=== PATIENT | male | born 1940 | race Caucasian/White ===

== ENCOUNTER → 2019-04-26 09:42 | Outpatient (BNVA) | payer MEDICARE, OTHER, SELFPAY | PROVIDERS: Family Provider Nurse Practitioner Family; PCP Nurse Practitioner Family; Visit Provider Internal Medicine Endocrinology, Diabetes & Metabolism | DX: E11.65 Type 2 diabetes mellitus with hyperglycemia (principal); Z79.4 Long term (current) use of insulin; D64.9 Anemia, unspecified | CPT/HCPCS: 80053; 80061; 82044; 83036; 85025 ==

== ENCOUNTER 2019-06-15 09:08 | Outpatient (CLI) | payer MEDICARE, OTHER, SELFPAY ==
--- NOTE | 2019-06-15 09:30 | XR_ITS ---
WS: [id number] KUB, 06/15/2019 Clinical Data: renal calculus Comparison: KUB, 09/15/2018. Findings: There are calcifications overlying the right kidney in the right upper quadrant which have a well-def ined rim and a lower density center. The largest of these measures 2.04 cm. These could be in the he patic flexure. No small renal calculi are seen. There are no left renal calculi noted. There are no definite uretera l calculi or or pelvic calculi. There are phleboliths in the pelvis. Degenerative changes of the lumb ar spine is seen. There is fecal material in the colon. XR/XR KUB [id number] Impression: 1. Calcifications in the right upper quadrant which may be in the hepatic flexu re. 2. Negative for definite renal or ureteral calculi.
== END 2019-06-15 09:09 | disposition home or self-care (01) ==
LOC: RAD 09:13
PROVIDERS: Visit Provider Urology
DX: N20.0 Calculus of kidney (principal)
CPT/HCPCS: 74018; 81001

== ENCOUNTER 2019-08-18 07:06 | Outpatient (CLI) | payer MEDICARE, OTHER, SELFPAY ==
--- NOTE | 2019-08-18 07:12 | USCV_ITS ---
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 Dr Prosper Suero MD FAC (Electronically Signed) Final Date: 18 Aug 2019 09:48 S
== END 2019-08-18 07:07 | disposition home or self-care (01) ==
LOC: RAD 07:10
PROVIDERS: PCP Family Medicine; Visit Provider Internal Medicine Cardiovascular Disease
DX: I73.9 Peripheral vascular disease, unspecified (principal); I25.810 Atherosclerosis of coronary artery bypass graft(s) without angina pectoris
CPT/HCPCS: 93922

== ENCOUNTER → 2019-11-12 09:54 | Outpatient (BNVA) | payer MEDICARE, OTHER, SELFPAY | PROVIDERS: PCP Family Medicine; Visit Provider Internal Medicine | DX: E11.51 Type 2 diabetes mellitus with diabetic peripheral angiopathy without gangrene (principal); Z79.4 Long term (current) use of insulin; E78.2 Mixed hyperlipidemia; I10 Essential (primary) hypertension; E11.59 Type 2 diabetes mellitus with other circulatory complications; I25.10 Atherosclerotic heart disease of native coronary artery without angina pectoris; E11.42 Type 2 diabetes mellitus with diabetic polyneuropathy | CPT/HCPCS: 99203 ==

== ENCOUNTER → 2019-11-19 10:41 | Outpatient (BNVA) | payer MEDICARE, OTHER, SELFPAY | PROVIDERS: PCP Family Medicine; Visit Provider Family Medicine | DX: E11.51 Type 2 diabetes mellitus with diabetic peripheral angiopathy without gangrene (principal); Z79.4 Long term (current) use of insulin; E11.59 Type 2 diabetes mellitus with other circulatory complications; I25.10 Atherosclerotic heart disease of native coronary artery without angina pectoris; D50.9 Iron deficiency anemia, unspecified; E78.2 Mixed hyperlipidemia; I10 Essential (primary) hypertension; K59.09 Other constipation | CPT/HCPCS: 80053; 80061; 83036; 85025 ==

== ENCOUNTER → 2019-12-14 08:07 | Outpatient (BNVA) | payer MEDICARE, OTHER, SELFPAY | PROVIDERS: PCP Family Medicine; Visit Provider Internal Medicine | DX: E11.51 Type 2 diabetes mellitus with diabetic peripheral angiopathy without gangrene (principal); E11.59 Type 2 diabetes mellitus with other circulatory complications; I25.10 Atherosclerotic heart disease of native coronary artery without angina pectoris; E11.42 Type 2 diabetes mellitus with diabetic polyneuropathy; Z79.4 Long term (current) use of insulin; E78.2 Mixed hyperlipidemia; E87.5 Hyperkalemia; I10 Essential (primary) hypertension | CPT/HCPCS: 99214 ==

== ENCOUNTER → 2019-12-27 10:42 | Outpatient (BNVA) | payer MEDICARE, OTHER, SELFPAY | PROVIDERS: PCP Family Medicine; Visit Provider Family Medicine | DX: E11.51 Type 2 diabetes mellitus with diabetic peripheral angiopathy without gangrene (principal); Z79.4 Long term (current) use of insulin | CPT/HCPCS: 80048 ==

== ENCOUNTER → 2020-03-06 08:24 | Outpatient (BNVA) | payer MEDICARE, OTHER, SELFPAY | PROVIDERS: PCP Family Medicine; Visit Provider Internal Medicine | DX: E11.51 Type 2 diabetes mellitus with diabetic peripheral angiopathy without gangrene (principal); Z79.4 Long term (current) use of insulin | CPT/HCPCS: 83036 ==

== ENCOUNTER → 2020-03-14 08:12 | Outpatient (BNVA) | payer MEDICARE, OTHER, SELFPAY | PROVIDERS: PCP Family Medicine; Visit Provider Internal Medicine | DX: E11.42 Type 2 diabetes mellitus with diabetic polyneuropathy (principal); E11.51 Type 2 diabetes mellitus with diabetic peripheral angiopathy without gangrene; Z79.4 Long term (current) use of insulin; E11.59 Type 2 diabetes mellitus with other circulatory complications; I25.10 Atherosclerotic heart disease of native coronary artery without angina pectoris; E78.2 Mixed hyperlipidemia; I10 Essential (primary) hypertension | CPT/HCPCS: 99214 ==

== ENCOUNTER → 2020-03-22 09:25 | Outpatient (BNVA) | payer MEDICARE, OTHER, SELFPAY | PROVIDERS: PCP Family Medicine; Visit Provider Family Medicine | DX: M54.6 Pain in thoracic spine (principal); Z86.19 Personal history of other infectious and parasitic diseases | CPT/HCPCS: 86618; 86666; 86757 ==

== ENCOUNTER 2020-03-27 17:42 | Emergency (ER) | payer MEDICARE, OTHER, SELFPAY ==
[2020-03-27 18:11] VITALS: BP 120/65; PULSE 74; RESP 18; TEMP 37; O2SAT 96; BMI 30.7
--- NOTE | 2020-03-27 18:46 | ED_ITS ---
HPI - Back Pain/Injury General: Chief Complaint: Back Pain/Injury Stated Complaint: BACK PAIN (3 WKS) Time Seen by Provider: 03/27/20 18:30 Source: patient and family (spouse) Mode of arrival: ambulatory Limitations: no limitations History of Present Illness: HPI Narrative: 79-year-old pleasant gentleman presents to the emergency department with his . He reports 3-week history of back pain, upper mid thoracic, previous treatments by his primary care physician include steroid shots, use of Voltaren gel, other kaln-hjz-mytkros medications such as Salonpas and Biofreeze. He reports pain continues, has difficulty finding a comfortable position. He denies weakness of the bilateral upper extremities or lower extremities. History of tick fever, ehrilchiosis. Reports history of similar pain in the past but improves with conservative treatment. His spouse reports he has not been feeling well. MD elicited complaint: back pain Pertinent past history: prior back pain, arthritis and other (DM) Onset (ago): week(s) (3) Timing: constant Severity: moderate Similar Symptoms Previously: Yes Quality: burning, stabbing and throbbing Location: thoracic spine and right upper back Exacerbating factors: movement Relieving factors: immobilization Context: bending Associated symptoms: Reports chills, fatigue and myalgias; Deny abdominal pain, dysuria, fever(s), nausea, syncope, urinary urgency or vomiting Treatments prior to arrival: acetaminophen and other medications Work related injury: No Review of Systems General: Reports: 10 or more systems reviewed and unremarkable except in HPI and below Const: Reports: chills, fatigue and malaise; Denies: fever(s) or body aches Eyes: Denies: change in vision, blurry vision, eye discomfort or eye redness ENMT: Denies: throat pain, hoarseness, dental pain, disequilibrium, nasal discharge, nasal congestion, nasal obstruction or post nasal drip Card: Denies: chest pain, palpitations, irregular heart rhythm, swelling of feet/ankles, lightheadedness, syncope or dyspnea on exertion Resp: Denies: dyspnea, productive cough, non-productive cough, wheezing or chest congestion GI: Denies: abdominal pain, nausea, vomiting, heartburn, constipation or GI cramping : Denies: flank pain, dysuria, urinary frequency or urinary urgency Musc: Reports: neck pain and back pain Skin/Breast: Denies: rash, pruritus, erythema, skin tenderness, skin swelling, changing lesions or changes in skin color Neuro: Denies: headache(s), weakness in extremities or behavioral changes Psych: Denies: anxiety, depression or change in appetite Kwame/Lymph: Denies: easy bruising PFS ED PFS: Medical History (Updated 03/27/20 @ 20:32 by DANILO Rea) Anemia, iron deficiency Balanitis Bilateral kidney stones BPH loc w urin obs/LUTS CAD (coronary artery disease) of artery bypass graft Cholelithiases Chronic constipation Diabetes Diverticulosis Esophagitis, unspecified Gastritis History of foot fracture (~1980) Hyperlipidemia, unspecified Phimosis Spinal stenosis, lumbar region without neurogenic claudication Surgical History History of colonoscopy (~03/16/19) History of coronary artery bypass graft x 3 (~2012) History of esophagogastroduodenoscopy (EGD) (~03/16/19) S/P ureteral stent placement (~2004) Family History Father , at age 86 Diabetes Hyperlipidemia Hypertension Family/Other Diabetes Cancer CAD (coronary artery disease) Hypertension Mother , at age 76 No problems noted. Denies family history of Anesthesia complication Social History Smoking and tobacco status: former smoker Quit status (tobacco): has quit using tobacco Alcohol intake: never Caregiver/support person: Yes Lives independently: Yes Household members: spouse Housing: House Marital status: Current occupational status: retired Previous occupational history: [employer] History of recent travel: No Current gender identity: Male Physical Exam Const: COMMON NORMALS: no acute distress, patient oriented x3, healthy appearing, alert and well nourished EXAM LIMITATIONS: no altered mental status and no physical limitations GENERAL APPEARANCE: cooperative, comfortable, well kempt and well hydrated; not ill appearing NUTRITIONAL APPEARANCE: overweight ORIENTATION/CONSCIOUSNESS: Yes awake, Yes oriented to person, Yes oriented to place and Yes oriented to time; not confused HENMT: COMMON NORMALS: normocephalic, atraumatic, external ears normal, Normal external nose present and moist oral mucous membranes HEAD & SCALP: normal to inspection, normocephalic and atraumatic; no raccoon eyes and no scalp tenderness FACE & SINUS: normal facial exam, sinuses nontender and face symmetric NOSE: Normal external nose present, Normal nares present and No nasal discharge present EXTERNAL EAR: Yes external ears normal MOUTH: Normal oral and palatal mucosa present, lip normal and tongue normal THROAT: posterior oropharynx normal Eye: COMMON NORMALS: Equal, round and reactive pupils present and EOMs intact bilaterally GENERAL EYE: appearance normal, both eyes and all related structures PUPIL: Yes Equal, round and reactive pupils present Neck/C-Spine: COMMON NORMALS: full ROM, no lymphadenopathy and supple GENERAL: Yes normal visual inspection, Yes trachea midline and No anterior neck swelling CERVICAL SPINE: Yes cervical ROM normal, Yes pain with cervical ROM with rotation to the right, Yes Cervical spine tenderness C4, C5, C6 and C7, Yes Paracervical muscle tenderness right, No Paracervical spasm and Yes Trapezius muscle tenderness Lymph: LYMPHATIC: no lymphadenopathy noted Chest: COMMONS NORMALS: normal inspection of the chest and normal palpation of entire chest wall CHEST: No localized rib tenderness with anteroposterior compression Resp: COMMON NORMALS: normal respiratory effort, No retractions, No use of accessory muscles and clear to auscultation bilaterally EFFORT & INSPECTION: Yes able to speak in complete sentences, Yes symmetric chest movement, No pursed lip breathing and No labored AUSCULTATION: clear to auscultation bilaterally, no rhonchi and no wheezes Cardio: COMMON NORMALS: regular rate, regular rhythm, S1 normal heart sound present, S2 normal heart sound present and Peripheral pulses 2+ throughout RATE: regular rate RHYTHM: regular rhythm HEART SOUNDS: S1 normal heart sound present and S2 normal heart sound present PERIPHERAL PULSES: Peripheral pulses 2+ throughout GI: COMMON NORMALS: Soft to palpation and non-tender INSPECTION: Yes normal to inspection PALPATION: Yes Soft to palpation : COMMON NORMALS: Yes no CVA tenderness BLADDER/KIDNEY EXAM: Yes no CVA tenderness Back/Pelvis: COMMON NORMALS: no CVA tenderness, thoracic and lumbar spine normal to inspection and straight leg raise negative bilaterally THORACIC SPINE/UPPER BACK: Yes normal to inspection, Yes thoracic spinal tenderness T- spine tenderness location: T1, T2, T3 and T4, Yes paraspinal muscle tenderness Thoracic paraspinal muscle tenderness: right and Yes other soft tissue findings (laterally to the scapula (rt), stops proximal posterior shoulder) Other thoracic soft tissue findings laterality: right LUMBAR SPINE/LOWER BACK: Yes normal to inspection, Yes lumbar ROM normal, No pain with ROM, No lumbar spinal tenderness and No paraspinal muscle spasm Extremity: COMMON NORMALS: normal to inspection and capillary refill normal GENERAL: Yes normal exam except as noted RIGHT UPPER EXTREMITY: Yes shoulder joint (normal) Right shoulder: Yes Right shoulder joint inspection exam, Yes Right shoulder joint ROM exam (limited posterior rotation, ROM rt shoulder ) and Yes Right shoulder joint neurovascular exam (distally intact) Neuro: COMMON NORMALS: patient oriented x3 and no focal motor deficits SENSORIUM/ORIENTATION: Yes alert, Yes oriented to person, Yes oriented to place and Yes oriented to time Psych: COMMON NORMALS: mental status grossly normal, Normal thought process present and cooperative APPEARANCE: Yes well kempt ACTIVITY/MOTOR BEHAVIOR: Yes appropriate eye contact THOUGHT PROCESS: Normal thought process present Skin: COMMON NORMALS: no rashes or lesions noted and turgor normal GENERAL SKIN EXAM: no rashes or lesions noted and turgor normal Course ED course: Pleasant 79-year-old male patient presents to the emergency department with his with 3-week history of thoracic/cervical spine pain. Pain radiates to the right posterior shoulder/scapula. Mid spinal cervical and thoracic tenderness, pain radiates to the right scapula. He reports history of similar episode last year, gabapentin and physical therapy completed and alleviated symptoms. CT scan of the cervical spine revealed cervical stenosis with spondylosis changes. Degenerative disc disease also appreciated to the thoracic spine. He is not exhibiting radiculopathy symptoms. ESR 17, CRP normal, he is anemic, hemoglobin 9.1, negative leukocytosis, chemistry With slight glucose elevation, otherwise normal. Results discussed, steroids not indicated secondary to history of insulin-dependent diabetes. He has recently received steroids which elevated his blood sugar. He continues on ibuprofen, diclofenac with Voltaren topical, discussed my concern with increased use of NSAIDs. Advised would need to follow-up with his primary care physician for gabapentin prescription. Prescription for physical therapy provided, rn social work will contact patient for therapy services at [facility] per his request. He was advised to take Tylenol at the 1 g dosing 3 times daily. Lidoderm patches was prescribed. Advised to return to the emergency department if he developed fever, increased pain, radiculopathy symptoms or other concerning findings. Vital Signs: Vital signs: Vital Signs Temperature 98.6 F 03/27/20 18:11 Pulse Rate 74 03/27/20 18:11 Respiratory Rate 18 03/27/20 18:11 Blood Pressure 120/65 03/27/20 18:11 Pulse Oximetry 96 03/27/20 18:11 MDM - Back Pain/Injury Differential Diagnosis: Differential diagnosis back pain/injury: Likely lumbar radiculopathy (rotator cuff rt, cervical spondylosis/stenosis) Lab Data: Labs: Lab Results 03/27/20 03/27/20 03/27/20 Range/Units 19:00 19:00 19:00 WBC 7.8 (4.0-10.0) 10^3/ uL RBC 2.51 L (4.1-5.3) 10^6/u L Hgb 9.1 L (11.7-16.6) g/dL Hct 27.1 L (42.0-52.0) % MCV 108.0 H (80-94) fL MCH 36.3 H (28.0-34.0) pg MCHC 33.6 (30.0-36.0) g/dL RDW 18.6 H (12.1-15.1) % Plt Count 183 (130-400) 10^3/c mm MPV 9.0 (7.4-10.4) fL Neut % (Auto) 45.1 % Lymph % (Auto) 41.0 % [place] % (Auto) 11.0 % Eos % (Auto) 1.9 % Baso % (Auto) 1.0 % Neut # (Auto) 2.64 (1.8-7.7) 10^3/u L Lymph # (Auto) 3.2 (0.8-4.8) 10^3/u L [place] # (Auto) 0.9 (0.2-0.9) 10^3/u L Eos # (Auto) 0.2 (0.0-0.8) 10^3/u L Baso # (Auto) 0.1 (0.0-0.1) 10^3/u L Nucleated RBC % (a uto) 1.0 % Nucleated RBCs # 0.1 /100WBC ESR 17 H (0-10) mm/hr Sodium 138 (136-145) mmol/L Potassium 4.4 (3.5-5.1) mmol/L Chloride 104 (98-107) mmol/L Carbon Dioxide 28 (22-29) mmol/L Anion Gap 10.4 (5-19) BUN 15 (8-23) mg/dL Creatinine 1.0 (0.7-1.2) mg/dL GFR Calculation Not Reportable Glucose 186 H (65-115) mg/dL Calculated Osmolal ity 292 (285-295) mOsm/k g Calcium 9.4 (8.5-10.5) mg/dL Total Bilirubin 0.5 (0.15-1.2) mg/dL AST 13 (0-40) U/L ALT 17 (0-41) U/L Alkaline Phosphata se 63 (40-130) IU/L C-Reactive Protein 0.3 (0.0-4.9) mg/L Total Protein 6.5 L (6.6-8.7) g/dL Albumin 4.1 (3.5-5.2) g/dL Globulin 2.4 (1.3-4.6) g/dL Imaging Data^: Other CT: Radiologist's impression: [address] [address] [address] Scan Report Signed Patient: Corby Belcher Unit #: [id number] : 1940 Age/Sex: 79 / M ADM Date: 03/27/20 Loc: ER Room/Bed: Attending Dr: Ordering Provider/Ordering MD: Yanira Womack Date of Service: 03/27/20 Procedure(s): CT thoracic spin wo con* [id number] Accession Number(s): [id number] Report Number: [id number] PROCEDURE INFORMATION: Exam: CT Thoracic Spine Without Contrast Exam date and time: 03/27/2020 6:47 PM Age: 79 years old Clinical indication: Pain in thoracic spine; Prior surgery; Surgery type: Bypass; Additional info: Thoracic spine pain TECHNIQUE: Imaging protocol: Computed tomography images of the thoracic spine without contrast. Radiation optimization: All CT scans at this facility use at least one of these dose optimization techniques: automated exposure control; mA and/or kV adjustment per patient size (includes targeted exams where dose is matched to clinical indication); or iterative reconstruction. COMPARISON: [place]acic [place] IV* [id number] 07/08/2018 1:23 PM RADIATION DOSE METRICS: Total DLP (mGy-cm): 2333.44 FINDINGS: Vertebrae: No acute fracture. No significant scoliosis demonstrated. T1-T2: Severe degenerative disc narrowing. No spinal canal or neural foraminal stenosis. T2-T3: Severe degenerative disc narrowing no central spinal canal stenosis. Mild bilateral neural foraminal stenosis. T3-T4: Severe degenerative disc narrowing. No central spinal canal stenosis. Mild bilateral neural foraminal stenosis. T4-T5: Moderate degenerative disc narrowing. No spinal canal or neural foraminal stenosis. T5-T6: Severe degenerative disc narrowing. No spinal canal or neural foraminal stenosis. T6-T7: Mild chronic anterior wedge compression of T6 and T7 vertebral bodies. Severe disc degeneration with ankylosis of the disc space. No spinal canal or neural foraminal stenosis. T7-T8: Severe degenerative disc narrowing. No spinal canal or neural foraminal stenosis. T8-T9: Degenerative narrowing and ankylosis of the disc space. No spinal canal or neural foraminal stenosis. T9-T10: Advanced degenerative disc narrowing. No spinal canal or neural foraminal stenosis. T10-T11: No significant disc protrusion. No severe spinal canal stenosis. No significant neural foraminal narrowing. T11-T12: No significant disc protrusion. No severe spinal canal stenosis. No significant neural foraminal narrowing. T12-L1: No significant disc protrusion. No severe spinal canal stenosis. No significant neural foraminal narrowing. CT/CT thoracic spin wo con* [id number] IMPRESSION: 1. Advanced intervertebral disc degeneration from T1-2 through T9-10. 2. Mild chronic anterior wedge compression of T6 and T7 vertebral bodies. No acute fractures are demonstrated. 3. There is no interval change from the prior examination of 07/08/2018. Radiation Dose CTDIVOL = (mGy): DLP = 2333.44 (mGy-cm) Dictated By: Harish Beauchamp MD Signed By: Harish Beauchamp MD Signed Date/Time: 03/27/201938 DD/ 37 Other Imaging: Radiologist's impression: [facility] [address] [address] [address] Scan Report Signed Patient: Corby Belcher Unit #: [id number] : 1940 Age/Sex: 79 / M ADM Date: 03/27/20 Loc: ER Room/Bed: Attending Dr: Ordering Provider/Ordering MD: Yanira Womack Date of Service: 03/27/20 Procedure(s): CT cervical spin wo con* [id number] Accession Number(s): [id number] Report Number: [id number] PROCEDURE INFORMATION: Exam: CT Cervical Spine Without Contrast Exam date and time: 03/27/2020 6:47 PM Age: 79 years old Clinical indication: Neck pain; Patient HX: Pain between shoulders; Additional info: Cervical spine pain TECHNIQUE: Imaging protocol: Computed tomography images of the cervical spine without contrast. Radiation optimization: All CT scans at this facility use at least one of these dose optimization techniques: automated exposure control; mA and/or kV adjustment per patient size (includes targeted exams where dose is matched to clinical indication); or iterative reconstruction. COMPARISON: No relevant prior studies available. RADIATION DOSE METRICS: Total DLP (mGy-cm): 838.98 FINDINGS: Vertebrae: No acute fracture. Normal alignment. C2-C3: Normal disc height. No disc bulge or protrusion. No spinal canal or neural foraminal stenosis. C3-C4: Severe degenerative disc narrowing. Degenerative changes of the uncovertebral joints. Posterior disc/osteophyte complex. Mild spinal canal stenosis. Moderate bilateral foraminal stenosis. C4-C5: Severe degenerative disc narrowing. Posterior disc/osteophyte complex. Moderate spinal canal stenosis. Severe right and moderate left foraminal stenosis. C5-C6: Severe degenerative disc narrowing. Posterior disc/osteophyte complex. Moderate spinal canal stenosis. Moderate to severe bilateral foraminal stenosis. C6-C7: Severe degenerative disc narrowing. Posterior disc/osteophyte complex. Moderate spinal canal stenosis. Severe right and moderate left foraminal stenosis. C7-T1: Moderate degenerative disc narrowing. No spinal canal or neural foraminal stenosis. Soft tissues: The soft tissues appear unremarkable. Lungs: No infiltrates at the lung apices. Pleural space: No apical pneumothorax demonstrated. CT/CT cervical spin wo con* [id number] IMPRESSION: 1. Spondylitic changes are noted from C3 through T1. There is spinal canal stenosis demonstrated at each cervical disc level from C3-C4 through C6-C7. This is associated with neural foraminal stenosis, as detailed above. 2. No compression fractures or other acute osseous abnormalities noted. Radiation Dose CTDIVOL = (mGy): DLP = 838.98 (mGy-cm) Dictated By: Harish Beauchamp MD Signed By: Harish Beauchamp MD Signed Date/Time: 03/27/201930 DD/ 30 Discharge Plan Discharge Patient Disposition: Home Clinical Impression: Spondylosis of cervical spine, Degenerative disc disease, thoracic Anemia Qualifiers: Anemia type: unspecified type Qualified Code(s): D64.9 - Anemia, unspecified Condition: Stable Prescriptions: New Lidoderm 5 % adhesive patch,medicated 1 patch topical BID PRN (Reason: back pain) Qty: 30 RF: 0 No Action ibuprofen 200 mg tablet 200 mg PO Q6H PRN (Reason: Pain) RF: 0 diphenhydramine HCl [Benadryl] 25 mg capsule 25 mg PO DAILY PRN (Reason: Allergy Symptoms) RF: 0 magnesium oxide 250 mg magnesium tablet 250 mg PO DAILY@0700 RF: 0 multivitamin Tablet 1 tab PO DAILY@0700 RF: 0 (DME) Comfort EZ [place] 32 gauge x 5/16 needle See Rx Instructions .ROUTE .MEDSUPPLY Qty: 100 RF: 5 cyclobenzaprine 10 mg tablet 10 mg PO TID PRN (Reason: muscle spasm) Qty: 30 RF: 0 Lipitor 10 mg tablet 10 mg PO DAILY@1800 RF: 0 aspirin 81 mg tablet,delayed release (DR/EC) 81 mg PO DAILY@1800 RF: 0 tamsulosin 0.4 mg capsule 0.4 mg PO DAILY@1800 RF: 0 pantoprazole 40 mg tablet,delayed release (DR/EC) 40 mg PO DAILY@0700 RF: 0 ferrous sulfate 325 mg (65 mg iron) tablet 325 mg PO DAILY@0700 RF: 0 nystatin-triamcinolone 100,000-0.1 unit/g-% cream 1 applic TOPICAL BID@0700,1800 RF: 0 diclofenac sodium 75 mg tablet,delayed release (DR/EC) 75 mg PO BID@07,18 RF: 0 Miralax 17 gram/dose powder 17 gm PO DAILY@0700 RF: 0 losartan 100 mg tablet 100 mg PO DAILY@0700 RF: 0 metformin 500 mg tablet extended release 24 hr 1,000 mg PO BID@0700,1800 RF: 0 metoprolol tartrate 25 mg tablet 12.5 mg PO BID@0700,1800 RF: 0 Levemir FlexTouch U-100 Insuln 100 unit/mL (3 mL) insulin pen 20 unit SUBCUT BEDTIME@1999 RF: 0 Voltaren 1 % gel 2 gm TOPICAL QID@07,11,18, RF: 0 Victoza 3-Andrea 0.6 mg/0.1 mL (18 mg/3 mL) pen injector 1.2 mg SUBCUT DAILY@0700 RF: 0 Discharge Orders: Discharge ED (Routine); Ordered 03/27/20 Ordered By: Yanira Womack Referrals: Carmen Valente MD [Primary Care Provider] - Discharge Diet: Usual diet Discharge Activity: Limit activity as instructed Patient Instructions: Cervical Spinal Stenosis (ED), Degenerative Disc Disease (ED) Activity Restrictions/Additional Instructions: Sleep on supportive pillow Continue with warm moist heat several times daily, never apply heat directly to the skin Physical therapy as directed, rn social work will be contacting you with an appointment time and date in [facility] Return to the emergency department if you develop weakness of the legs or arms Take it easy over the next couple of days, follow-up with your primary care provider this week without fail Anemia was also appreciated on your laboratory findings tonight. You will need follow-up for this. Take Tylenol, 1 g 3 times daily, 2 tablets, 500 mg each Coding Level of Care Code ED Recycling Collections Driver for Chg Fwd Exam Comprehensive
[2020-03-27 19:05] LABS: Basophils # 0.1 10^3/uL (0.0-0.1); Eosinophils # 0.2 10^3/uL (0.0-0.8); Eosinophils % 1.9 %; Hematocrit 27.1 % (42.0-52.0); Hemoglobin 9.1 g/dL (11.7-16.6); Lymphocytes # 3.2 10^3/uL (0.8-4.8); Mean Corpuscular HGB Conc 33.6 g/dL (30.0-36.0); Mean Corpuscular Hemoglobin 36.3 pg (28.0-34.0); Monocytes # 0.9 10^3/uL (0.2-0.9); Neutrophils # 2.64 10^3/uL (1.8-7.7); Nucleated Red Blood Cells # 0.1 /100WBC; Platelet Count 183 10^3/cmm (130-400); Red Blood Count 2.51 10^6/uL (4.1-5.3); Red Cell Distribution Width 18.6 % (12.1-15.1); White Blood Count 7.8 10^3/uL (4.0-10.0)
[2020-03-27 19:09] LABS: Neutrophils % 45.1 %
[2020-03-27] MEDS: HYDROcodone-acetaminophen 5-325 mg Tablet 1 TAB PO (19:14)
[2020-03-27 19:25] LABS: Alanine Aminotransferase 17 U/L (0-41); Albumin Level 4.1 g/dL (3.5-5.2); Alkaline Phosphatase 63 IU/L (40-130); Anion Gap 10.4 (5-19); Aspartate Amino Transferase 13 U/L (0-40); Blood Urea Nitrogen 15 mg/dL (8-23); C Reactive Protein 0.3 mg/L (0.0-4.9); Calcium 9.4 mg/dL (8.5-10.5); Carbon Dioxide 28 mmol/L (22-29); Chloride 104 mmol/L (98-107); Globulin 2.4 g/dL (1.3-4.6); Glucose 186 mg/dL (65-115); Osmolality Calculated 292 mOsm/kg (285-295); Potassium 4.4 mmol/L (3.5-5.1); Sodium 138 mmol/L (136-145); Total Bilirubin 0.5 mg/dL (0.15-1.2); Total Protein 6.5 g/dL (6.6-8.7)
[2020-03-27 19:53] LABS: Erythrocyte Sedimentation Rate 17 mm/hr (0-10)
--- NOTE | 2020-03-29 08:43 | DCPLANNER ---
flight attendant/inflight manager had message to schedule out patient physical therapy for patient. flight attendant/inflight manager sent order to [facility] rehab for physical therapy services at the [facility]. Rehab services will call patient to schedule time for patient.
== END 2020-03-27 20:39 | disposition home or self-care (01) ==
PROVIDERS: Emergency Provider Nurse Practitioner Family; PCP Family Medicine
DX: M47.812 Spondylosis without myelopathy or radiculopathy, cervical region (principal); M51.34 Other intervertebral disc degeneration, thoracic region; D64.9 Anemia, unspecified; Z79.82 Long term (current) use of aspirin; Z79.4 Long term (current) use of insulin; I25.810 Atherosclerosis of coronary artery bypass graft(s) without angina pectoris; E11.9 Type 2 diabetes mellitus without complications; E78.5 Hyperlipidemia, unspecified; Z95.1 Presence of aortocoronary bypass graft; Z87.891 Personal history of nicotine dependence
CPT/HCPCS: 12345; 72125; 72128; 80053; 85025; 85651; 86140; 99282; 99283

== ENCOUNTER → 2020-03-28 16:28 | Outpatient (BNVA) | payer MEDICARE, OTHER, SELFPAY | PROVIDERS: PCP Family Medicine; Visit Provider Family Medicine | DX: D64.9 Anemia, unspecified (principal); Z09 Encounter for follow-up examination after completed treatment for conditions other than malignant neoplasm; M51.34 Other intervertebral disc degeneration, thoracic region | CPT/HCPCS: 82607 ==

== ENCOUNTER 2020-03-30 12:18 | Outpatient (RCR) | payer MEDICARE, OTHER, SELFPAY | END 2020-04-13 23:59 | disposition home or self-care (01) | LOC: SPT 12:18 | PROVIDERS: PCP Family Medicine; Referring Provider Nurse Practitioner Family; Visit Provider Nurse Practitioner Family | DX: M54.9 Dorsalgia, unspecified (principal) | CPT/HCPCS: 97032; 97110; 97140; 97161 ==

== ENCOUNTER 2020-04-14 06:00 | Outpatient (RCR) | payer MEDICARE, OTHER, SELFPAY | END 2020-05-14 23:59 | disposition home or self-care (01) | LOC: SPT 06:00 | PROVIDERS: PCP Family Medicine; Referring Provider Nurse Practitioner Family; Visit Provider Nurse Practitioner Family | DX: M48.02 Spinal stenosis, cervical region (principal); G89.29 Other chronic pain | CPT/HCPCS: 97032; 97110 ==

== ENCOUNTER → 2020-06-07 10:19 | Outpatient (BNVA) | payer MEDICARE, OTHER, SELFPAY | PROVIDERS: PCP Family Medicine; Visit Provider Internal Medicine | DX: E11.51 Type 2 diabetes mellitus with diabetic peripheral angiopathy without gangrene (principal); Z79.4 Long term (current) use of insulin; E78.2 Mixed hyperlipidemia | CPT/HCPCS: 80061; 83036 ==

== ENCOUNTER → 2020-06-13 08:42 | Outpatient (BNVA) | payer MEDICARE, OTHER, SELFPAY | PROVIDERS: PCP Family Medicine; Visit Provider Internal Medicine | DX: E11.42 Type 2 diabetes mellitus with diabetic polyneuropathy (principal); E11.51 Type 2 diabetes mellitus with diabetic peripheral angiopathy without gangrene; E11.59 Type 2 diabetes mellitus with other circulatory complications; I25.10 Atherosclerotic heart disease of native coronary artery without angina pectoris; Z79.4 Long term (current) use of insulin; E78.2 Mixed hyperlipidemia | CPT/HCPCS: 99214 ==

== ENCOUNTER 2020-08-16 09:31 | Outpatient (CLI) | payer MEDICARE, OTHER, SELFPAY ==
--- NOTE | 2020-08-16 09:41 | XR_ITS ---
WS: [id number] KUB, AP view, today Clinical Data: RENAL STONES Comparison: KUB, 06/15/2019. Findings: There are oval calcifications overlying the right upper quadrant. These appear to be multiple gallsto leon. No renal calcifications are seen.Small phleboliths are seen in the true pelvis. There are also v ascular calcifications. XR/XR KUB [id number] Impression: 1. Probable gallstones. 2. Negative for renal or ureteral calcifications.
== END 2020-08-16 09:32 | disposition home or self-care (01) ==
LOC: RAD 09:38
PROVIDERS: PCP Family Medicine; Visit Provider Urology
DX: N20.0 Calculus of kidney (principal)
CPT/HCPCS: 74018; 81003

== ENCOUNTER 2020-12-16 07:16 | Outpatient (CLI) | payer MEDICARE, OTHER, SELFPAY ==
[2020-12-16 07:20] VITALS: BP 122/70; PULSE 74; RESP 18; TEMP 36.9; O2SAT 96; BMI 30.5
[2020-12-16 08:00] VITALS: BP 113/64; PULSE 75; RESP 17; O2SAT 94
[2020-12-16 09:00] VITALS: BP 121/74; PULSE 72; RESP 18; TEMP 36.9
== END 2020-12-16 07:17 | disposition home or self-care (01) ==
LOC: OPS 07:16
PROVIDERS: PCP Family Medicine; Visit Provider Nurse Practitioner Family
DX: U07.1 COVID-19 (principal)
CPT/HCPCS: 96365

== ENCOUNTER → 2021-01-31 11:26 | Outpatient (BNVA) | payer MEDICARE, OTHER, SELFPAY | PROVIDERS: PCP Family Medicine; Visit Provider Family Medicine | DX: D64.9 Anemia, unspecified (principal); E11.51 Type 2 diabetes mellitus with diabetic peripheral angiopathy without gangrene; E78.2 Mixed hyperlipidemia; I10 Essential (primary) hypertension; K29.70 Gastritis, unspecified, without bleeding; Z79.4 Long term (current) use of insulin; Z76.0 Encounter for issue of repeat prescription; Z71.89 Other specified counseling | CPT/HCPCS: 80053; 80061; 83036; 84443; 85025; G0103 ==

== ENCOUNTER → 2021-03-16 10:26 | Outpatient (BNVA) | payer MEDICARE, OTHER, SELFPAY | PROVIDERS: PCP Family Medicine; Visit Provider Internal Medicine | DX: E11.42 Type 2 diabetes mellitus with diabetic polyneuropathy (principal); E11.51 Type 2 diabetes mellitus with diabetic peripheral angiopathy without gangrene; E11.59 Type 2 diabetes mellitus with other circulatory complications; E78.2 Mixed hyperlipidemia; I25.10 Atherosclerotic heart disease of native coronary artery without angina pectoris; Z79.84 Long term (current) use of oral hypoglycemic drugs; Z79.4 Long term (current) use of insulin | CPT/HCPCS: 99214 ==

== ENCOUNTER → 2021-05-23 08:39 | Outpatient (BNVA) | payer MEDICARE, OTHER, SELFPAY | PROVIDERS: PCP Family Medicine; Visit Provider Internal Medicine | DX: E11.51 Type 2 diabetes mellitus with diabetic peripheral angiopathy without gangrene (principal); E11.42 Type 2 diabetes mellitus with diabetic polyneuropathy; E11.59 Type 2 diabetes mellitus with other circulatory complications; I25.10 Atherosclerotic heart disease of native coronary artery without angina pectoris; Z79.4 Long term (current) use of insulin | CPT/HCPCS: 83036 ==

== ENCOUNTER → 2021-05-30 08:33 | Outpatient (BNVA) | payer MEDICARE, OTHER, SELFPAY | PROVIDERS: PCP Family Medicine; Visit Provider Internal Medicine | DX: E11.59 Type 2 diabetes mellitus with other circulatory complications (principal); E11.42 Type 2 diabetes mellitus with diabetic polyneuropathy; E11.51 Type 2 diabetes mellitus with diabetic peripheral angiopathy without gangrene; I25.10 Atherosclerotic heart disease of native coronary artery without angina pectoris; E78.2 Mixed hyperlipidemia; R11.10 Vomiting, unspecified; Z79.84 Long term (current) use of oral hypoglycemic drugs | CPT/HCPCS: 99214 ==

== ENCOUNTER → 2021-07-04 08:44 | Outpatient (BNVA) | payer MEDICARE, OTHER, SELFPAY | PROVIDERS: PCP Family Medicine; Visit Provider Internal Medicine | DX: E11.51 Type 2 diabetes mellitus with diabetic peripheral angiopathy without gangrene (principal); I10 Essential (primary) hypertension; E78.5 Hyperlipidemia, unspecified; D50.9 Iron deficiency anemia, unspecified | CPT/HCPCS: 80053; 80061; 85025 ==

== ENCOUNTER → 2021-08-13 13:53 | Outpatient (BNVA) | payer MEDICARE, OTHER, SELFPAY | PROVIDERS: PCP Family Medicine; Visit Provider Internal Medicine Cardiovascular Disease | DX: I73.9 Peripheral vascular disease, unspecified (principal); I25.810 Atherosclerosis of coronary artery bypass graft(s) without angina pectoris; I10 Essential (primary) hypertension; Z87.891 Personal history of nicotine dependence | CPT/HCPCS: 99214 ==

== ENCOUNTER → 2021-08-27 08:55 | Outpatient (BNVA) | payer MEDICARE, OTHER, SELFPAY | PROVIDERS: PCP Family Medicine; Visit Provider Internal Medicine | DX: E11.59 Type 2 diabetes mellitus with other circulatory complications (principal); I25.10 Atherosclerotic heart disease of native coronary artery without angina pectoris; E11.51 Type 2 diabetes mellitus with diabetic peripheral angiopathy without gangrene | CPT/HCPCS: 83036 ==

== ENCOUNTER → 2021-11-22 09:40 | Outpatient (BNVA) | payer MEDICARE, OTHER, SELFPAY | PROVIDERS: PCP Family Medicine; Visit Provider Internal Medicine | DX: E11.51 Type 2 diabetes mellitus with diabetic peripheral angiopathy without gangrene (principal); E11.59 Type 2 diabetes mellitus with other circulatory complications; I25.10 Atherosclerotic heart disease of native coronary artery without angina pectoris | CPT/HCPCS: 83036 ==

== ENCOUNTER → 2021-11-28 08:27 | Outpatient (BNVA) | payer MEDICARE, OTHER, SELFPAY | PROVIDERS: PCP Family Medicine; Visit Provider Internal Medicine | DX: Z79.84 Long term (current) use of oral hypoglycemic drugs (principal); Z87.891 Personal history of nicotine dependence; E11.42 Type 2 diabetes mellitus with diabetic polyneuropathy; E11.51 Type 2 diabetes mellitus with diabetic peripheral angiopathy without gangrene; E78.2 Mixed hyperlipidemia; E11.59 Type 2 diabetes mellitus with other circulatory complications; I25.10 Atherosclerotic heart disease of native coronary artery without angina pectoris | CPT/HCPCS: 99214 ==

== ENCOUNTER → 2021-12-25 13:21 | Outpatient (BNVA) | payer MEDICARE, OTHER, SELFPAY | PROVIDERS: PCP Family Medicine; Visit Provider Nurse Practitioner Family | DX: M54.6 Pain in thoracic spine (principal); D64.9 Anemia, unspecified; E11.51 Type 2 diabetes mellitus with diabetic peripheral angiopathy without gangrene; D50.9 Iron deficiency anemia, unspecified; M54.41 Lumbago with sciatica, right side | CPT/HCPCS: 80053; 80061; 81000; 82607; 82728; 82746; 83550; 85025 ==

== ENCOUNTER 2021-12-27 09:40 | Outpatient (CLI) | payer MEDICARE, OTHER, SELFPAY ==
--- NOTE | 2021-12-27 09:53 | XR_ITS ---
WS: [id number] Lumbar spine, 3 views, 12/27/2021 Clinical Data: M54.9 - Dorsalgia, unspecified Comparison: Lateral lumbar spine, 06/11/2018. Findings: No compression fractures or subluxation is seen. There is degenerative disc narrowing at all lumbar l evels. There is anterior osteoarthritic arthritic spurring. Facet joint arthritis is present at all l umbar levels. The transverse processes and SI joints are normal. There is calcification of the wall of the abdominal aorta but no aneurysm. XR/XR lumbar spine 2-3V* [id number] Impression: 1. Osteoarthritis and facet joint arthritis at all lumbar levels. 2. Multilevel degenerative disc disease.
--- NOTE | 2021-12-27 09:53 | XR_ITS ---
WS: [id number] Thoracic spine, 3 views, 12/27/2021 Clinical Data: M54.9 - Dorsalgia, unspecified Comparison: Thoracic spine, 06/11/2018. Findings: No new compression fractures are seen. There are wedge deformities of the midthoracic vertebral jamal s probably T5-T9. Anterior osteoarthritic spurring change of all the vertebral bodies is seen. The ky phosis remains the same. There is disc space narrowing in the midthoracic region.. There is a slight levoscoliosis. The para spinal regions are normal. Midline sternotomy sutures with fractured wires are again seen. XR/XR thoracic spine 3V* [id number] Impression: 1. No change in wedge deformities of mid thoracic vertebral bodies and disc angélica rowing. 2. No change in osteoarthritis and levoscoliosis.
== END 2021-12-27 09:41 | disposition home or self-care (01) ==
LOC: RAD 09:43
PROVIDERS: PCP Family Medicine; Visit Provider Nurse Practitioner Family
DX: M47.816 Spondylosis without myelopathy or radiculopathy, lumbar region (principal); M51.36 Other intervertebral disc degeneration, lumbar region; M41.84 Other forms of scoliosis, thoracic region; M47.814 Spondylosis without myelopathy or radiculopathy, thoracic region; M48.04 Spinal stenosis, thoracic region; M43.8X4 Other specified deforming dorsopathies, thoracic region
CPT/HCPCS: 72072; 72100

== ENCOUNTER → 2021-12-31 10:55 | Outpatient (BNVA) | payer MEDICARE, OTHER, SELFPAY | PROVIDERS: PCP Family Medicine; Visit Provider Nurse Practitioner Family | DX: D64.9 Anemia, unspecified (principal) | CPT/HCPCS: 82270 ==

== ENCOUNTER 2022-01-01 13:07 | Oncology outpatient (recurring) (ONCR) | payer MEDICARE, OTHER, SELFPAY ==
[2022-01-01 14:40] LABS: Reticulocyte % 2.4 % (0.5-2.0)
[2022-01-01 14:42] LABS: Hematocrit 26.5 % (42.0-52.0); Hemoglobin 9.1 g/dL (11.7-16.6); Mean Corpuscular HGB Conc 34.3 g/dL (30.0-36.0); Mean Corpuscular Hemoglobin 38.2 pg (28.0-34.0); Mean Corpuscular Volume 111.3 fl (80-94); Mean Platelet Volume 10.6 fL (7.4-10.4); Platelet Count 228 10^3/cmm (130-400); Red Blood Count 2.38 10^6/uL (4.1-5.3); Red Cell Distribution Width 19.1 % (12.1-15.1); White Blood Count 7.6 10^3/uL (4.0-10.0)
[2022-01-01 14:50] LABS: Erythrocyte Sedimentation Rate 2 mm/hr (0-10)
[2022-01-01 14:54] LABS: LAB Peripheral Smear Sent for Review
[2022-01-01 15:06] LABS: Absolute Segmented Neutrophil 4.6 10/cmm (1.6-7.1); Band Neutrophils Absolute 0.5 10^3/cmm (0.0-1.2); Eosinophils 0 %; Lymphocytes 22 %; Lymphocytes Absolute 1.7 10^3/cmm (1.2-3.4); Monocytes Absolute 0.4 10^3/cmm (0.1-0.6); Platelet Estimate Normal (Normal); Segmented Neutrophils 60 %; Total Cells Counted 100 (0-100)
[2022-01-01 19:57] LABS: Alanine Aminotransferase 104 U/L (0-41); Albumin Level 4.4 g/dL (3.5-5.2); Alkaline Phosphatase 67 U/L (40-130); Anion Gap 14.1 (5-19); Aspartate Amino Transferase 45 U/L (0-40); Blood Urea Nitrogen 29 mg/dL (8-23); Calcium 9.7 mg/dL (8.5-10.5); Carbon Dioxide 27 mmol/L (22-29); Chloride 98 mmol/L (98-107); Ferritin 169 ng/mL (30-400); Globulin 2.9 g/dL (1.3-4.6); Glucose 205 mg/dL (65-115); Iron 116 ug/dL (59-158); Lactate Dehydrogenase 207 U/L (135-225); Osmolality Calculated 290 mOsm/kg (285-295); Percent Saturation 37.1 % (20-50); Potassium 5.1 mmol/L (3.5-5.1); Sodium 134 mmol/L (136-145); Total Bilirubin 1.4 mg/dL (0.15-1.2); Total Iron Binding Capacity 312 mcg/dl; Total Protein 7.3 g/dL (6.6-8.7); Unsaturated Iron Binding 196 ug/dL (112-347)
[2022-01-02 11:52] LABS: PROTEIN, TOTAL 7.3 g/dL (6.1-8.1)
[2022-01-02 12:19] LABS: KAPPA LIGHT CHAIN, FREE, SERUM 24.2 mg/L (3.3-19.4); KAPPA/LAMBDA LIGHT CHAINS FREE 1.35 (0.26-1.65); LAMBDA LIGHT CHAIN, FREE, SERU 17.9 mg/L (5.7-26.3)
[2022-01-02 14:28] LABS: ALBUMIN 4.6 g/dL (3.8-4.8); ALPHA 1 GLOBULIN 0.2 g/dL (0.2-0.3); ALPHA 2 GLOBULIN 0.7 g/dL (0.5-0.9); BETA 1 GLOBULIN 0.4 g/dL (0.4-0.6); BETA 2 GLOBULIN 0.3 g/dL (0.2-0.5); GAMMA GLOBULIN 1.1 g/dL (0.8-1.7)
== END 2022-01-11 23:59 | disposition home or self-care (01) ==
LOC: ONCMED 13:07
PROVIDERS: PCP Family Medicine; Visit Provider Internal Medicine Medical Oncology
DX: D64.9 Anemia, unspecified (principal); Z86.19 Personal history of other infectious and parasitic diseases; Z87.891 Personal history of nicotine dependence
CPT/HCPCS: 36415; 80053; 82728; 83010; 83540; 83550; 83615; 83883; 84155; 84165; 85007; 85025; 85045; 85651; 99204

== ENCOUNTER 2022-01-02 08:42 | Emergency (ER) | payer MEDICARE, OTHER, SELFPAY ==
[2022-01-02 09:00] VITALS: BP 152/61; PULSE 68; RESP 14; TEMP 36.7; O2SAT 96; BMI 30.9
[2022-01-02 11:56] VITALS: RESP 17
[2022-01-02] MEDS: morphine 4 mg/mL SDV 1 mL IM (11:56)
[2022-01-02] MEDS: dexamethasone 10 mg/mL INJ IM (12:01)
[2022-01-02] MEDS: orphenadrine 30 mg/mL Inj 2 mL 60 MG IM (12:02)
--- NOTE | 2022-01-02 12:06 | ED_ITS ---
HPI - Back Pain/Injury General: Chief Complaint: Back Pain/Injury Stated Complaint: back/leg pain Time Seen by Provider: 01/02/22 11:22 Source: patient Mode of arrival: ambulatory Limitations: no limitations History of Present Illness: 81-year-old male presents emergency room with chronic back pain. Several weeks ago he woke up with back pain he seen Dr. Valente since then he had steroid shot was on a steroid taper and some muscle relaxers as well as tramadol he states he still having back pain. It was worse this morning he has not seen Dr. Valente back but did see [facility] last week. He has not had any advanced imaging no recent trauma. No bowel incontinence no urinary retention. Did have plain film x-rays. Which were unremarkable. No chest pain no shortness of breath no vomiting no diarrhea no dysuria urgency or frequency or flank pain. MD elicited complaint: back pain Pertinent past history: prior back pain Onset (ago): week(s) (3) Timing: constant Severity: moderate Similar Symptoms Previously: Yes Quality: aching Location: lumbar spine Radiation: none Exacerbating factors: none Relieving factors: none Associated symptoms: Reports difficulty walking; Deny abdominal pain, arthralgias, chills, change in bowel habits, dysuria, fatigue, fecal incontinence, fever(s), hematuria, myalgias, nausea, numbness, syncope, tingling/numbness/burning, urinary frequency, urinary urgency or vomiting Review of Systems Const: Denies: fever(s), chills or fatigue ENMT: Denies: throat pain, ear or mastoid pain, nasal discharge or nasal congestion Card: Denies: chest pain, palpitations, irregular heart rhythm or syncope Resp: Denies: dyspnea, productive cough or non-productive cough GI: Denies: abdominal pain, nausea, vomiting, fecal incontinence or change in bowel habits : Denies: flank pain, difficulty urinating, dysuria, urinary frequency, urinary urgency or hematuria Skin/Breast: Denies: rash or pruritus Neuro: Reports: difficulty walking [facility] ED PFSH: Medical History (Updated 01/02/22 @ 12:08 by Reji Kemp DO) Anemia Balanitis Bilateral kidney stones BPH loc w urin obs/LUTS Coronary artery disease Esophagitis, unspecified Gastritis History of ehrlichiosis History of foot fracture (~1980) Hyperlipidemia, unspecified Hypertension Phimosis Spinal stenosis, lumbar region without neurogenic claudication Type 2 diabetes mellitus Surgical History (Updated 01/01/22 @ 19:40 by Andrade Brown MD) History of colonoscopy (03/16/19) History of coronary artery bypass graft x 3 (2012) History of esophagogastroduodenoscopy (EGD) (03/16/19) History of shoulder surgery S/P ureteral stent placement (2017) Family History Father , at age 86 Diabetes Hyperlipidemia Hypertension Family/Other Diabetes Cancer CAD (coronary artery disease) Hypertension Mother , at age 76 No problems noted. Denies family history of Anesthesia complication Social History Smoking and tobacco status: former smoker (quit 1981, smoked x 24 years) Quit status (tobacco): has quit using tobacco Alcohol intake: never Caregiver/support person: Yes Lives independently: Yes Household members: spouse Housing: House Marital status: Current occupational status: retired Previous occupational history: [employer] History of recent travel: No Current gender identity: Male Physical Exam Const: COMMON NORMALS: no acute distress GENERAL APPEARANCE: cooperative and comfortable ORIENTATION/CONSCIOUSNESS: Yes awake, Yes oriented to person, Yes oriented to place and Yes oriented to time HENMT: COMMON NORMALS: normocephalic, atraumatic and hearing grossly normal bilaterally HEAD & SCALP: normocephalic and atraumatic Resp: COMMON NORMALS: normal respiratory effort, No retractions, No use of accessory muscles and clear to auscultation bilaterally AUSCULTATION: clear to auscultation bilaterally Cardio: COMMON NORMALS: regular rate, regular rhythm and No murmurs present (Cardio) RATE: regular rate RHYTHM: regular rhythm Extremity: COMMON NORMALS: normal to inspection, capillary refill normal, no clubbing, cyanosis or edema, no calf tenderness and no pedal edema Neuro: SENSORIUM/ORIENTATION: Yes oriented to person, Yes oriented to place and Yes oriented to time Skin: COMMON NORMALS: no rashes or lesions noted GENERAL SKIN EXAM: no rashes or lesions noted Course Vital Signs: Vital signs: Vital Signs Temperature 98.1 F 01/02/22 09:00 Pulse Rate 68 01/02/22 09:00 Respiratory Rate 17 01/02/22 11:56 Blood Pressure 152/61 01/02/22 09:00 Pulse Oximetry 96 01/02/22 09:00 Oxygen Delivery Me thod 01/02/22 09:00 MDM - Back Pain/Injury Medical Decision Making Chronic back pain. Patient was given Norflex morphine and dexamethasone in the ER we will start him on a steroid taper at a higher dose and also change to tizanidine follow-up with Dr. Valente for further evaluation and possible advanced imaging if indicated. Medical Records I reviewed the patient's medical records. Labs I reviewed the patient's lab results. Discharge Plan Discharge Patient Disposition: Home Clinical Impression: Chronic back pain Condition: Stable Prescriptions: New prednisone 20 mg tablet 20 mg PO TID Qty: 15 0RF Rx Instructions: 1 p.o. 3 times daily x3 days, 1 p.o. twice daily x2 days, 1 p.o. daily x2 days tizanidine 4 mg capsule 4 mg PO Q6H PRN (Reason: muscle spasticity) Qty: 20 0RF Rx Instructions: do not exceed 3 doses per 24 hrs No Action Miralax 17 gram/dose powder 17 g PO DAILY@0700 Qty: 765 2RF ibuprofen 200 mg tablet 200 mg PO Q6H PRN (Reason: Pain) diphenhydramine HCl [Benadryl] 25 mg capsule 25 mg PO DAILY PRN (Reason: Allergy Symptoms) magnesium oxide 250 mg magnesium tablet 250 mg PO DAILY@0700 ammonium lactate 12 % cream 1 applic topical BID PRN diclofenac sodium 1 % gel 2 g TOPICAL QID@07,11,18,22 PRN Rx Instructions: apply to shoulder atorvastatin 10 mg tablet See Rx Instructions .ROUTE .COMPLEX Qty: 90 1RF Dose Instruction: TAKE ONE TABLET BY MOUTH DAILY AT 6pm. Rx Instructions: TAKE ONE TABLET BY MOUTH DAILY AT 6pm. ferrous sulfate 325 mg (65 mg iron) tablet 325 mg PO DAILY@0700 Qty: 90 1RF tamsulosin 0.4 mg capsule See Rx Instructions .ROUTE .COMPLEX Qty: 90 4RF Dose Instruction: TAKE ONE CAPSULE BY MOUTH DAILY AT 6pm. Rx Instructions: TAKE ONE CAPSULE BY MOUTH DAILY AT 6pm. benzonatate 100 mg capsule 100 mg PO TID PRN (Reason: cough) Qty: 30 2RF Ozempic 0.25 mg or 0.5 mg(2 mg/1.5 mL) pen injector 0.5 mg SUBCUT Q7D Qty: 2 0RF Ozempic 1 mg/dose (4 mg/3 mL) pen injector 1 mg SUBCUT Q7D Qty: 3 3RF (DME) Comfort EZ Pen [place] 32 gauge x 5/16 needle See Rx Instructions .ROUTE .MEDSUPPLY Qty: 100 5RF Rx Instructions: Inject Ozempic once will as directed cyclobenzaprine 10 mg tablet 10 mg PO TID PRN (Reason: muscle spasm) Qty: 30 1RF nystatin-triamcinolone 100,000-0.1 unit/g-% cream 1 applic TOPICAL BID Qty: 30 2RF Rx Instructions: May fill as 2 separate prescriptions losartan 25 mg tablet See Rx Instructions .ROUTE .COMPLEX Qty: 60 6RF Dose Instruction: TAKE ONE TABLET BY MOUTH TWICE DAILY. Rx Instructions: TAKE ONE TABLET BY MOUTH TWICE DAILY. metformin 500 mg tablet extended release 24 hr See Rx Instructions .ROUTE .COMPLEX Qty: 120 2RF Dose Instruction: TAKE TWO TABLETS BY MOUTH TWICE DAILY AT 7:00 a.m AND 6:00 p.m. Rx Instructions: TAKE TWO TABLETS BY MOUTH TWICE DAILY AT 7:00 a.m AND 6:00 p.m. metoprolol tartrate 25 mg tablet See Rx Instructions .ROUTE .COMPLEX Qty: 60 2RF Dose Instruction: TAKE 1/2 TABLET BY MOUTH TWICE DAILY AT 7:00 A.M. AND AT 6:00 P.M. Rx Instructions: TAKE 1/2 TABLET BY MOUTH TWICE DAILY AT 7:00 A.M. AND AT 6:00 P.M. diclofenac sodium 75 mg tablet,delayed release (DR/EC) See Rx Instructions .ROUTE .COMPLEX Qty: 60 1RF Dose Instruction: TAKE ONE TABLET BY MOUTH TWICE DAILY AT 7:00 A.M. AND AT 6:00 P.M. Rx Instructions: TAKE ONE TABLET BY MOUTH TWICE DAILY AT 7:00 A.M. AND AT 6:00 P.M. gabapentin 300 mg capsule See Rx Instructions .ROUTE .COMPLEX Qty: 60 3RF Dose Instruction: TAKE ONE CAPSULE BY MOUTH DAILY. Rx Instructions: TAKE ONE CAPSULE BY MOUTH DAILY. pantoprazole 40 mg tablet,delayed release (DR/EC) See Rx Instructions .ROUTE .COMPLEX Qty: 60 5RF Dose Instruction: TAKE ONE TABLET BY MOUTH TWICE DAILY. Rx Instructions: TAKE ONE TABLET BY MOUTH TWICE DAILY. tramadol 50 mg tablet 50 mg PO TID PRN (Reason: pain) 7 Days Qty: 21 0RF aspirin 81 mg tablet,delayed release (DR/EC) 81 mg PO DAILY@1800 Discharge Orders: Discharge ED (Routine); Ordered 01/02/22 Ordered By: Reji Kemp Referrals: Carmen Valente MD [Primary Care Provider] - Discharge Diet: Usual diet Discharge Activity: Resume usual activity Patient Instructions: Opioid Safety, Pain Management Activity Restrictions/Additional Instructions: Follow-up with Dr. Valente for further evaluation and treatment of your chronic back pain. You can use the steroids and muscle relaxer given today and low but was previously given to see if it is more helpful. Coding Level of Care Code ED Traffic Checker for Lilli Hendrix
[2022-01-02 12:15] VITALS: PULSE 60; RESP 16; O2SAT 97
== END 2022-01-02 12:16 | disposition home or self-care (01) ==
PROVIDERS: Emergency Provider Family Medicine; PCP Family Medicine
DX: M54.50 Low back pain, unspecified (principal); G89.29 Other chronic pain; E11.9 Type 2 diabetes mellitus without complications; I10 Essential (primary) hypertension; E78.5 Hyperlipidemia, unspecified; Z79.82 Long term (current) use of aspirin; Z79.84 Long term (current) use of oral hypoglycemic drugs; Z87.891 Personal history of nicotine dependence; Z95.1 Presence of aortocoronary bypass graft; Z95.5 Presence of coronary angioplasty implant and graft
CPT/HCPCS: 96372; 99284; J1100; J2270; J2360

== ENCOUNTER 2022-01-12 13:24 | Emergency (ER) | payer MEDICARE, OTHER, SELFPAY ==
[2022-01-12 13:34] VITALS: BP 114/63; PULSE 68; RESP 16; TEMP 36.4; O2SAT 94
--- NOTE | 2022-01-12 13:59 | W.ED.EXTPRO ---
HPI - Extremity Problem General: Chief complaint: Extremity Problem,Nontraumatic Stated complaint: Right leg pain, weakness Time Seen by Provider: 01/12/22 13:40 History of Present Illness: This is an 81-year-old male who presents to the ER today for low back pain with right leg pain and weakness. Patient is here with his . They offer that the patient has been seen numerous times recently for the same complaint. She offers that they are waiting on an MRI by his primary care provider. She is just concerned because he does still fall and he is having pain despite the medications he is on. She is hoping to get a CT scan today. Associated symptoms: Deny chest pain or fever(s) Review of Systems Const: Denies: fever(s), chills or body aches Card: Denies: chest pain or palpitations Resp: Denies: dyspnea GI: Denies: abdominal pain, nausea or vomiting : Denies: flank pain, difficulty urinating or dysuria Musc: Reports: extremity pain and muscle weakness [facility] ED PFSH: Medical History Anemia Balanitis Bilateral kidney stones BPH loc w urin obs/LUTS Coronary artery disease Esophagitis, unspecified Gastritis History of ehrlichiosis History of foot fracture (~1980) Hyperlipidemia, unspecified Hypertension Phimosis Spinal stenosis, lumbar region without neurogenic claudication Type 2 diabetes mellitus Surgical History History of colonoscopy (03/16/19) History of coronary artery bypass graft x 3 (2012) History of esophagogastroduodenoscopy (EGD) (03/16/19) History of shoulder surgery S/P ureteral stent placement (2017) Family History Father , at age 86 Diabetes Hyperlipidemia Hypertension Family/Other Diabetes Cancer CAD (coronary artery disease) Hypertension Mother , at age 76 No problems noted. Denies family history of Anesthesia complication Social History Smoking and tobacco status: former smoker (quit 1981, smoked x 24 years) Quit status (tobacco): has quit using tobacco Alcohol intake: never Caregiver/support person: Yes Lives independently: Yes Household members: spouse Housing: House Marital status: Current occupational status: retired Previous occupational history: [employer] History of recent travel: No Current gender identity: Male Physical Exam Const: COMMON NORMALS: no acute distress, patient oriented x3 and alert Resp: COMMON NORMALS: normal respiratory effort, No use of accessory muscles and clear to auscultation bilaterally AUSCULTATION: clear to auscultation bilaterally Cardio: COMMON NORMALS: regular rate, regular rhythm, S1 normal heart sound present and S2 normal heart sound present RATE: regular rate RHYTHM: regular rhythm HEART SOUNDS: S1 normal heart sound present and S2 normal heart sound present Back/Pelvis: LUMBAR SPINE/LOWER BACK: Yes normal to inspection and Yes paraspinal muscle tenderness (Worse on right) Lumbar paraspinal muscle tenderness: bilateral OTHER: Patient with lumbar paraspinal muscle tension appreciated worse on right side. Pain is reproducible with palpation of the right side paraspinal muscles and also the right buttocks and sciatic region. Patient is able to ambulate however he reports that his leg becomes weak sometimes and he falls. He is using a walker to help him. Normal sensation bilateral lower extremities. Patient denies any saddle anesthesia, loss of bowel or bladder control. Neuro: COMMON NORMALS: patient oriented x3 SENSORIUM/ORIENTATION: Yes alert Course Vital Signs: Vital signs: Vital Signs Temperature 98.3 F 01/12/22 14:27 Pulse Rate 67 01/12/22 14:27 Respiratory Rate 15 01/12/22 14:27 Blood Pressure 121/59 01/12/22 14:27 Pulse Oximetry 95 01/12/22 14:27 MDM - Extremity (Nontraumatic) Medical Decision Making Patient is in today for chronic back pain. He has been following with a primary care provider who started him on steroids and muscle relaxer. Patient was then seen in the ER. The ER physician increase his steroid dose and put him on tizanidine. Patient has had a follow-up with primary care provider since the last ER visit and she is ordering an urgent MRI of the lumbar spine. Patient's is concerned that this has not been done yet their visit was on and they have not heard anything. She is hoping to get a CT scan today. Discussed with her, at length, that I do not see any indication the patient has concerning findings such as a spinal abscess cuada equina. For this reason, a CT would be of little value and only pose the risk of increased radiation at this time. I recommend that the patient continue close follow-up with primary care provider and get the MRI completed. I recommend patient discharged to home today. He is stable for discharge. All questions answered to satisfaction. Follow-up with PCP. Return to the ER for any new or worsening symptoms. Discharge Plan Discharge Patient Disposition: Home Clinical Impression: Low back pain with right-sided sciatica, Acute lumbar radiculopathy Condition: Stable Prescriptions: No Action Miralax 17 gram/dose powder 17 g PO DAILY@0700 Qty: 765 2RF ibuprofen 200 mg tablet 200 mg PO Q6H PRN (Reason: Pain) diphenhydramine HCl [Benadryl] 25 mg capsule 25 mg PO DAILY PRN (Reason: Allergy Symptoms) magnesium oxide 250 mg magnesium tablet 250 mg PO DAILY@0700 ammonium lactate 12 % cream 1 applic topical BID PRN diclofenac sodium 1 % gel 2 g TOPICAL QID@07,11,18,22 PRN Rx Instructions: apply to shoulder atorvastatin 10 mg tablet See Rx Instructions .ROUTE .COMPLEX Qty: 90 1RF Dose Instruction: TAKE ONE TABLET BY MOUTH DAILY AT 6pm. Rx Instructions: TAKE ONE TABLET BY MOUTH DAILY AT 6pm. ferrous sulfate 325 mg (65 mg iron) tablet 325 mg PO DAILY@0700 Qty: 90 1RF tamsulosin 0.4 mg capsule See Rx Instructions .ROUTE .COMPLEX Qty: 90 4RF Dose Instruction: TAKE ONE CAPSULE BY MOUTH DAILY AT 6pm. Rx Instructions: TAKE ONE CAPSULE BY MOUTH DAILY AT 6pm. benzonatate 100 mg capsule 100 mg PO TID PRN (Reason: cough) Qty: 30 2RF Ozempic 1 mg/dose (4 mg/3 mL) pen injector 1 mg SUBCUT Q7D Qty: 3 3RF (DME) Comfort EZ Pen [place] 32 gauge x 5/16 needle See Rx Instructions .ROUTE .MEDSUPPLY Qty: 100 5RF Rx Instructions: Inject Ozempic once will as directed cyclobenzaprine 10 mg tablet 10 mg PO TID PRN (Reason: muscle spasm) Qty: 30 1RF nystatin-triamcinolone 100,000-0.1 unit/g-% cream 1 applic TOPICAL BID Qty: 30 2RF Rx Instructions: May fill as 2 separate prescriptions losartan 25 mg tablet See Rx Instructions .ROUTE .COMPLEX Qty: 60 6RF Dose Instruction: TAKE ONE TABLET BY MOUTH TWICE DAILY. Rx Instructions: TAKE ONE TABLET BY MOUTH TWICE DAILY. metformin 500 mg tablet extended release 24 hr See Rx Instructions .ROUTE .COMPLEX Qty: 120 2RF Dose Instruction: TAKE TWO TABLETS BY MOUTH TWICE DAILY AT 7:00 a.m AND 6:00 p.m. Rx Instructions: TAKE TWO TABLETS BY MOUTH TWICE DAILY AT 7:00 a.m AND 6:00 p.m. metoprolol tartrate 25 mg tablet See Rx Instructions .ROUTE .COMPLEX Qty: 60 2RF Dose Instruction: TAKE 1/2 TABLET BY MOUTH TWICE DAILY AT 7:00 A.M. AND AT 6:00 P.M. Rx Instructions: TAKE 1/2 TABLET BY MOUTH TWICE DAILY AT 7:00 A.M. AND AT 6:00 P.M. diclofenac sodium 75 mg tablet,delayed release (DR/EC) See Rx Instructions .ROUTE .COMPLEX Qty: 60 1RF Dose Instruction: TAKE ONE TABLET BY MOUTH TWICE DAILY AT 7:00 A.M. AND AT 6:00 P.M. Rx Instructions: TAKE ONE TABLET BY MOUTH TWICE DAILY AT 7:00 A.M. AND AT 6:00 P.M. gabapentin 300 mg capsule See Rx Instructions .ROUTE .COMPLEX Qty: 60 3RF Dose Instruction: TAKE ONE CAPSULE BY MOUTH DAILY. Rx Instructions: TAKE ONE CAPSULE BY MOUTH DAILY. pantoprazole 40 mg tablet,delayed release (DR/EC) See Rx Instructions .ROUTE .COMPLEX Qty: 60 5RF Dose Instruction: TAKE ONE TABLET BY MOUTH TWICE DAILY. Rx Instructions: TAKE ONE TABLET BY MOUTH TWICE DAILY. Ozempic 0.25 mg or 0.5 mg(2 mg/1.5 mL) pen injector See Rx Instructions .ROUTE .COMPLEX Qty: 1.5 0RF Dose Instruction: INJECT 0.5mg SUBCUTANEOUSLY ONCE WEEKLY Rx Instructions: INJECT 0.5mg SUBCUTANEOUSLY ONCE WEEKLY tramadol 50 mg tablet 50 mg PO TID PRN (Reason: pain) 7 Days Qty: 21 0RF aspirin 81 mg tablet,delayed release (DR/EC) 81 mg PO DAILY@1800 prednisone 20 mg tablet 20 mg PO TID Qty: 15 0RF Rx Instructions: 1 p.o. 3 times daily x3 days, 1 p.o. twice daily x2 days, 1 p.o. daily x2 days tizanidine 4 mg capsule 4 mg PO Q6H PRN (Reason: muscle spasticity) Qty: 20 0RF Rx Instructions: do not exceed 3 doses per 24 hrs Discharge Orders: Discharge ED (Routine); Ordered 01/12/22 Ordered By: Keli Azevedo Referrals: Carmen Valente MD [Primary Care Provider] - Discharge Diet: Usual diet Discharge Activity: Resume usual activity Patient Instructions: Lumbar Radiculopathy (ED) Activity Restrictions/Additional Instructions: Continue medications as previously prescribed. I would stop Flexeril. Just use tizanidine as prescribed. Follow-up with your primary care provider on Friday to see the status of the MRI. Return to the ER as needed for worsening symptoms, numbness or tingling in the groin, loss of bowel or bladder control. Coding Level of Care Code ED Taxicab Coordinator for Lilli Hendrix
[2022-01-12 14:27] VITALS: BP 121/59; PULSE 67; RESP 15; TEMP 36.8; O2SAT 95
== END 2022-01-12 14:28 | disposition home or self-care (01) ==
PROVIDERS: Emergency Provider Nurse Practitioner Family; PCP Family Medicine
DX: M54.41 Lumbago with sciatica, right side (principal); M54.16 Radiculopathy, lumbar region; E11.9 Type 2 diabetes mellitus without complications; I10 Essential (primary) hypertension; E78.5 Hyperlipidemia, unspecified; I25.10 Atherosclerotic heart disease of native coronary artery without angina pectoris; Z79.84 Long term (current) use of oral hypoglycemic drugs; Z87.891 Personal history of nicotine dependence; Z95.1 Presence of aortocoronary bypass graft
CPT/HCPCS: 99282

== ENCOUNTER 2022-01-15 12:50 | Outpatient (CLI) | payer MEDICARE, OTHER, SELFPAY ==
--- NOTE | 2022-01-15 13:00 | MR_ITS ---
WS: [id number] MRI LUMBAR SPINE NONCONTRAST HISTORY: M54.41 - Lumbago with sciatica, right side COMPARISON: 05/25/2018 TECHNIQUE: Sagittal and axial multisequence imaging is submitted. Moderate diffuse spondylitic changes in the cervical and thoracic spine. Disc bulging and osteophyte disease. Complete loss of disc space at T6-T7 and T8-9. Straightening of the normal lumbar lordosis. Degenerative disc space narrowing and osteophytosis. No acute fractures or marrow edema. Most significant disc space narrowing is at L4-5 and L5-S1. Conus terminates normally at L1. T12-L1: Mild osteophytic ridging and annular disc bulging. Mild facet and ligamentum flavum arthritis . Mild subarticular recess narrowing. L1-L2: Diffuse asymmetric disc bulging and osteophytosis. Central and LEFT paracentral and proximal f oraminal disc protrusions. Mild ligamentum flavum and facet arthritis. Mild LEFT subarticular recess and foraminal stenosis. Mild disc contact on the LEFT traversing nerve root. L2-L3: Diffuse asymmetric disc bulging to the LEFT and osteophytosis. Mild ligamentum flavum hypertro phy and facet arthritis. Greater encroachment by disc and osteophyte into the subarticular recess on the LEFT. There is contact and deformity of the traversing LEFT L3 nerve root. Similar findings but t o a lesser degree on the RIGHT. Mild bilateral foraminal stenosis. L3-L4: Diffuse asymmetric disc bulging to the LEFT. Moderate ligamentum flavum and facet arthritis. M oderate ligamentum flavum and facet joint arthritis. There is encroachment into the subarticular rece sses on the traversing L4 nerve roots. Moderate RIGHT foraminal stenosis due to progressive disc and osteophyte disease. L4-L5: Diffuse osteophytic ridging and disc bulging. Facet ligamentum flavum hypertrophy. Moderate ce ntral with moderate to severe subarticular recess and foraminal stenosis. Similar to the prior study. L5-S1: Diffuse osteophytic ridging and annular disc bulging with ligamentum flavum and facet arthriti s. Disc contacting the LEFT S1 nerve root. Mild bilateral foraminal stenosis due to disc and osteophy te disease. LEFT renal cyst 2.6 cm. Mild atherosclerosis aorta. MR/MR lumbar spine wo con* [id number] IMPRESSION: 1. 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 2. Moderate central with moderate to severe subarticular recess and foraminal stenosis at L4-5. No change. 3. Mild bilateral foraminal stenosis at L5-S1 due to disc and osteophyte disea se. 4. Mild disc contact in the LEFT S1 nerve root. 5. Moderate stenosis and encroachment upon the traversing L4 nerve roots at th e L3-4 level and moderate RIGHT foraminal stenosis due to disc and osteophyte d isease. The stenosis and disc disease has progressed since 2019. 6. Central, LEFT paracentral and proximal foraminal disc protrusions at L1-2. Mild contact on the traversing L2 nerve root. 7. Mild disc osteophyte encroachment into the LEFT foramen at L2-3 with mild c ontact on the traversing L3 nerve root.
== END 2022-01-15 12:51 | disposition home or self-care (01) ==
LOC: RAD 12:51
PROVIDERS: PCP Family Medicine; Visit Provider Nurse Practitioner Family
DX: M54.41 Lumbago with sciatica, right side (principal); M48.07 Spinal stenosis, lumbosacral region; M51.26 Other intervertebral disc displacement, lumbar region; M25.78 Osteophyte, vertebrae; N28.1 Cyst of kidney, acquired; I70.0 Atherosclerosis of aorta
CPT/HCPCS: 72148

== ENCOUNTER → 2022-01-31 09:55 | Outpatient (BNVA) | payer MEDICARE, OTHER, SELFPAY | PROVIDERS: PCP Family Medicine; Visit Provider Anesthesiology Pain Medicine | DX: M54.41 Lumbago with sciatica, right side (principal); M47.816 Spondylosis without myelopathy or radiculopathy, lumbar region; M79.604 Pain in right leg; M79.605 Pain in left leg; Z79.891 Long term (current) use of opiate analgesic | CPT/HCPCS: 99204 ==

== ENCOUNTER 2022-01-31 11:35 | Oncology outpatient (recurring) (ONCR) | payer MEDICARE, OTHER, SELFPAY ==
[2022-01-31 12:06] LABS: Basophils # 0.1 10^3/uL (0.0-0.1); Basophils % 0.9 %; Eosinophils # 0.3 10^3/uL (0.0-0.8); Eosinophils % 3.6 %; Hematocrit 27.9 % (42.0-52.0); Hemoglobin 9.2 g/dL (11.7-16.6); Lymphocytes # 1.6 10^3/uL (0.8-4.8); Lymphocytes % 21.8 %; Mean Corpuscular Hemoglobin 37.4 pg (28.0-34.0); Mean Corpuscular Volume 113.4 fl (80-94); Mean Platelet Volume 10.1 fL (7.4-10.4); Monocytes # 0.9 10^3/uL (0.2-0.9); Monocytes % 11.8 %; Neutrophils % 57.1 %; Nucleated Red Blood Cells % 0.5 %; Platelet Count 233 10^3/cmm (130-400); Red Blood Count 2.46 10^6/uL (4.1-5.3); Red Cell Distribution Width 18.2 % (12.1-15.1); White Blood Count 7.5 10^3/uL (4.0-10.0)
[2022-01-31 12:08] LABS: Erythrocyte Sedimentation Rate 13 mm/hr (0-10)
[2022-01-31 12:28] LABS: Alanine Aminotransferase 29 U/L (0-41); Alkaline Phosphatase 124 U/L (40-130); Anion Gap 16.9 (5-19); Aspartate Amino Transferase 21 U/L (0-40); Blood Urea Nitrogen 22 mg/dL (8-23); Calcium 9.1 mg/dL (8.5-10.5); Carbon Dioxide 24 mmol/L (22-29); Chloride 101 mmol/L (98-107); Ferritin 148 ng/mL (30-400); Globulin 3.2 g/dL (1.3-4.6); Glucose 144 mg/dL (65-115); Iron 74 ug/dL (59-158); Lactate Dehydrogenase 171 U/L (135-225); Osmolality Calculated 288 mOsm/kg (285-295); Percent Saturation 25.6 % (20-50); Potassium 5.9 mmol/L (3.5-5.1); Sodium 136 mmol/L (136-145); Total Bilirubin 0.8 mg/dL (0.15-1.2); Total Iron Binding Capacity 289 mcg/dl; Total Protein 7.2 g/dL (6.6-8.7); Unsaturated Iron Binding 215 ug/dL (112-347)
[2022-01-31 12:51] LABS: Hepatitis A Antibody IgM Non-Reactive (Nonreactive); Hepatitis B Core AB, Total Non-Reactive (Nonreactive); Hepatitis B Surface AB 3.5 (11.5-1000); Hepatitis B Surface Antigen Non-Reactive (Nonreactive); Hepatitis C Virus Antibody Non-Reactive (Nonreactive)
== END 2022-02-11 23:59 | disposition home or self-care (01) ==
PROVIDERS: PCP Family Medicine; Visit Provider Internal Medicine Medical Oncology
DX: D64.9 Anemia, unspecified (principal); Z87.891 Personal history of nicotine dependence
CPT/HCPCS: 36415; 80053; 82728; 83540; 83550; 83615; 85025; 85651; 86705; 86706; 86709; 86803; 87340; 99204

== ENCOUNTER → 2022-02-13 10:44 | Outpatient (BNVA) | payer MEDICARE, OTHER, SELFPAY | PROVIDERS: PCP Family Medicine; Visit Provider Internal Medicine Cardiovascular Disease | DX: I25.810 Atherosclerosis of coronary artery bypass graft(s) without angina pectoris (principal); I10 Essential (primary) hypertension; E11.51 Type 2 diabetes mellitus with diabetic peripheral angiopathy without gangrene; Z79.4 Long term (current) use of insulin; E11.42 Type 2 diabetes mellitus with diabetic polyneuropathy; E78.2 Mixed hyperlipidemia; Z87.891 Personal history of nicotine dependence | CPT/HCPCS: 99214 ==

== ENCOUNTER → 2022-02-18 14:28 | Outpatient (BNVA) | payer MEDICARE, OTHER, SELFPAY | PROVIDERS: PCP Family Medicine; Visit Provider Anesthesiology Pain Medicine | DX: M54.16 Radiculopathy, lumbar region (principal); M54.41 Lumbago with sciatica, right side; Z87.891 Personal history of nicotine dependence | CPT/HCPCS: 64483; 64484 ==

== ENCOUNTER 2022-02-19 08:19 | Outpatient (CLI) | payer MEDICARE, OTHER, SELFPAY ==
--- NOTE | 2022-02-19 08:27 | XR_ITS ---
WS: [id number] K[facility], AP view, 02/19/2022 Clinical Data: Bilateral Renal Stones Comparison: None. Findings: There are gallstones in the right upper quadrant. There is fecal material and colon gas obscuring det ail over the right kidney. The left kidney shows no calcifications. No abnormal intraabdominal masses are seen. There is no dilatated small bowel or evidence of obstruct ion. There are vascular calcifications. 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 XR/XR KUB [id number] Impression: 1. Cholelithiasis. 2. Negative for renal calcifications.
== END 2022-02-19 08:20 | disposition home or self-care (01) ==
LOC: RAD 08:21
PROVIDERS: PCP Family Medicine; Visit Provider Urology
DX: N20.0 Calculus of kidney (principal); N40.1 Benign prostatic hyperplasia with lower urinary tract symptoms; K80.20 Calculus of gallbladder without cholecystitis without obstruction; N47.1 Phimosis; N48.1 Balanitis
CPT/HCPCS: 74018; 81003; 99213

== ENCOUNTER 2022-02-27 14:11 | Oncology outpatient (recurring) (ONCR) | payer MEDICARE, OTHER, SELFPAY | END 2022-03-13 23:59 | disposition home or self-care (01) | LOC: ONCMED 14:12 | PROVIDERS: PCP Family Medicine; Visit Provider Internal Medicine Medical Oncology | DX: D64.9 Anemia, unspecified (principal); Z86.19 Personal history of other infectious and parasitic diseases; Z87.891 Personal history of nicotine dependence | CPT/HCPCS: 99214 ==

== ENCOUNTER 2022-03-04 11:00 | Day surgery (SDC) | payer MEDICARE, OTHER, SELFPAY ==
[2022-02-28 13:18] VITALS: BMI 30.7
[2022-03-04 11:31] VITALS: BP 137/86; PULSE 75; RESP 16; TEMP 36.4; O2SAT 96
[2022-03-04] MEDS: sodium chloride 0.9% 1,000 ML 30 ML IV (11:38)
[2022-03-04 12:12] LABS: Hematocrit 26.9 % (42.0-52.0); Hemoglobin 8.7 g/dL (11.7-16.6); Mean Corpuscular HGB Conc 32.3 g/dL (30.0-36.0); Mean Corpuscular Hemoglobin 36.1 pg (28.0-34.0); Mean Corpuscular Volume 111.6 fl (80-94); Mean Platelet Volume 11.1 fL (7.4-10.4); Platelet Count 191 10^3/cmm (130-400); Red Blood Count 2.41 10^6/uL (4.1-5.3); Red Cell Distribution Width 19.4 % (12.1-15.1); White Blood Count 5.1 10^3/uL (4.0-10.0)
[2022-03-04 12:13] LABS: Glucose Point of Care 116 mg/dL (70-110)
[2022-03-04 12:13] LABS: Absolute Eosinophils 0.1 10^3/cmm (0.0-0.7); Absolute Neutrophil 2.6 10^3/cmm (1.4-6.5); Absolute Segmented Neutrophil 2.4 10/cmm (1.6-7.1); Band Neutrophils Absolute 0.1 10^3/cmm (0.0-1.2); Eosinophils 2 %; Lymphocytes 38 %; Lymphocytes Absolute 2.2 10^3/cmm (1.2-3.4); Monocytes Absolute 0.3 10^3/cmm (0.1-0.6); Platelet Estimate Normal (Normal); Segmented Neutrophils 48 %; Total Cells Counted 100 (0-100)
--- NOTE | 2022-03-04 12:25 | W.PM.OPSUD ---
Surgery/Procedure H&P Update DATE OF PROCEDURE: March 04, 2022 DATE H&P PERFORMED: 03/04/22 CHANGES TO PREVIOUS DOCUMENTATION: Patient seen and examined, no obvious new changes or new symptoms since his last visit to the clinic PRIMARY INDICATION FOR PROCEDURE: Anemia PLANNED PROCEDURE: Operation Date: 03/04/22 12:30 Proposed Procedures p Bone Marrow Biospy With Aspiration(Not Applicable) - Vicki Ramos MD
--- NOTE | 2022-03-04 13:05 | P.ANESASSM_ITS ---
Pre-Anesthetic Assessment Height/Weight: Height 1.8 m Weight 99.79 kg Temp Pulse Resp BP Pulse Ox O2 Del Method 97.6 F 75 16 137/86 96 03/04/22 11:31 03/04/22 11:31 03/04/22 11:31 03/04/22 11:31 03/04/22 11:31 03/04/22 11:31 Operation Date: 03/04/22 12:30 Proposed Procedures p Bone Marrow Biospy With Aspiration(Not Applicable) - Vicki Ramos MD Last intake: Intake Last Liquid Date 03/03/22 Last Liquid Time 21:00 Last Solid Date 03/03/22 Last Solid Time 18:00 Social former smoker Exam alert, oriented x 3, clear to auscultation bilaterally and regular rate & rhythm Airway Submandibular: within normal limits Cervical ROM: within normal limits Mallampati: Class II History/ROS No significant history except as noted and No significant complaints Pulmonary None reported CV/HEM CABG 2012. recent cardiology evaluation - stable, back in 9 months. denies chest pain or sob None reported GI reflux controlled with meds Metabolic Diabetes Mellitus [facility] [place] [place] Back Pain Neuropsych None reported Anesthetic Plan ASA status: 3 Anesthesia: Anesthesia Evaluation and MAC Risk of > 500 ml blood loss (7ml/kg in children): Yes, adequate IV access and fluids planned Medications/Allergies Home Medications Medication Instructions Recorded Confirmed Last Taken Type diphenhydramine HCl 25 mg capsule 25 mg PO DAILY PRN Allergy Symptoms 04/16/19 03/04/22 03/03/22 History (Benadryl) ibuprofen 200 mg tablet 200 mg PO Q6H PRN Pain 04/16/19 02/28/22 02/27/22 History magnesium oxide 250 mg PO DAILY@0700 07/30/19 03/04/22 03/03/22 History aspirin 81 mg tablet,delayed 81 mg PO DAILY@1800 03/27/20 02/28/22 02/27/22 History release benzonatate 100 mg capsule 100 mg PO TID PRN cough #30 caps 07/10/21 03/04/22 02/18/22 Rx ferrous sulfate 325 mg (65 mg 325 mg PO DAILY@0700 #90 tabs 07/10/21 03/04/22 03/03/22 Rx iron) tablet tamsulosin 0.4 mg capsule See Rx Instructions .Route 07/10/21 03/04/22 03/03/22 Rx .COMPLEX #90 caps ammonium lactate 12 % topical cream 1 applic topical BID PRN sores 08/13/21 03/04/22 Unknown History diclofenac sodium 1 % topical gel 2 g topical QID@,,, PRN 08/13/21 02/28/22 Unknown History Skin Irritation pen needle, diabetic 32 gauge x #100 ea 11/30/21 02/27/22 Unknown Rx 08/27 (Comfort EZ Pen [place]) pantoprazole 40 mg tablet,delayed See Rx Instructions .Route 12/24/21 02/28/22 02/28/22 Rx release .COMPLEX #60 tabs cyclobenzaprine 10 mg tablet 10 mg PO TID PRN muscle spasm #30 12/25/21 02/28/22 02/27/22 Rx tabs tizanidine 4 mg capsule 4 mg PO Q6H PRN muscle spasticity 01/02/22 03/04/22 03/03/22 Rx #20 caps gabapentin 300 mg capsule 300 mg PO BID #60 caps 01/16/22 03/04/22 03/03/22 Rx tramadol 50 mg tablet 50 mg PO TID PRN pain 20 days #60 01/18/22 03/04/22 02/11/22 Rx tabs atorvastatin 10 mg tablet See Rx Instructions .Route 01/23/22 03/04/22 03/03/22 Rx .COMPLEX #90 tabs losartan 25 mg tablet See Rx Instructions .Route 01/23/22 03/04/22 03/03/22 Rx .COMPLEX #60 tabs metformin 500 mg tablet,extended See Rx Instructions .Route 01/23/22 03/04/22 03/03/22 Rx release 24 hr .COMPLEX #120 tabs diclofenac sodium 75 mg See Rx Instructions .Route 01/31/22 03/04/22 03/03/22 Rx tablet,delayed release .COMPLEX #60 tabs nystatin-triamcinolone 100,000 1 applic topical BID PRN Skin 02/13/22 02/28/22 Unknown History unit/g-0.1 % topical cream Irritation polyethylene glycol 3350 17 17 g PO DAILY@0700 PRN Constipation 02/13/22 02/28/22 Unknown History gram/dose oral powder (Miralax) prednisone 20 mg tablet 20 mg PO TID PRN Pain 02/13/22 02/28/22 02/14/22 History semaglutide 0.25 mg or 0.5 mg (2 See Rx Instructions .Route 02/13/22 02/28/22 02/27/22 Rx mg/1.5 mL) subcutaneous pen .COMPLEX #1.5 mL injector (Power Content) Allergies Allergy/AdvReac Type Severity Reaction Status Date / Time Sulfa (Sulfonamide Allergy ALGY-Swell Verified 02/28/22 12:57 Antibiotics) Lip/Tongue/Throat sulfamethoxazole Allergy Unknown Verified 02/28/22 12:57 [From Bactrim] trimethoprim [From Bactrim] Allergy Unknown Verified 02/28/22 12:57 Current Medications Generic Name Dose Route Start Last Admin Trade Name Freq PRN Reason Stop Dose Admin Sodium Chloride 1,000 mls @ 30 mls/hr 03/04/22 11:15 03/04/22 11:38 Sodium Chloride 0.9% IV 03/05/22 11:14 30 mls/hr .Q24H YOAN Administration PFSH Anesthesia Medical History (Updated 03/01/22 @ 10:26 by Andrade Brown MD) Anemia Balanitis Bilateral kidney stones BPH loc w urin obs/LUTS Coronary artery disease Esophagitis, unspecified Gastritis History of ehrlichiosis History of foot fracture (~1980) Hyperlipidemia, unspecified Hypertension Phimosis Spinal stenosis, lumbar region without neurogenic claudication Type 2 diabetes mellitus Surgical History History of colonoscopy (03/16/19) History of coronary artery bypass graft x 3 (2012) History of esophagogastroduodenoscopy (EGD) (03/16/19) History of shoulder surgery S/P ureteral stent placement (2017) Family History Father , at age 86 Diabetes Hyperlipidemia Hypertension Family/Other Diabetes Cancer CAD (coronary artery disease) Hypertension Mother , at age 76 No problems noted. Denies family history of Anesthesia complication Social History Smoking and tobacco status: former smoker (quit 1981, smoked x 24 years) Quit status (tobacco): has quit using tobacco Alcohol intake: never Caregiver/support person: Yes Lives independently: Yes Household members: spouse Housing: House Marital status: Current occupational status: retired Previous occupational history: [employer] History of recent travel: No Current gender identity: Male Data Anesthesia 03/04/22 11:37 Short CBC 03/04/22 Range/Units 11:37 WBC 5.1 (4.0-10.0) 10^3/uL Hgb 8.7 L (11.7-16.6) g/dL Hct 26.9 L (42.0-52.0) % MCV 111.6 H (80-94) fl Plt Count 191 (130-400) 10^3/cmm Cardiac Studies: No Data to Display
--- NOTE | 2022-03-04 13:31 | PM.BMB ---
Bone Marrow Biopsy Bone Marrow Biopsy: I was consulted by [] office regarding bone marrow biopsy on [Corby Belcher]. Briefly, the patient is a [81] year old [Male] with [Anemia]. In the Outpatient Services Department, with nursing staff and laboratory technologists in attendance, the procedure was discussed with the patient. Appropriate consent form had been signed. Appropriate alternatives, benefits and risks of procedure were discussed with the patient and he was pre-operatively assessed with a history and physical by myself and cleared for the biopsy procedure. The patient did request IV sedation and that was provided by the Anesthesia Department. Under aseptic condition right posterior iliac area was cleaned and prepped, local anesthesia was given, about 15 cc of bone marrow aspirate and core biopsy was obtained, specimen was sent for routine histopathology, flow cytometry, FISH for MDS and molecular testing. Postprocedure nurse instruction were given Thank you for allowing me to participate in this patient's care and diagnosis. Coding Level of Care Code Acute Pinion Sorter for Traceyg Fwd History Problem Focused Exam Problem Focused Medical Decision Making Straight Forward
[2022-03-04 13:38] VITALS: BP 137/86; PULSE 75; RESP 16; TEMP 36.4; O2SAT 96
[2022-03-04 13:54] VITALS: BP 115/63; PULSE 74; RESP 18; O2SAT 99
--- NOTE | 2022-03-04 15:40 | ANE.PACU2 ---
Inpatient post-anesthesia follow up: Airway intact: Yes Vital signs: Temperature 97.6 F Pulse Rate 74 Respiratory Rate 18 Blood Pressure 115/63 Pulse Oximetry 99 Oxygen Delivery Me thod Room Air Oxygen Flow Rate 6 Fraction of Inspir ed Oxygen Hydration adequate: Yes Nausea and vomiting: No Pain level: 2 Mental status: Baseline
[2022-03-11 09:57] LABS: Leukemia Profile (BBPL) See Report; Lymphoma Profile (BBPL) See Report
[2022-03-19 08:44] LABS: Chromosome Analysis BBPL See Report
[2022-03-19 08:47] LABS: MDS Panel (BBPL) See Report
== END 2022-03-04 14:15 | disposition home or self-care (01) ==
PROVIDERS: PCP Family Medicine; Visit Provider Internal Medicine Hematology & Oncology
PROC: 07DT3ZX Extraction of Bone Marrow, Percutaneous Approach, Diagnostic (ICD-10-PCS; CPT 38222; principal; 2022-03-04 12:30)
DX: D64.9 Anemia, unspecified (principal); Z95.1 Presence of aortocoronary bypass graft; E11.9 Type 2 diabetes mellitus without complications; Z79.84 Long term (current) use of oral hypoglycemic drugs; N40.1 Benign prostatic hyperplasia with lower urinary tract symptoms; N13.8 Other obstructive and reflux uropathy; I25.10 Atherosclerotic heart disease of native coronary artery without angina pectoris; E78.5 Hyperlipidemia, unspecified; I10 Essential (primary) hypertension
CPT/HCPCS: 36415; 36416; 38222; 82962; 85007; 85027; 88184; 88185; 88237; 88264; 88291; 88305; 88311; 88367; 88374; J7030

== ENCOUNTER → 2022-03-12 12:51 | Outpatient (BNVA) | payer MEDICARE, OTHER, SELFPAY | PROVIDERS: PCP Family Medicine; Visit Provider Anesthesiology Pain Medicine | DX: M54.16 Radiculopathy, lumbar region (principal); M54.41 Lumbago with sciatica, right side; E11.59 Type 2 diabetes mellitus with other circulatory complications; E11.51 Type 2 diabetes mellitus with diabetic peripheral angiopathy without gangrene; I25.10 Atherosclerotic heart disease of native coronary artery without angina pectoris; Z79.84 Long term (current) use of oral hypoglycemic drugs; Z87.891 Personal history of nicotine dependence | CPT/HCPCS: 36416; 64483; 64484; 82962; J1100; J3490 ==

== ENCOUNTER 2022-03-14 06:00 | Oncology outpatient (recurring) (ONCR) | payer MEDICARE, OTHER, SELFPAY | END 2022-04-13 23:59 | disposition home or self-care (01) | LOC: ONCMED 05-07 07:02 | PROVIDERS: PCP Family Medicine; Visit Provider Internal Medicine Medical Oncology | DX: D46.9 Myelodysplastic syndrome, unspecified (principal) | CPT/HCPCS: 99215 ==

== ENCOUNTER → 2022-03-28 10:36 | Outpatient (BNVA) | payer MEDICARE, OTHER, SELFPAY | PROVIDERS: PCP Family Medicine; Visit Provider Anesthesiology Pain Medicine | DX: M54.41 Lumbago with sciatica, right side (principal); M47.816 Spondylosis without myelopathy or radiculopathy, lumbar region; M79.604 Pain in right leg; M79.605 Pain in left leg | CPT/HCPCS: 99214 ==

== ENCOUNTER → 2022-04-11 15:10 | Outpatient (BNVA) | payer MEDICARE, OTHER, SELFPAY | PROVIDERS: PCP Family Medicine; Visit Provider Internal Medicine Medical Oncology | DX: D53.9 Nutritional anemia, unspecified (principal); D46.9 Myelodysplastic syndrome, unspecified; Z87.891 Personal history of nicotine dependence; Z79.899 Other long term (current) drug therapy; Z79.82 Long term (current) use of aspirin; Z86.19 Personal history of other infectious and parasitic diseases | CPT/HCPCS: 36415; 80053; 82668; 83615; 85025; 86850; 86900; 99215 ==

== ENCOUNTER → 2022-05-06 08:55 | Outpatient (BNVA) | payer MEDICARE, OTHER, SELFPAY | PROVIDERS: PCP Family Medicine; Visit Provider Internal Medicine Medical Oncology | DX: D46.1 Refractory anemia with ring sideroblasts (principal) | CPT/HCPCS: 80053; 85025 ==

== ENCOUNTER 2022-05-10 09:58 | Outpatient (CLI) | payer MEDICARE, OTHER, SELFPAY ==
--- NOTE | 2022-05-10 10:00 | USCV_ITS ---
Corby Belcher Age: 81 Gender: M : 1940 Exam Date: 05/10/2022 11:14 Ordering Phys: Susan Fong MD ([email or web address]) Technologist: Pam Louis Chrome Tanning Drum Operator Exam Location: [facility] [place] Indication: INTERMET CLADUICATION RIGHT LEFT Brachial 156.00 mmHg Brachial 170.00 mmHg Pressure (mmHg) Waveform Pressure (mmHg) Waveform 220.00 MASTER SHEET CLERK 194.00 220.00 DPA 215.00 Ankle/Brachial Index 1.26 167.00 Pre-Exercise Toe Pressure 166.00 0.98 Pre-Exercise Toe/Brachial Index 0.98 FINDINGS Noncompressible arteries on the right side. Resting SAAD of 1.26 on the left side. Resting TBI of 0.98 on the right and 0.98 on the left. CONCLUSIONS Noncompressible vessels with a normal resting TBI on the right side suggesting no significant arterial obstruction. Normal resting SAAD and TBI on the left side, suggesting no significant arterial obstruction. Dr Prosper Suero MD [facility] (Electronically Signed) Final Date: 20 May 2022 08:08 S
== END 2022-05-10 09:59 | disposition home or self-care (01) ==
LOC: RAD 09:59
PROVIDERS: PCP Family Medicine; Visit Provider Internal Medicine Cardiovascular Disease
DX: I73.9 Peripheral vascular disease, unspecified (principal)
CPT/HCPCS: 93922

== ENCOUNTER 2022-05-14 10:15 | Oncology outpatient (recurring) (ONCR) | payer MEDICARE, OTHER, SELFPAY ==
[2022-04-29 11:46] LABS: Basophils # 0.1 10^3/uL (0.0-0.1); Basophils % 1.2 %; Eosinophils # 0.2 10^3/uL (0.0-0.8); Hematocrit 26.5 % (42.0-52.0); Hemoglobin 8.7 g/dL (11.7-16.6); Lymphocytes % 40.1 %; Mean Corpuscular HGB Conc 32.8 g/dL (30.0-36.0); Mean Corpuscular Hemoglobin 35.2 pg (28.0-34.0); Mean Corpuscular Volume 107.3 fl (80-94); Mean Platelet Volume 11.3 fL (7.4-10.4); Monocytes # 0.6 10^3/uL (0.2-0.9); Monocytes % 12.7 %; Neutrophils # 2.03 10^3/uL (1.8-7.7); Nucleated Red Blood Cells % 0 %; Platelet Count 212 10^3/cmm (130-400); Red Blood Count 2.47 10^6/uL (4.1-5.3); Red Cell Distribution Width 19.4 % (12.1-15.1)
[2022-04-29 12:14] LABS: Alanine Aminotransferase 15 U/L (0-41); Albumin Level 4.4 g/dL (3.5-5.2); Alkaline Phosphatase 65 U/L (40-130); Anion Gap 12.9 (5-19); Aspartate Amino Transferase 14 U/L (0-40); Blood Urea Nitrogen 18 mg/dL (8-23); Calcium 9.7 mg/dL (8.5-10.5); Carbon Dioxide 26 mmol/L (22-29); Chloride 103 mmol/L (98-107); Globulin 3.1 g/dL (1.3-4.6); Glucose 115 mg/dL (65-115); Osmolality Calculated 287 mOsm/kg (285-295); Potassium 4.9 mmol/L (3.5-5.1); Sodium 137 mmol/L (136-145); Total Bilirubin 0.8 mg/dL (0.15-1.2); Total Protein 7.5 g/dL (6.6-8.7)
[2022-04-29] MEDS: epoetin alfa 40,000 Unit/mL INJ (non-esrd, onc only) 40000 UNIT SUBCUT (14:06)
[2022-05-07 08:50] VITALS: PULSE 78; RESP 18; TEMP 36.6; O2SAT 98
[2022-05-07] MEDS: epoetin alfa 40,000 Unit/mL INJ (non-esrd, onc only) 40000 UNIT SUBCUT (08:51)
== END 2022-05-14 23:59 | disposition home or self-care (01) ==
PROVIDERS: PCP Family Medicine; Visit Provider Internal Medicine Medical Oncology
DX: D46.0 Refractory anemia without ring sideroblasts, so stated (principal)
CPT/HCPCS: 36415; 80053; 85025; 96372; 96401; 99215; J0885

== ENCOUNTER → 2022-05-23 08:47 | Outpatient (BNVA) | payer MEDICARE, OTHER, SELFPAY | PROVIDERS: PCP Family Medicine; Visit Provider Internal Medicine | DX: D46.1 Refractory anemia with ring sideroblasts (principal); E78.2 Mixed hyperlipidemia; E11.51 Type 2 diabetes mellitus with diabetic peripheral angiopathy without gangrene; Z79.4 Long term (current) use of insulin | CPT/HCPCS: 80053; 80061; 82043; 83036; 85025 ==

== ENCOUNTER → 2022-05-28 09:12 | Outpatient (BNVA) | payer MEDICARE, OTHER, SELFPAY | PROVIDERS: PCP Family Medicine; Visit Provider Internal Medicine Medical Oncology | DX: D46.1 Refractory anemia with ring sideroblasts (principal) | CPT/HCPCS: 80053; 85025 ==

== ENCOUNTER → 2022-05-30 13:55 | Outpatient (BNVA) | payer MEDICARE, OTHER, SELFPAY | PROVIDERS: PCP Family Medicine; Visit Provider Internal Medicine | DX: E11.51 Type 2 diabetes mellitus with diabetic peripheral angiopathy without gangrene (principal); E11.42 Type 2 diabetes mellitus with diabetic polyneuropathy; E11.59 Type 2 diabetes mellitus with other circulatory complications; I25.10 Atherosclerotic heart disease of native coronary artery without angina pectoris; E78.2 Mixed hyperlipidemia; Z79.4 Long term (current) use of insulin; Z79.84 Long term (current) use of oral hypoglycemic drugs | CPT/HCPCS: 99214 ==

== ENCOUNTER 2022-06-05 14:30 | Oncology outpatient (recurring) (ONCR) | payer MEDICARE, OTHER, SELFPAY ==
[2022-05-17] MEDS: epoetin alfa 40,000 Unit/mL INJ (non-esrd, onc only) 40000 UNIT SUBCUT (11:08)
[2022-05-24] MEDS: epoetin alfa 40,000 Unit/mL INJ (non-esrd, onc only) 40000 UNIT SUBCUT (10:24)
[2022-05-29] MEDS: epoetin alfa 40,000 Unit/mL INJ (non-esrd, onc only) 60000 UNIT SUBCUT (12:00)
[2022-06-05] MEDS: epoetin alfa 40,000 Unit/mL INJ (non-esrd, onc only) 60000 UNIT SUBCUT (12:32)
[2022-06-05 12:33] VITALS: BP 144/79; PULSE 76; RESP 17; TEMP 36.6; O2SAT 97
== END 2022-06-11 23:59 | disposition home or self-care (01) ==
PROVIDERS: PCP Family Medicine; Visit Provider Internal Medicine Medical Oncology
DX: Z79.899 Other long term (current) drug therapy; D46.1 Refractory anemia with ring sideroblasts
CPT/HCPCS: 80053; 85025; 96372; 99214; J0885

== ENCOUNTER → 2022-06-10 08:34 | Outpatient (BNVA) | payer MEDICARE, OTHER, SELFPAY | PROVIDERS: PCP Family Medicine; Visit Provider Internal Medicine Medical Oncology | DX: D46.1 Refractory anemia with ring sideroblasts (principal) | CPT/HCPCS: 85025 ==

== ENCOUNTER → 2022-06-17 08:35 | Outpatient (BNVA) | payer MEDICARE, OTHER, SELFPAY | PROVIDERS: PCP Family Medicine; Visit Provider Internal Medicine Medical Oncology | DX: D46.1 Refractory anemia with ring sideroblasts (principal) | CPT/HCPCS: 85025 ==

== ENCOUNTER → 2022-06-24 09:18 | Outpatient (BNVA) | payer MEDICARE, OTHER, SELFPAY | PROVIDERS: PCP Family Medicine; Visit Provider Internal Medicine Medical Oncology | DX: D46.1 Refractory anemia with ring sideroblasts (principal) | CPT/HCPCS: 85025 ==

== ENCOUNTER 2022-06-26 14:30 | Oncology outpatient (recurring) (ONCR) | payer MEDICARE, OTHER, SELFPAY ==
[2022-06-12] MEDS: epoetin alfa 40,000 Unit/mL INJ (non-esrd, onc only) 60000 UNIT SUBCUT (14:41)
[2022-06-19] MEDS: epoetin alfa 40,000 Unit/mL INJ (non-esrd, onc only) 60000 UNIT SUBCUT (09:19)
[2022-06-19 09:30] VITALS: BP 135/68; PULSE 65; RESP 16; TEMP 36.3; O2SAT 96
[2022-06-26] MEDS: epoetin alfa 40,000 Unit/mL INJ (non-esrd, onc only) 60000 UNIT SUBCUT (14:24)
[2022-06-26 14:30] VITALS: BP 118/68; PULSE 76; RESP 18; TEMP 36.3; O2SAT 96
== END 2022-07-12 23:59 | disposition home or self-care (01) ==
PROVIDERS: PCP Family Medicine; Visit Provider Internal Medicine Medical Oncology
DX: D46.1 Refractory anemia with ring sideroblasts (principal)
CPT/HCPCS: 96372; J0885

== ENCOUNTER → 2022-07-01 10:14 | Outpatient (BNVA) | payer MEDICARE, OTHER, SELFPAY | PROVIDERS: PCP Family Medicine; Visit Provider Nurse Practitioner Family | DX: D64.9 Anemia, unspecified (principal); E11.9 Type 2 diabetes mellitus without complications; I25.810 Atherosclerosis of coronary artery bypass graft(s) without angina pectoris; I10 Essential (primary) hypertension; Z12.5 Encounter for screening for malignant neoplasm of prostate; E78.2 Mixed hyperlipidemia; Z98.890 Other specified postprocedural states | CPT/HCPCS: 80053; 83735; 84443; 85025; G0103 ==

== ENCOUNTER → 2022-07-08 09:36 | Outpatient (BNVA) | payer MEDICARE, OTHER, SELFPAY | PROVIDERS: PCP Family Medicine; Visit Provider Anesthesiology Pain Medicine | DX: M54.41 Lumbago with sciatica, right side (principal); M47.816 Spondylosis without myelopathy or radiculopathy, lumbar region | CPT/HCPCS: 85025; 99214 ==

== ENCOUNTER → 2022-07-15 14:43 | Outpatient (BNVA) | payer MEDICARE, OTHER, SELFPAY | PROVIDERS: PCP Family Medicine; Visit Provider Anesthesiology Pain Medicine | DX: M47.816 Spondylosis without myelopathy or radiculopathy, lumbar region (principal); M54.41 Lumbago with sciatica, right side | CPT/HCPCS: 64493; 64494; 85025; J3490 ==

== ENCOUNTER → 2022-07-22 08:30 | Outpatient (BNVA) | payer MEDICARE, OTHER, SELFPAY | PROVIDERS: PCP Family Medicine; Visit Provider Internal Medicine Medical Oncology | DX: D46.1 Refractory anemia with ring sideroblasts (principal) | CPT/HCPCS: 80053; 83615; 85025; 86850; 86900 ==

== ENCOUNTER 2022-07-24 10:00 | Oncology outpatient (recurring) (ONCR) | payer MEDICARE, OTHER, SELFPAY ==
[2022-07-24 10:56] LABS: Basophils # 0.1 10^3/uL (0.0-0.1); Eosinophils # 0.2 10^3/uL (0.0-0.8); Eosinophils % 3.2 %; Hematocrit 27.1 % (42.0-52.0); Hemoglobin 8.1 g/dL (11.7-16.6); Lymphocytes % 41.4 %; Mean Corpuscular HGB Conc 29.9 g/dL (30.0-36.0); Mean Corpuscular Hemoglobin 28.1 pg (28.0-34.0); Mean Corpuscular Volume 94.1 fl (80-94); Mean Platelet Volume 9.2 fL (7.4-10.4); Monocytes # 0.6 10^3/uL (0.2-0.9); Monocytes % 12.8 %; Neutrophils # 1.82 10^3/uL (1.8-7.7); Neutrophils % 36.9 %; Nucleated Red Blood Cells % 0 %; Platelet Count 172 10^3/cmm (130-400); Red Blood Count 2.88 10^6/uL (4.1-5.3); Red Cell Distribution Width 21.4 % (12.1-15.1); White Blood Count 4.9 10^3/uL (4.0-10.0)
[2022-07-24] MEDS: acetaminophen 325 mg Tablet 650 MG PO (11:49)
[2022-07-24] MEDS: diphenhydrAMINE 25 mg Capsule PO (11:50)
[2022-07-24] MEDS: sodium chloride 0.9% 250 mL Bag IV (12:04)
[2022-07-24 12:05] VITALS: BP 125/67; BP 129/79; PULSE 60; RESP 18; TEMP 36.3; TEMP 36.4; O2SAT 95; O2SAT 98
[2022-07-24 12:20] VITALS: BP 122/70; PULSE 64; RESP 18; TEMP 36.4; O2SAT 95
[2022-07-24 12:35] VITALS: BP 139/67; PULSE 62; RESP 18; TEMP 36.4; O2SAT 97; O2SAT 98
[2022-07-24 13:05] VITALS: BP 142/68; PULSE 64; RESP 18; TEMP 36.6; O2SAT 97
[2022-07-24 14:00] VITALS: BP 138/67; PULSE 62; RESP 18; TEMP 36.6; O2SAT 98
== END 2022-08-11 23:59 | disposition home or self-care (01) ==
PROVIDERS: PCP Family Medicine; Visit Provider Internal Medicine Medical Oncology
DX: Z79.899 Other long term (current) drug therapy (principal); Z87.891 Personal history of nicotine dependence; D46.1 Refractory anemia with ring sideroblasts
CPT/HCPCS: 36430; 85025; 86920; 99214; J7050; P9016

== ENCOUNTER → 2022-07-31 09:50 | Outpatient (BNVA) | payer MEDICARE, OTHER, SELFPAY | PROVIDERS: PCP Family Medicine; Visit Provider Anesthesiology Pain Medicine | DX: M54.41 Lumbago with sciatica, right side (principal); M47.816 Spondylosis without myelopathy or radiculopathy, lumbar region | CPT/HCPCS: 99214 ==

== ENCOUNTER → 2022-08-06 08:23 | Outpatient (BNVA) | payer MEDICARE, OTHER, SELFPAY | PROVIDERS: PCP Family Medicine; Visit Provider Internal Medicine Medical Oncology | DX: D64.9 Anemia, unspecified (principal) | CPT/HCPCS: 85025; 86850; 86900 ==

== ENCOUNTER → 2022-08-15 10:13 | Outpatient (BNVA) | payer MEDICARE, OTHER, SELFPAY | PROVIDERS: PCP Family Medicine; Visit Provider Internal Medicine | DX: E11.51 Type 2 diabetes mellitus with diabetic peripheral angiopathy without gangrene (principal); Z79.4 Long term (current) use of insulin | CPT/HCPCS: 80053; 80061; 82043; 83036 ==

== ENCOUNTER → 2022-08-20 14:32 | Outpatient (BNVA) | payer MEDICARE, OTHER, SELFPAY | PROVIDERS: PCP Family Medicine; Visit Provider Internal Medicine | DX: E11.51 Type 2 diabetes mellitus with diabetic peripheral angiopathy without gangrene (principal); E11.42 Type 2 diabetes mellitus with diabetic polyneuropathy; E11.59 Type 2 diabetes mellitus with other circulatory complications; I25.10 Atherosclerotic heart disease of native coronary artery without angina pectoris; E78.2 Mixed hyperlipidemia; Z79.4 Long term (current) use of insulin | CPT/HCPCS: 99214 ==

== ENCOUNTER → 2022-08-22 09:05 | Outpatient (BNVA) | payer MEDICARE, OTHER, SELFPAY | PROVIDERS: PCP Family Medicine; Visit Provider Internal Medicine Medical Oncology | DX: D46.1 Refractory anemia with ring sideroblasts (principal) | CPT/HCPCS: 85025 ==

== ENCOUNTER → 2022-09-23 08:56 | Outpatient (BNVA) | payer MEDICARE, OTHER, SELFPAY | PROVIDERS: Visit Provider Anesthesiology Pain Medicine | DX: M54.41 Lumbago with sciatica, right side (principal); M47.816 Spondylosis without myelopathy or radiculopathy, lumbar region | CPT/HCPCS: 99214 ==

== ENCOUNTER → 2022-10-16 08:44 | Outpatient (BNVA) | payer MEDICARE, OTHER, SELFPAY | PROVIDERS: Visit Provider Internal Medicine Medical Oncology | DX: D46.1 Refractory anemia with ring sideroblasts (principal) | CPT/HCPCS: 80053; 83615; 85025 ==

== ENCOUNTER 2022-10-17 11:00 | Oncology outpatient (recurring) (ONCR) | payer MEDICARE, OTHER, SELFPAY | END 2022-11-11 23:59 | disposition home or self-care (01) | PROVIDERS: Visit Provider Internal Medicine Medical Oncology | DX: Z79.899 Other long term (current) drug therapy (principal); Z87.891 Personal history of nicotine dependence; D46.1 Refractory anemia with ring sideroblasts; R53.1 Weakness; R53.83 Other fatigue; R73.9 Hyperglycemia, unspecified; R35.0 Frequency of micturition; E86.0 Dehydration | CPT/HCPCS: 99214 ==

== ENCOUNTER → 2022-10-29 09:11 | Outpatient (BNVA) | payer MEDICARE, OTHER, SELFPAY | PROVIDERS: PCP Nurse Practitioner Family; Visit Provider Nurse Practitioner Family | DX: E11.51 Type 2 diabetes mellitus with diabetic peripheral angiopathy without gangrene (principal); Z79.4 Long term (current) use of insulin | CPT/HCPCS: 80053; 80061; 83036; 85025 ==

== ENCOUNTER → 2022-11-13 10:48 | Outpatient (BNVA) | payer MEDICARE, OTHER, SELFPAY | PROVIDERS: PCP Nurse Practitioner Family; Visit Provider Internal Medicine Cardiovascular Disease | DX: I25.810 Atherosclerosis of coronary artery bypass graft(s) without angina pectoris (principal); I10 Essential (primary) hypertension; E11.51 Type 2 diabetes mellitus with diabetic peripheral angiopathy without gangrene; Z79.4 Long term (current) use of insulin; E11.42 Type 2 diabetes mellitus with diabetic polyneuropathy; E78.2 Mixed hyperlipidemia; Z87.891 Personal history of nicotine dependence; E11.59 Type 2 diabetes mellitus with other circulatory complications; I25.10 Atherosclerotic heart disease of native coronary artery without angina pectoris; Z79.84 Long term (current) use of oral hypoglycemic drugs | CPT/HCPCS: 99214 ==

== ENCOUNTER → 2022-12-18 09:25 | Outpatient (BNVA) | payer MEDICARE, OTHER, SELFPAY | PROVIDERS: PCP Nurse Practitioner Family; Visit Provider Family Medicine | DX: R05.9 Cough, unspecified (principal) | CPT/HCPCS: 87400; 87426 ==

== ENCOUNTER → 2023-01-20 10:41 | Outpatient (BNVA) | payer MEDICARE, OTHER, SELFPAY | PROVIDERS: PCP Nurse Practitioner Family; Visit Provider Internal Medicine Medical Oncology | DX: D46.1 Refractory anemia with ring sideroblasts (principal) | CPT/HCPCS: 80053; 83615; 85025 ==

== ENCOUNTER 2023-02-04 12:00 | Oncology outpatient (recurring) (ONCR) | payer MEDICARE, OTHER, SELFPAY ==
[2023-02-04 12:16] VITALS: BP 141/61; PULSE 80; RESP 16; TEMP 36.2; O2SAT 97
[2023-02-04 12:24] LABS: Basophils % 0.5 %; Eosinophils # 0.1 10^3/uL (0.0-0.8); Eosinophils % 3.8 %; Lymphocytes # 2.3 10^3/uL (0.8-4.8); Lymphocytes % 62.4 %; Mean Corpuscular HGB Conc 30.4 g/dL (30-55); Mean Corpuscular Hemoglobin 29.6 pg (27-33); Mean Corpuscular Volume 97.3 fl (82-101); Mean Platelet Volume 9.9 fL (7.4-10.4); Monocytes # 0.6 10^3/uL (0.2-0.9); Monocytes % 15.1 %; Neutrophils % 17.7 %; Nucleated Red Blood Cells % 0 %; Platelet Count 123 10^3/cmm (157-399); Red Blood Count 2.57 10^6/uL (3.85-5.65); Red Cell Distribution Width 20.9 % (12.1-15.1)
[2023-02-04 12:39] LABS: Alanine Aminotransferase 15 U/L (0-41); Albumin Level 4.4 g/dL (3.5-5.2); Alkaline Phosphatase 60 U/L (40-130); Anion Gap 11.3 (5-19); Aspartate Amino Transferase 13 U/L (0-40); Blood Urea Nitrogen 20 mg/dL (8-23); Calcium 9.3 mg/dL (8.5-10.5); Carbon Dioxide 28 mmol/L (22-29); Chloride 105 mmol/L (98-107); Globulin 2.5 g/dL (1.3-4.6); Glucose 180 mg/dL (65-115); Osmolality Calculated 297 mOsm/kg (285-295); Potassium 4.3 mmol/L (3.5-5.1); Sodium 140 mmol/L (136-145); Total Bilirubin 0.5 mg/dL (0.15-1.2); Total Protein 6.9 g/dL (6.6-8.7)
[2023-02-04 13:11] LABS: Neutrophils # 0.65 10^3/uL (1.8-7.7)
[2023-02-04 13:12] LABS: Slide Review Slide Review Perform
[2023-02-04] MEDS: luspatercept-aamt 25 mg SUBCUT (16:00)
[2023-02-04] MEDS: luspatercept-aamt 75 mg SUBCUT (16:00)
== END 2023-02-04 23:59 | disposition home or self-care (01) ==
PROVIDERS: PCP Nurse Practitioner Family; Visit Provider Internal Medicine Medical Oncology
DX: D46.1 Refractory anemia with ring sideroblasts (principal); D46.9 Myelodysplastic syndrome, unspecified; Z79.899 Other long term (current) drug therapy
CPT/HCPCS: 36415; 80053; 85025; 96372; 99214; J0896

== ENCOUNTER 2023-02-11 09:30 | Oncology outpatient (recurring) (ONCR) | payer MEDICARE, OTHER, SELFPAY ==
[2023-02-11 09:42] VITALS: BP 154/84; PULSE 79; RESP 16; TEMP 36; O2SAT 99
[2023-02-11 10:34] LABS: Hematocrit 30.7 % (37-53); Mean Corpuscular HGB Conc 30.3 g/dL (30-55); Mean Corpuscular Volume 95.6 fl (82-101); Mean Platelet Volume 10.1 fL (7.4-10.4); Platelet Count 200 10^3/cmm (157-399); Red Blood Count 3.21 10^6/uL (3.85-5.65); White Blood Count 5.87 10^3/uL (3.29-11.43)
[2023-02-11 10:48] LABS: Alanine Aminotransferase 15 U/L (0-41); Albumin Level 4.4 g/dL (3.5-5.2); Alkaline Phosphatase 63 U/L (40-130); Anion Gap 12.4 (5-19); Aspartate Amino Transferase 12 U/L (0-40); Blood Urea Nitrogen 27 mg/dL (8-23); Calcium 9.6 mg/dL (8.5-10.5); Carbon Dioxide 26 mmol/L (22-29); Chloride 101 mmol/L (98-107); Chol HDL Ratio 2.89 mg/dL (1.0-5.00); Cholesterol 78 mg/dL (0-200); Globulin 2.9 g/dL (1.3-4.6); Glucose 248 mg/dL (65-115); HDL Cholesterol 27 mg/dL (60-100); LDL Cholesterol Calculated 31 mg/dL (50-129); LDL HDL Ratio 1.15 RATIO (0.00-3.22); Osmolality Calculated 293 mOsm/kg (285-295); Potassium 4.4 mmol/L (3.5-5.1); Sodium 135 mmol/L (136-145); Total Bilirubin 0.5 mg/dL (0.15-1.2); Total Protein 7.3 g/dL (6.6-8.7); Triglycerides 101 mg/dL (0-150)
[2023-02-11 11:17] LABS: Creatinine Urine, Random 266 mg/dL (39-259); Microalbum Creatinine Ratio Ur 34 mg/dL (0-20); Microalbumin Random Urine 9 ug/dL (0-20)
[2023-02-11 11:27] LABS: Estmated Average Glucose 157; Hemoglobin A1C 7.1 % (4.0-6.0)
[2023-02-11 11:44] LABS: Slide Review Slide Review Perform
[2023-02-11 11:46] LABS: Absolute Eosinophils 0.1 10^3/cmm (0.0-0.7); Absolute Neutrophil 2.3 10^3/cmm (1.4-6.5); Absolute Segmented Neutrophil 1.9 10/cmm (1.6-7.1); Band Neutrophils Absolute 0.5 10^3/cmm (0.0-1.2); Eosinophils 2 %; Lymphocytes 19 %; Lymphocytes Absolute 3.2 10^3/cmm (1.2-3.4); Monocytes Absolute 0.2 10^3/cmm (0.1-0.6); Platelet Estimate Normal (Normal); Segmented Neutrophils 32 %; Total Cells Counted 100 (0-100)
== END 2023-02-11 23:59 | disposition home or self-care (01) ==
PROVIDERS: Internal Medicine; PCP Nurse Practitioner Family; Visit Provider Internal Medicine Medical Oncology
DX: D46.1 Refractory anemia with ring sideroblasts (principal); Z79.899 Other long term (current) drug therapy
CPT/HCPCS: 36415; 80053; 80061; 82044; 83036; 85007; 85025; 99214

== ENCOUNTER → 2023-02-20 11:47 | Outpatient (BNVA) | payer MEDICARE, OTHER, SELFPAY | PROVIDERS: PCP Nurse Practitioner Family; Visit Provider Nurse Practitioner Family | DX: R35.0 Frequency of micturition (principal) | CPT/HCPCS: 81000 ==

== ENCOUNTER 2023-02-25 10:58 | Oncology outpatient (recurring) (ONCR) | payer MEDICARE, OTHER, SELFPAY ==
[2023-02-25 11:39] LABS: Hematocrit 28.9 % (37-53); Mean Corpuscular HGB Conc 29.8 g/dL (30-55); Mean Corpuscular Hemoglobin 28.6 pg (27-33); Mean Platelet Volume 10.6 fL (7.4-10.4); Platelet Count 167 10^3/cmm (157-399); Red Blood Count 3.01 10^6/uL (3.85-5.65); Red Cell Distribution Width 20.8 % (12.1-15.1)
[2023-02-25 11:57] LABS: Alanine Aminotransferase 15 U/L (0-41); Albumin Level 4.6 g/dL (3.5-5.2); Alkaline Phosphatase 61 U/L (40-130); Anion Gap 11.7 (5-19); Aspartate Amino Transferase 12 U/L (0-40); Blood Urea Nitrogen 23 mg/dL (8-23); Calcium 9.4 mg/dL (8.5-10.5); Carbon Dioxide 29 mmol/L (22-29); Chloride 104 mmol/L (98-107); Globulin 2.8 g/dL (1.3-4.6); Glucose 150 mg/dL (65-115); Osmolality Calculated 297 mOsm/kg (285-295); Potassium 4.7 mmol/L (3.5-5.1); Sodium 140 mmol/L (136-145); Total Bilirubin 0.6 mg/dL (0.15-1.2); Total Protein 7.4 g/dL (6.6-8.7)
[2023-02-25 12:49] LABS: Slide Review Slide Review Perform
[2023-02-25 12:50] LABS: Absolute Eosinophils 0.1 10^3/cmm (0.0-0.7); Absolute Segmented Neutrophil 2.1 10/cmm (1.6-7.1); Band Neutrophils Absolute 0.2 10^3/cmm (0.0-1.2); Eosinophils 2 %; Lymphocytes 41 %; Lymphocytes Absolute 2.6 10^3/cmm (1.2-3.4); Monocytes Absolute 0.1 10^3/cmm (0.1-0.6); Segmented Neutrophils 35 %; Total Cells Counted 100 (0-100)
[2023-02-25 12:51] LABS: Absolute Neutrophil 2.3 10^3/cmm (1.4-6.5); Anisocytosis 3+; Giant Platelets 1+; Macrocytosis 3+; Platelet Estimate Normal (Normal); Poikilocytosis 1+; Polychromasia 1+; Stomatocytes 1+
[2023-02-25 14:15] VITALS: BP 122/76; PULSE 71; RESP 18; TEMP 36.4; O2SAT 98
[2023-02-25] MEDS: LUSPATERCEPT AAMT 100 MG SUBCUT (14:15)
[2023-02-25 14:21] LABS: Reticulocyte % 2.3 % (0.5-2.0)
[2023-02-25 14:41] LABS: Free T4 Free Thyroxine 1.16 ng/dL (0.82-1.77)
[2023-02-25 14:50] LABS: Ferritin 13 ng/mL (30-400); Iron 32 ug/dL (59-158); Percent Saturation 7.4 % (20-50); Thyroid Stimulating Hormone 1.51 uIU/mL (0.27-4.20); Total Iron Binding Capacity 428 mcg/dl; Unsaturated Iron Binding 396 ug/dL (112-347); Vitamin B12 1550 pg/mL (232-1245)
== END 2023-02-25 23:59 | disposition home or self-care (01) ==
PROVIDERS: Internal Medicine; Nurse Practitioner Family; PCP Nurse Practitioner Family; Visit Provider Internal Medicine Medical Oncology
DX: D46.1 Refractory anemia with ring sideroblasts (principal); K59.09 Other constipation; K29.70 Gastritis, unspecified, without bleeding; Z79.899 Other long term (current) drug therapy
CPT/HCPCS: 36415; 80053; 82607; 82728; 83540; 83550; 84439; 84443; 85007; 85025; 85045; 99214; J0896

== ENCOUNTER 2023-02-26 11:56 | Emergency (ER) | payer MEDICARE, OTHER, SELFPAY ==
[2023-02-26 12:10] VITALS: BP 147/74; PULSE 62; RESP 15; TEMP 36.7; O2SAT 97; BMI 31.8
--- NOTE | 2023-02-26 13:25 | W.ED.MALEGU ---
HPI - Male Genitourinary General: Chief complaint: Urogenital-Male Stated complaint: abd pain Time Seen by Provider: 02/26/23 13:24 History of Present Illness: 82-year-old male patient comes in today with complaints of mid back pain, right flank pain x2 days. Patient reports pain did start after taking his last dose of biologic medication for his myelodysplastic syndrome. Patient has a history of spinal stenosis and renal stones also. Spouse states that she has medicated patient with tramadol, cyclobenzaprine, and Tylenol. Patient reports some improvement in pain but has worsening pain when standing. Patient's other medical history consists of BPH, CAD, GERD, hyperlipidemia, hypertension, and type 2 diabetes. Patient appears nontoxic. Patient appears in no pain at rest. Patient reports pain is aggravated with standing and walking. Patient was a previous smoker but stopped 40 years ago. Patient did smoke for 25+ years. Patient denied any alcohol or substance abuse. Associated symptoms: Deny nausea or vomiting Review of Systems General: Reports: 10 or more systems reviewed and unremarkable except in HPI and below Const: Denies: fever(s) Card: Denies: chest pain Resp: Denies: dyspnea GI: Denies: nausea, vomiting, diarrhea or constipation : Reports: flank pain; Denies: difficulty urinating Musc: Reports: back pain Skin/Breast: Denies: rash Neuro: Denies: headache(s) PFS ED PFSH: Medical History Anemia Balanitis Bilateral kidney stones BPH loc w urin obs/LUTS Coronary artery disease Esophagitis, unspecified Gastritis GERD (gastroesophageal reflux disease) History of ehrlichiosis History of foot fracture (~1980) Hyperlipidemia, unspecified Hypertension Myelodysplastic syndrome Phimosis Spinal stenosis, lumbar region without neurogenic claudication Type 2 diabetes mellitus Surgical History History of colonoscopy (03/16/19) History of coronary artery bypass graft x 3 (2012) History of esophagogastroduodenoscopy (EGD) (03/16/19) History of shoulder surgery S/P ureteral stent placement (2017) Family History Father , at age 86 Diabetes Hyperlipidemia Hypertension Family/Other Diabetes Cancer CAD (coronary artery disease) Hypertension Mother , at age 76 No problems noted. Denies family history of Anesthesia complication Social History Smoking and tobacco/nicotine status: former use of tobacco/nicotine Quit status (tobacco/nicotine): has quit using Year quit tobacco: 1981 Former quit date comment: Smoked 25+ years Alcohol intake: never Substance/Drug Use: never Caregiver/support person: Yes Lives independently: Yes Household members: spouse Housing: House Marital status: Current occupational status: retired Previous occupational history: [employer] Current gender identity: Male Physical Exam Const: COMMON NORMALS: alert HENMT: COMMON NORMALS: normocephalic HEAD & SCALP: normocephalic Neck/C-Spine: COMMON NORMALS: full ROM Resp: COMMON NORMALS: normal respiratory effort and clear to auscultation bilaterally AUSCULTATION: clear to auscultation bilaterally Cardio: COMMON NORMALS: regular rate and regular rhythm RATE: regular rate RHYTHM: regular rhythm GI: COMMON NORMALS: Soft to palpation PALPATION: Yes Soft to palpation : COMMON NORMALS: Yes no CVA tenderness BLADDER/KIDNEY EXAM: Yes no CVA tenderness Back/Pelvis: COMMON NORMALS: no CVA tenderness THORACIC SPINE/UPPER BACK: No thoracic spinal tenderness and Yes paraspinal muscle tenderness Thoracic paraspinal muscle tenderness: right Right thoracic paraspinal muscle tenderness: T11 and T12 LUMBAR SPINE/LOWER BACK: No lumbar spinal tenderness and Yes paraspinal muscle tenderness Lumbar paraspinal muscle tenderness: right Right lumbar paraspinal muscle tenderness: L1 and L2 Extremity: COMMON NORMALS: normal to inspection Neuro: SENSORIUM/ORIENTATION: Yes alert Skin: COMMON NORMALS: turgor normal GENERAL SKIN EXAM: turgor normal Course Vital Signs: Vital signs: Vital Signs Temperature 98.1 F 02/26/23 12:10 Pulse Rate 62 02/26/23 12:10 Respiratory Rate 15 02/26/23 12:10 Blood Pressure 147/74 02/26/23 12:10 Pulse Oximetry 97 02/26/23 12:10 Oxygen Delivery Me thod Room Air 02/26/23 12:10 [facility] - Male Medical Decision Making 82-year-old male patient comes in today with complaints of mid back pain on the right side. Patient has a history of spinal stenosis and renal stones. Patient also is being treated for myelodysplastic syndrome. On exam patient has some muscle tenderness in the right mid back. Patient appears in no severe pain. Patient was medicated prior to arrival to the ER with tramadol, cyclobenzaprine, and acetaminophen. Patient moves all extremities appropriately. Vital signs are normal. Differential diagnosis includes not limited to renal calculi, urinary tract infection, intervertebral disc disease, facet arthritis, metastatic disease. CMP was unremarkable with no abnormalities in liver enzymes. CT noted degenerative changes of the spine, cholelithiasis, mild constipation, no obstructing renal calculi. Believe the patient's pain is probably most likely mechanical secondary to his chronic back disorder. Another possibility may be due to the injections he is getting for his myelodysplastic disorder there is a increase in bone pain with the medication. Reviewed exam with patient and family with recommendations for treatment and further follow-up. Recommend monitoring for fever or signs of illness and return to the ER for the symptoms. Recommend hydrocodone for severe pain and continue with routine medicines at home. Patient was given 1 dose of 10 mg dexamethasone to help with inflammation of the arthritis in his spine. Patient and family both reported understanding and agreed to plan. Lab Data 02/26/23 14:02 02/26/23 14:02 Laboratory Results Sodium 138 mmol/L (136-145) 02/26/23 14:02 Potassium 4.2 mmol/L (3.5-5.1) 02/26/23 14:02 Chloride 102 mmol/L (98-107) 02/26/23 14:02 Carbon Dioxide 27 mmol/L (22-29) 02/26/23 14:02 Anion Gap 13.2 (5-19) 02/26/23 14:02 BUN 18 mg/dL (8-23) 02/26/23 14:02 Creatinine 1.0 mg/dL (0.7-1.2) 02/26/23 14:02 GFR Calculation Not Reportable 02/26/23 14:02 Glucose 86 mg/dL (65-115) 02/26/23 14:02 Calculated Osmolality 287 mOsm/kg (285-295) 02/26/23 14:02 Calcium 9.3 mg/dL (8.5-10.5) 02/26/23 14:02 Total Bilirubin 0.6 mg/dL (0.15-1.2) 02/26/23 14:02 AST 14 U/L (0-40) 02/26/23 14:02 ALT 14 U/L (0-41) 02/26/23 14:02 Alkaline Phosphatase 63 U/L (40-130) 02/26/23 14:02 Total Protein 7.3 g/dL (6.6-8.7) 02/26/23 14:02 Albumin 4.5 g/dL (3.5-5.2) 02/26/23 14:02 Globulin 2.8 g/dL (1.3-4.6) 02/26/23 14:02 Urine Color Dark yellow (Yellow) 02/26/23 13:52 Urine Appearance Clear (CLEAR) 02/26/23 13:52 Urine pH 6 (5-7) 02/26/23 13:52 Ur Specific [place] 1.020 (1.005-1.030) 02/26/23 13:52 Urine Protein Neg (Negative) 02/26/23 13:52 Urine Glucose (UA) Norm (Normal) 02/26/23 13:52 Urine Ketones Negative (Negative) 02/26/23 13:52 Urine Blood Neg (Negative) 02/26/23 13:52 Urine Nitrate Negative (Negative) 02/26/23 13:52 Urine Bilirubin Neg (Negative) 02/26/23 13:52 Urine Urobilinogen Norm mg/dL (Negative) 02/26/23 13:52 Ur Leukocyte Esterase Negative (Negative) 02/26/23 13:52 All radiology interpretation(s) finalized by discharge Discharge Plan Discharge Patient Disposition: Home Clinical Impression: Back pain Qualifiers: Back pain location: back pain in other location Chronicity: unspecified Qualified Code(s): M54.89 - Other dorsalgia Condition: Stable Prescriptions: New hydrocodone-acetaminophen 7.5-325 mg tablet 1 tab PO Q8H PRN (Reason: pain (scale score 7-10)) Qty: 12 0RF No Action ibuprofen 200 mg tablet 200 mg PO Q6H PRN (Reason: Pain) diphenhydramine HCl [Benadryl] 25 mg capsule 25 mg PO DAILY PRN (Reason: Allergy Symptoms) magnesium oxide 250 mg magnesium tablet 250 mg PO DAILY@0700 Victoza 2-Andrea 0.6 mg/0.1 mL (18 mg/3 mL) pen injector 0.6 mg SUBCUT DAILY multivitamin Tablet 1 tab PO DAILY Miralax 17 gram/dose powder 17 g PO DAILY@0700 PRN (Reason: Constipation) tramadol 300 mg tablet extended release 24 hr 300 mg PO DAILY PRN (Reason: Pain) pantoprazole 40 mg tablet,delayed release (DR/EC) 40 mg PO BID Qty: 60 3RF metformin 500 mg tablet extended release 24 hr 1,000 mg PO BID Qty: 270 0RF cyclobenzaprine 10 mg tablet 10 mg PO TID PRN (Reason: Muscle Spasm) atorvastatin 10 mg tablet 10 mg PO DAILY Rx Instructions: AT 6 PM tamsulosin 0.4 mg capsule 0.4 mg PO DAILY losartan 25 mg tablet 25 mg PO BID gabapentin 300 mg capsule 300 mg PO BID diclofenac sodium 75 mg tablet,delayed release (DR/EC) 75 mg PO BID latanoprost 0.005 % drops 1 drp ophthalmic (eye) BEDTIME Ventolin HFA 90 mcg/actuation HFA aerosol inhaler 2 inh INHALATION QID PRN (Reason: Shortness Of Breath) tizanidine 4 mg capsule 4 mg PO Q6H PRN (Reason: muscle spasticity) Qty: 20 0RF Rx Instructions: do not exceed 3 doses per 24 hrs Discharge Orders: Discharge ED (Routine); Ordered 02/26/23 Ordered By: Henry Garrett Referrals: Hayde Washington FNP [Primary Care Provider] - Discharge Diet: Usual diet Discharge Activity: Increase activity as tolerated Patient Instructions: Back Pain (ED) Activity Restrictions/Additional Instructions: Increase activity as tolerated. Use acetaminophen to help control pain. Continue with recommendations of diclofenac, cyclobenzaprine, and tramadol for routine pain control. Use hydrocodone for severe pain. Try to maintain activity as normal as possible. Follow-up with primary care for further instructions. Return to ED for new concerns or worsening symptoms such as high fever greater than 100.4, nausea or vomiting, blood in vomit or stool, or new concerns. Coding Level of Care Code ED Corrosion Control Specialist for Lilli Hendrix
[2023-02-26 13:42] VITALS: BP 175/99; PULSE 65; O2SAT 99
[2023-02-26 14:03] LABS: Add Urine Microscopic? NO; Charge for UA Resulting for Rev
--- NOTE | 2023-02-26 14:18 | CT_ITS ---
WS: [id number] CT ABDOMEN PELVIS TECHNIQUE: Noncontrast CT of the abdomen and pelvis with coronal and sagittal reformatted images. CLINICAL INFORMATION: right flank pain COMPARISON: 2018 DLP: 902.[address] scans at [facility] use at least one of these dose optimization techniques: automated e xposure control; mA and/or kV adjustment per patient size (includes targeted exams where dose is matc hed to clinical indication); or iterative reconstruction. FINDINGS: Subsegmental atelectasis in the lung bases. Cholelithiasis. Noncontrast liver is normal. Normal nonco ntrast spleen. Moderate esophageal hernia. This appears progressed compared to 2018. Noncontrast panc reas is normal. Splenic artery calcification. Adrenal glands are normal. LEFT renal cysts. No hydrone phrosis in the RIGHT kidney. RIGHT ureter is decompressed. No obstructing renal or ureteral calculi b ilaterally. Normal appendix in the RIGHT lower quadrant. No evidence of acute appendicitis. Moderate RIGHT colon and transverse colon constipation. No high-grade obstruction. Sigmoid diverticulosis. Mild diffuse bl adder wall thickening can be seen with chronic cystitis or bladder outlet obstruction. Mild prostate enlargement measuring 3.9 cm. Moderate spondylitic changes lumbar spine. Tiny fat-containing umbilica l hernia. IMPRESSION: 1. No obstructing renal or ureteral calculi. No hydronephrosis. 2. A few tiny nonobstructing RIGHT renal parenchymal and calyceal tip calculi. 3. Cholelithiasis. 4. Normal appendix. 5. Moderate esophageal hiatal hernia. 6. Moderate RIGHT and transverse colon constipation. 7. Tiny fat-containing umbilical hernia. 8. Mild diffuse bladder wall thickening can be seen with bladder outlet obstruction or chronic cysti tis.
[2023-02-26 14:24] LABS: Bilirubin Urine Neg (Negative); Blood Urine Neg (Negative); Glucose Urine UA Norm (Normal); Ketones Urine Negative (Negative); Leukocyte Esterase Urine Negative (Negative); Nitrate Urine Negative (Negative); Protein Urine Neg (Negative); Urine Appearance Clear (CLEAR); Urine Color Dark Yellow (Yellow); Urobilinogen Urine Norm (Negative); pH Urine 6 (5-7)
[2023-02-26 14:26] LABS: Basophils # 0.1 10^3/uL (0.0-0.1); Basophils % 1.1 %; Eosinophils # 0.2 10^3/uL (0.0-0.8); Eosinophils % 2.7 %; Hematocrit 27.9 % (37-53); Lymphocytes # 2.8 10^3/uL (0.8-4.8); Lymphocytes % 44.2 %; Mean Corpuscular HGB Conc 29.7 g/dL (30-55); Mean Corpuscular Hemoglobin 28.4 pg (27-33); Mean Corpuscular Volume 95.5 fl (82-101); Mean Platelet Volume 10.7 fL (7.4-10.4); Monocytes # 0.8 10^3/uL (0.2-0.9); Monocytes % 12.5 %; Neutrophils # 1.89 10^3/uL (1.8-7.7); Neutrophils % 29.6 %; Nucleated Red Blood Cells % 0.3 %; Platelet Count 153 10^3/cmm (157-399); Red Blood Count 2.92 10^6/uL (3.85-5.65); Red Cell Distribution Width 20.6 % (12.1-15.1); White Blood Count 6.38 10^3/uL (3.29-11.43)
[2023-02-26 14:38] LABS: Alanine Aminotransferase 14 U/L (0-41); Albumin Level 4.5 g/dL (3.5-5.2); Alkaline Phosphatase 63 U/L (40-130); Anion Gap 13.2 (5-19); Aspartate Amino Transferase 14 U/L (0-40); Blood Urea Nitrogen 18 mg/dL (8-23); Calcium 9.3 mg/dL (8.5-10.5); Carbon Dioxide 27 mmol/L (22-29); Chloride 102 mmol/L (98-107); Globulin 2.8 g/dL (1.3-4.6); Glucose 86 mg/dL (65-115); Osmolality Calculated 287 mOsm/kg (285-295); Potassium 4.2 mmol/L (3.5-5.1); Sodium 138 mmol/L (136-145); Total Bilirubin 0.6 mg/dL (0.15-1.2); Total Protein 7.3 g/dL (6.6-8.7)
[2023-02-26] MEDS: dexamethasone 10 mg/mL INJ IM (15:13)
--- NOTE | 2023-02-26 15:14 | PC.NURSE ---
dex physician ok'd for im dex to be given iv instead of im.
[2023-02-26 15:26] LABS: Slide Review Slide Review Perform
[2023-02-26 15:33] VITALS: BP 162/85; PULSE 64; O2SAT 99
== END 2023-02-26 15:28 | disposition home or self-care (01) ==
PROVIDERS: Emergency Medicine; Emergency Provider Nurse Practitioner Family; PCP Nurse Practitioner Family
DX: M54.89 Other dorsalgia (principal); Z79.84 Long term (current) use of oral hypoglycemic drugs; Z87.891 Personal history of nicotine dependence; Z95.1 Presence of aortocoronary bypass graft; I25.10 Atherosclerotic heart disease of native coronary artery without angina pectoris; E78.5 Hyperlipidemia, unspecified; I10 Essential (primary) hypertension; E11.9 Type 2 diabetes mellitus without complications
CPT/HCPCS: 74176; 80053; 81003; 85025; 96374; 99284; J1100

== ENCOUNTER 2023-03-10 08:33 | Oncology outpatient (recurring) (ONCR) | payer MEDICARE, OTHER, SELFPAY ==
[2023-03-03] MEDS: ferric carboxy (IVPB) 750 MG in sodium chloride 0.9% (100 ml) 100 ML 345 MG IV (09:03)
[2023-03-03 09:05] VITALS: BP 144/78; PULSE 77; RESP 18; TEMP 36.6; O2SAT 96
[2023-03-03 09:51] VITALS: BP 145/76; PULSE 67; RESP 18; TEMP 36.6; O2SAT 97
[2023-03-10 08:58] VITALS: BP 149/73; PULSE 74; RESP 17; TEMP 36.4; O2SAT 96
[2023-03-10] MEDS: sodium chloride 0.9% 250 ML 75 ML IV (09:38)
[2023-03-10] MEDS: ferric carboxy (IVPB) 750 MG in sodium chloride 0.9% (100 ml) 100 ML 345 MG IV (09:42)
[2023-03-10 10:30] VITALS: BP 128/69; PULSE 63; RESP 17; TEMP 36.3; O2SAT 96
== END 2023-03-13 23:59 | disposition home or self-care (01) ==
PROVIDERS: PCP Nurse Practitioner Family; Visit Provider Internal Medicine Medical Oncology
DX: Z53.9 Procedure and treatment not carried out, unspecified reason (principal)
CPT/HCPCS: 96365; J1439; J7050

== ENCOUNTER → 2023-03-17 09:58 | Outpatient (BNVA) | payer MEDICARE, OTHER, SELFPAY | PROVIDERS: PCP Nurse Practitioner Family; Visit Provider Internal Medicine Medical Oncology | DX: D46.1 Refractory anemia with ring sideroblasts (principal) | CPT/HCPCS: 80053; 82607; 82746; 83921; 85007; 85025 ==

== ENCOUNTER → 2023-03-26 08:59 | Outpatient (BNVA) | payer MEDICARE, OTHER, SELFPAY | PROVIDERS: PCP Nurse Practitioner Family; Visit Provider Anesthesiology Pain Medicine | DX: M54.41 Lumbago with sciatica, right side (principal); M47.816 Spondylosis without myelopathy or radiculopathy, lumbar region; M48.061 Spinal stenosis, lumbar region without neurogenic claudication | CPT/HCPCS: 99214 ==

== ENCOUNTER → 2023-03-31 08:38 | Outpatient (BNVA) | payer MEDICARE, OTHER, SELFPAY | PROVIDERS: PCP Nurse Practitioner Family; Visit Provider Family Medicine | DX: D64.9 Anemia, unspecified (principal) | CPT/HCPCS: 80053; 85025 ==

== ENCOUNTER 2023-04-01 16:00 | Oncology outpatient (recurring) (ONCR) | payer MEDICARE, OTHER, SELFPAY ==
[2023-04-01] MEDS: LUSPATERCEPT AAMT 100 MG SUBCUT (16:29)
[2023-04-01 16:30] VITALS: BP 136/61; PULSE 63; RESP 18; TEMP 36.6; O2SAT 98
== END 2023-04-01 23:59 | disposition home or self-care (01) ==
PROVIDERS: PCP Nurse Practitioner Family; Visit Provider Internal Medicine Medical Oncology
DX: Z53.9 Procedure and treatment not carried out, unspecified reason (principal); D46.1 Refractory anemia with ring sideroblasts; K59.09 Other constipation; K29.70 Gastritis, unspecified, without bleeding; Z79.899 Other long term (current) drug therapy; Z51.11 Encounter for antineoplastic chemotherapy
CPT/HCPCS: 96401; 99214; J0896

== ENCOUNTER → 2023-04-16 12:50 | Outpatient (BNVA) | payer MEDICARE, OTHER, SELFPAY | PROVIDERS: PCP Nurse Practitioner Family; Visit Provider Anesthesiology Pain Medicine | DX: M47.816 Spondylosis without myelopathy or radiculopathy, lumbar region (principal) | CPT/HCPCS: 64493; 64494; 64495; J3490 ==

== ENCOUNTER 2023-04-24 13:36 | Oncology outpatient (recurring) (ONCR) | payer MEDICARE, OTHER, SELFPAY ==
[2023-04-24 14:32] VITALS: BP 129/70; PULSE 65; RESP 18; O2SAT 92
[2023-04-24 14:53] LABS: Hematocrit 31.9 % (37-53); Mean Corpuscular HGB Conc 33.5 g/dL (30-55); Mean Corpuscular Hemoglobin 34.6 pg (27-33); Mean Corpuscular Volume 103.2 fl (82-101); Mean Platelet Volume 9.8 fL (7.4-10.4); Platelet Count 142 10^3/cmm (157-399); Red Blood Count 3.09 10^6/uL (3.85-5.65); Red Cell Distribution Width 24.2 % (12.1-15.1); White Blood Count 4.52 10^3/uL (3.29-11.43)
[2023-04-24 15:12] LABS: Alanine Aminotransferase 19 U/L (0-41); Albumin Level 4.3 g/dL (3.5-5.2); Alkaline Phosphatase 65 U/L (40-130); Anion Gap 13.6 (5-19); Aspartate Amino Transferase 17 U/L (0-40); Blood Urea Nitrogen 18 mg/dL (8-23); Calcium 9.3 mg/dL (8.5-10.5); Carbon Dioxide 25 mmol/L (22-29); Chloride 105 mmol/L (98-107); Globulin 2.4 g/dL (1.3-4.6); Glucose 164 mg/dL (65-115); Osmolality Calculated 294 mOsm/kg (285-295); Potassium 4.6 mmol/L (3.5-5.1); Sodium 139 mmol/L (136-145); Total Bilirubin 1.1 mg/dL (0.15-1.2); Total Protein 6.7 g/dL (6.6-8.7)
[2023-04-24 15:36] LABS: Absolute Neutrophil 1.3 10^3/cmm (1.4-6.5); Absolute Segmented Neutrophil 1.2 10/cmm (1.6-7.1); Band Neutrophils Absolute 0.1 10^3/cmm (0.0-1.2); Eosinophils 1 %; Giant Platelets 1+; Lymphocytes 56 %; Lymphocytes Absolute 2.8 10^3/cmm (1.2-3.4); Monocytes Absolute 0.3 10^3/cmm (0.1-0.6); Platelet Estimate Decreased (Normal); Segmented Neutrophils 26 %; Slide Review Slide Review Perform; Total Cells Counted 100 (0-100)
[2023-04-24 15:37] LABS: Anisocytosis 3+; Macrocytosis 2+; Poikilocytosis 2+; Polychromasia 1+
[2023-04-24] MEDS: LUSPATERCEPT AAMT 100 MG SUBCUT (16:13)
== END 2023-04-24 23:59 | disposition home or self-care (01) ==
PROVIDERS: Internal Medicine; PCP Nurse Practitioner Family; Visit Provider Internal Medicine Medical Oncology
DX: D46.1 Refractory anemia with ring sideroblasts (principal); K59.09 Other constipation; K29.70 Gastritis, unspecified, without bleeding; Z79.899 Other long term (current) drug therapy
CPT/HCPCS: 80053; 85007; 85025; 96372; 99214; J0896

== ENCOUNTER → 2023-04-29 09:01 | Outpatient (BNVA) | payer MEDICARE, OTHER, SELFPAY | PROVIDERS: PCP Nurse Practitioner Family; Visit Provider Anesthesiology Pain Medicine | DX: M54.41 Lumbago with sciatica, right side (principal); M47.816 Spondylosis without myelopathy or radiculopathy, lumbar region; M48.061 Spinal stenosis, lumbar region without neurogenic claudication | CPT/HCPCS: 99214 ==

== ENCOUNTER → 2023-05-13 14:12 | Outpatient (BNVA) | payer MEDICARE, OTHER, SELFPAY | PROVIDERS: PCP Nurse Practitioner Family; Visit Provider Anesthesiology Pain Medicine | DX: M47.816 Spondylosis without myelopathy or radiculopathy, lumbar region (principal); M54.41 Lumbago with sciatica, right side | CPT/HCPCS: 64635; 64636; J1030 ==

== ENCOUNTER → 2023-05-14 09:10 | Outpatient (BNVA) | payer MEDICARE, OTHER, SELFPAY | PROVIDERS: PCP Nurse Practitioner Family; Visit Provider Internal Medicine Medical Oncology | DX: D46.1 Refractory anemia with ring sideroblasts (principal) | CPT/HCPCS: 80053; 83615; 85007; 85025 ==

== ENCOUNTER 2023-05-15 11:25 | Oncology outpatient (recurring) (ONCR) | payer MEDICARE, OTHER, SELFPAY ==
[2023-05-15 11:54] VITALS: BP 163/78; PULSE 65; RESP 16; TEMP 36.4; O2SAT 96
[2023-05-15] MEDS: LUSPATERCEPT AAMT 100 MG SUBCUT (12:07)
== END 2023-05-15 23:59 | disposition home or self-care (01) ==
PROVIDERS: PCP Nurse Practitioner Family; Visit Provider Internal Medicine Medical Oncology
DX: D46.1 Refractory anemia with ring sideroblasts (principal)
CPT/HCPCS: 96372; J0896

== ENCOUNTER → 2023-05-27 12:54 | Outpatient (BNVA) | payer MEDICARE, OTHER, SELFPAY | PROVIDERS: PCP Nurse Practitioner Family; Visit Provider Anesthesiology Pain Medicine | DX: M47.816 Spondylosis without myelopathy or radiculopathy, lumbar region (principal) | CPT/HCPCS: 64635; 64636; J1030 ==

== ENCOUNTER → 2023-06-04 08:41 | Outpatient (BNVA) | payer MEDICARE, OTHER, SELFPAY | PROVIDERS: PCP Nurse Practitioner Family; Visit Provider Internal Medicine Medical Oncology | DX: D46.1 Refractory anemia with ring sideroblasts (principal) | CPT/HCPCS: 80053; 83615; 85007; 85025 ==

== ENCOUNTER 2023-06-05 12:11 | Oncology outpatient (recurring) (ONCR) | payer MEDICARE, OTHER, SELFPAY ==
[2023-06-05] MEDS: LUSPATERCEPT AAMT 100 MG SUBCUT (14:23)
== END 2023-06-05 23:59 | disposition home or self-care (01) ==
PROVIDERS: PCP Nurse Practitioner Family; Visit Provider Internal Medicine Medical Oncology
DX: D46.1 Refractory anemia with ring sideroblasts (principal); Z79.899 Other long term (current) drug therapy; Z87.891 Personal history of nicotine dependence; R53.83 Other fatigue; R26.81 Unsteadiness on feet
CPT/HCPCS: 17004; 96372; 99213; 99214; J0896

== ENCOUNTER → 2023-06-09 10:09 | Outpatient (BNVA) | payer MEDICARE, OTHER, SELFPAY | PROVIDERS: PCP Nurse Practitioner Family; Visit Provider Anesthesiology Pain Medicine | DX: M54.41 Lumbago with sciatica, right side (principal); M47.816 Spondylosis without myelopathy or radiculopathy, lumbar region; M48.07 Spinal stenosis, lumbosacral region; M48.061 Spinal stenosis, lumbar region without neurogenic claudication | CPT/HCPCS: 99214 ==

== ENCOUNTER → 2023-06-25 09:02 | Outpatient (BNVA) | payer MEDICARE, OTHER, SELFPAY | PROVIDERS: PCP Nurse Practitioner Family; Visit Provider Internal Medicine Medical Oncology | DX: D46.1 Refractory anemia with ring sideroblasts (principal) | CPT/HCPCS: 80053; 85007; 85025 ==

== ENCOUNTER 2023-06-26 10:35 | Oncology outpatient (recurring) (ONCR) | payer MEDICARE, OTHER, SELFPAY ==
[2023-06-26 11:35] VITALS: BP 142/78; PULSE 78; RESP 18; TEMP 36.9; O2SAT 98
[2023-06-26 11:36] VITALS: BP 124/78; PULSE 74; RESP 18; TEMP 36.6; O2SAT 98
[2023-06-26] MEDS: LUSPATERCEPT AAMT 101 MG SUBCUT (11:36)
== END 2023-06-26 23:59 | disposition home or self-care (01) ==
PROVIDERS: PCP Nurse Practitioner Family; Visit Provider Internal Medicine Medical Oncology
DX: D46.1 Refractory anemia with ring sideroblasts (principal); K59.09 Other constipation; K29.70 Gastritis, unspecified, without bleeding; Z79.899 Other long term (current) drug therapy
CPT/HCPCS: 99214; J0896

== ENCOUNTER 2023-07-03 06:00 | Outpatient (RCR) | payer MEDICARE, OTHER, SELFPAY | END 2023-07-13 23:59 | disposition home or self-care (01) | LOC: TPT 06:00 | PROVIDERS: PCP Nurse Practitioner Family; Visit Provider Nurse Practitioner Family | DX: R26.81 Unsteadiness on feet (principal) | CPT/HCPCS: 97110; 97162 ==

== ENCOUNTER → 2023-07-03 11:07 | Outpatient (BNVA) | payer MEDICARE, OTHER, SELFPAY | PROVIDERS: PCP Nurse Practitioner Family; Visit Provider Nurse Practitioner Family | DX: R30.0 Dysuria | CPT/HCPCS: 81003; 87077; 87086; 87184 ==

== ENCOUNTER → 2023-07-08 08:13 | Outpatient (BNVA) | payer MEDICARE, OTHER, SELFPAY | PROVIDERS: PCP Nurse Practitioner Family; Visit Provider Nurse Practitioner Family | DX: L29.8 Other pruritus (principal); L57.8 Other skin changes due to chronic exposure to nonionizing radiation; L82.1 Other seborrheic keratosis; L57.0 Actinic keratosis; D69.2 Other nonthrombocytopenic purpura | CPT/HCPCS: 17000; 99213 ==

== ENCOUNTER → 2023-07-09 11:08 | Outpatient (BNVA) | payer MEDICARE, OTHER, SELFPAY | PROVIDERS: PCP Nurse Practitioner Family; Visit Provider Nurse Practitioner Family | DX: R30.0 Dysuria | CPT/HCPCS: 81003 ==

== ENCOUNTER 2023-07-14 06:00 | Outpatient (RCR) | payer MEDICARE, OTHER, SELFPAY | END 2023-08-12 23:59 | disposition home or self-care (01) | LOC: TPT 06:00 | PROVIDERS: PCP Nurse Practitioner Family; Visit Provider Nurse Practitioner Family | DX: R26.81 Unsteadiness on feet (principal) | CPT/HCPCS: 97110 ==

== ENCOUNTER → 2023-07-16 08:58 | Outpatient (BNVA) | payer MEDICARE, OTHER, SELFPAY | PROVIDERS: PCP Nurse Practitioner Family; Visit Provider Internal Medicine Medical Oncology | DX: D46.1 Refractory anemia with ring sideroblasts (principal) | CPT/HCPCS: 80053; 85007; 85025 ==

== ENCOUNTER 2023-07-17 12:51 | Oncology outpatient (recurring) (ONCR) | payer MEDICARE, OTHER, SELFPAY ==
[2023-07-17 13:45] VITALS: BP 142/76; PULSE 81; RESP 17; TEMP 36.8; O2SAT 94
[2023-07-17] MEDS: LUSPATERCEPT AAMT 101 MG SUBCUT (14:02)
== END 2023-07-17 23:59 | disposition home or self-care (01) ==
LOC: ONCMED 12:52
PROVIDERS: PCP Nurse Practitioner Family; Visit Provider Internal Medicine Medical Oncology
DX: D46.1 Refractory anemia with ring sideroblasts (principal)
CPT/HCPCS: 96372; J0896

== ENCOUNTER → 2023-08-06 09:21 | Outpatient (BNVA) | payer MEDICARE, OTHER, SELFPAY | PROVIDERS: PCP Nurse Practitioner Family; Visit Provider Nurse Practitioner Family | DX: E11.51 Type 2 diabetes mellitus with diabetic peripheral angiopathy without gangrene (principal); Z79.4 Long term (current) use of insulin; M25.562 Pain in left knee; D46.1 Refractory anemia with ring sideroblasts | CPT/HCPCS: 80053; 82043; 83036; 85007; 85025 ==

== ENCOUNTER 2023-08-07 12:17 | Oncology outpatient (recurring) (ONCR) | payer MEDICARE, OTHER, SELFPAY ==
[2023-08-07] MEDS: LUSPATERCEPT AAMT 100 MG SUBCUT (13:58)
--- NOTE | 2023-08-07 16:59 | ECG_ITS ---
[facility] Test Date: 2023-08-07 Pat Name: Corby Belcher Department: Room: Gender: Male Cake Tester: : 1940 Requested By: Prosper Suero Order Number: [id number] Daniel MD: Prosper Suero M.D. Measurements Intervals [place] Rate: 73 P: 29 MN: 198 QRS: -6 QRSD: 94 T: 3 QT: 361 QTc: 399 Interpretive Statements SINUS RHYTHM WITH SINUS ARRHYTHMIA INDETERMINATE AXIS LOW QRS VOLTAGE IN PRECORDIAL LEADS [QRS DEFLECTION < 1.0 mV IN CHEST LEADS] INCOMPLETE RIGHT BUNDLE BRANCH BLOCK [90+ ms QRS DURATION, TERMINAL R IN V1/V2, 40+ ms S IN I/aVL/V4/V5/V6] POSSIBLE ANTERIOR MYOCARDIAL INFARCTION [30 ms Q WAVE IN V3/V4, OR R < 0.2 mV IN V4], PROBABLY OLD PROBABLE INFERIOR MYOCARDIAL INFARCTION [35 ms Q WAVE IN II/aVF], PROBABLY OLD Compared to ECG 01/08/2018 18:28:53 Indeterminate axis now present.Low QRS voltage now present Incomplete right bundle-branch block now present.Myocardial infarct finding still present Electronically Signed On 08-09-2023 19:44:29 CDT by Prosper Suero M.D. [email or web address]
== END 2023-08-07 23:54 | disposition home or self-care (01) ==
PROVIDERS: PCP Nurse Practitioner Family; Visit Provider Internal Medicine Medical Oncology
DX: D46.1 Refractory anemia with ring sideroblasts (principal); K59.09 Other constipation; K29.70 Gastritis, unspecified, without bleeding; Z79.899 Other long term (current) drug therapy; R07.9 Chest pain, unspecified; I25.10 Atherosclerotic heart disease of native coronary artery without angina pectoris; E78.2 Mixed hyperlipidemia; I10 Essential (primary) hypertension; G47.33 Obstructive sleep apnea (adult) (pediatric); D46.9 Myelodysplastic syndrome, unspecified; Z87.891 Personal history of nicotine dependence
CPT/HCPCS: 93005; 96377; 99214; 99215; J0896

== ENCOUNTER → 2023-08-11 10:06 | Outpatient (BNVA) | payer MEDICARE, OTHER, SELFPAY | PROVIDERS: PCP Nurse Practitioner Family; Visit Provider Nurse Practitioner Family | DX: M25.562 Pain in left knee (principal) | CPT/HCPCS: 73562 ==

== ENCOUNTER 2023-08-22 11:39 | Emergency (ER) | payer MEDICARE, OTHER, SELFPAY ==
[2023-08-22 11:40] VITALS: BP 145/75; PULSE 65; RESP 18; TEMP 36.6; O2SAT 96; BMI 29.9
--- NOTE | 2023-08-22 12:07 | XR_ITS ---
WS: [id number] Left knee, 3 views, 08/22/2023 Clinical Data: knee pain Comparison: Left knee, 08/11/2023 Findings: No fractures or dislocations are seen. There is medial joint compartment narrowing. The patella show s minimal posterior irregularity. The soft tissues are unremarkable. There is vascular calcification. XR/XR knee LT 3V* [id number] Impression: Minimal medial joint compartment narrowing of the left knee Kellgren-James Classification: grade 1 (doubtful): doubtful joint space narr owing and possible osteophytic lipping
[2023-08-22 12:18] VITALS: BP 145/75; PULSE 65; RESP 18; O2SAT 96
[2023-08-22] MEDS: HYDROcodone-acetaminophen 7.5-325 mg Tablet 1 TAB PO (12:55)
--- NOTE | 2023-08-22 13:20 | ED_ITS ---
Documented by User: JOSEPH Lamas 08/22/23 13:45 HPI - Extremity Problem General: Chief complaint: Extremity Injury, Lower Stated complaint: left knee pains Time Seen by Provider: 08/22/23 12:06 Source: patient Mode of arrival: ambulatory Limitations: no limitations History of Present Illness: Patient is an 83-year-old male who presents to the emergency department complaining of left knee pain. He recently fell and had imaging of the left knee at the end of July, and was subsequently appointed to physical therapy and told to take Celebrex and Flexeril for his pain. He notes that his pain is only increased, and he was sent home from therapy today due to the increase in pain. He arrives for reevaluation and wants to know if his knee pain is reported to any new injury. He is reportedly ambulatory, though with pain. He does note the pain is to the medial aspect of the knee joint, and is worrisome that it is his meniscus as he has a previous injury to relate the pain to in the past. He does see Dr. Hahn for pain management. He has not received MRI of his knee, just the one x-ray upon initial injury. No new injuries since. He notes that the pain medications he were prescribed are not helping with this pain, and he has been icing [id number]. He does note some mild increase in swelling, though denies any other symptoms or signs of trauma at this time. MD Complaint: joint swelling and joint pain Onset (ago): week(s) Pain Consistency: constant Location: left Radiation: none Relieving factors: nothing Exacerbating factors: range of motion, weight bearing and exertion Associated symptoms: Deny chest pain, fever(s) or rash Review of Systems General: Reports: 10 or more systems reviewed and unremarkable except in HPI and below Const: Denies: fever(s), chills or fatigue Eyes: Denies: change in vision ENMT: Denies: throat pain, ear or mastoid pain or nasal discharge Card: Denies: chest pain, palpitations, swelling of feet/ankles or lightheadedness Resp: Denies: dyspnea, productive cough or wheezing GI: Denies: abdominal pain, nausea, vomiting, diarrhea or constipation : Denies: flank pain, difficulty urinating, dysuria or urinary frequency Musc: Reports: joint pain (Left knee) and joint swelling (Left knee); Denies: neck pain or back pain Skin/Breast: Denies: rash Neuro: Denies: headache(s), numbness in extremities or weakness in extremities PFSH ED PFSH: Medical History GERD (gastroesophageal reflux disease) Myelodysplastic syndrome Hypertension Coronary artery disease History of ehrlichiosis Type 2 diabetes mellitus Anemia Balanitis BPH loc w urin obs/LUTS Phimosis Hyperlipidemia, unspecified Esophagitis, unspecified Bilateral kidney stones Spinal stenosis, lumbar region without neurogenic claudication Gastritis History of foot fracture (~1980) Surgical History History of shoulder surgery History of colonoscopy (03/16/19) History of esophagogastroduodenoscopy (EGD) (03/16/19) History of coronary artery bypass graft x 3 (2012) S/P ureteral stent placement (2017) Family History Father , at age 86 Diabetes Hyperlipidemia Hypertension Family/Other Diabetes Cancer CAD (coronary artery disease) Hypertension Mother , at age 76 No problems noted. Denies family history of Anesthesia complication Social History Smoking and tobacco/nicotine status: former use of tobacco/nicotine Quit status (tobacco/nicotine): has quit using Year quit tobacco: 1981 Former quit date comment: Smoked 25+ years Alcohol intake: never Substance/Drug Use: never Caregiver/support person: Yes Lives independently: Yes Household members: spouse Housing: House Marital status: Current occupational status: retired Previous occupational history: [employer] Current gender identity: Male Physical Exam Const: COMMON NORMALS: no acute distress, patient oriented x3 and no limitations GENERAL APPEARANCE: cooperative, comfortable and well developed ORIENTATION/CONSCIOUSNESS: Yes awake, Yes oriented to person, Yes oriented to place and Yes oriented to time HENMT: COMMON NORMALS: normocephalic, atraumatic and hearing grossly normal bilaterally HEAD & SCALP: normocephalic and atraumatic Eye: COMMON NORMALS: Equal, round and reactive pupils present, EOMs intact bilaterally and conjunctivae normal CONJUNCTIVA: Yes conjunctivae normal PUPIL: Yes Equal, round and reactive pupils present Neck/C-Spine: COMMON NORMALS: full ROM, supple and no JVD Resp: COMMON NORMALS: normal respiratory effort, No retractions, No use of accessory muscles and clear to auscultation bilaterally AUSCULTATION: clear to auscultation bilaterally Cardio: COMMON NORMALS: no JVD, regular rate, regular rhythm, No clicks present (Cardio), No murmurs present (Cardio) and No rub (Cardio) RATE: regular rate RHYTHM: regular rhythm Extremity: NARRATIVE EXTREMITY EXAM: Mildly diffuse edema noted about the left knee joint. Reproducible tenderness palpation about the medial joint line of the left knee. Negative varus and valgus stress testing. Negative anterior and posterior drawer. Negative Marleny. No appreciable joint effusion. No overlying skin changes, bruising, erythema, or other signs of trauma. Neuro: COMMON NORMALS: patient oriented x3, moves all extremities, no focal motor deficits and no sensory deficits noted SENSORIUM/ORIENTATION: Yes oriented to person, Yes oriented to place and Yes oriented to time Psych: COMMON NORMALS: mental status grossly normal and Normal thought process present THOUGHT PROCESS: Normal thought process present Skin: COMMON NORMALS: no rashes or lesions noted GENERAL SKIN EXAM: no rashes or lesions noted Course Vital Signs: Vital signs: Vital Signs Temperature 97.8 F 08/22/23 11:40 Pulse Rate 71 08/22/23 13:55 Respiratory Rate 16 08/22/23 13:55 Blood Pressure 145/75 08/22/23 12:18 Pulse Oximetry 99 08/22/23 13:55 Oxygen Delivery Me thod Room Air 08/22/23 11:40 MDM - Extremity (Nontraumatic) Medical Decision Making Patient seen for left knee pain for the past couple weeks. Initial injury occurred at the end of July, was started on physical therapy. States this has only made it worse and he has not gotten relief from pain medications. Arrives wanting another x-ray. His x-ray today did demonstrate some joint compartment narrowing consistent with his reported pain at the medial joint line. Gave him dose of [place] here in the emergency department, states he feels a little better. Will send prescription home to take prior to him following up with primary care as an outpatient for MRI and further evaluation. Patient agrees with this plan and return precautions are given. Lab Data Radiology Impressions Knee X-Ray 08/22/23 12:07 Impression: Minimal medial joint compartment narrowing of the left knee Kellgren-James Classification: grade 1 (doubtful): doubtful joint space narrowing and possible osteophytic lipping All radiology interpretation(s) finalized by discharge Discharge Plan Discharge Patient Disposition: Home Clinical Impression: Acute pain of left knee Condition: Stable Prescriptions: New hydrocodone-acetaminophen 5-325 mg tablet 1 tab PO Q6H PRN (Reason: pain) Qty: 10 0RF No Action diphenhydramine HCl [Benadryl] 25 mg capsule 25 mg PO DAILY PRN (Reason: Allergy Symptoms) magnesium oxide 250 mg magnesium tablet 250 mg PO DAILY@0700 multivitamin Tablet 1 tab PO DAILY methylprednisolone [Medrol (Andrea)] 4 mg tablets,dose pack See Rx Instructions PO PER PKG DIR Qty: 21 0RF Rx Instructions: PO PER PKG DIR for 6 days Miralax 17 gram/dose powder 17 g PO DAILY@0700 PRN (Reason: Constipation) celecoxib [Celebrex] 100 mg capsule 100 mg PO BID Qty: 60 2RF ciprofloxacin-dexamethasone 0.3-0.1 % drops,suspension 4 drp otic (ear) BID 7 Days Qty: 7.5 0RF pantoprazole 40 mg tablet,delayed release (DR/EC) 40 mg PO BID Qty: 60 3RF gabapentin 300 mg capsule See Rx Instructions .ROUTE .COMPLEX Qty: 180 0RF Dose Instruction: TAKE ONE CAPSULE BY MOUTH TWICE DAILY Rx Instructions: TAKE ONE CAPSULE BY MOUTH TWICE DAILY Victoza 3-Andrea 0.6 mg/0.1 mL (18 mg/3 mL) pen injector 1.8 mg SUBCUT DAILY Qty: 27 0RF atorvastatin 10 mg tablet See Rx Instructions .ROUTE .COMPLEX Qty: 90 0RF Dose Instruction: TAKE ONE TABLET BY MOUTH EVERY DAY AT 6pm Rx Instructions: TAKE ONE TABLET BY MOUTH EVERY DAY AT 6pm tamsulosin 0.4 mg capsule See Rx Instructions .ROUTE .COMPLEX Qty: 90 1RF Dose Instruction: TAKE ONE CAPSULE BY MOUTH DAILY AT 6:00 P.M. Rx Instructions: TAKE ONE CAPSULE BY MOUTH DAILY AT 6:00 P.M. losartan 50 mg tablet 50 mg PO DAILY Qty: 90 3RF latanoprost 0.005 % drops 1 drp ophthalmic (eye) BEDTIME Discharge Orders: Discharge ED (Routine); Ordered 08/22/23 Ordered By: Asad Barfield Referrals: Hayde Washington FNP [Primary Care Provider] - Discharge Diet: Usual diet Discharge Activity: Limit activity as instructed Patient Instructions: Opioid Safety, Pain Management Activity Restrictions/Additional Instructions: Pain medications as directed. Follow-up with primary care as instructed to obtain further imaging and discuss further evaluation. Otherwise, return with any new or concerning symptoms. Coding Level of Care Code ED Analytical Technician for Chg Fwd Documented by User: Reji Kemp DO 08/25/23 07:04 HPI - Extremity Problem General: Chief complaint: Extremity Injury, Lower Stated complaint: left knee pains Time Seen by Provider: 08/22/23 12:06 PFSH ED PFSH: Medical History GERD (gastroesophageal reflux disease) Myelodysplastic syndrome Hypertension Coronary artery disease History of ehrlichiosis Type 2 diabetes mellitus Anemia Balanitis BPH loc w urin obs/LUTS Phimosis Hyperlipidemia, unspecified Esophagitis, unspecified Bilateral kidney stones Spinal stenosis, lumbar region without neurogenic claudication Gastritis History of foot fracture (~1980) Surgical History History of shoulder surgery History of colonoscopy (03/16/19) History of esophagogastroduodenoscopy (EGD) (03/16/19) History of coronary artery bypass graft x 3 (2012) S/P ureteral stent placement (2018) Family History Father , at age 86 Diabetes Hyperlipidemia Hypertension Family/Other Diabetes Cancer CAD (coronary artery disease) Hypertension Mother , at age 76 No problems noted. Denies family history of Anesthesia complication Social History Smoking and tobacco/nicotine status: former use of tobacco/nicotine Quit status (tobacco/nicotine): has quit using Year quit tobacco: 1981 Former quit date comment: Smoked 25+ years Alcohol intake: never Substance/Drug Use: never Caregiver/support person: Yes Lives independently: Yes Household members: spouse Housing: House Marital status: Current occupational status: retired Previous occupational history: [employer] Current gender identity: Male Course Vital Signs: Vital signs: Vital Signs Temperature 97.8 F 08/22/23 11:40 Pulse Rate 71 08/22/23 13:55 Respiratory Rate 16 08/22/23 13:55 Blood Pressure 145/75 08/22/23 12:18 Pulse Oximetry 99 08/22/23 13:55 Oxygen Delivery Me thod Room Air 08/22/23 11:40 MDM - Extremity (Nontraumatic) Medical Decision Making Patient seen for left knee pain for the past couple weeks. Initial injury occurred at the end of July, was started on physical therapy. States this has only made it worse and he has not gotten relief from pain medications. Arrives wanting another x-ray. His x-ray today did demonstrate some joint compartment narrowing consistent with his reported pain at the medial joint line. Gave him dose of [place] here in the emergency department, states he feels a little better. Will send prescription home to take prior to him following up with primary care as an outpatient for MRI and further evaluation. Patient agrees with this plan and return precautions are given. Chart reviewed Lab Data Radiology Impressions Knee X-Ray 08/22/23 12:07 Impression: Minimal medial joint compartment narrowing of the left knee Kellgren-James Classification: grade 1 (doubtful): doubtful joint space narrowing and possible osteophytic lipping Discharge Plan Discharge Patient Disposition: Home Clinical Impression: Acute pain of left knee Condition: Stable Prescriptions: New hydrocodone-acetaminophen 5-325 mg tablet 1 tab PO Q6H PRN (Reason: pain) Qty: 10 0RF No Action diphenhydramine HCl [Benadryl] 25 mg capsule 25 mg PO DAILY PRN (Reason: Allergy Symptoms) magnesium oxide 250 mg magnesium tablet 250 mg PO DAILY@0700 multivitamin Tablet 1 tab PO DAILY methylprednisolone [Medrol (Andrea)] 4 mg tablets,dose pack See Rx Instructions PO PER PKG DIR Qty: 21 0RF Rx Instructions: PO PER PKG DIR for 6 days Miralax 17 gram/dose powder 17 g PO DAILY@0700 PRN (Reason: Constipation) celecoxib [Celebrex] 100 mg capsule 100 mg PO BID Qty: 60 2RF ciprofloxacin-dexamethasone 0.3-0.1 % drops,suspension 4 drp otic (ear) BID 7 Days Qty: 7.5 0RF pantoprazole 40 mg tablet,delayed release (DR/EC) 40 mg PO BID Qty: 60 3RF gabapentin 300 mg capsule See Rx Instructions .ROUTE .COMPLEX Qty: 180 0RF Dose Instruction: TAKE ONE CAPSULE BY MOUTH TWICE DAILY Rx Instructions: TAKE ONE CAPSULE BY MOUTH TWICE DAILY Victoza 3-Andrea 0.6 mg/0.1 mL (18 mg/3 mL) pen injector 1.8 mg SUBCUT DAILY Qty: 27 0RF atorvastatin 10 mg tablet See Rx Instructions .ROUTE .COMPLEX Qty: 90 0RF Dose Instruction: TAKE ONE TABLET BY MOUTH EVERY DAY AT 6pm Rx Instructions: TAKE ONE TABLET BY MOUTH EVERY DAY AT 6pm tamsulosin 0.4 mg capsule See Rx Instructions .ROUTE .COMPLEX Qty: 90 1RF Dose Instruction: TAKE ONE CAPSULE BY MOUTH DAILY AT 6:00 P.M. Rx Instructions: TAKE ONE CAPSULE BY MOUTH DAILY AT 6:00 P.M. losartan 50 mg tablet 50 mg PO DAILY Qty: 90 3RF latanoprost 0.005 % drops 1 drp ophthalmic (eye) BEDTIME Discharge Orders: Discharge ED (Routine); Ordered 08/22/23 Ordered By: Asad Barfield Referrals: Hayde Washington FNP [Primary Care Provider] - Discharge Diet: Usual diet Discharge Activity: Limit activity as instructed Patient Instructions: Opioid Safety, Pain Management Activity Restrictions/Additional Instructions: Pain medications as directed. Follow-up with primary care as instructed to obtain further imaging and discuss further evaluation. Otherwise, return with any new or concerning symptoms. Coding Level of Care Code ED Analytical Technician for Lilli Hendrix
[2023-08-22 13:55] VITALS: PULSE 71; RESP 16; O2SAT 99
== END 2023-08-22 13:56 | disposition home or self-care (01) ==
PROVIDERS: Emergency Provider Physician Assistant; PCP Nurse Practitioner Family
DX: M25.562 Pain in left knee (principal); I10 Essential (primary) hypertension; I25.10 Atherosclerotic heart disease of native coronary artery without angina pectoris; E11.9 Type 2 diabetes mellitus without complications; E78.5 Hyperlipidemia, unspecified; Z87.891 Personal history of nicotine dependence
CPT/HCPCS: 73562; 99283

== ENCOUNTER → 2023-08-25 14:50 | Outpatient (BNVA) | payer MEDICARE, OTHER, SELFPAY | PROVIDERS: PCP Nurse Practitioner Family; Visit Provider Nurse Practitioner Family | DX: D46.1 Refractory anemia with ring sideroblasts | CPT/HCPCS: 80053; 85007; 85025 ==

== ENCOUNTER 2023-08-28 06:49 | Outpatient (CLI) | payer MEDICARE, OTHER, SELFPAY ==
--- NOTE | 2023-08-28 07:15 | MR_ITS ---
WS: [id number] MRI LEFT KNEE HISTORY: M25.562 - Pain in left knee COMPARISON: Radiograph 08/22/2023 Anterior cruciate ligament: Mild mucoid degeneration in the ACL but it does appear to be intact. Posterior cruciate ligament: Intact. Medial collateral ligament: Extruded meniscus displacing the MCL from the joint line. There is increa sed T2 signal adjacent to the MCL but no tear. There is fluid between the distal MCL and the tibia. Posterior lateral corner structures: Intact. Medial menisci: Diffuse abnormal signal throughout the posterior horn extending to the free edge and the superior and inferior articular surface consistent with a complex tear. Anterior horn demonstrate s partial extrusion from the joint line. Lateral meniscus: Frayed blunted free edge posterior horn. Anterior horn negative. Extensor mechanism: Mild patellar tendinopathy. Distal quadriceps tendon is intact. Fluid and soft tissue: Moderate to large size suprapatellar joint effusion. No Keita's cyst. Osseous and articular structures: Patellofemoral compartment: Mild patellofemoral joint space narrowing. Cartilage well preserved. Medial compartment: Moderate narrowing the medial compartment with loss of cartilage and subchondral edema in the femoral condyle and tibial plateau. Marginal osteophytes. Large cartilage gaps along the weightbearing surface of the femoral condyle and tibial plateau. Lateral compartment: Mild narrowing with mild diffuse thinning and fissuring of the cartilage. MR/MR knee LT wo con* [id number] IMPRESSION: 1. Extruded meniscus from the medial knee joint contacting and displacing the MCL. 2. Complex tear throughout nearly the entire posterior horn of the medial meni scus. Tear involves all surfaces except the peripheral meniscus. 3. Anterior horn of the medial meniscus is extruded from the joint line. 4. Marked fraying posterior horn lateral meniscus with blunting of the free ed ge. 5. Moderate to large suprapatellar joint effusion. 6. Mild patellar tendinopathy. 7. Moderate narrowing the medial compartment with extensive loss of cartilage and subchondral edema in the femoral condyle and tibial plateau. 8. Mild narrowing lateral compartment with mild thinning and fissuring of the cartilage.
== END 2023-08-28 06:50 | disposition home or self-care (01) ==
LOC: RAD 06:49
PROVIDERS: PCP Nurse Practitioner Family; Visit Provider Nurse Practitioner Family
DX: S83.242A Other tear of medial meniscus, current injury, left knee, initial encounter (principal); M23.305 Other meniscus derangements, unspecified medial meniscus, unspecified knee; M23.3 Other meniscus derangements; M25.762 Osteophyte, left knee
CPT/HCPCS: 73721

== ENCOUNTER 2023-08-28 07:39 | Oncology outpatient (recurring) (ONCR) | payer MEDICARE, OTHER, SELFPAY ==
[2023-08-28 07:50] VITALS: BP 152/75; PULSE 61; RESP 16; TEMP 36.4; O2SAT 96
[2023-08-28] MEDS: luspatercept-aamt 25 mg 100 MG SUBCUT (08:28)
== END 2023-08-28 23:59 | disposition home or self-care (01) ==
LOC: ONCMED 07:40
PROVIDERS: PCP Nurse Practitioner Family; Visit Provider Internal Medicine Medical Oncology
DX: D46.1 Refractory anemia with ring sideroblasts (principal)
CPT/HCPCS: J0896

== ENCOUNTER → 2023-09-15 08:32 | Outpatient (BNVA) | payer MEDICARE, OTHER, SELFPAY | PROVIDERS: PCP Nurse Practitioner Family; Visit Provider Nurse Practitioner Family | DX: N39.0 Urinary tract infection, site not specified (principal); D46.1 Refractory anemia with ring sideroblasts | CPT/HCPCS: 80053; 81003; 85007; 85025; 87086 ==

== ENCOUNTER 2023-09-18 10:04 | Oncology outpatient (recurring) (ONCR) | payer MEDICARE, OTHER, SELFPAY ==
[2023-09-18] MEDS: luspatercept-aamt 25 mg 100 MG SUBCUT (12:26)
== END 2023-09-18 23:59 | disposition home or self-care (01) ==
PROVIDERS: PCP Nurse Practitioner Family; Visit Provider Internal Medicine Medical Oncology
DX: D46.1 Refractory anemia with ring sideroblasts (principal); K59.09 Other constipation; K29.70 Gastritis, unspecified, without bleeding; Z79.899 Other long term (current) drug therapy; Z53.9 Procedure and treatment not carried out, unspecified reason
CPT/HCPCS: 96372; 99214; J0896

== ENCOUNTER → 2023-09-30 09:27 | Outpatient (BNVA) | payer MEDICARE, OTHER, SELFPAY | PROVIDERS: PCP Nurse Practitioner Family; Visit Provider Nurse Practitioner Family | DX: N39.0 Urinary tract infection, site not specified (principal) | CPT/HCPCS: 81003; 87086 ==

== ENCOUNTER 2023-10-02 13:00 | Outpatient (CLI) | payer MEDICARE, OTHER, SELFPAY ==
--- NOTE | 2023-10-02 13:00 | USCV_ITS ---
Corby Belcher Age: 83 Gender: M : 1940 Exam Date: 10/02/2023 13:23 Ordering Phys: Maggie Jean-Baptiste APRN Technologist: KATHI Exam Location: [facility] [place] Indication: DIZZINESS Risk Factors: Previous Vascular Surgery: Right Brachial BP: / Left Brachial BP: / Right Left Velocity (cm/s) Spectral Plaque Velocity (cm/s) Spectral Plaque Syst/Diast Broadening Syst/Diast Broadening 95.40/ 10.50 Prox CCA 117.10/ 15.20 113.00/18.10 Mid CCA 102.60/ 14.00 98.40/ 18.10 Distal CCA 100.80/ 12.20 64.00/ 11.20 Prox ICA 89.20 / 13.00 72.40/ 16.80 Mid ICA 101.20/ 17.00 70.80/ 15.30 Distal ICA 76.10 / 19.30 85.60 ECA 86.30 0.70 ICA/CCA 1.00 Antegrade Vertebral Antegrade 32.80/ 8.90 cm/s 48.20/ 8.60 cm/s Tri Subclavian Tri 101.7 168.3 0 0 CONCLUSIONS Right ICA stenosis <50%. Moderate calcified atheromatous plaque right carotid bulb/ICA. Left ICA stenosis <50%. Severe calcified atheromatous plaque left carotid bulb/ICA. Normal antegrade Doppler flow noted in the right vertebral artery. Normal antegrade Doppler flow noted in the left vertebral artery. Bj Amezquita MD (Electronically Signed) Final Date: 02 October 2023 15:23 S
--- NOTE | 2023-10-02 13:30 | USCV_ITS ---
Corby Belcher Age: 83 Gender: M : 1940 Exam Date: 10/02/2023 13:36 Ordering Phys: Maggie Jean-Baptiste APRN Technologist: KATHI Exam Location: [facility] Indication: DIZZINESS BP: 139 / 82 HR: 59 Rhythm: Sinus Technical Quality: Adequate MEASUREMENTS (Male / Female) Normal Values 2D ECHO LV Diastolic Diameter PLAX 4.9 cm 4.2 - 5.9 / 3.9 - 5.3 cm IVS Diastolic Thickness 1.3 cm 0.6 - 1.0 / 0.6 - 0.9 cm IVS Systolic Thickness 1.9 cm LVPW Diastolic Thickness 1.9 cm 0.6 - 1.0 / 0.6 - 0.9 cm LVPW Systolic Thickness 2.8 cm LVOT Diameter 2.0 cm LV Ejection Fraction 2D Teich 67.6 % LV Ejection Fraction MOD 2C 62.8 % LV Ejection Fraction 2C AL 63.9 % LA Diameter 4.4 cm RA Systolic Volume 4C AL 19.4 ml RA Systolic Volume 4C MOD 19.1 ml LA Sys Volume AL 36.8 cm cubed LA Sys Volume Index AL 16.3 cm cubed/m squared Aorta at Sinotubular Diameter 2.7 cm IVC Diameter 1.0 cm M-MODE LA Ao Ratio MM 1.0 AV Cusp Separation MM 1.4 cm DOPPLER AV Peak Velocity 129.0 cm/s LVOT Peak Velocity 104.0 cm/s AV Area Cont Eq vti 2.7 cm squared AV Area Cont Eq pk 2.5 cm squared MV Peak Velocity 88.0 cm/s MV Area PHT 2.4 cm squared Mitral E to A Ratio 0.8 TR Peak Velocity 146.0 cm/s TR Peak Gradient 8.5 mmHg TR Mean Velocity 118.0 cm/s TR Mean Gradient 6.1 mmHg TR Velocity Time Integral 38.6 cm TV Peak E Velocity 64.0 cm/s Right Atrial Pressure 3.0 mmHg Pulmonary Artery Systolic Pressu 11.5 mmHg PV Peak Velocity 86.0 cm/s RV Ejection Time 0.3 s FINDINGS Left Ventricle Normal left ventricular size, systolic function and wall thickness, with no regional wall motion abnormalities. Left ventricle ejection fraction 60%. Grade II/IV diastolic dysfunction, moderately elevated filling pressures. Right Ventricle The right ventricle is normal in size and function. Right Atrium The right atrium is normal in size. Left Atrium The left atrium is normal in size. Mitral Valve Moderately thickened mitral valve. Mild mitral annular calcification. No mitral valve stenosis. Trace mitral valve regurgitation. Aortic Valve Moderate aortic valve calcification. No aortic valve stenosis. Trace aortic valve regurgitation. Tricuspid Valve Structurally normal tricuspid valve without significant stenosis or regurgitation. Pulmonary artery systolic pressure is normal. Pulmonic Valve Structurally normal pulmonic valve without significant stenosis. There is no pulmonic regurgitation. Pericardium Normal pericardium without effusion. Aorta Normal ascending aorta dimension. IVC The inferior vena cava appears normal. CONCLUSIONS 1-Normal left ventricular size, systolic function and wall thickness, with no regional wall motion abnormalities. Left ventricle ejection fraction 60%. Grade II/IV diastolic dysfunction, moderately elevated filling pressures. 2-There is no pericardial effusion. 3-No significant valve abnormalities. 4-Right atrial pressure is around 5 mm of mercury. Marcin Hill MD (Electronically Signed) Final Date: 02 October 2023 20:12 S
== END 2023-10-02 13:01 | disposition home or self-care (01) ==
PROVIDERS: PCP Nurse Practitioner Family; Visit Provider Nurse Practitioner Family
DX: R42 Dizziness and giddiness (principal); R26.81 Unsteadiness on feet; I50.30 Unspecified diastolic (congestive) heart failure; I34.81 Nonrheumatic mitral (valve) annulus calcification; I70.0 Atherosclerosis of aorta
CPT/HCPCS: 93306; 93880

== ENCOUNTER → 2023-10-07 09:56 | Outpatient (BNVA) | payer MEDICARE, OTHER, SELFPAY | PROVIDERS: PCP Nurse Practitioner Family; Visit Provider Internal Medicine Medical Oncology | DX: D46.1 Refractory anemia with ring sideroblasts (principal) | CPT/HCPCS: 80053; 85007; 85025 ==

== ENCOUNTER 2023-10-09 15:23 | Oncology outpatient (recurring) (ONCR) | payer MEDICARE, OTHER, SELFPAY ==
[2023-10-09] MEDS: luspatercept-aamt 25 mg 100 MG SUBCUT (16:36)
[2023-10-09 16:42] VITALS: BP 144/79; PULSE 78; RESP 18; TEMP 36.6; O2SAT 94
== END 2023-10-09 23:59 | disposition home or self-care (01) ==
PROVIDERS: PCP Nurse Practitioner Family; Visit Provider Internal Medicine Medical Oncology
DX: D46.1 Refractory anemia with ring sideroblasts (principal); Z79.899 Other long term (current) drug therapy; Z87.891 Personal history of nicotine dependence
CPT/HCPCS: 96401; 99214; J0896

== ENCOUNTER → 2023-10-28 09:18 | Outpatient (BNVA) | payer MEDICARE, OTHER, SELFPAY | PROVIDERS: PCP Nurse Practitioner Family; Visit Provider Nurse Practitioner Family | DX: N39.0 Urinary tract infection, site not specified (principal); D46.1 Refractory anemia with ring sideroblasts | CPT/HCPCS: 80053; 81000; 85025 ==

== ENCOUNTER 2023-10-30 14:02 | Oncology outpatient (recurring) (ONCR) | payer MEDICARE, OTHER, SELFPAY ==
[2023-10-30] MEDS: luspatercept-aamt 25 mg 100 MG SUBCUT (16:22)
== END 2023-10-30 23:59 | disposition home or self-care (01) ==
PROVIDERS: PCP Nurse Practitioner Family; Visit Provider Internal Medicine Medical Oncology
DX: D46.1 Refractory anemia with ring sideroblasts (principal); Z79.899 Other long term (current) drug therapy; Z87.891 Personal history of nicotine dependence
CPT/HCPCS: 96372; 99214; J0896

== ENCOUNTER 2023-11-12 14:28 | Outpatient (CLI) | payer MEDICARE, OTHER, SELFPAY | END 2023-11-12 14:29 | disposition home or self-care (01) | LOC: SLEEP 14:30 | PROVIDERS: PCP Nurse Practitioner Family; Visit Provider Nurse Practitioner Family | DX: G47.33 Obstructive sleep apnea (adult) (pediatric) (principal) | CPT/HCPCS: G0399 ==

== ENCOUNTER → 2023-11-19 11:20 | Outpatient (BNVA) | payer MEDICARE, OTHER, SELFPAY | PROVIDERS: PCP Nurse Practitioner Family; Visit Provider Nurse Practitioner Family | DX: D46.1 Refractory anemia with ring sideroblasts (principal); N39.0 Urinary tract infection, site not specified | CPT/HCPCS: 80053; 85025 ==

== ENCOUNTER 2023-11-20 10:24 | Oncology outpatient (recurring) (ONCR) | payer MEDICARE, OTHER, SELFPAY ==
[2023-11-20] MEDS: luspatercept-aamt 25 mg 100 MG SUBCUT (11:29)
== END 2023-11-20 23:59 | disposition home or self-care (01) ==
PROVIDERS: PCP Nurse Practitioner Family; Visit Provider Internal Medicine Medical Oncology
DX: D46.1 Refractory anemia with ring sideroblasts (principal); Z79.899 Other long term (current) drug therapy; Z53.9 Procedure and treatment not carried out, unspecified reason
CPT/HCPCS: 99214; J0896

== ENCOUNTER → 2023-12-10 08:31 | Outpatient (BNVA) | payer MEDICARE, OTHER, SELFPAY | PROVIDERS: PCP Nurse Practitioner Family; Visit Provider Internal Medicine Medical Oncology | DX: D46.1 Refractory anemia with ring sideroblasts (principal) | CPT/HCPCS: 80053; 85025 ==

== ENCOUNTER 2023-12-11 13:19 | Emergency (ER) | payer MEDICARE, OTHER, SELFPAY ==
[2023-12-11 13:23] VITALS: BP 147/68; PULSE 110; RESP 18; TEMP 37.1; O2SAT 92; BMI 30.3
--- NOTE | 2023-12-11 13:34 | ED_ITS ---
HPI - Neuro Symptoms/Deficit 2 General: Chief Complaint: Neuro Symptoms/Deficit Stated Complaint: stroke like symptoms Time Seen by Provider: 12/11/23 13:28 History of Present Illness: 83-year-old male presents to the emergen cy room with his complaining of slurring of his speech and generalized weakness he was not able to get up or get out of bed today or get around on his own his last known well was around 10 PM last night. He is not on any anticoagulants. He denies any chest or abdominal pain any head trauma. He is not previously had a stroke but he is diabetic he has a known history of coronary artery disease. Initially seen the patient as he was brought to the exam room observed him standing transferring to the bed. He did get up and walk to the CT scanner we told him he was going for CT he did not have difficulty with standing or with balance his NIH score was 0. Associated symptoms: Deny chest pain Related Data Home Medications Medication Instructions Recorded Confirmed diphenhydramine HCl 25 mg capsule 25 mg PO DAILY PRN Allergy Symptoms 04/16/19 12/11/23 (Benadryl) magnesium oxide 250 mg PO DAILY@0700 07/30/19 12/11/23 polyethylene glycol 3350 17 17 g PO DAILY@0700 PRN Constipation 02/13/22 12/11/23 gram/dose oral powder (Miralax) multivitamin 1 tab PO DAILY 05/29/22 12/11/23 celecoxib 200 mg capsule 200 mg PO BID 12/11/23 12/11/23 doxycycline hyclate 100 mg capsule 100 mg PO BID 12/11/23 12/11/23 gabapentin 300 mg capsule 300 mg PO BID 12/11/23 12/11/23 luspatercept-aamt 25 mg 25 mg SUBCUT ONCE given in office 12/11/23 12/11/23 subcutaneous solution pantoprazole 40 mg tablet,delayed 40 mg PO BID 12/11/23 12/11/23 release sennosides 8.6 mg tablet (Senokot) 8.6 mg PO DAILY PRN Constipation 12/11/23 12/11/23 Previous Rx's Medication Instructions Recorded losartan 50 mg tablet 50 mg PO DAILY #90 tabs 08/12/23 tamsulosin 0.4 mg capsule 0.8 mg (2 x 0.4 mg) PO DAILY #180 09/15/23 caps semaglutide 0.25 mg or 0.5 mg (2 See Rx Instructions SUBCUT 11/05/23 mg/3 mL) subcutaneous pen injector .COMPLEX #3 mL (Ozempic) CPAP (Auto-Titrating CPAP) #1 ea 11/28/23 aspirin 81 mg tablet,delayed 81 mg PO DAILY #30 tabs 12/11/23 release atorvastatin 40 mg tablet 40 mg PO DAILY #30 tabs 12/11/23 cefdinir 300 mg capsule 300 mg PO BID #14 caps 12/11/23 clopidogrel 75 mg tablet 75 mg PO DAILY #30 tabs 12/11/23 Allergies Allergy/AdvReac Type Severity Reaction Status Date / Time Sulfa (Sulfonamide Allergy ALGY-Swell Verified 12/08/23 10:20 Antibiotics) Lip/Tongue/Throat sulfamethoxazole Allergy Unknown Verified 12/08/23 10:20 [From Bactrim] trimethoprim [From Bactrim] Allergy Unknown Verified 12/08/23 10:20 Review of Systems 2 Const: Denies: fever(s) or chills Card: Denies: chest pain Resp: Denies: dyspnea GI: Denies: abdominal pain : Denies: dysuria, urinary frequency or urinary urgency Musc: Denies: neck pain or back pain Skin/Breast: Denies: rash PFSH ED 2 PFSH: Medical History GERD (gastroesophageal reflux disease) Myelodysplastic syndrome Hypertension Coronary artery disease History of ehrlichiosis Type 2 diabetes mellitus Anemia Balanitis BPH loc w urin obs/LUTS Phimosis Hyperlipidemia, unspecified Esophagitis, unspecified Bilateral kidney stones Spinal stenosis, lumbar region without neurogenic claudication Gastritis History of foot fracture (~1980) Surgical History History of shoulder surgery History of colonoscopy (03/16/19) History of esophagogastroduodenoscopy (EGD) (03/16/19) History of coronary artery bypass graft x 3 (2012) S/P ureteral stent placement (2017) Family History Father , at age 86 Diabetes Hyperlipidemia Hypertension Family/Other Diabetes Cancer CAD (coronary artery disease) Hypertension Mother , at age 76 No problems noted. Denies family history of Anesthesia complication Social History Smoking and tobacco/nicotine status: tobacco/nicotine user, details unknown (some chewing tobacco) smokeless tobacco Smokeless tobacco user: chewing tobacco Smokeless tobacco details: beginning of October Quit status (tobacco/nicotine): has quit using Year quit tobacco: 1981 Former quit date comment: Smoked 25+ years Alcohol intake: never Substance/Drug Use: never Caregiver/support person: Yes Lives independently: Yes Household members: spouse Housing: House Marital status: Current occupational status: retired Previous occupational history: [employer] Current gender identity: Male NIH stroke score 2 NIHSS: Level Of Consciousness - 1a: 0 Level Of Consciousness Questions - 1b: Both Correct Level Of Consciousness Commands - 1c: Both Correct Best Gaze - 2: Normal Visual Cunningham - 3: No Visual Loss Facial Palsy - 4: N ormal Motor Arm Right - 5: No Drift Motor Arm Left - 5: No Drift Motor Leg Right - 6: No Drift Motor Leg Left - 6: No Drift Limb Ataxia - 7: A bsent Sensory - 8: Normal Best Language - 9: No Aphasia Dysarthia - 10: Normal Extinction And Inattention - 11: 0 Score: Total Score: 0 Physical Exam 2 Const: COMMON NORMALS: no acute distress GENERAL APPEARANCE: cooperative and comfortable ORIENTATION/CONSCIOUSNESS: Yes awake, Yes oriented to person, Yes oriented to place and Yes oriented to time HENMT: COMMON NORMALS: normocephalic, atraumatic and hearing grossly normal bilaterally HEAD & SCALP: normocephalic and atraumatic Resp: COMMON NORMALS: normal respiratory effort, No retractions, No use of accessory muscles and clear to auscultation bilaterally AUSCULTATION: clear to auscultation bilaterally Cardio: COMMON NORMALS: regular rate, regular rhythm and No murmurs present (Cardio) RATE: regular rate RHYTHM: regular rhythm GI: COMMON NORMALS: Soft to palpation and No hepatosplenomegaly present A USCULTATION: Yes normoactive bowel sounds PALPATION: Yes Soft to palpation, No Tenderness to palpation present (GI), No Guarding due to palpation present (GI) and Yes No hepatosplenomegaly present Extremity: COMMON NORMALS: normal to inspection, capillary refill normal, no clubbing, cyanosis or edema, no calf tenderness and no pedal edema Neuro: SENSORIUM/ORIENTATION: Yes oriented to person, Yes oriented to place and Yes oriented to time Skin: COMMON NORMALS: no rashes or lesions noted GENERAL SKIN EXAM: no rashes or lesions noted Course 2 Vital Signs: Vital signs: Vital Signs Temperature 98.7 F 12/11/23 13:23 Pulse Rate 97 12/11/23 15:34 Respiratory Rate 18 12/11/23 13:23 Blood Pressure 154/81 12/11/23 15:34 Pulse Oximetry 94 12/11/23 15:34 Oxygen Delivery Me thod Room Air 12/11/23 15:34 MDM - Neuro Symptoms/Deficit Medical Decision Making Patient was last known well was 10 PM as well as side of a window for thrombolysis. Additionally his NIH score is 0 on arrival here. His states his balance is much better and his speech is much better than it was earlier today. He actually got up to try to walk to the CT scanner we told him he was going to have a head CT. He is not demonstrating any ataxia or imbalance. Given her description of symptoms and his known history of diabetes and previous history of coronary artery disease is likely he did have a TIA. Will increase his atorvastatin to 40 mg daily start him on baby aspirin and Plavix 75 daily. Additionally patient was complaining of some dysuria UA did show cystitis we will start him on cefdinir 1 pill twice a day for 7 days. Return if he has any worsening or change symptoms Medical Records I reviewed the patient's medical records. Lab Data I reviewed the patient's lab results. 12/11/23 13:48 12/11/23 13:[address] 12/11/23 13:37 IMPRESSION: 1. No evidence of intracranial hemorrhage or mass effect. 2. No acute intracranial findings. Notified Reji Kemp DO at 12/11/2023 1:48 PM. Head/Neck CTA 12/11/23 13:52 IMPRESSION: 1. No evidence of proximal flow-limiting intracranial stenosis. 2. Persistent LEFT TANK INSULATOR RUBBER. 3. Approximately 50% RIGHT proximal ICA stenosis with dense calcification. 4. No significant LEFT ICA stenosis. 5. Codominant and patent vertebral arteries bilaterally. Notified Reji Kemp DO at 12/11/2023 2:10 PM. Laboratory Results WBC 13.39 10^3/uL (3.29-11.43) H 12/11/23 13:48 RBC 3.59 10^6/uL (3.85-5.65) L 12/11/23 13:48 Hgb 11.00 g/dL (11.27-16.99) L 12/11/23 13:48 Hct 35.6 % (37-53) L 12/11/23 13:48 MCV 99.2 fl (82-101) 12/11/23 13:48 MCH 30.6 pg (27-33) 12/11/23 13:48 MCHC 30.9 g/dL (30-55) 12/11/23 13:48 RDW 21.8 % (12.1-15.1) H 12/11/23 13:48 Plt Count 191 10^3/cmm (157-399) 12/11/23 13:48 MPV 10.7 fL (7.4-10.4) H 12/11/23 13:48 Neut % (Auto) 68.3 % 12/11/23 13:48 Lymph % (Auto) 16.3 % 12/11/23 13:48 [facility] % (Auto) 13.0 % 12/11/23 13:48 Eos % (Auto) 0.4 % 12/11/23 13:48 Baso % (Auto) 0.3 % 12/11/23 13:48 Neut # (Auto) 9.14 10^3/uL (1.8-7.7) H 12/11/23 13:48 Lymph # (Auto) 2.2 10^3/uL (0.8-4.8) 12/11/23 13:48 [facility] # (Auto) 1.7 10^3/uL (0.2-0.9) H 12/11/23 13:48 Eos # (Auto) 0.1 10^3/uL (0.0-0.8) 12/11/23 13:48 Baso # (Auto) 0.0 10^3/uL (0.0-0.1) 12/11/23 13:48 Nucleated RBC % (auto) 0.2 % 12/11/23 13:48 Nucleated RBCs # 0.0 /100WBC 12/11/23 13:48 PT 14.70 SECONDS (12.1-14.9) 12/11/23 13:48 INR 1.12 (0.8-1.2) 12/11/23 13:48 APTT 26.7 SECONDS (23.9-36.7) 12/11/23 13:48 Sodium 136 mmol/L (136-145) 12/11/23 13:48 Potassium 4.1 mmol/L (3.5-5.1) 12/11/23 13:48 Chloride 99 mmol/L (98-107) 12/11/23 13:48 Carbon Dioxide 24 mmol/L (22-29) 12/11/23 13:48 Anion Gap 17.1 (5-19) 12/11/23 13:48 BUN 16 mg/dL (8-23) 12/11/23 13:48 Creatinine 1.1 mg/dL (0.7-1.2) 12/11/23 13:48 GFR Calculation Not Reportable 12/11/23 13:48 Glucose 250 mg/dL (65-115) H 12/11/23 13:48 POC Glucose 236 mg/dL (70-110) H 12/11/23 13:44 Calculated Osmolality 292 mOsm/kg (285-295) 12/11/23 13:48 Lactic Acid 1.9 mmol/L (0.5-2.2) 12/11/23 13:48 Calcium 8.8 mg/dL (8.5-10.5) 12/11/23 13:48 Total Bilirubin 1.6 mg/dL (0.15-1.2) H 12/11/23 13:48 AST 12 U/L (0-40) 12/11/23 13:48 ALT 12 U/L (0-41) 12/11/23 13:48 Alkaline Phosphatase 94 U/L (40-130) 12/11/23 13:48 Total Protein 7.2 g/dL (6.6-8.7) 12/11/23 13:48 Albumin 4.3 g/dL (3.5-5.2) 12/11/23 13:48 Globulin 2.9 g/dL (1.3-4.6) 12/11/23 13:48 Urine Color Yellow (Yellow) 12/11/23 14:07 Urine Appearance Clear (CLEAR) 12/11/23 14:07 Urine pH 6.5 (5-7) 12/11/23 14:07 Ur Specific [place] 1.055 (1.005-1.030) H 12/11/23 14:07 Urine Protein 2+ (Negative) A 12/11/23 14:07 Urine Glucose (UA) 2+ (Normal) H 12/11/23 14:07 Urine Ketones Negative (Negative) 12/11/23 14:07 Urine Blood 2+ (Negative) A 12/11/23 14:07 Urine Nitrate Negative (Negative) 12/11/23 14:07 Urine Bilirubin Negative (Negative) 12/11/23 14:07 Urine Urobilinogen 1.0 mg/dL (Negative) 12/11/23 14:07 Ur Leukocyte Esterase 1+ (Negative) A 12/11/23 14:07 Urine RBC 21-50 /hpf (0-2) H 12/11/23 14:07 Urine WBC >100 /hpf (0-5) H 12/11/23 14:07 Ur Squamous Epith Cells 0-5 /hpf (0-5) 12/11/23 14:07 Amorphous Sediment Not Reportable 12/11/23 14:07 Urine Bacteria Trace /hpf (NONE) 12/11/23 14:07 Hyaline Casts 3.71 /lpf 12/11/23 14:07 Urine Sperm 1+ /hpf 12/11/23 14:07 Urine Opiates Screen Negative ng/mL (Negative) 12/11/23 14:07 Ur Barbiturates Screen Negative ng/mL (Negative) 12/11/23 14:07 Ur Phencyclidine Scrn Negative ng/mL (Negative) 12/11/23 14:07 Ur Amphetamines Screen Negative ng/mL (Negative) 12/11/23 14:07 U Benzodiazepines Scrn Negative ng/mL (Negative) 12/11/23 14:07 Urine Cocaine Screen Negative ng/mL (Negative) 12/11/23 14:07 U Marijuana (THC) Screen Negative ng/mL (Negative) 12/11/23 14:07 All radiology interpretation(s) finalized by discharge Discharge Plan Discharge Patient Disposition: Home Clinical Impression: TIA (transient ischemic attack), Cystitis Condition: Stable Prescriptions: New clopidogrel 75 mg tablet 75 mg PO DAILY Qty: 30 0RF atorvastatin 40 mg tablet 40 mg PO DAILY Qty: 30 0RF aspirin 81 mg tablet,delayed release (DR/EC) 81 mg PO DAILY Qty: 30 0RF cefdinir 300 mg capsule 300 mg PO BID Qty: 14 0RF Discontinued atorvastatin 10 mg tablet See Rx Instructions .ROUTE .COMPLEX Qty: 90 0RF Dose Instruction: TAKE ONE TABLET BY MOUTH EVERY DAY AT 6pm Rx Instructions: TAKE ONE TABLET BY MOUTH EVERY DAY AT 6pm No Action diphenhydramine HCl [Benadryl] 25 mg capsule 25 mg PO DAILY PRN (Reason: Allergy Symptoms) magnesium oxide 250 mg magnesium tablet 250 mg PO DAILY@0700 multivitamin Tablet 1 tab PO DAILY Miralax 17 gram/dose powder 17 g PO DAILY@0700 PRN (Reason: Constipation) tamsulosin 0.4 mg capsule 0.8 mg PO DAILY Qty: 180 1RF losartan 50 mg tablet 50 mg PO DAILY Qty: 90 3RF Ozempic 0.25 mg or 0.5 mg (2 mg/3 mL) pen injector See Rx Instructions SUBCUT .COMPLEX Qty: 3 2RF Rx Instructions: 0.25mg weekly x 4 then increase to 0.5mg weekly subcutaneously; on Friday (DME) Auto-Titrating CPAP Device See Rx Instructions .Route Qty: 1 0RF Rx Instructions: As directed Senokot 8.6 mg Tablet 8.6 mg PO DAILY PRN (Reason: Constipation) doxycycline hyclate 100 mg Capsule 100 mg PO BID luspatercept-aamt 25 mg Recon Soln 25 mg SUBCUT ONCE celecoxib 200 mg capsule 200 mg PO BID pantoprazole 40 mg tablet,delayed release (DR/EC) 40 mg PO BID gabapentin 300 mg capsule 300 mg PO BID Discharge Orders: Discharge ED (Routine); Ordered 12/11/23 Ordered By: Reji Kemp Referrals: Hayde Washington FNP [Primary Care Provider] - Discharge Diet: Usual diet Discharge Activity: Increase activity as tolerated Patient Instructions: Opioid Safety, Pain Management Activity Restrictions/Additional Instructions: Thank you for choosing [facility] for your healthcare needs today. It is very important that you follow up as instructed or that you return to the Emergency Department should you have concerns or if your condition changes or worsens in any way. You were seen today with complaints of weakness change in speech. There is no sign of acute stroke. On your exam or the CT is done. Description of symptoms sound as if you may have had a transient ischemic attack (TIA). Recommend you start on clopidogrel and aspirin daily as well as increase your atorvastatin to 40 mg daily. Case management will make arrangements for you to follow-up with the neurologist. In addition to this we will also recommend that you start on oral antibiotic for a bladder infection that was noted today on your labs. Coding Level of Care Code ED [employer] Member Other Ranks for Lilli Hendrix
--- NOTE | 2023-12-11 13:37 | CT_ITS ---
WS: [id number] CT HEAD TECHNIQUE: Noncontrast CT of the head obtained from the skullbase to the vertex. CLINICAL INFORMATION: Symptoms of acute stroke COMPARISON: 2017 DLP: [address] scans at [facility] use at least one of these dose optimization techniques: automated e xposure control; mA and/or kV adjustment per patient size (includes targeted exams where dose is matc hed to clinical indication); or iterative reconstruction. FINDINGS: No evidence of intracranial hemorrhage or mass effect. Ventricular system and basal cisterns are dooley nt. Moderate small vessel changes with moderate parenchymal volume loss. No extra-axial fluid collect ions. No evidence of mass or mass effect. Vascular calcification. Paranasal sinuses and mastoid air cells are well aerated. .Normal visualized soft tissues. CT/CT head thrombolytic [id number] IMPRESSION: 1. No evidence of intracranial hemorrhage or mass effect. 2. No acute intracranial findings. Notified Reji Kemp DO at 12/11/2023 1:48 PM.
--- NOTE | 2023-12-11 13:52 | CT_ITS ---
WS: [id number] CTA HEAD AND NECK TECHNIQUE: Contrast enhanced CTA of the head and neck with coronal and sagittal reformatted images an d maximum intensity projection (MIP) images. NASCET criteria utilized. CLINICAL INFORMATION: SYMPTOMS OF ACUTE STROKE COMPARISON: None. DLP: [id number] scans at [facility] use at least one of these dose optimization techniques: automated e xposure control; mA and/or kV adjustment per patient size (includes targeted exams where dose is matc hed to clinical indication); or iterative reconstruction. FINDINGS: RIGHT: RIGHT common carotid artery is patent. Dense calcification RIGHT carotid bulb extending into t he ICA with approximately 50% RIGHT proximal ICA stenosis. RIGHT ICA remains patent to the skull base . LEFT: LEFT common carotid artery is patent. Mild calcified atheromatous plaque LEFT carotid bulb. No significant LEFT ICA stenosis. LEFT ICA is patent to the skull base. INTRACRANIAL CTA: Codominant and patent vertebral arteries bilaterally. Proximal basilar artery is patent. Persistent L EFT WATER MECHANIC. Normal vascularity to the WATER MECHANIC territory bilaterally. Both ICAs are patent at the skull base. Mild bilateral cavernous carotid calcification. Patent anteri or communicating artery. Normal vascularity to the RADHA territory. M1 segments are patent. Normal vasc ularity to the proximal MCA territories bilaterally. No evidence of proximal flow-limiting stenosis. Moderate spondylitic changes cervical spine. Mild central canal stenosis in the cervical spine more p rominent at C3-C6. CT/CT angio headneck* [id number] IMPRESSION: 1. No evidence of proximal flow-limiting intracranial stenosis. 2. Persistent LEFT WATER MECHANIC. 3. Approximately 50% RIGHT proximal ICA stenosis with dense calcification. 4. No significant LEFT ICA stenosis. 5. Codominant and patent vertebral arteries bilaterally. Notified Reji Kemp DO at 12/11/2023 2:10 PM.
[2023-12-11 13:55] LABS: Glucose Point of Care 236 mg/dL (70-110)
[2023-12-11] MEDS: iohexol 350 mg/mL 500 mL Btl (per mL) IV (13:56)
--- NOTE | 2023-12-11 14:01 | ECG_ITS ---
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 Measurements Intervals [place] Rate: 93 P: 24 MT: 187 QRS: -15 QRSD: 98 T: 66 QT: 336 QTc: 420 Interpretive Statements SINUS RHYTHM LOW QRS VOLTAGE IN PRECORDIAL LEADS [QRS DEFLECTION < 1.0 mV IN CHEST LEADS] POSSIBLE ANTERIOR MYOCARDIAL INFARCTION , OF INDETERMINATE AGE [30 ms Q WAVE IN V3/V4, OR R < 0.2 mV IN V4] Compared to ECG 08/07/2023 12:08:30 Sinus arrhythmia no longer present Indeterminate axis no longer present Incomplete right bundle-branch block no longer present Myocardial infarct finding still present Electronically Signed On 12-12-2023 18:08:55 CDT by Prosper Suero M.D. [id number]
[2023-12-11 14:09] LABS: Basophils % 0.3 %; Eosinophils # 0.1 10^3/uL (0.0-0.8); Eosinophils % 0.4 %; Hematocrit 35.6 % (37-53); Lymphocytes # 2.2 10^3/uL (0.8-4.8); Lymphocytes % 16.3 %; Mean Corpuscular HGB Conc 30.9 g/dL (30-55); Mean Corpuscular Hemoglobin 30.6 pg (27-33); Mean Corpuscular Volume 99.2 fl (82-101); Mean Platelet Volume 10.7 fL (7.4-10.4); Monocytes # 1.7 10^3/uL (0.2-0.9); Neutrophils # 9.14 10^3/uL (1.8-7.7); Neutrophils % 68.3 %; Nucleated Red Blood Cells % 0.2 %; Platelet Count 191 10^3/cmm (157-399); Red Blood Count 3.59 10^6/uL (3.85-5.65); Red Cell Distribution Width 21.8 % (12.1-15.1); White Blood Count 13.39 10^3/uL (3.29-11.43)
[2023-12-11 14:13] LABS: INR 1.12 (0.8-1.2); Partial Thromboplastin Time 26.7 SECONDS (23.9-36.7)
[2023-12-11 14:13] LABS: Charge for UA Resulting for Rev
[2023-12-11 14:16] LABS: Bilirubin Urine Negative (Negative); Blood Urine 2+ (Negative); Glucose Urine UA 2+ (Normal); Ketones Urine Negative (Negative); Leukocyte Esterase Urine 1+ (Negative); Nitrate Urine Negative (Negative); Protein Urine 2+ (Negative); Urine Appearance Clear (CLEAR); Urine Color Yellow (Yellow); pH Urine 6.5 (5-7)
[2023-12-11 14:17] LABS: Alanine Aminotransferase 12 U/L (0-41); Albumin Level 4.3 g/dL (3.5-5.2); Alkaline Phosphatase 94 U/L (40-130); Anion Gap 17.1 (5-19); Aspartate Amino Transferase 12 U/L (0-40); Blood Urea Nitrogen 16 mg/dL (8-23); Calcium 8.8 mg/dL (8.5-10.5); Carbon Dioxide 24 mmol/L (22-29); Chloride 99 mmol/L (98-107); Creatinine Clr Calc Pharmacy 61.9991; Globulin 2.9 g/dL (1.3-4.6); Glucose 250 mg/dL (65-115); Osmolality Calculated 292 mOsm/kg (285-295); Potassium 4.1 mmol/L (3.5-5.1); Sodium 136 mmol/L (136-145); Total Bilirubin 1.6 mg/dL (0.15-1.2); Total Protein 7.2 g/dL (6.6-8.7)
[2023-12-11 14:18] LABS: Bacteria Urine Trace /hpf; Hyaline Casts Urine 3.71 /lpf; RBC Urine 21-50 /hpf (0-2); Squamous Epithelial Cell Urine 0-5 /hpf (0-5); WBC Urine >100 /hpf (0-5)
[2023-12-11 14:23] LABS: Amphetamines Screen Urine Negative (Negative); Barbiturates Screen Urine Negative (Negative); Benzodiazepines Screen Urine Negative (Negative); Cocaine Screen Urine Negative (Negative); Opiate Screen Urine Negative (Negative); PCP Screen Urine Negative (Negative); THC Screen Urine Negative (Negative)
[2023-12-11 14:35] LABS: Specific Gravity, Urine 1.055 (1.005-1.030)
[2023-12-11 14:36] LABS: Sperm Urine 1+ /hpf
[2023-12-11 14:37] LABS: Add Urine Culture? Yes; UA Slide Review UA Slide Review Perf
[2023-12-11 15:28] LABS: Lactic Sepsis W/Reflex 1.9 mmol/L (0.5-2.2)
[2023-12-11] MEDS: cefTRIAXone 1,000 mg SDV 1000 MG IVP (15:32)
[2023-12-11 15:34] VITALS: BP 154/81; PULSE 97; O2SAT 94
--- NOTE | 2023-12-11 16:28 | DCPLANNER ---
messaged neuro for er f/u
== END 2023-12-11 16:55 | disposition home or self-care (01) ==
PROVIDERS: Emergency Provider Family Medicine; PCP Nurse Practitioner Family
DX: G45.9 Transient cerebral ischemic attack, unspecified (principal); N30.90 Cystitis, unspecified without hematuria; Z79.85 Long-term (current) use of injectable non-insulin antidiabetic drugs; F17.220 Nicotine dependence, chewing tobacco, uncomplicated; I25.10 Atherosclerotic heart disease of native coronary artery without angina pectoris; I10 Essential (primary) hypertension; E11.9 Type 2 diabetes mellitus without complications; E78.5 Hyperlipidemia, unspecified
CPT/HCPCS: 36415; 36416; 70450; 70496; 70498; 80053; 80306; 81003; 81015; 82962; 83605; 85025; 85610; 85730; 87040; 87077; 87086; 87186; 93005; 96374; 99285; J0696; Q9967

== ENCOUNTER → 2023-12-18 09:10 | Outpatient (BNVA) | payer MEDICARE, OTHER, SELFPAY | PROVIDERS: PCP Nurse Practitioner Family; Visit Provider Nurse Practitioner Family | DX: N39.0 Urinary tract infection, site not specified (principal); D46.9 Myelodysplastic syndrome, unspecified | CPT/HCPCS: 80053; 81000; 85007; 85025 ==

== ENCOUNTER → 2023-12-19 11:00 | Outpatient (BNVA) | payer MEDICARE, OTHER, SELFPAY | PROVIDERS: PCP Nurse Practitioner Family; Visit Provider Nurse Practitioner Family | DX: A41.9 Sepsis, unspecified organism (principal) | CPT/HCPCS: 99213 ==

== ENCOUNTER 2023-12-22 10:18 | Oncology outpatient (recurring) (ONCR) | payer MEDICARE, OTHER, SELFPAY ==
[2023-12-22] MEDS: luspatercept-aamt 25 mg 98.5 MG SUBCUT (12:17)
== END 2023-12-22 23:59 | disposition home or self-care (01) ==
PROVIDERS: PCP Nurse Practitioner Family; Visit Provider Internal Medicine Medical Oncology
DX: D46.1 Refractory anemia with ring sideroblasts (principal); Z87.891 Personal history of nicotine dependence; Z79.899 Other long term (current) drug therapy
CPT/HCPCS: 96372; 99214; J0896

== ENCOUNTER 2023-12-29 10:12 | Inpatient (IN) | payer MEDICARE, OTHER, SELFPAY ==
[2023-12-29] VITALS (7 sets, daily range): BP systolic 133–164; BP diastolic 68–93; PULSE 79–91; RESP 15–16; TEMP 36.3–37.3; O2SAT 93–98; BMI 30.4
--- NOTE | 2023-12-29 10:16 | XR_ITS ---
WS: [id number] PORTABLE CHEST HISTORY: Weakness COMPARISON: 01/08/2018 Prior CABG. Numerous sternotomy wires are fractured. Lung volumes are decreased. Imaging performed in a lordotic projection. Increasing density posterior to the LEFT heart may represent pneumonia. Cardiac size: Mildly enlarged cardiac silhouette. Mediastinum/Aorta: Atherosclerosis aorta. Osteopenia. XR/XR chest 1V portable [id number] IMPRESSION: 1. Decreased lung volumes due to poor inspiration. 2. Poor imaging technique. Imaging performed in the lordotic projection. 3. Possible pneumonia or pneumonitis posterior to the LEFT heart. Could be rel ated to technique also. 4. Atherosclerosis aorta and prior median sternotomy.
--- NOTE | 2023-12-29 10:17 | ECG_ITS ---
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 Measurements Intervals [place] Rate: 83 P: 56 [place]: 191 QRS: -13 QRSD: 99 T: 71 QT: 348 QTc: 410 Interpretive Statements SINUS RHYTHM POSSIBLE ANTERIOR MYOCARDIAL INFARCTION , OF INDETERMINATE AGE [30 ms Q WAVE IN V3/V4, OR R < 0.2 mV IN V4] Compared to ECG 12/11/2023 14:01:46 No significant changes Electronically Signed On 12-29-2023 16:06:17 CDT by Tha Hathaway M.D. [id number]
[2023-12-29 10:31] LABS: Glucose Point of Care 243 mg/dL (70-110)
--- NOTE | 2023-12-29 10:38 | ED_ITS ---
HPI - Weakness 2 General: Chief complaint: Weakness Stated complaint: weakness, fall Time Seen by Provider: 12/29/23 10:14 History of Present Illness: 83-year-old man with a history of hyperl ipidemia myelodysplasia, coronary artery disease, type 2 diabetes, and hypertension with recent admission at [facility] for urosepsis who just completed antibiotics a few days ago who presents emergency room by ambulance after being found on the ground this morning by family being confused at that time. Since then he has improved. He is now back to his normal baseline. Family does state that his urine seems quite dark and odorous at this point. No focal motor deficits. He also had recent stressor. His grandchild in a car accident Friday. Review of Systems 2 Narrative: Constitutional symptoms: Negative except as documented in HPI. Skin symptoms: Negative except as documented in HPI. Eye symptoms: Negative except as documented in HPI. ENMT symptoms: Negative except as documented in HPI. Respiratory symptoms: Negative except as documented in HPI. Cardiovascular symptoms: Negative except as documented in HPI. Gastrointestinal symptoms: Negative except as documented in HPI. Genitourinary symptoms: Negative except as documented in HPI. Musculoskeletal symptoms: Negative except as documented in HPI. Neurologic symptoms: Negative except as documented in HPI. Psychiatric symptoms: Negative except as documented in HPI. Endocrine symptoms: Negative except as documented in HPI. PFSH ED 2 PFSH: Medical History GERD (gastroesophageal reflux disease) Myelodysplastic syndrome Hypertension Coronary artery disease History of ehrlichiosis Type 2 diabetes mellitus Anemia Balanitis BPH loc w urin obs/LUTS Phimosis Hyperlipidemia, unspecified Esophagitis, unspecified Bilateral kidney stones Spinal stenosis, lumbar region without neurogenic claudication Gastritis History of foot fracture (~1980) Surgical History History of shoulder surgery History of colonoscopy (03/16/19) History of esophagogastroduodenoscopy (EGD) (03/16/19) History of coronary artery bypass graft x 3 (2012) S/P ureteral stent placement (2018) Family History Father , at age 86 Diabetes Hyperlipidemia Hypertension Family/Other Diabetes Cancer CAD (coronary artery disease) Hypertension Mother , at age 76 No problems noted. Denies family history of Anesthesia complication Social History Smoking and tobacco/nicotine status: former use of tobacco/nicotine Quit status (tobacco/nicotine): has quit using Year quit tobacco: 1981 Former quit date comment: Smoked 25+ years Alcohol intake: never Substance/Drug Use: never Caregiver/support person: Yes Lives independently: Yes Household members: spouse Housing: House Marital status: Current occupational status: retired Previous occupational history: [employer] Current gender identity: Male Physical Exam 2 Narrative: EXAM NARRATIVE: General: Alert, no acute distress. Skin: Warm, dry. Head: Normocephalic, atraumatic. Neck: Supple, trachea midline. Eye: Extraocular movements are intact. Ears, nose, mouth and throat: mucosa moist. Cardiovascular: Regular, Normal peripheral perfusion. Respiratory: Lungs are clear to auscultation, respirations are non-labored, breath sounds are equal, Symmetrical chest wall expansion. Gastrointestinal: Soft, Nontender, Non distended Musculoskeletal: Normal ROM, no deformity. Neurological: Alert and oriented, No focal neurological deficit observed. Psychiatric: Cooperative, appropriate mood & affect. Course 2 Vital Signs: Vital signs: Vital Signs Temperature 99.1 F 12/29/23 10:14 Pulse Rate 82 12/29/23 12:24 Respiratory Rate 15 12/29/23 10:14 Blood Pressure 148/79 12/29/23 12:24 Pulse Oximetry 97 12/29/23 12:24 Oxygen Delivery Me thod Room Air 12/29/23 12:24 MDM - Weakness Medical Decision Making Medical decision making: Differential diagnosis for patient presenting with generalized weakness including but not limited to and based on the above HPI, review of systems and physical exam: Sepsis. Dehydration. Renal failure. Electrolyte abnormalities. Anemia. Congestive heart failure. Hypotension. Coronary syndrome. Hepatitis. Cirrhosis. Infections such as pneumonia, urinary tract infection, Tick bourne illness, Cellulitis, Viral infections including influenza and Covid-19. Workup: labwork and lab/exam driven imaging ordered to evaluate, rule in and rule out above pathologies. EKG: Time 10:35 AM. Rate 83. Normal sinus rhythm, No ST-T changes, no ectopy, normal GA & QRS intervals, This was reviewed and interpreted by myself the ER physician at 10:38 AM. Lab Review: Laboratory results were reviewed and interpreted by myself the emergency room physician. Fairly notable leukocytosis with a white count of 16,000. Hemoglobin is 10.3. BUN/creatinine are 16 and 1.1. Glucose is elevated at 238. Urinalysis is again positive with 40-55 whites but is nitrite negative and leukocyte Estrace positive. Given that this is recurred so quickly and that he was recently hospitalized with fifth and appear septic I am placing on broad-spectrum antibiotics. I reviewed the patient's medical record. Reexamination: Patient remained stable. No increased work of breathing. No altered mental status. No focal motor deficits. Consultation: I spoke with Dr. Dodge with the hospitalist group and she agrees to admission of patient. Assessment and plan: Urinary tract infection Sepsis Delirium/metabolic encephalopathy Hyperglycemia -2.5 L normal saline bolus. Fluid volumes based on ideal body weight. -Broad-spectrum antibiotics were administered. Zyvox and cefepime. -Sepsis quality measures. -Lactic acid with a reflex was ordered. -Blood cultures were ordered. -I discussed the patient with the hospitalist on-call who is admitting the patient. - Discussed findings and plan with patient. Answered any questions. - All laboratory values were reviewed and interpreted personally by myself, the ER physician - All imaging was reviewed and interpreted personally by myself, the ER physician. - Evaluation and treatment of this problem were appropriate in the emergency setting Critical Care: -I spent a total of >35 minutes of critical care time managing the patient, independent of any other practitioner. -The time involved in the performance of separately reportable procedures was not counted towards critical care time. Lab Data 12/29/23 10:45 12/29/23 10:45 Radiology Impressions Chest X-Ray 12/29/23 10:16 IMPRESSION: 1. Decreased lung volumes due to poor inspiration. 2. Poor imaging technique. Imaging performed in the lordotic projection. 3. Possible pneumonia or pneumonitis posterior to the LEFT heart. Could be related to technique also. 4. Atherosclerosis aorta and prior median sternotomy. Laboratory Results WBC 15.91 10^3/uL (3.29-11.43) H 12/29/23 10:45 RBC 3.43 10^6/uL (3.85-5.65) L 12/29/23 10:45 Hgb 10.30 g/dL (11.27-16.99) L 12/29/23 10:45 Hct 33.4 % (37-53) L 12/29/23 10:45 MCV 97.4 fl (82-101) 12/29/23 10:45 MCH 30.0 pg (27-33) 12/29/23 10:45 MCHC 30.8 g/dL (30-55) 12/29/23 10:45 RDW 22.0 % (12.1-15.1) H 12/29/23 10:45 Plt Count 172 10^3/cmm (157-399) 12/29/23 10:45 MPV 9.8 fL (7.4-10.4) 12/29/23 10:45 Neut % (Auto) 71.0 % 12/29/23 10:45 Lymph % (Auto) 12.4 % 12/29/23 10:45 [place] % (Auto) 13.5 % 12/29/23 10:45 Eos % (Auto) 0.2 % 12/29/23 10:45 Baso % (Auto) 0.5 % 12/29/23 10:45 Neut # (Auto) 11.29 10^3/uL (1.8-7.7) H 12/29/23 10:45 Lymph # (Auto) 2.0 10^3/uL (0.8-4.8) 12/29/23 10:45 [place] # (Auto) 2.2 10^3/uL (0.2-0.9) H 12/29/23 10:45 Eos # (Auto) 0.0 10^3/uL (0.0-0.8) 12/29/23 10:45 Baso # (Auto) 0.1 10^3/uL (0.0-0.1) 12/29/23 10:45 Nucleated RBC % (auto) 0.1 % 12/29/23 10:45 Nucleated RBCs # 0.0 /100WBC 12/29/23 10:45 Sodium 137 mmol/L (136-145) 12/29/23 10:45 Potassium 4.4 mmol/L (3.5-5.1) 12/29/23 10:45 Chloride 101 mmol/L (98-107) 12/29/23 10:45 Carbon Dioxide 26 mmol/L (22-29) 12/29/23 10:45 Anion Gap 14.4 (5-19) 12/29/23 10:45 BUN 16 mg/dL (8-23) 12/29/23 10:45 Creatinine 1.1 mg/dL (0.7-1.2) 12/29/23 10:45 GFR Calculation Not Reportable 12/29/23 10:45 Glucose 238 mg/dL (65-115) H 12/29/23 10:45 POC Glucose 243 mg/dL (70-110) H 12/29/23 10:28 Calculated Osmolality 293 mOsm/kg (285-295) 12/29/23 10:45 Lactic Acid 1.7 mmol/L (0.5-2.2) 12/29/23 10:45 Calcium 9.0 mg/dL (8.5-10.5) 12/29/23 10:45 Total Bilirubin 1.3 mg/dL (0.15-1.2) H 12/29/23 10:45 AST 19 U/L (0-40) 12/29/23 10:45 ALT 29 U/L (0-41) 12/29/23 10:45 Alkaline Phosphatase 95 U/L (40-130) 12/29/23 10:45 Creatine Kinase 33 U/L (39-308) L 12/29/23 10:45 Troponin T Baseline 18 ng/L (0-15) H 12/29/23 10:45 C-Reactive Protein 64.5 mg/L (0.0-4.9) H 12/29/23 10:45 Total Protein 6.9 g/dL (6.6-8.7) 12/29/23 10:45 Albumin 4.3 g/dL (3.5-5.2) 12/29/23 10:45 Globulin 2.6 g/dL (1.3-4.6) 12/29/23 10:45 Procalcitonin 0.13 ng/mL (0-0.5) 12/29/23 10:45 Urine Color Yellow (Yellow) 12/29/23 11:29 Urine Appearance Cloudy (CLEAR) A 12/29/23 11:29 Urine pH 5 (5-7) 12/29/23 11:29 Ur Specific Dorr 1.015 (1.005-1.030) 12/29/23 11:29 Urine Protein 2+ (Negative) H 12/29/23 11:29 Urine Glucose (UA) 2+ (Normal) H 12/29/23 11:29 Urine Ketones Negative (Negative) 12/29/23 11: Urine Blood 2+ (Negative) H 12/29/23 11:29 Urine Nitrate Negative (Negative) 12/29/23 11:29 Urine Bilirubin Neg (Negative) 12/29/23 11:29 Urine Urobilinogen Norm mg/dL (Negative) 12/29/23 11:29 Ur Leukocyte Esterase Trace (Negative) H 12/29/23 11:29 Urine RBC 5-10 /hpf (0-2) H 12/29/23 11:29 Urine WBC 40-55 /hpf (0-5) H 12/29/23 11:29 Ur Squamous Epith Cells 0-4 /hpf (0-5) H 12/29/23 11:29 Amorphous Sediment Not Reportable 12/29/23 11:29 Urine Bacteria 1+ /hpf (NONE) H 12/29/23 11:29 Urine Mucus Trace /hpf 12/29/23 11:29 Urine Sperm 4+ /hpf 12/29/23 11:29 Ur Oval Fat Bodies 2+ /hpf 12/29/23 11:29 All radiology interpretation(s) finalized by discharge Discharge Plan Discharge Patient Disposition: Admitted As Inpatient Clinical Impression: Recurrent UTI Condition: Stable Coding Level of Care Code ED Chiropractic Teacher for g Fwd Related Data Home Medications Medication Instructions Recorded Confirmed diphenhydramine HCl 25 mg capsule 25 mg PO DAILY PRN Allergy Symptoms 04/16/19 12/22/23 (Benadryl) magnesium oxide 250 mg PO DAILY@0700 07/30/19 12/22/23 polyethylene glycol 3350 17 17 g PO DAILY@0700 PRN Constipation 02/13/22 12/22/23 gram/dose oral powder (Miralax) multivitamin 1 tab PO DAILY 05/29/22 12/22/23 celecoxib 200 mg capsule 200 mg PO BID 12/11/23 12/22/23 gabapentin 300 mg capsule 300 mg PO BID 12/11/23 12/22/23 luspatercept-aamt 25 mg 25 mg SUBCUT ONCE given in office 12/11/23 12/22/23 subcutaneous solution pantoprazole 40 mg tablet,delayed 40 mg PO BID 12/11/23 12/22/23 release sennosides 8.6 mg tablet (Senokot) 8.6 mg PO DAILY PRN Constipation 12/11/23 12/22/23 amoxicillin 125 mg-potassium 10 ml PO BID 12/22/23 12/22/23 clavulanate 31.25 mg/5 mL oral susp (Augmentin) Previous Rx's Medication Instructions Recorded losartan 50 mg tablet 50 mg PO DAILY #90 tabs 08/12/23 tamsulosin 0.4 mg capsule 0.8 mg (2 x 0.4 mg) PO DAILY #180 09/15/23 caps semaglutide 0.25 mg or 0.5 mg (2 See Rx Instructions SUBCUT 11/05/23 mg/3 mL) subcutaneous pen injector .COMPLEX #3 mL (Ozempic) CPAP (Auto-Titrating CPAP) #1 ea 11/28/23 aspirin 81 mg tablet,delayed 81 mg PO DAILY #30 tabs 12/11/23 release atorvastatin 40 mg tablet 40 mg PO DAILY #30 tabs 12/11/23 clopidogrel 75 mg tablet 75 mg PO DAILY #30 tabs 12/11/23 Allergies Allergy/AdvReac Type Severity Reaction Status Date / Time Sulfa (Sulfonamide Allergy Dexter Verified 12/29/23 10:25 Antibiotics) Lip/Tongue/Throat sulfamethoxazole Allergy Unknown Verified 12/29/23 10:25 [From Bactrim] trimethoprim [From Bactrim] Allergy Unknown Verified 12/29/23 10:25
[2023-12-29 10:57] LABS: Basophils # 0.1 10^3/uL (0.0-0.1); Basophils % 0.5 %; Eosinophils % 0.2 %; Hematocrit 33.4 % (37-53); Lymphocytes % 12.4 %; Mean Corpuscular HGB Conc 30.8 g/dL (30-55); Mean Corpuscular Volume 97.4 fl (82-101); Mean Platelet Volume 9.8 fL (7.4-10.4); Monocytes # 2.2 10^3/uL (0.2-0.9); Monocytes % 13.5 %; Neutrophils # 11.29 10^3/uL (1.8-7.7); Nucleated Red Blood Cells % 0.1 %; Platelet Count 172 10^3/cmm (157-399); Red Blood Count 3.43 10^6/uL (3.85-5.65); White Blood Count 15.91 10^3/uL (3.29-11.43)
[2023-12-29 11:36] LABS: Alanine Aminotransferase 29 U/L (0-41); Albumin Level 4.3 g/dL (3.5-5.2); Alkaline Phosphatase 95 U/L (40-130); Anion Gap 14.4 (5-19); Aspartate Amino Transferase 19 U/L (0-40); C Reactive Protein 64.5 mg/L (0.0-4.9); Carbon Dioxide 26 mmol/L (22-29); Chloride 101 mmol/L (98-107); Creatine Phosphokinase 33 U/L (39-308); Globulin 2.6 g/dL (1.3-4.6); Glucose 238 mg/dL (65-115); Potassium 4.4 mmol/L (3.5-5.1); Sodium 137 mmol/L (136-145); Total Bilirubin 1.3 mg/dL (0.15-1.2); Total Protein 6.9 g/dL (6.6-8.7)
[2023-12-29 11:37] LABS: Lactic Sepsis W/Reflex 1.7 mmol/L (0.5-2.2)
[2023-12-29 11:39] LABS: Troponin(5th) Baseline 18 ng/L (0-15)
[2023-12-29] MEDS: sodium chloride 0.9% 1,000 ML 999 ML IV ×2 (11:40→13:09)
[2023-12-29 11:43] LABS: Procalcitonin 0.13 ng/mL (0-0.5)
[2023-12-29 11:55] LABS: Blood Urea Nitrogen 16 mg/dL (8-23); Creatinine Clr Calc Pharmacy 62.0521; Osmolality Calculated 293 mOsm/kg (285-295)
--- NOTE | 2023-12-29 12:19 | ECG_ITS ---
[facility] Test Date: 2023-12-29 Pat Name: Corby Belcher Department: Room: Gender: Male [employer] Clerk: : 1940 Requested By: Noelle Meehan Order Number: [id number] Daniel MD: Tha Hathaway M.D. Measurements Intervals [place] Rate: 84 P: 47 MS: 210 QRS: -18 QRSD: 97 T: 57 QT: 354 QTc: 421 Interpretive Statements SINUS RHYTHM WITH FIRST DEGREE AV BLOCK WITH OCCASIONAL ECTOPIC PREMATURE COMPLEXES LOW QRS VOLTAGE IN PRECORDIAL LEADS [QRS DEFLECTION < 1.0 mV IN CHEST LEADS] POSSIBLE ANTERIOR MYOCARDIAL INFARCTION , OF INDETERMINATE AGE [30 ms Q WAVE IN V3/V4, OR R < 0.2 mV IN V4] Compared to ECG 12/29/2023 10:35:35 First degree AV block now present Low QRS voltage now present Myocardial infarct finding still present Electronically Signed On 12-29-2023 16:08:48 CDT by Tha Hathaway M.D. [email or web address]
[2023-12-29 12:20] LABS: Specific Gravity, Urine 1.015 (1.005-1.030); Urine Appearance Cloudy (CLEAR); Urine Color Yellow (Yellow); pH Urine 5 (5-7)
[2023-12-29 12:21] LABS: Bilirubin Urine Neg (Negative); Blood Urine 2+ (Negative); Glucose Urine UA 2+ (Normal); Ketones Urine Negative (Negative); Leukocyte Esterase Urine Trace (Negative); Nitrate Urine Negative (Negative); Protein Urine 2+ (Negative); Urobilinogen Urine Norm (Negative)
[2023-12-29 12:24] LABS: Squamous Epithelial Cell Urine 0-4 /hpf (0-5); WBC Urine 40-55 /hpf (0-5)
[2023-12-29 12:25] LABS: Add Urine Culture? Yes; Bacteria Urine 1+ /hpf; Mucus Urine TRACE /hpf; Oval Fat Bodies Urine 2+ /hpf; Sperm Urine 4+ /hpf
--- NOTE | 2023-12-29 12:55 | PM.HP ---
Providers/Chief Complaint Admitting Physician: Kassandra Dodge MD Primary Care Provider: KERRY Khan Chief Complaint: weakness, fall History of Present Illness Corby Belcher is a 83 year old male who presented to the emergency room with chief complaint of severe weakness. Mr. Belcher lives with his . They sleep in different bedrooms for the last few months as she recently had orthopedic surgery. Details of what happened last night are not known. According to Mrs. Belcher, Mr. Belcher was found on the floor this morning lethargic and not able to move. He was not in the bedroom where he sleeps. Last thing he recalls is yesterday evening prior to going to sleep and later on having to wake up to go to the bathroom. He has had increase in urinary frequency, incontinence and nocturia the last 24 to 48 hours. A little bit of burning. Urine is malodorous. It should be noted that he was hospitalized at [facility] from December 10 to December 15 with a diagnosis of urinary tract infection with sepsis and acute kidney injury. He had been seen here prior to being seen at [facility]. He received a dose of Rocephin and a prescription for cefdinir for urinary tract infection. Presentation was similar with neurological symptoms of not being able to get up, weakness. Stroke workup was unremarkable and symptoms were felt secondary to UTI. White count was 13,000 here, 18,000 at [facility] several hours later. Creatinine was 1.1 here and 1.25 a couple of hours later. He was treated with Rocephin at [facility] and given a prescription for Augmentin upon disposition. Clinically felt to have complicated cystitis contributing to acute metabolic encephalopathy. Urine cultures grew gram-negative rods, group B strep. Blood pressures were noted to be high they are, not low. He followed up with [facility] on 12/17 and labs that day showed normal white count at 6000 and BUN and creatinine of 17/1.1. He completed course of Augmentin. Was seen at Dr. Pelaez's office last week and had scope done. Per the , the prostate look good but I am presuming his urethra may have had a bit of a stricture based on what she describes as the tube not being open enough . Plan is for follow-up with Dr. Pelaez on January 04 which is already scheduled. Since completing antibiotics last week patient has had progressive decline in terms of functional status, weakness, gait instability and increasing experience of confusion at night. I confounding factor is he has a known diagnosis of sleep apnea and started CPAP therapy last week. He has had difficulty tolerating pressures of 6 and had some adjustments in settings to allow for ramp at 4 for 45 minutes. Has been able to fall asleep but not maintain CPAP usage. Increased need for urination at night is not helping. Last night the bed was noted to be saturated as was urine noted to be in the bedside commode that they have set up for him. Upon arrival here patient is alert and oriented and strength is equal although he is generally weak. White count is again noted to be elevated at 15.9 with a left shift. BUN and creatinine are 16/1.1. Urinalysis remains abnormal despite completion of a recent course of what was felt to be appropriate treatment based on cultures from [facility]. Cultures drawn here on December 10 showed 50-60,000 CFU's of Proteus that was sensitive to Augmentin and 40-50,000 CFU's of E. coli that was intermediate to Augmentin. Today he received Zyvox and cefepime in the emergency room empirically. E. coli isolated on December 10 was sensitive only to amikacin, gentamicin, imipenem, nitrofurantoin and, tetracycline, Bactrim and Zosyn although with high BRYCE. It was resistant to Augmentin, ampicillin, aztreonam, cefepime, Rocephin, cefuroxime and Cipro as well as Levaquin. Patient has sulfa allergy. Culture today has been sent. Will initiate empiric coverage with meropenem pending repeat cultures. Plan for admission to hospitalist pau. No known fevers. No vomiting or diarhhea. No hematuria. No flank pain. History includes ureteral stent, kidney stones in past, blanitis, phimosis, prostatitis. Of note, the past week or 2 have been difficult for Mr. Belcher and his family due to some family members being killed in a car accident. for a niece is today, the date of admission. Mrs. Raymundo as well as Mr. Belcher are both dealing with appropriate grief. They have support but msot family is elsewhere today. Mr. Belcher is affectionately referred to as Uncle Monkey by his family. Review of Systems General: Reports: Other (ROS as per HPI or as otherwise noted here) Const: Reports: fatigue, change in sleep pattern (Sleeping more since came home from hospital) and daytime sleepiness; Denies: fever(s) Card: Denies: chest pain Resp: Denies: dyspnea GI: Reports: constipation; Denies: nausea, vomiting, change in stool character or hematochezia : Reports: dysuria, urinary frequency (Increased), urinary urgency (Increased), urinary dribbling (Increased), nocturia (Increased) and urinary incontinence (Worse); Denies: hematuria Musc: Reports: back pain (Not new) and joint swelling (Left knee with fluid, recently drained, gives out, seeing orthopedics) Neuro: Reports: numbness in extremities (Known peripheral neuropathy), weakness in extremities (General rather than focal), difficulty walking and confusion (Transient); Denies: dizziness (No reported dizziness last night but has had recently) Psych: Reports: depression (With decreased functionality and loss of family members) and memory loss Kwame/Lymph: Denies: easy bleeding Medications/Allergies Home Medications Medication Instructions Recorded Confirmed Last Taken Type diphenhydramine HCl 25 mg capsule 25 mg PO DAILY PRN Allergy Symptoms 04/16/19 12/29/23 03/03/22 History (Benadryl) magnesium oxide 250 mg PO DAILY@0700 07/30/19 12/29/23 12/29/23 History polyethylene glycol 3350 17 17 g PO DAILY@0700 PRN Constipation 02/13/22 12/29/23 Unknown History gram/dose oral powder (Miralax) multivitamin 1 tab PO DAILY 05/29/22 12/29/23 12/29/23 History losartan 50 mg tablet 50 mg PO DAILY #90 tabs 08/12/23 12/29/23 12/29/23 Rx tamsulosin 0.4 mg capsule 0.8 mg (2 x 0.4 mg) PO DAILY #180 09/15/23 12/29/23 12/29/23 Rx caps semaglutide 0.25 mg or 0.5 mg (2 See Rx Instructions SUBCUT 11/05/23 12/29/23 12/28/23 Rx mg/3 mL) subcutaneous pen injector .COMPLEX #3 mL (Ozempic) CPAP (Auto-Titrating CPAP) #1 ea 11/28/23 12/29/23 Unknown Rx aspirin 81 mg tablet,delayed 81 mg PO DAILY #30 tabs 12/11/23 12/29/23 12/29/23 Rx release atorvastatin 40 mg tablet 40 mg PO DAILY #30 tabs 12/11/23 12/29/23 12/28/23 Rx celecoxib 200 mg capsule 200 mg PO BID 12/11/23 12/29/23 12/29/23 History clopidogrel 75 mg tablet 75 mg PO DAILY #30 tabs 12/11/23 12/29/23 12/29/23 Rx gabapentin 300 mg capsule 300 mg PO BID 12/11/23 12/29/23 12/29/23 History pantoprazole 40 mg tablet,delayed 40 mg PO BID 12/11/23 12/29/23 12/29/23 History release sennosides 8.6 mg tablet (Senokot) 8.6 mg PO DAILY PRN Constipation 12/11/23 12/29/23 Unknown History luspatercept-aamt 25 mg 25 mg SUBCUT Q21D 12/29/23 12/29/23 12/22/23 History subcutaneous solution melatonin 5 mg tablet 5 mg PO BEDTIME PRN Insomnia 12/29/23 12/29/23 Unknown History Allergies Allergy/AdvReac Type Severity Reaction Status Date / Time Sulfa (Sulfonamide Allergy ALGY-Swell Verified 12/29/23 10:25 Antibiotics) Lip/Tongue/Throat sulfamethoxazole Allergy Unknown Verified 12/29/23 10:25 [From Bactrim] trimethoprim [From Bactrim] Allergy Unknown Verified 12/29/23 10:25 PFSH Acute PFSH: Medical History (Updated 12/29/23 @ 14:48 by Kassandra Dodge MD) TIA (transient ischemic attack) Chronic back pain Memory disorder (~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, degenerative, lumbar spine Obstructive sleep apnea of adult History of tick-borne relapsing fever Diverticulosis Chronic constipation Claudication in peripheral vascular disease GERD (gastroesophageal reflux disease) 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 Hypertension Coronary artery disease History of ehrlichiosis Type 2 diabetes mellitus Anemia Balanitis BPH loc w urin obs/LUTS Phimosis Hyperlipidemia, unspecified Esophagitis, unspecified Bilateral kidney stones calcium phosphate 2017 Spinal stenosis, lumbar region without neurogenic claudication Gastritis History of foot fracture (~1980) Surgical History (Updated 12/29/23 @ 14:50 by Kassandra Dodge MD) History of ureteroscopy History of lithotripsy ESWL History of cataract surgery History of shoulder surgery History of colonoscopy (03/16/19) History of esophagogastroduodenoscopy (EGD) (03/16/19) History of coronary artery bypass graft x 3 (2013) S/P ureteral stent placement (2018) Family History Father , at age 86 Diabetes Hyperlipidemia Hypertension Family/Other Diabetes Cancer CAD (coronary artery disease) Hypertension Mother , at age 76 No problems noted. Denies family history of Anesthesia complication Social History Smoking and tobacco/nicotine status: former use of tobacco/nicotine Quit status (tobacco/nicotine): has quit using Year quit tobacco: 1981 Former quit date comment: Smoked 25+ years Alcohol intake: never Substance/Drug Use: never Caregiver/support person: Yes Lives independently: Yes Household members: spouse Housing: House Marital status: Current occupational status: retired Previous occupational history: [employer] Current gender identity: Male Vitals/I&O/Wt Last Vital Signs Temp 99.1 F 12/29/23 10:14 Pulse 82 12/29/23 12:24 Resp 15 12/29/23 10:14 BP 148/79 12/29/23 12:24 Pulse Ox 97 12/29/23 12:24 O2 Del Method Room Air 12/29/23 12:24 Weight last 48 hrs Weight 98.883 kg Physical Exam Narrative: Patient is initially asleep but later on awake and alert, able to provide history for what he recalls. Oriented to person, place and situation. Extraocular movements are intact. Face is symmetric. Speech is clear. Neck is supple. Lungs are clear to auscultation bilaterally without any rales rhonchi or wheezes noted. Cardiovascular exam reveals a regular rhythm, slightly distant heart sounds. Pulses are 2+ x 4. Abdomen is soft, no flank tenderness or other tenderness noted. Bowel sounds are positive. Normal external genitalia. Retractable foreskin. No inflammation. Is draining clear urine. No skin irritation noted in inguinal folds. Trace pretibial edema. Left knee is ballotable but not warm or red, some crepitus with range of motion. No fluid noted to the right knee. Handgrip is equal. Foot pumps are equal bilaterally. Gait not currently assessed. Skin is dry, pale. Data 12/29/23 10:45 12/29/23 10:45 Other Labs: Radiology Impressions Chest X-Ray 12/29/23 10:16 IMPRESSION: 1. Decreased lung volumes due to poor inspiration. 2. Poor imaging technique. Imaging performed in the lordotic projection. 3. Possible pneumonia or pneumonitis posterior to the LEFT heart. Could be related to technique also. 4. Atherosclerosis aorta and prior median sternotomy. Laboratory Results WBC 15.91 10^3/uL (3.29-11.43) H 12/29/23 10:45 RBC 3.43 10^6/uL (3.85-5.65) L 12/29/23 10:45 Hgb 10.30 g/dL (11.27-16.99) L 12/29/23 10:45 Hct 33.4 % (37-53) L 12/29/23 10:45 MCV 97.4 fl (82-101) 12/29/23 10:45 MCH 30.0 pg (27-33) 12/29/23 10:45 MCHC 30.8 g/dL (30-55) 12/29/23 10:45 RDW 22.0 % (12.1-15.1) H 12/29/23 10:45 Plt Count 172 10^3/cmm (157-399) 12/29/23 10:45 MPV 9.8 fL (7.4-10.4) 12/29/23 10:45 Neut % (Auto) 71.0 % 12/29/23 10:45 Lymph % (Auto) 12.4 % 12/29/23 10:45 [place] % (Auto) 13.5 % 12/29/23 10:45 Eos % (Auto) 0.2 % 12/29/23 10:45 Baso % (Auto) 0.5 % 12/29/23 10:45 Neut # (Auto) 11.29 10^3/uL (1.8-7.7) H 12/29/23 10:45 Lymph # (Auto) 2.0 10^3/uL (0.8-4.8) 12/29/23 10:45 [place] # (Auto) 2.2 10^3/uL (0.2-0.9) H 12/29/23 10:45 Eos # (Auto) 0.0 10^3/uL (0.0-0.8) 12/29/23 10:45 Baso # (Auto) 0.1 10^3/uL (0.0-0.1) 12/29/23 10:45 Nucleated RBC % (auto) 0.1 % 12/29/23 10:45 Nucleated RBCs # 0.0 /100WBC 12/29/23 10:45 Sodium 137 mmol/L (136-145) 12/29/23 10:45 Potassium 4.4 mmol/L (3.5-5.1) 12/29/23 10:45 Chloride 101 mmol/L (98-107) 12/29/23 10:45 Carbon Dioxide 26 mmol/L (22-29) 12/29/23 10:45 Anion Gap 14.4 (5-19) 12/29/23 10:45 BUN 16 mg/dL (8-23) 12/29/23 10:45 Creatinine 1.1 mg/dL (0.7-1.2) 12/29/23 10:45 GFR Calculation Not Reportable 12/29/23 10:45 Glucose 238 mg/dL (65-115) H 12/29/23 10:45 POC Glucose 243 mg/dL (70-110) H 12/29/23 10:28 Calculated Osmolality 293 mOsm/kg (285-295) 12/29/23 10:45 Lactic Acid 1.7 mmol/L (0.5-2.2) 12/29/23 10:45 Calcium 9.0 mg/dL (8.5-10.5) 12/29/23 10:45 Total Bilirubin 1.3 mg/dL (0.15-1.2) H 12/29/23 10:45 AST 19 U/L (0-40) 12/29/23 10:45 ALT 29 U/L (0-41) 12/29/23 10:45 Alkaline Phosphatase 95 U/L (40-130) 12/29/23 10:45 Creatine Kinase 33 U/L (39-308) L 12/29/23 10:45 Troponin T Baseline 18 ng/L (0-15) H 12/29/23 10:45 C-Reactive Protein 64.5 mg/L (0.0-4.9) H 12/29/23 10:45 Total Protein 6.9 g/dL (6.6-8.7) 12/29/23 10:45 Albumin 4.3 g/dL (3.5-5.2) 12/29/23 10:45 Globulin 2.6 g/dL (1.3-4.6) 12/29/23 10:45 Procalcitonin 0.13 ng/mL (0-0.5) 12/29/23 10:45 Urine Color Yellow (Yellow) 12/29/23 11:29 Urine Appearance Cloudy (CLEAR) A 12/29/23 11:29 Urine pH 5 (5-7) 12/29/23 11:29 Ur Specific [place] 1.015 (1.005-1.030) 12/29/23 11:29 Urine Protein 2+ (Negative) H 12/29/23 11:29 Urine Glucose (UA) 2+ (Normal) H 12/29/23 11:29 Urine Ketones Negative (Negative) 12/29/23 11:29 Urine Blood 2+ (Negative) H 12/29/23 11:29 Urine Nitrate Negative (Negative) 12/29/23 11:29 Urine Bilirubin Neg (Negative) 12/29/23 11:29 Urine Urobilinogen Norm mg/dL (Negative) 12/29/23 11:29 Ur Leukocyte Esterase Trace (Negative) H 12/29/23 11:29 Urine RBC 5-10 /hpf (0-2) H 12/29/23 11:29 Urine WBC 40-55 /hpf (0-5) H 12/29/23 11:29 Ur Squamous Epith Cells 0-4 /hpf (0-5) H 12/29/23 11:29 Amorphous Sediment Not Reportable 12/29/23 11:29 Urine Bacteria 1+ /hpf (NONE) H 12/29/23 11:29 Urine Mucus Trace /hpf 12/29/23 11:29 Urine Sperm 4+ /hpf 12/29/23 11:29 Ur Oval Fat Bodies 2+ /hpf 12/29/23 11:29 Micro: Microbiology 12/29/23 10:51 Blood Culture - Preliminary Blood SPECIMEN COLLECTED 12/29/23 10:45 Blood Culture - Preliminary Blood SPECIMEN COLLECTED Other data: [facility] records reviewed: CTA of the head and neck done at [facility] on December 11 showed mild left vertebral artery origin stenosis described as nonocclusive with distal left vertebral artery widely patent. No other significant stenosis was described. MRI of the head with contrast also done at [facility] on December 10 showed no acute abnormality of the brain. Mild atrophy and moderate white matter microangiopathic changes were noted. I did not see any CT ultrasound or plain imaging of the kidneys. CX results at [facility] NG to date in the records Dr Pelaez records Cystoscopy done on November [address] Pelaez's office showed normal anterior urethra. There was bilobar obstruction with 3.1 cm prostate fossa. Urethral orifice was normal mild trabeculations were noted. Findings consistent with BPH with high-grade prostate obstruction causing lower urinary tract symptoms. Cipro 500 mg tablet twice per day for 3 days was ordered on November 23. A&P Assessment and plan (1) Complicated urinary tract infection: Recurrent urinary tract infection in a patient with a known history of kidney stones without clear symptoms suggestive of stone passage recently. Does have increasing urinary frequency and incontinence much escalated the last couple of days along with dysuria. Had cystoscopy in November revealing high-grade obstruction. Chronically on Flomax which she is taking. Has already completed 2 courses of antibiotics within the last month and had hospital stay for 5 days. Review of culture results demonstrates resistance to antibiotics he has been treated with. He has systemic inflammatory response syndrome symptoms in the form of white count and encephalopathy but not currently demonstrating evidence of severe sepsis or other endorgan damage but at high risk of progression to such without adequate treatment. (2) Metabolic encephalopathy: Related to #1 with transient lethargy and associated general weakness. Intermittent symptom presentation. May also have a component related to sleep apnea based on available history but has recently started CPAP therapy at night which she is trying to adjust to. Improved. Has had extensive workup within the last few weeks evaluating for potential neurological causes of presentation with noncontrasted CT of the head here followed by CTA of the head and neck and an MRI of the head at [facility]. Had mild left vertebral artery stenosis identified without obstruction. (3) Failure of outpatient treatment: In November was treated with a course of Cipro and at the beginning of this month completed a course of Augmentin after 5-day hospitalization during which she was treated with Rocephin. (4) BPH loc w urin obs/LUTS: Chronically on Flomax. Recent scope with high-grade obstruction. Follows with Dr. Pelaez. (5) Type 2 diabetes mellitus: [id number], on semaglutide weekly on Sundays. Has known diabetic peripheral neuropathy for which she is on gabapentin. (6) Essential hypertension: Chronically on losartan which was increased to 100 mg daily at [facility] though appears to only be taking 50 mg daily currently. Is on Celebrex due to chronic back pain and on less etanercept both of which can theoretically contribute to hypertension. Renal function currently at baseline. 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 He has some mild hyperbilirubinemia which may be related to this. Urinary tract infection also noted to be a common adverse reaction on quick look up. Can also exacerbate hypertension. Follows at hematology/oncology with last visit a week ago today. Hemoglobin is a bit lower than what it has been. Platelet count okay. (8) Obstructive sleep apnea of adult: Recently started on CPAP, auto titrating 6-14 though ramp was set at 45 minutes at 4 to help him with tolerance. Not yet using through the night consistently. Uses nasal mask. (9) Gait instability: Multifactorial and is worse during times of active urinary tract infection or other metabolic derangement. Contributing factor is diabetic peripheral neuropathy along with generalized weakness. As his functional capacity has become more of a challenge and he has decreased activities this has become worse. Had extensive neurological workup at [facility] recently including MRI of the head and CTA of the head and neck with primary finding of mild, nonobstructive left vertebral artery stenosis. (10) Chronic back pain: On Celebrex Plan History of coronary artery disease with negative troponin delta 2 hours, on chronic aspirin and Plavix History of TIA with recent negative stroke workup History of hyperlipidemia on chronic statin therapy History of chronic constipation probably in part related to semaglutide on bowel regimen History of seasonal allergies with as needed Benadryl Depression related to loss of functional status with aging and clinical conditions along with recent family loss Inpatient admission Urine and blood cultures are pending Empiric coverage with meropenem Received Zyvox and cefepime in the emergency room IV fluids Bladder scan as needed Will check noncontrasted CT of the abdomen and pelvis Serial neuroexams PT and OT evaluations Sliding scale insulin for coverage for diabetes, holding semaglutide Continue losartan 50 mg, suspect we will need to increase dosing as had been recommended from [facility] Recheck CBC in the morning, monitor for bleeding Received last dose of Luspatercept a week ago CPAP with sleep Currently holding home Celebrex as able and to we get a little bit more information about how this clinical course will play out Currently continuing home aspirin and Plavix Continuing home statin therapy Bowel regimen as ordered Holding home Benadryl Recommend follow-up with primary care physician to keep an eye on depression symptoms VTE prophylaxis: SCDs currently GI Prophylaxis: PPI chronically Antibiotics: Status post cefepime and Zyvox in the ED. These have been stopped. Started meropenem day 1. Pending studies: Blood and urine cultures Telemetry: not currently indicated Ascencio: not currently indicated; prn bladder scan ordered with parameters for straight cath if needed Line(s): peripheral IVs Disposition plan: Home with outpatient follow up to primary care, urology on 01/04 as already scheduled (Dr Pelaez, office aware of hospitalization) and hem/onc 01/11 as scheduled anticipated. Has f/u with cardiology already scheduled 01/23 and with neurology on 01/21. Clinical course will determine additional needs (ascencio, adjustment to cpap - may bring in as in pieces on bed , home antibiotics). Code Status: Allow natural Supportive care otherwise Findings, concerns and plans were discussed with patient and they were given an opportunity to ask questions Attestations Medical Necessity Statement*: Anticipated stay greater than two midnights in this 83-year-old gentleman who was found on the floor this morning for unclear length of time (3 to 4 hours potential) and unable to get up. He has been found to have evidence of recurrent urinary tract infection despite completion of treatment recently with a course of Augmentin following 5-day hospitalization with Rocephin administration. Prior to that had had a course of Cipro. Has had similar presentations with urinary tract infections in the past. Review of cultures shows last from here had resistant E. coli sensitive to Imipenem. Infection is complicated history of high-grade stenosis on cystoscopy last month along with known history of kidney stones. Has sulfa allergy limiting adequate options on an outpatient basis beyond what has been tried and failed. Need culture results to help dictate appropriate care and further evaluation with CT stone protocol/bladder ultrasounds as needed. At risk of progression to severe sepsis with septic shock without appropriate intervention as well as recurrent falls or other injury comorbidity without inpatient management plan at this time. Coding Level of Care Code 82830 High MDM includes number and complexity of problems actively addressed during encounter, amount and/or complexity of data reviewed/ordered [ previous or external records ([facility] records, Dr Pelaez records), resulted lab(s)/test(s), ordered lab(s)/test(s) and independent historian ()] and described risk of complication, morbidity or mortality of management (decision to admit, IV antibiotics, high risk medications (luspatercept, semaglutide)) as documented and High Time for a total of 85 minutes, includes reviewing past or interval history, examining/interviewing patient, placing orders and documenting encounter Diagnoses Complicated urinary tract infection N39.0 Metabolic encephalopathy G93.41 Failure of outpatient treatment Z78.9 BPH loc w urin obs/LUTS N40.1 Type 2 diabetes mellitus E11.9 Essential hypertension I10 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
[2023-12-29] MEDS: cefepime 2,000 MG in sodium chloride 0.9% (plus) 50 ML 100 MG IV (13:09)
[2023-12-29] MEDS: sodium chloride 0.9% 500 ML 999 ML IV (13:10)
[2023-12-29] MEDS: linezolid premix 600 MG/300 ML PREMIX 300 MG IV (13:10)
[2023-12-29 13:41] LABS: Troponin 5 2HR 18.18 ng/L (0-15); Troponin 5 2HR Delta 0.18 ABS# (0-10)
[2023-12-29] MEDS: meropenem 1,000 mg SDV 1000 MG IVP ×2 (14:38→22:18)
--- NOTE | 2023-12-29 15:28 | CTR_ITS ---
PROCEDURE INFORMATION: Exam: CT Abdomen And Pelvis Without Contrast Exam date and time: 12/29/2023 3:48 PM Age: 83 years old Clinical indication: Abdominal pain; Prior surgery; Surgery date: 6+ months; Surgery type: Ureteral stent; Additional info: History stone, recurrent UTI w/ hospitalization x 2 few wks TECHNIQUE: Imaging protocol: Computed tomography of the abdomen and pelvis without contrast. Radiation optimization: All CT scans at this facility use at least one of these dose optimization techniques: automated exposure control; mA and/or kV adjustment per patient size (includes targeted exams where dose is matched to clinical indication); or iterative reconstruction. COMPARISON: CT kidney stone [id number] 02/26/2023 2:21 PM RADIATION DOSE METRICS: Total DLP (mGy-cm): 965 FINDINGS: Lungs: Subsegmental bibasilar atelectasis. The visualized lung bases are otherwise clear. Diaphragm: Small hiatal hernia with the GE junction above the diaphragm. Liver: Multiple hepatic calcifications compatible with sequela of a remote granulomatous process. No evidence of focal hepatic lesion. Gallbladder and biliary ducts: There is cholelithiasis. No inflammatory changes to suggest acute cholecystitis. No intrahepatic or extrahepatic biliary dilatation. Pancreas: Grossly unremarkable. Spleen: Grossly unremarkable. Adrenal glands: Grossly unremarkable. Kidneys and ureters: There are simple appearing renal cysts for which dedicated imaging follow-up is not required. Nonobstructive right-sided renal stones measuring up to 4 mm. Otherwise no evidence of renal parenchymal abnormality. No hydronephrosis or ureteral stone. Stomach and bowel: Few scattered colonic diverticula without evidence of acute diverticulitis. No evidence of bowel obstruction or perienteric inflammatory changes. Appendix: Normal appendix. Intraperitoneal space: No evidence of free air or fluid collection. Vasculature: Extensive atherosclerosis of the abdominal aorta. There is a 2 cm outpouching from the left posterolateral aspect of the distal aorta, not significantly changed since February 2023. Follow-up nonemergent vascular evaluation and CT angiography is recommended. Suspected severe stenosis of the proximal left renal artery. There may be moderate-severe narrowing of the proximal SMA. Lymph nodes: No evidence of adenopathy. Urinary bladder: Mild diffuse bladder wall thickening/haziness. Reproductive: Enlarged prostate measuring 5 cm. Consider correlation with serum laboratory findings and outpatient urologic evaluation. Bones/joints: No evidence of acute fracture or aggresive osseous lesion. Severe multilevel spondylosis of the lumbar spine with facet arthrosis, osteophytosis and endplate degeneration. Large L1-L2 and right foraminal L3-L4 disc bulges with likely neural impingement. Consider correlation with follow-up nonemergent MRI of the lumbar spine. Soft tissues: No evidence of fluid collection or hematoma in the superficial soft tissues. Small fat containing bilateral inguinal hernias. CT/CT kidney stone [id number] IMPRESSION: 1. Suspected cystitis. Otherwise no evidence of acute abnormality in the abdomen or pelvis within limitations of a noncontrast exam. 2. 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 Additional suspected severe narrowing of the proximal left renal artery and moderate-severe narrowing of the proximal celiac trunk/SMA. Follow-up nonemergent vascular evaluation and CT angiography is recommended. 3. Large L1-L2 and right foraminal L3-L4 disc bulges with likely neural impingement. Consider correlation with follow-up nonemergent MRI of the lumbar spine.
--- NOTE | 2023-12-29 17:06 | ECG_ITS ---
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 Measurements Intervals [place] Rate: 90 P: 25 DC: 189 QRS: -31 QRSD: 98 T: 60 QT: 355 QTc: 435 Interpretive Statements SINUS RHYTHM WITH OCCASIONAL SUPRAVENTRICULAR PREMATURE COMPLEXES LOW QRS VOLTAGE IN PRECORDIAL LEADS [QRS DEFLECTION < 1.0 mV IN CHEST LEADS] POSSIBLE ANTERIOR MYOCARDIAL INFARCTION , OF INDETERMINATE AGE [30 ms Q WAVE IN V3/V4, OR R < 0.2 mV IN V4] INFERIOR MYOCARDIAL INFARCTION , PROBABLY OLD [40+ ms Q WAVE AND/OR ST/T ABNORMALITY IN II/aVF] Compared to ECG 12/29/2023 12:19:36 First degree AV block no longer present Myocardial infarct finding still present Electronically Signed On 12-30-2023 7:59:29 CDT by Tha Hathaway M.D. [id number]
[2023-12-29 17:17] LABS: Glucose Point of Care 242 mg/dL (70-110)
[2023-12-29] MEDS: docusate sodium 100 mg Capsule PO (17:20)
[2023-12-29] MEDS: pantoprazole DR 40 mg Tablet PO (17:20)
[2023-12-29] MEDS: insulin lispro 100 unit/1 mL SUBCUT ×2 (17:21→22:17)
[2023-12-29] MEDS: sodium chlor 0.9% + KCl 20 mEq 20 MEQ/1,000 ML BAG 75 MEQ IV (17:21)
[2023-12-29] MEDS: gabapentin 300 mg Capsule PO (17:21)
[2023-12-29] MEDS: calcium carbonate 500 mg Chew Tablet 1000 MG PO (20:28)
[2023-12-29] MEDS: acetaminophen 500 mg Tablet PO (20:28)
[2023-12-29 22:14] LABS: Glucose Point of Care 219 mg/dL (70-110)
[2023-12-30] VITALS (7 sets, daily range): BP systolic 106–175; BP diastolic 58–82; PULSE 68–81; RESP 12–19; TEMP 36.4–37.1; O2SAT 92–97
[2023-12-30] MEDS: sodium chlor 0.9% + KCl 20 mEq 20 MEQ/1,000 ML BAG 75 MEQ IV ×2 (05:40→18:20)
[2023-12-30] MEDS: meropenem 1,000 mg SDV 1000 MG IVP ×3 (05:41→22:36)
[2023-12-30 05:42] LABS: Basophils # 0.1 10^3/uL (0.0-0.1); Basophils % 0.7 %; Eosinophils # 0.1 10^3/uL (0.0-0.8); Eosinophils % 1.1 %; Hematocrit 31.1 % (37-53); Lymphocytes # 1.8 10^3/uL (0.8-4.8); Lymphocytes % 20.1 %; Mean Corpuscular HGB Conc 30.2 g/dL (30-55); Mean Corpuscular Hemoglobin 29.7 pg (27-33); Mean Corpuscular Volume 98.1 fl (82-101); Mean Platelet Volume 10.4 fL (7.4-10.4); Monocytes % 11.4 %; Neutrophils # 5.58 10^3/uL (1.8-7.7); Nucleated Red Blood Cells % 0.3 %; Platelet Count 156 10^3/cmm (157-399); Red Blood Count 3.17 10^6/uL (3.85-5.65); Red Cell Distribution Width 22.1 % (12.1-15.1); White Blood Count 8.74 10^3/uL (3.29-11.43)
[2023-12-30 06:02] LABS: Alanine Aminotransferase 29 U/L (0-41); Albumin Level 3.7 g/dL (3.5-5.2); Alkaline Phosphatase 89 U/L (40-130); Anion Gap 12.2 (5-19); Aspartate Amino Transferase 25 U/L (0-40); Blood Urea Nitrogen 12 mg/dL (8-23); Calcium 8.5 mg/dL (8.5-10.5); Carbon Dioxide 26 mmol/L (22-29); Chloride 107 mmol/L (98-107); Creatinine Clr Calc Pharmacy 69.5288; Globulin 2.8 g/dL (1.3-4.6); Glucose 147 mg/dL (65-115); Magnesium 1.7 mg/dL (1.7-2.3); Osmolality Calculated 294 mOsm/kg (285-295); Phosphorus 3.2 mg/dL (2.5-4.5); Potassium 4.2 mmol/L (3.5-5.1); Sodium 141 mmol/L (136-145); Total Bilirubin 1.2 mg/dL (0.15-1.2); Total Protein 6.5 g/dL (6.6-8.7)
[2023-12-30 08:08] LABS: Glucose Point of Care 159 mg/dL (70-110)
[2023-12-30 08:08] LABS: Glucose Point of Care 172 mg/dL (70-110)
[2023-12-30] MEDS: pantoprazole DR 40 mg Tablet PO ×2 (08:40→17:18)
[2023-12-30] MEDS: insulin lispro 100 unit/1 mL SUBCUT ×3 (08:40→20:30)
[2023-12-30] MEDS: clopidogrel 75 mg Tablet PO (08:40)
[2023-12-30] MEDS: atorvastatin 40 mg Tablet PO (08:40)
[2023-12-30] MEDS: losartan 50 mg Tablet PO (08:40)
[2023-12-30] MEDS: gabapentin 300 mg Capsule PO ×2 (08:40→17:19)
[2023-12-30] MEDS: tamsulosin 0.4 mg Capsule 0.8 MG PO (08:40)
[2023-12-30] MEDS: docusate sodium 100 mg Capsule PO ×2 (08:40→17:18)
[2023-12-30] MEDS: aspirin 81 mg EC Tablet PO (08:41)
[2023-12-30] MEDS: polyethylene glycol 3350 Pkt 17 gm PO (08:41)
--- NOTE | 2023-12-30 09:29 | PC.CHAP ---
Pastoral Care Encounter/Spiritual Assessment Type of Contact [] Declined insurance investigator visit [] Patient/Family/Request visit [] Outpatient visit [] Follow-up visit [] Physician referral [] Code/Alert [x] Routine visit [] Staff referral [] Actively dying [] Patient sleeping [x] Family support [] [] Out of room [] Palliative care [] [] Receiving care in room [] Pre-surgical visit [] Trauma [] Long length of stay [] ICU visit [] Other: Relational/Emotional Strength [x] Patient feels connected with others/family/visitors/staff [] Distress [] Loneliness/isolation [] Abandonment Spirituality of Patient [x] Person of Ami [] Attends Denominational of their Ami [x] Believes in Prayer [] Reads Bible or Yazidi materials [] There are Spiritual issues to be addressed Power Plant Assistant Interventions [x] Prayer [x] Active listening [] Non-anxious presence [x] Spiritual/emotional support [] Crisis/trauma care [] Spiritual counseling [] Bereavement support [] Provided bereavement packet [] Provided Bible/devotional materials [] Provided toy/stuffed animal, coloring book to patient or family member [] Provided Communion [] Anointing/[place] [] Salvation [x] Completed spiritual assessment [] Other: Impact on Illness or Injury [] Angry [] Fearful [] Anxious [] Often cries [] Exhaustion [] Unable to work [] Unable to attend scientologist [] Unable to walk/stand [] Unable to read [] Unable to drive [] Unable to eat/drink [] Unable to sleep [] Unable to be with family [] Patient intubated [] Other: Summary Time spent with patient 5 min
[2023-12-30 11:45] LABS: Glucose Point of Care 217 mg/dL (70-110)
--- NOTE | 2023-12-30 15:45 | P.PN_ITS ---
Subjective 2 Subjective: Corby reports he is doing better. He denies being confused. Family member present with him, his son, reports he is back to his baseline mental status. Medications: Reviewed: Yes Vitals/I&O/Wt Last Vital Signs Temp 97.7 F 12/30/23 12:00 Pulse 74 12/30/23 12:00 Resp 19 H 12/30/23 12:00 BP 166/75 12/30/23 12:00 Pulse Ox 92 12/30/23 12:00 O2 Del Method Room Air 12/30/23 12:00 12/30/23 12/30/23 12/30/23 06:59 14:59 22:59 Intake Total 923.75 / 3773.75 360 / 360 Output Total 450 / 830 150 / 150 Balance 473.75 / 2943.75 360 / 360 -150 / 210 Weight last 48 hrs Weight 102.829 kg Weight 98.883 kg Weight 98.883 kg Physical Exam 2 Narrative: General exam no distress Cardiovascular regular rate and rhythm Lungs clear Abdomen soft Extremities no cyanosis clubbing or edema Data 12/30/23 04:55 12/30/23 04:55 Micro: Microbiology 12/29/23 10:51 Blood Culture - Preliminary Blood NEGATIVE TO DATE 12/29/23 10:45 Blood Culture - Preliminary Blood NEGATIVE TO DATE 12/29/23 11:29 Urine Culture - Preliminary Urine,Clean Catch Gram Negative Rods A&P Assessment and plan (1) Complicated urinary tract infection: Recurrent urinary tract infection in a patient with a known history of kidney stones without clear symptoms suggestive of stone passage recently. Does have increasing urinary frequency and incontinence much escalated the last couple of days along with dysuria. Had cystoscopy in November revealing high-grade obstruction. Chronically on Flomax which she is taking. Has already completed 2 courses of antibiotics within the last month and had hospital stay for 5 days. Review of culture results demonstrates resistance to antibiotics he has been treated with. He has systemic inflammatory response syndrome symptoms in the form of white count and encephalopathy but not currently demonstrating evidence of severe sepsis or other endorgan damage but at high risk of progression to such without adequate treatment. Continue IV meropenem. Significantly improved. Await culture. No obstruction on CT Growing gram-negative rods. If ESBL is confirmed may need PICC line and home IV antibiotic therapy. (2) Metabolic encephalopathy: Related to #1 with transient lethargy and associated general weakness. Intermittent symptom presentation. May also have a component related to sleep apnea based on available history but has recently started CPAP therapy at night which she is trying to adjust to. Improved. Has had extensive workup within the last few weeks evaluating for potential neurological causes of presentation with noncontrasted CT of the head here followed by CTA of the head and neck and an MRI of the head at [facility]. Had mild left vertebral artery stenosis identified without obstruction. Currently back to baseline. Avoid sedating medications such as diphenhydramine (3) Failure of outpatient treatment: In November was treated with a course of Cipro and at the beginning of this month completed a course of Augmentin after 5-day hospitalization during which she was treated with Rocephin. (4) BPH loc w urin obs/LUTS: Chronically on Flomax. Recent scope with high-grade obstruction. Follows with Dr. Pelaez. (5) Type 2 diabetes mellitus: [id number], on semaglutide weekly on Sundays. Has known diabetic peripheral neuropathy for which she is on gabapentin. (6) Essential hypertension: Chronically on losartan which was increased to 100 mg daily at [facility] though appears to only be taking 50 mg daily currently. Is on Celebrex due to chronic back pain and on less etanercept both of which can theoretically contribute to hypertension. Renal function currently at baseline. 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 He has some mild hyperbilirubinemia which may be related to this. Urinary tract infection also noted to be a common adverse reaction on quick look up. Can also exacerbate hypertension. Follows at hematology/oncology with last visit a week ago today. Hemoglobin is a bit lower than what it has been. Platelet count okay. (8) Obstructive sleep apnea of adult: Recently started on CPAP, auto titrating 6-14 though ramp was set at 45 minutes at 4 to help him with tolerance. Not yet using through the night consistently. Uses nasal mask. (9) Gait instability: Multifactorial and is worse during times of active urinary tract infection or other metabolic derangement. Contributing factor is diabetic peripheral neuropathy along with generalized weakness. As his functional capacity has become more of a challenge and he has decreased activities this has become worse. Had extensive neurological workup at [facility] recently including MRI of the head and CTA of the head and neck with primary finding of mild, nonobstructive left vertebral artery stenosis. (10) Chronic back pain: On Celebrex Plan History of coronary artery disease with negative troponin delta 2 hours, on chronic aspirin and Plavix History of TIA with recent negative stroke workup History of hyperlipidemia on chronic statin therapy History of chronic constipation probably in part related to semaglutide on bowel regimen History of seasonal allergies with as needed Benadryl Depression related to loss of functional status with aging and clinical conditions along with recent family loss SCDs for DVT prophylaxis.Contraindication to pharmacologic. Attestations 2 Medical Necessity Statement*: Needs continued hospital stay for IV antibiotics secondary to complicated UTI, and acute encephalopathy. 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
[2023-12-30 16:12] LABS: Glucose Point of Care 125 mg/dL (70-110)
[2023-12-30 20:21] LABS: Glucose Point of Care 183 mg/dL (70-110)
[2023-12-30] MEDS: calcium carbonate 500 mg Chew Tablet 1000 MG PO (20:29)
[2023-12-30] MEDS: acetaminophen 500 mg Tablet PO (20:30)
[2023-12-30 20:46] LABS: Glucose Point of Care 185 mg/dL (70-110)
[2023-12-31] VITALS: BP 156/75; PULSE 84; RESP 12; TEMP 36.5; O2SAT 95
[2023-12-31 04:00] VITALS: BP 150/83; PULSE 70; RESP 17; TEMP 36.6; O2SAT 97
[2023-12-31 04:55] LABS: Mean Corpuscular Hemoglobin 30.3 pg (27-33); Mean Corpuscular Volume 97.8 fl (82-101); Mean Platelet Volume 10.5 fL (7.4-10.4); Platelet Count 175 10^3/cmm (157-399); Red Blood Count 3.17 10^6/uL (3.85-5.65); Red Cell Distribution Width 21.9 % (12.1-15.1); White Blood Count 4.34 10^3/uL (3.29-11.43)
[2023-12-31 05:11] LABS: Anion Gap 14.3 (5-19); Blood Urea Nitrogen 11 mg/dL (8-23); Calcium 8.6 mg/dL (8.5-10.5); Carbon Dioxide 24 mmol/L (22-29); Chloride 106 mmol/L (98-107); Creatinine Clr Calc Pharmacy 76.5217; Glucose 135 mg/dL (65-115); Osmolality Calculated 291 mOsm/kg (285-295); Potassium 4.3 mmol/L (3.5-5.1); Sodium 140 mmol/L (136-145)
[2023-12-31 05:35] LABS: Absolute Eosinophils 0.3 10^3/cmm (0.0-0.7); Absolute Segmented Neutrophil 1.9 10/cmm (1.6-7.1); Eosinophils 6 %; Lymphocytes 39 %; Monocytes Absolute 0.2 10^3/cmm (0.1-0.6); Platelet Estimate Normal (Normal); Segmented Neutrophils 43 %; Slide Review Slide Review Perform; Total Cells Counted 100 (0-100)
[2023-12-31] MEDS: meropenem 1,000 mg SDV 1000 MG IVP ×2 (05:38→14:08)
[2023-12-31 06:22] LABS: Glucose Point of Care 157 mg/dL (70-110)
[2023-12-31] MEDS: insulin lispro 100 unit/1 mL SUBCUT ×2 (07:35→12:51)
[2023-12-31] MEDS: sodium chlor 0.9% + KCl 20 mEq 20 MEQ/1,000 ML BAG 75 MEQ IV (07:47)
[2023-12-31] MEDS: tamsulosin 0.4 mg Capsule 0.8 MG PO (07:55)
[2023-12-31] MEDS: atorvastatin 40 mg Tablet PO (07:56)
[2023-12-31] MEDS: clopidogrel 75 mg Tablet PO (07:56)
[2023-12-31] MEDS: gabapentin 300 mg Capsule PO (07:56)
[2023-12-31] MEDS: pantoprazole DR 40 mg Tablet PO (07:56)
[2023-12-31 07:57] VITALS: BP 150/83
[2023-12-31] MEDS: aspirin 81 mg EC Tablet PO (07:57)
[2023-12-31] MEDS: docusate sodium 100 mg Capsule PO (07:57)
[2023-12-31] MEDS: losartan 50 mg Tablet PO (07:57)
[2023-12-31 08:00] VITALS: BP 144/74; PULSE 73; RESP 16; TEMP 36.7; O2SAT 95
[2023-12-31] MEDS: polyethylene glycol 3350 Pkt 17 gm PO (08:01)
--- NOTE | 2023-12-31 12:19 | PICC.NOTE ---
Midline placed to left basilic vein. Referred to vascular access nurse for midline placement due to need for IV antibiotics x 12 days. Risks and benefits discussed and informed consent obtained from pt. Left arm assessed with left basilic vein measuring 4.8 mm, straight, and apparent best choice for placement. Using sterile technique and MST, left basilic vein accessed x 1 stick. Mid-arm circumference measured 10 cm from left AC 32 cm. Trimmed cath 10 cm with 0 cm external length noted. Line secured with stat-lock. Insertion site covered with Biopatch and TSM. Report given to bedside nurse, ELHAM Arceo.
[2023-12-31 12:34] LABS: Glucose Point of Care 184 mg/dL (70-110)
--- NOTE | 2023-12-31 15:42 | P.DS_ITS ---
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 He was placed on meropenem based on old culture results showing previous ESBL. Eventually cultured ESBL from his urine. He had recovered to a point where he was afebrile, mental status was back to normal, and he was ready to go home on December 30. He will finish up 12 more days of ertapenem through midline that was placed. He will follow-up with urology within the week, of his primary care provider. He will get a CBC and a CMP in about 3 to 5 days. Him and his were able to ask questions and agreed with the plan. Blood cultures negative at discharge. Physical Exam Narrative: General Exam no distress Neck is supple Cardiovascular regular rate and rhythm Lungs clear Abdomen is soft Extremities no sinus clubbing edema Discharge Data Studies Completed and Pending Completed Studies During Hospitalization Category Date Time Status CT kidney stone [id number] Routine Cat Scan 12/29/23 15:28 Completed XR chest 1V portable [id number] Stat Exams 12/29/23 10:16 Completed Pending at discharge Category Date Time Status Blood Culture Stat Lab 12/29/23 10:51 Results Radiology Impressions Chest X-Ray 12/29/23 10:16 IMPRESSION: 1. Decreased lung volumes due to poor inspiration. 2. Poor imaging technique. Imaging performed in the lordotic projection. 3. Possible pneumonia or pneumonitis posterior to the LEFT heart. Could be related to technique also. 4. Atherosclerosis aorta and prior median sternotomy. Abdomen/Pelvis CT 12/29/23 15:28 IMPRESSION: 1. Suspected cystitis. Otherwise no evidence of acute abnormality in the abdomen or pelvis within limitations of a noncontrast exam. 2. 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 Additional suspected severe narrowing of the proximal left renal artery and moderate-severe narrowing of the proximal celiac trunk/SMA. Follow-up nonemergent vascular evaluation and CT angiography is recommended. 3. Large L1-L2 and right foraminal L3-L4 disc bulges with likely neural impingement. Consider correlation with follow-up nonemergent MRI of the lumbar spine. Laboratory Results WBC 4.34 10^3/uL (3.29-11.43) 12/31/23 04:30 RBC 3.17 10^6/uL (3.85-5.65) L 12/31/23 04:30 Hgb 9.60 g/dL (11.27-16.99) L 12/31/23 04:30 Hct 31.0 % (37-53) L 12/31/23 04:30 MCV 97.8 fl (82-101) 12/31/23 04:30 MCH 30.3 pg (27-33) 12/31/23 04:30 MCHC 31.0 g/dL (30-55) 12/31/23 04:30 RDW 21.9 % (12.1-15.1) H 12/31/23 04:30 Plt Count 175 10^3/cmm (157-399) 12/31/23 04:30 MPV 10.5 fL (7.4-10.4) H 12/31/23 04:30 Neut % (Auto) 64.0 % 12/30/23 04:55 Lymph % (Auto) Not Reportable 12/31/23 04:30 Ransom % (Auto) Not Reportable 12/31/23 04:30 Eos % (Auto) 1.1 % 12/30/23 04:55 Baso % (Auto) 0.7 % 12/30/23 04:55 Neut # (Auto) 5.58 10^3/uL (1.8-7.7) 12/30/23 04:55 Lymph # (Auto) Not Reportable 12/31/23 04:30 Ransom # (Auto) Not Reportable 12/31/23 04:30 Eos # (Auto) 0.1 10^3/uL (0.0-0.8) 12/30/23 04:55 Baso # (Auto) 0.1 10^3/uL (0.0-0.1) 12/30/23 04:55 Nucleated RBC % (auto) 0.3 % 12/30/23 04:55 Total Counted 100 (0-100) 12/31/23 04:30 Atypical Lymphs % Not Reportable 12/31/23 04:30 Segmented Neutrophils 43 % 12/31/23 04:30 Abs Segm Neuts (Man) 1.9 10/cmm (1.6-7.1) 12/31/23 04:30 Band Neutrophils Not Reportable 12/31/23 04:30 Lymphocytes (Manual) 39 % 12/31/23 04:30 Monocytes (Manual) 4.0 % 12/31/23 04:30 Absolute Monocytes 0.2 10^3/cmm (0.1-0.6) 12/31/23 04:30 Eosinophils (Manual) 6 % 12/31/23 04:30 Absolute Eosinophils 0.3 10^3/cmm (0.0-0.7) 12/31/23 04:30 Basophils (Manual) 0.0 % 12/31/23 04:30 Absolute Basophils 0.0 10^3/cmm (0.0-0.2) 12/31/23 04:30 Metamyelocytes 3.0 % 12/31/23 04:30 Myelocytes 5.0 % 12/31/23 04:30 Nucleated RBCs # 0.0 /100WBC 12/30/23 04:55 Platelet Estimate Normal (Normal) 12/31/23 04:30 Sodium 140 mmol/L (136-145) 12/31/23 04:30 Potassium 4.3 mmol/L (3.5-5.1) 12/31/23 04:30 Chloride 106 mmol/L (98-107) 12/31/23 04:30 Carbon Dioxide 24 mmol/L (22-29) 12/31/23 04:30 Anion Gap 14.3 (5-19) 12/31/23 04:30 BUN 11 mg/dL (8-23) 12/31/23 04:30 Creatinine 0.9 mg/dL (0.7-1.2) 12/31/23 04:30 GFR Calculation Not Reportable 12/31/23 04:30 Glucose 135 mg/dL (65-115) H 12/31/23 04:30 POC Glucose 184 mg/dL (70-110) H 12/31/23 12:30 Calculated Osmolality 291 mOsm/kg (285-295) 12/31/23 04:30 Lactic Acid 1.7 mmol/L (0.5-2.2) 12/29/23 10:45 Calcium 8.6 mg/dL (8.5-10.5) 12/31/23 04:30 Phosphorus 3.2 mg/dL (2.5-4.5) 12/30/23 04:55 Magnesium 1.7 mg/dL (1.7-2.3) 12/30/23 04:55 Total Bilirubin 1.2 mg/dL (0.15-1.2) 12/30/23 04:55 AST 25 U/L (0-40) 12/30/23 04:55 ALT 29 U/L (0-41) 12/30/23 04:55 Alkaline Phosphatase 89 U/L (40-130) 12/30/23 04:55 Creatine Kinase 33 U/L (39-308) L 12/29/23 10:45 Troponin T Baseline 18 ng/L (0-15) H 12/29/23 10:45 Troponin T 120 Minute 18.18 ng/L (0-15) H 12/29/23 13:00 Delta Troponin T 0.18 ABS# (0-10) 12/29/23 13:00 Troponin T Hi Sens 6Hr 20.60 ng/L (0-15) H 12/29/23 17:28 Troponin T Hi Sens 6Hr Delta 2.60 ng/L (0-12) 12/29/23 17:28 C-Reactive Protein 64.5 mg/L (0.0-4.9) H 12/29/23 10:45 Total Protein 6.5 g/dL (6.6-8.7) L 12/30/23 04:55 Albumin 3.7 g/dL (3.5-5.2) 12/30/23 04:55 Globulin 2.8 g/dL (1.3-4.6) 12/30/23 04:55 Procalcitonin 0.13 ng/mL (0-0.5) 12/29/23 10:45 Urine Color Yellow (Yellow) 12/29/23 11:29 Urine Appearance Cloudy (CLEAR) A 12/29/23 11:29 Urine pH 5 (5-7) 12/29/23 11:29 Ur Specific Leonard 1.015 (1.005-1.030) 12/29/23 11:29 Urine Protein 2+ (Negative) H 12/29/23 11:29 Urine Glucose (UA) 2+ (Normal) H 12/29/23 11:29 Urine Ketones Negative (Negative) 12/29/23 11: Urine Blood 2+ (Negative) H 12/29/23 11:29 Urine Nitrate Negative (Negative) 12/29/23 11:29 Urine Bilirubin Neg (Negative) 12/29/23 11:29 Urine Urobilinogen Norm mg/dL (Negative) 12/29/23 11:29 Ur Leukocyte Esterase Trace (Negative) H 12/29/23 11:29 Urine RBC 5-10 /hpf (0-2) H 12/29/23 11:29 Urine WBC 40-55 /hpf (0-5) H 12/29/23 11:29 Ur Squamous Epith Cells 0-4 /hpf (0-5) H 12/29/23 11:29 Amorphous Sediment Not Reportable 12/29/23 11:29 Urine Bacteria 1+ /hpf (NONE) H 12/29/23 11:29 Urine Mucus Trace /hpf 12/29/23 11:29 Urine Sperm 4+ /hpf 12/29/23 11:29 Ur Oval Fat Bodies 2+ /hpf 12/29/23 11:29 Vitals Last Vital Signs Temp 98.1 F 12/31/23 08:00 Pulse 73 12/31/23 08:00 Resp 16 12/31/23 08:00 BP 144/74 12/31/23 08:00 Pulse Ox 95 12/31/23 08:00 O2 Del Method Room Air 12/31/23 08:00 Discharge Plan Discharge Patient Disposition: Home Condition: Stable Prescriptions: Continued diphenhydramine HCl [Benadryl] 25 mg capsule 25 mg PO DAILY PRN (Reason: Allergy Symptoms) magnesium oxide 250 mg magnesium tablet 250 mg PO DAILY@0700 multivitamin Tablet 1 tab PO DAILY Miralax 17 gram/dose powder 17 g PO DAILY@0700 PRN (Reason: Constipation) tamsulosin 0.4 mg capsule 0.8 mg PO DAILY Qty: 180 1RF losartan 50 mg tablet 50 mg PO DAILY Qty: 90 3RF Ozempic 0.25 mg or 0.5 mg (2 mg/3 mL) pen injector See Rx Instructions SUBCUT .COMPLEX Qty: 3 2RF Rx Instructions: 0.25mg weekly x 4 then increase to 0.5mg weekly subcutaneously; on Friday (DME) Auto-Titrating CPAP Device See Rx Instructions .Route Qty: 1 0RF Rx Instructions: As directed, auto-titrating 6-14 sennosides [Senokot] 8.6 mg Tablet 8.6 mg PO DAILY PRN (Reason: Constipation) pantoprazole 40 mg tablet,delayed release (DR/EC) 40 mg PO BID gabapentin 300 mg capsule 300 mg PO BID clopidogrel 75 mg tablet 75 mg PO DAILY Qty: 30 0RF atorvastatin 40 mg tablet 40 mg PO DAILY Qty: 30 0RF aspirin 81 mg tablet,delayed release (DR/EC) 81 mg PO DAILY Qty: 30 0RF melatonin 5 mg Tablet 5 mg PO BEDTIME PRN (Reason: Insomnia) luspatercept-aamt 25 mg Recon Soln 25 mg SUBCUT Q21D Discontinued celecoxib 200 mg capsule 200 mg PO BID Discharge Orders: Discharge Order (Routine); Ordered 12/31/23 Ordered By: Gene Farfan Other Ambulatory Orders: Miscellaneous Procedure (Order) Timeframe: 2 Weeks Location: None Selected Ordered By: Gene Farfan Referrals: [facility] [Outside] - 01/01/24 9:00 am (Enter at [facility] doors. Infusion done at Oncology office. ) Hayde Washington FNP [Primary Care Provider] - 01/05/24 9:00 am Discharge Diet: Diabetic Discharge Activity: Increase activity as tolerated Patient Instructions: Ertapenem (By injection), PICC (Peripherally Inserted Central Catheter) (GEN), Opioid Safety Activity Restrictions/Additional Instructions: Take all meds as prescribed. Follow up with PCP as above. 12 more days IV Ertapenem as arranged through outpt. Follow up with Urology within 1 week. 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
[2023-12-31 16:00] VITALS: BP 182/76; PULSE 65; RESP 17; TEMP 36.6; O2SAT 95
[2023-12-31] MEDS: ertapenem 1,000 MG in sodium chloride 0.9% (plus) 100 ML 200 MG IV (16:15)
[2023-12-31 17:25] VITALS: BP 182/76; PULSE 65; RESP 17; TEMP 36.6; O2SAT 95
== END 2023-12-31 17:28 | disposition home or self-care (01) | DRG 689 ==
LOC: ER 12:43 → MEDSURG 15:35
PROVIDERS: Admitting Provider Hospitalist; Emergency Provider Emergency Medicine; PCP Nurse Practitioner Family; Visit Provider Internal Medicine
DX: N39.0 Urinary tract infection, site not specified (principal); G93.41 Metabolic encephalopathy; N40.1 Benign prostatic hyperplasia with lower urinary tract symptoms; N13.8 Other obstructive and reflux uropathy; E11.9 Type 2 diabetes mellitus without complications; I10 Essential (primary) hypertension; D46.Z Other myelodysplastic syndromes; G47.33 Obstructive sleep apnea (adult) (pediatric); R26.89 Other abnormalities of gait and mobility; G89.29 Other chronic pain; M54.9 Dorsalgia, unspecified; I25.10 Atherosclerotic heart disease of native coronary artery without angina pectoris; D64.9 Anemia, unspecified; E78.5 Hyperlipidemia, unspecified; F32.A Depression, unspecified; Z79.82 Long term (current) use of aspirin; Z79.85 Long-term (current) use of injectable non-insulin antidiabetic drugs; Z79.02 Long term (current) use of antithrombotics/antiplatelets; Z86.73 Personal history of transient ischemic attack (TIA), and cerebral infarction without residual deficits; Z87.891 Personal history of nicotine dependence; Z87.442 Personal history of urinary calculi
CPT/HCPCS: 36415; 36416; 36569; 71045; 74176; 80048; 80053; 81001; 82550; 82962; 83605; 83735; 84100; 84145; 84484; 85007; 85025; 86140; 87040; 87077; 87086; 87186; 93005; 96365; 96367; 96372; 97110; 97116; 97161; 97166; 97535; 99285; C1751; J0692; J1335; J1815; J2020; J2185; J3480; J7030; J7040

== ENCOUNTER 2024-01-08 11:01 | Emergency (ER) | payer MEDICARE, OTHER, SELFPAY ==
[2024-01-08 11:07] VITALS: BP 150/78; PULSE 59; RESP 17; TEMP 36.4; O2SAT 96; BMI 30.4
--- NOTE | 2024-01-08 11:08 | XR_ITS ---
WS: [id number] Portable AP upright chest, 01/08/2024 Clinical Data: weakness Comparison: Portable chest, 12/29/2023 Findings: No nodules, masses or effusions are seen. The heart is normal. The pulmonary vascularity is not increased. No pneumonia or pneumothorax is seen. The diaphragms are flattened. Midline sternotom y sutures are present. The aortic arch and descending thoracic aorta show calcification and tortuosit y. There is a calcification over the greater tuberosity of the right shoulder. XR/XR chest 1V portable [id number] Impression: Hyperinflation and atherosclerosis.
--- NOTE | 2024-01-08 11:09 | ECG_ITS ---
[facility] Test Date: 2024-01-08 Pat Name: Corby Belcher Department: Room: Gender: Male Health Aid: : 1940 Requested By: Luci Lion Order Number: [id number] Daniel MD: Tha Hathaway M.D. Measurements Intervals [place] Rate: 70 P: 29 WV: 200 QRS: 6 QRSD: 102 T: 62 QT: 385 QTc: 417 Interpretive Statements SINUS RHYTHM WITH OCCASIONAL SUPRAVENTRICULAR PREMATURE COMPLEXES INDETERMINATE AXIS LOW QRS VOLTAGE IN PRECORDIAL LEADS [QRS DEFLECTION < 1.0 mV IN CHEST LEADS] POSSIBLE ANTERIOR MYOCARDIAL INFARCTION , OF INDETERMINATE AGE [30 ms Q WAVE IN V3/V4, OR R < 0.2 mV IN V4] INFERIOR MYOCARDIAL INFARCTION , PROBABLY OLD [40+ ms Q WAVE AND/OR ST/T ABNORMALITY IN II/aVF] Compared to ECG 12/29/2023 17:06:10 Indeterminate axis now present Myocardial infarct finding still present Electronically Signed On 01-08-2024 16:35:31 CDT by Tha Hathaway M.D. [id number]
[2024-01-08 12:11] VITALS: BP 137/74; PULSE 62; RESP 16; O2SAT 97
[2024-01-08 12:14] LABS: Basophils # 0.1 10^3/uL (0.0-0.1); Eosinophils # 0.2 10^3/uL (0.0-0.8); Eosinophils % 3.3 %; Hematocrit 31.7 % (37-53); Lymphocytes % 40.2 %; Mean Corpuscular HGB Conc 31.2 g/dL (30-55); Mean Corpuscular Hemoglobin 30.7 pg (27-33); Mean Corpuscular Volume 98.1 fl (82-101); Mean Platelet Volume 9.9 fL (7.4-10.4); Monocytes # 0.7 10^3/uL (0.2-0.9); Monocytes % 9.8 %; Neutrophils # 2.23 10^3/uL (1.8-7.7); Neutrophils % 30.3 %; Nucleated Red Blood Cells % 0.5 %; Platelet Count 142 10^3/cmm (157-399); Red Blood Count 3.23 10^6/uL (3.85-5.65); Red Cell Distribution Width 22.2 % (12.1-15.1); White Blood Count 7.34 10^3/uL (3.29-11.43)
--- NOTE | 2024-01-08 12:16 | ED_ITS ---
HPI - Weakness 2 General: Chief complaint: Weakness Stated complaint: weakness, fall, ams, sent from onc Time Seen by Provider: 01/08/24 12:07 History of Present Illness: 83-year-old male presents emergency room complaint is generalized weakness he is feeling well this year. Myelodysplasia is recently hospitalized after failing outpatient treatment for UTI found ESBL and discharged home on ertapenem he has approximately 5 more days left of this course of IV ertapenem. He states generally not feeling well. Presents emergency room for further evaluation he denies any fever sweats or chills. No vomiting or diarrhea no hematochezia melena times No hematuria is urinary symptoms have resolved. Denies chest pain shortness of breath or abdominal pain Associated symptoms: Denies chest pain, chills, dysuria or fever(s) Review of Systems 2 Const: Reports: fatigue; Denies: fever(s) or chills Card: Denies: chest pain Resp: Denies: dyspnea GI: Denies: abdominal pain : Denies: dysuria, urinary frequency or urinary urgency Musc: Denies: neck pain or back pain Skin/Breast: Denies: rash PFSH ED 2 PFSH: Medical History TIA (transient ischemic attack) Chronic back pain Memory disorder (~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, degenerative, lumbar spine Obstructive sleep apnea of adult History of tick-borne relapsing fever Diverticulosis Chronic constipation Claudication in peripheral vascular disease GERD (gastroesophageal reflux disease) 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 Hypertension Coronary artery disease History of ehrlichiosis Type 2 diabetes mellitus Anemia Balanitis BPH loc w urin obs/LUTS Phimosis Hyperlipidemia, unspecified Esophagitis, unspecified Bilateral kidney stones calcium phosphate 2017 Spinal stenosis, lumbar region without neurogenic claudication Gastritis History of foot fracture (~1980) Surgical History History of ureteroscopy History of lithotripsy ESWL History of cataract surgery History of shoulder surgery History of colonoscopy (03/16/19) History of esophagogastroduodenoscopy (EGD) (03/16/19) History of coronary artery bypass graft x 3 (2012) S/P ureteral stent placement (2017) Family History Father , at age 86 Diabetes Hyperlipidemia Hypertension Family/Other Diabetes Cancer CAD (coronary artery disease) Hypertension Mother , at age 76 No problems noted. Denies family history of Anesthesia complication Social History Smoking and tobacco/nicotine status: former use of tobacco/nicotine Quit status (tobacco/nicotine): has quit using Year quit tobacco: 1981 Former quit date comment: Smoked 25+ years Alcohol intake: never Substance/Drug Use: never Caregiver/support person: Yes Lives independently: Yes Household members: spouse Housing: House Marital status: Current occupational status: retired Previous occupational history: [employer] acquired by [employer] Current gender identity: Male Physical Exam 2 Const: COMMON NORMALS: no acute distress GENERAL APPEARANCE: cooperative and comfortable ORIENTATION/CONSCIOUSNESS: Yes awake HENMT: COMMON NORMALS: normocephalic, atraumatic and hearing grossly normal bilaterally HEAD & SCALP: normocephalic and atraumatic Resp: COMMON NORMALS: normal respiratory effort, No retractions, No use of accessory muscles and clear to auscultation bilaterally AUSCULTATION: clear to auscultation bilaterally Cardio: COMMON NORMALS: regular rate, regular rhythm and No murmurs present (Cardio) RATE: regular rate RHYTHM: regular rhythm GI: COMMON NORMALS: Soft to palpation and No hepatosplenomegaly present A USCULTATION: Yes normoactive bowel sounds PALPATION: Yes Soft to palpation, No Tenderness to palpation present (GI), No Guarding due to palpation present (GI) and Yes No hepatosplenomegaly present Extremity: COMMON NORMALS: normal to inspection, capillary refill normal, no clubbing, cyanosis or edema, no calf tenderness and no pedal edema Skin: COMMON NORMALS: no rashes or lesions noted GENERAL SKIN EXAM: no rashes or lesions noted Course 2 Vital Signs: Vital signs: Vital Signs Temperature 97.6 F 01/08/24 11:07 Pulse Rate 65 01/08/24 15:14 Respiratory Rate 16 01/08/24 12:11 Blood Pressure 154/77 01/08/24 15:14 Pulse Oximetry 97 01/08/24 15:14 Oxygen Delivery Me thod Room Air 01/08/24 12:11 MDM - Weakness Medical Decision Making No acute findings on labs for Imaging today. No leukocytosis renal function is normal discharge home continue IV ertapenem follow-up with primary care. He is anemic he has no history of mild dysplasia he is actually trending a little better than he has been before he reporting any signs of active bleeding. Has chronically been anemic reviewing his old records. Medical Records I reviewed the patient's medical records. Lab Data I reviewed the patient's lab results. 01/08/24 12:02 01/08/24 12:02 Radiology Impressions Chest X-Ray 01/08/24 11:08 Impression: Hyperinflation and atherosclerosis. Laboratory Results WBC 7.34 10^3/uL (3.29-11.43) 01/08/24 12:02 RBC 3.23 10^6/uL (3.85-5.65) L 01/08/24 12:02 Hgb 9.90 g/dL (11.27-16.99) L 01/08/24 12:02 Hct 31.7 % (37-53) L 01/08/24 12:02 MCV 98.1 fl (82-101) 01/08/24 12:02 MCH 30.7 pg (27-33) 01/08/24 12:02 MCHC 31.2 g/dL (30-55) 01/08/24 12:02 RDW 22.2 % (12.1-15.1) H 01/08/24 12:02 Plt Count 142 10^3/cmm (157-399) L 01/08/24 12:02 MPV 9.9 fL (7.4-10.4) 01/08/24 12:02 Neut % (Auto) 30.3 % 01/08/24 12:02 Lymph % (Auto) 40.2 % 01/08/24 12:02 Richardson % (Auto) 9.8 % 01/08/24 12:02 Eos % (Auto) 3.3 % 01/08/24 12:02 Baso % (Auto) 1.0 % 01/08/24 12:02 Neut # (Auto) 2.23 10^3/uL (1.8-7.7) 01/08/24 12:02 Lymph # (Auto) 3.0 10^3/uL (0.8-4.8) 01/08/24 12:02 Richardson # (Auto) 0.7 10^3/uL (0.2-0.9) 01/08/24 12:02 Eos # (Auto) 0.2 10^3/uL (0.0-0.8) 01/08/24 12:02 Baso # (Auto) 0.1 10^3/uL (0.0-0.1) 01/08/24 12:02 Nucleated RBC % (auto) 0.5 % 01/08/24 12:02 Nucleated RBCs # 0.0 /100WBC 01/08/24 12:02 PT 14.30 SECONDS (12.1-14.9) 01/08/24 12:02 INR 1.08 (0.8-1.2) 01/08/24 12:02 Sodium 140 mmol/L (136-145) 01/08/24 12:02 Potassium 4.2 mmol/L (3.5-5.1) 01/08/24 12:02 Chloride 104 mmol/L (98-107) 01/08/24 12:02 Carbon Dioxide 26 mmol/L (22-29) 01/08/24 12:02 Anion Gap 14.2 (5-19) 01/08/24 12:02 BUN 14 mg/dL (8-23) 01/08/24 12:02 Creatinine 0.9 mg/dL (0.7-1.2) 01/08/24 12:02 GFR Calculation Not Reportable 01/08/24 12:02 Glucose 184 mg/dL (65-115) H 01/08/24 12:02 Calculated Osmolality 295 mOsm/kg (285-295) 01/08/24 12:02 Calcium 9.0 mg/dL (8.5-10.5) 01/08/24 12:02 Magnesium 1.9 mg/dL (1.7-2.3) 01/08/24 12:02 Total Bilirubin 0.8 mg/dL (0.15-1.2) 01/08/24 12:02 AST 16 U/L (0-40) 01/08/24 12:02 ALT 17 U/L (0-41) 01/08/24 12:02 Alkaline Phosphatase 91 U/L (40-130) 01/08/24 12:02 Total Protein 7.0 g/dL (6.6-8.7) 01/08/24 12:02 Albumin 4.1 g/dL (3.5-5.2) 01/08/24 12:02 Globulin 2.9 g/dL (1.3-4.6) 01/08/24 12:02 TSH 1.69 uIU/mL (0.27-4.20) 01/08/24 12:02 Urine Color Yellow (Yellow) 01/08/24 12:03 Urine Appearance Clear (CLEAR) 01/08/24 12:03 Urine pH 5.5 (5-7) 01/08/24 12:03 Ur Specific [place] 1.012 (1.005-1.030) 01/08/24 12:03 Urine Protein Trace (Negative) A 01/08/24 12:03 Urine Glucose (UA) Trace (Normal) H 01/08/24 12:03 Urine Ketones Negative (Negative) 01/08/24 12:03 Urine Blood Negative (Negative) 01/08/24 12:03 Urine Nitrate Negative (Negative) 01/08/24 12:03 Urine Bilirubin Negative (Negative) 01/08/24 12:03 Urine Urobilinogen 1.0 mg/dL (Negative) 01/08/24 12:03 Ur Leukocyte Esterase Negative (Negative) 01/08/24 12:03 Urine RBC 0-2 /hpf (0-2) 01/08/24 12:03 Urine WBC 0-5 /hpf (0-5) 01/08/24 12:03 Ur Squamous Epith Cells 0-5 /hpf (0-5) 01/08/24 12:03 Amorphous Sediment Not Reportable 01/08/24 12:03 Urine Bacteria None seen /hpf (NONE) 01/08/24 12:03 Hyaline Casts 0.40 /lpf 01/08/24 12:03 All radiology interpretation(s) finalized by discharge Discharge Plan Discharge Patient Disposition: Home Clinical Impression: Fatigue Condition: Stable Prescriptions: No Action diphenhydramine HCl [Benadryl] 25 mg capsule 25 mg PO DAILY PRN (Reason: Allergy Symptoms) magnesium oxide 250 mg magnesium tablet 250 mg PO DAILY@0700 multivitamin Tablet 1 tab PO DAILY Miralax 17 gram/dose powder 17 g PO DAILY@0700 PRN (Reason: Constipation) tamsulosin 0.4 mg capsule 0.8 mg PO DAILY Qty: 180 1RF losartan 50 mg tablet 50 mg PO DAILY Qty: 90 3RF Ozempic 0.25 mg or 0.5 mg (2 mg/3 mL) pen injector See Rx Instructions SUBCUT .COMPLEX Qty: 3 2RF Rx Instructions: 0.25mg weekly x 4 then increase to 0.5mg weekly subcutaneously; on Friday (DME) Auto-Titrating CPAP Device See Rx Instructions .Route Qty: 1 0RF Rx Instructions: As directed, auto-titrating 6-14 sennosides [Senokot] 8.6 mg Tablet 8.6 mg PO DAILY PRN (Reason: Constipation) pantoprazole 40 mg tablet,delayed release (DR/EC) 40 mg PO BID gabapentin 300 mg capsule 300 mg PO BID clopidogrel 75 mg tablet 75 mg PO DAILY Qty: 30 0RF atorvastatin 40 mg tablet 40 mg PO DAILY Qty: 30 0RF aspirin 81 mg tablet,delayed release (DR/EC) 81 mg PO DAILY Qty: 30 0RF melatonin 5 mg Tablet 5 mg PO BEDTIME PRN (Reason: Insomnia) luspatercept-aamt 25 mg Recon Soln 25 mg SUBCUT Q21D Discharge Orders: Discharge ED (Routine); Ordered 01/08/24 Ordered By: Reji Kemp Referrals: Hayde Washington FNP [Primary Care Provider] - Patient Instructions: Opioid Safety, Pain Management Coding Level of Care Code ED Scheduling Representative for Chg Fwd Related Data Home Medications Medication Instructions Recorded Confirmed diphenhydramine HCl 25 mg capsule 25 mg PO DAILY PRN Allergy Symptoms 04/16/19 01/08/24 (Benadryl) magnesium oxide 250 mg PO DAILY@0700 07/30/19 01/08/24 polyethylene glycol 3350 17 17 g PO DAILY@0700 PRN Constipation 02/13/22 01/08/24 gram/dose oral powder (Miralax) multivitamin 1 tab PO DAILY 05/29/22 01/08/24 gabapentin 300 mg capsule 300 mg PO BID 12/11/23 01/08/24 pantoprazole 40 mg tablet,delayed 40 mg PO BID 12/11/23 01/08/24 release sennosides 8.6 mg tablet (Senokot) 8.6 mg PO DAILY PRN Constipation 12/11/23 01/08/24 luspatercept-aamt 25 mg 25 mg SUBCUT Q21D 12/29/23 01/08/24 subcutaneous solution melatonin 5 mg tablet 5 mg PO BEDTIME PRN Insomnia 12/29/23 01/08/24 Previous Rx's Medication Instructions Recorded losartan 50 mg tablet 50 mg PO DAILY #90 tabs 08/12/23 tamsulosin 0.4 mg capsule 0.8 mg (2 x 0.4 mg) PO DAILY #180 09/15/23 caps semaglutide 0.25 mg or 0.5 mg (2 See Rx Instructions SUBCUT 11/05/23 mg/3 mL) subcutaneous pen injector .COMPLEX #3 mL (Ozempic) CPAP (Auto-Titrating CPAP) #1 ea 11/28/23 aspirin 81 mg tablet,delayed 81 mg PO DAILY #30 tabs 12/11/23 release atorvastatin 40 mg tablet 40 mg PO DAILY #30 tabs 12/11/23 clopidogrel 75 mg tablet 75 mg PO DAILY #30 tabs 12/11/23 Allergies Allergy/AdvReac Type Severity Reaction Status Date / Time Sulfa (Sulfonamide Allergy Dexter Verified 12/29/23 10:25 Antibiotics) Lip/Tongue/Throat sulfamethoxazole Allergy Unknown Verified 12/29/23 10:25 [From Bactrim] trimethoprim [From Bactrim] Allergy Unknown Verified 12/29/23 10:25
[2024-01-08 12:18] LABS: Bilirubin Urine Negative (Negative); Blood Urine Negative (Negative); Glucose Urine UA Trace (Normal); Ketones Urine Negative (Negative); Leukocyte Esterase Urine Negative (Negative); Nitrate Urine Negative (Negative); Protein Urine Trace (Negative); Specific Gravity, Urine 1.012 (1.005-1.030); Urine Appearance Clear (CLEAR); Urine Color Yellow (Yellow); pH Urine 5.5 (5-7)
[2024-01-08 12:21] LABS: Add Urine Microscopic? YES; Bacteria Urine None Seen /hpf; RBC Urine 0-2 /hpf (0-2); Squamous Epithelial Cell Urine 0-5 /hpf (0-5); WBC Urine 0-5 /hpf (0-5)
[2024-01-08 12:34] LABS: INR 1.08 (0.8-1.2)
[2024-01-08 12:53] LABS: Alanine Aminotransferase 17 U/L (0-41); Albumin Level 4.1 g/dL (3.5-5.2); Alkaline Phosphatase 91 U/L (40-130); Anion Gap 14.2 (5-19); Aspartate Amino Transferase 16 U/L (0-40); Blood Urea Nitrogen 14 mg/dL (8-23); Carbon Dioxide 26 mmol/L (22-29); Chloride 104 mmol/L (98-107); Creatinine Clr Calc Pharmacy 75.8414; Globulin 2.9 g/dL (1.3-4.6); Glucose 184 mg/dL (65-115); Magnesium 1.9 mg/dL (1.7-2.3); Osmolality Calculated 295 mOsm/kg (285-295); Potassium 4.2 mmol/L (3.5-5.1); Sodium 140 mmol/L (136-145); Thyroid Stimulating Hormone 1.69 uIU/mL (0.27-4.20); Total Bilirubin 0.8 mg/dL (0.15-1.2)
[2024-01-08 13:09] LABS: Slide Review Slide Review Perform
--- NOTE | 2024-01-08 13:11 | PC.PHAR ---
patients family states patient is getting infusions of ertapenen at dr silveira office current therapy through friday
[2024-01-08] MEDS: sodium chloride 0.9% 500 ML 999 ML IV (14:18)
[2024-01-08 15:14] VITALS: BP 154/77; PULSE 65; O2SAT 97
== END 2024-01-08 15:15 | disposition home or self-care (01) ==
PROVIDERS: Emergency Medicine; Emergency Provider Family Medicine; PCP Nurse Practitioner Family
DX: R53.83 Other fatigue (principal); R53.1 Weakness; N39.0 Urinary tract infection, site not specified; D64.9 Anemia, unspecified
CPT/HCPCS: 71045; 80053; 81001; 83735; 84443; 85025; 85610; 93005; 99285; J7040

== ENCOUNTER 2024-01-12 13:00 | Oncology outpatient (recurring) (ONCR) | payer MEDICARE, OTHER, SELFPAY ==
[2024-01-01 09:59] VITALS: BP 132/76; PULSE 73; RESP 17; TEMP 36.2; O2SAT 95
[2024-01-01] MEDS: ertapenem 1,000 mg SDV 1000 MG IVP (10:37)
[2024-01-02] MEDS: ertapenem 1,000 mg SDV 1000 MG IVP (09:42)
[2024-01-02 09:55] VITALS: BP 138/84; PULSE 76; RESP 16; TEMP 36.5
[2024-01-03 09:00] VITALS: BP 138/88; PULSE 68; RESP 16; TEMP 36.7; O2SAT 93
[2024-01-03] MEDS: ertapenem 1,000 MG in sodium chloride 0.9% (100 ml) 100 ML 200 MG IV (09:12)
[2024-01-04] MEDS: ertapenem 1,000 MG in sodium chloride 0.9% (100 ml) 100 ML 200 MG IV (09:06)
[2024-01-04 09:15] VITALS: BP 152/80; PULSE 69; RESP 16; TEMP 36.6; O2SAT 97
--- NOTE | 2024-01-04 09:17 | PC.NURSE ---
patient arrived to ops for antibiotic infusion. Patient vitals stable. Unable to scan medication it would not scan the 100ml bag of normal saline. Put in manually.
[2024-01-05] VITALS: BP 134/68; PULSE 68; RESP 16; TEMP 36.9; O2SAT 98
[2024-01-05] MEDS: ertapenem 1,000 mg SDV 1000 MG IVP (09:24)
[2024-01-06] VITALS: BP 133/69; PULSE 73; RESP 16; TEMP 36.2; O2SAT 95
[2024-01-06] MEDS: ertapenem 1,000 mg SDV 1000 MG IVP (09:41)
[2024-01-07] VITALS: BP 135/75; PULSE 75; RESP 18; TEMP 36.3; O2SAT 97
[2024-01-07] MEDS: ertapenem 1,000 mg SDV 1000 MG IVP (09:14)
[2024-01-08] VITALS: BP 116/60; PULSE 60; RESP 16; TEMP 36.9; O2SAT 94
[2024-01-08] MEDS: ertapenem 1,000 mg SDV 1000 MG IVP (09:37)
[2024-01-08 09:40] LABS: Hematocrit 30.5 % (37-53); Mean Corpuscular HGB Conc 31.5 g/dL (30-55); Mean Corpuscular Hemoglobin 30.7 pg (27-33); Mean Corpuscular Volume 97.4 fl (82-101); Mean Platelet Volume 10.1 fL (7.4-10.4); Platelet Count 144 10^3/cmm (157-399); Red Blood Count 3.13 10^6/uL (3.85-5.65); White Blood Count 6.39 10^3/uL (3.29-11.43)
[2024-01-08 10:01] LABS: Alanine Aminotransferase 17 U/L (0-41); Albumin Level 4.1 g/dL (3.5-5.2); Alkaline Phosphatase 91 U/L (40-130); Anion Gap 15.2 (5-19); Aspartate Amino Transferase 17 U/L (0-40); Blood Urea Nitrogen 14 mg/dL (8-23); Calcium 8.9 mg/dL (8.5-10.5); Carbon Dioxide 25 mmol/L (22-29); Chloride 103 mmol/L (98-107); Globulin 2.6 g/dL (1.3-4.6); Glucose 271 mg/dL (65-115); Osmolality Calculated 298 mOsm/kg (285-295); Potassium 4.2 mmol/L (3.5-5.1); Sodium 139 mmol/L (136-145); Total Bilirubin 0.8 mg/dL (0.15-1.2); Total Protein 6.7 g/dL (6.6-8.7)
[2024-01-08 10:32] LABS: Slide Review Slide Review Perform
[2024-01-08 10:36] LABS: Absolute Eosinophils 0.3 10^3/cmm (0.0-0.7); Band Neutrophils Absolute 0.7 10^3/cmm (0.0-1.2); Eosinophils 5 %; Lymphocytes 43 %; Monocytes Absolute 0.1 10^3/cmm (0.1-0.6); Segmented Neutrophils 32 %; Total Cells Counted 100 (0-100)
[2024-01-08 10:37] LABS: Absolute Neutrophil 2.7 10^3/cmm (1.4-6.5); Basophilic Stippling Trace; Hypochromasia Trace; Platelet Estimate Normal (Normal); Poikilocytosis Trace; Polychromasia 1+
[2024-01-09 09:59] VITALS: BP 145/68; PULSE 74; RESP 16; TEMP 36.5; O2SAT 92
[2024-01-09] MEDS: ertapenem 1,000 mg SDV 1000 MG IVP (10:06)
[2024-01-10] MEDS: ertapenem 1,000 mg SDV 1000 MG IVP (09:13)
[2024-01-10 09:48] VITALS: BP 144/68; PULSE 63; RESP 18; TEMP 36.2; O2SAT 95; BMI 30.4
[2024-01-11 10:01] VITALS: BP 109/82; PULSE 65; RESP 18; TEMP 36.4; O2SAT 96
[2024-01-12] MEDS: luspatercept-aamt 25 mg 100 MG SUBCUT (13:34)
[2024-01-12] MEDS: ertapenem 1,000 mg SDV 1000 MG IVP (13:37)
== END 2024-01-12 23:59 | disposition home or self-care (01) ==
PROVIDERS: Nurse Practitioner Family; PCP Nurse Practitioner Family; Visit Provider Internal Medicine Hematology & Oncology
DX: D46.1 Refractory anemia with ring sideroblasts (principal); Z79.899 Other long term (current) drug therapy; Z53.9 Procedure and treatment not carried out, unspecified reason; Z87.891 Personal history of nicotine dependence
CPT/HCPCS: 80053; 85007; 85025; 96365; 96372; 96374; 99214; J0896; J1335; J1642

== ENCOUNTER → 2024-01-29 11:21 | Outpatient (BNVA) | payer MEDICARE, OTHER, SELFPAY | PROVIDERS: PCP Nurse Practitioner Family; Visit Provider Internal Medicine Medical Oncology | DX: D46.1 Refractory anemia with ring sideroblasts | CPT/HCPCS: 80053; 85007; 85025 ==

== ENCOUNTER 2024-02-02 11:30 | Oncology outpatient (recurring) (ONCR) | payer MEDICARE, OTHER, SELFPAY ==
--- NOTE | 2024-01-22 13:57 | PC.NURSE ---
Spoke with Elly at Dr. Pelaez's office. Verbal order to remove pts PICC line. Per Elly, an order will be faxed over, verified correct fax number. Removed Pts PICC line, 10cm catheter in tact. No redness or irritation noted. Pt tolerated well.
[2024-02-02] MEDS: luspatercept-aamt 25 mg 100 MG SUBCUT (11:35)
== END 2024-02-02 23:59 | disposition home or self-care (01) ==
PROVIDERS: PCP Nurse Practitioner Family; Visit Provider Internal Medicine Hematology & Oncology
DX: D46.1 Refractory anemia with ring sideroblasts (principal); Z79.899 Other long term (current) drug therapy; Z53.9 Procedure and treatment not carried out, unspecified reason; I25.10 Atherosclerotic heart disease of native coronary artery without angina pectoris; E78.2 Mixed hyperlipidemia; I10 Essential (primary) hypertension; Z87.891 Personal history of nicotine dependence
CPT/HCPCS: 96372; 99213; 99214; J0896

== ENCOUNTER → 2024-02-25 09:32 | Outpatient (BNVA) | payer MEDICARE, OTHER, SELFPAY | PROVIDERS: PCP Nurse Practitioner Family; Visit Provider Nurse Practitioner Family | DX: D46.1 Refractory anemia with ring sideroblasts; N20.0 Calculus of kidney | CPT/HCPCS: 80053; 85007; 85025; 87086 ==

== ENCOUNTER → 2024-03-10 12:04 | Outpatient (BNVA) | payer MEDICARE, OTHER, SELFPAY | PROVIDERS: PCP Nurse Practitioner Family; Visit Provider Nurse Practitioner Family | DX: D46.1 Refractory anemia with ring sideroblasts (principal); D50.9 Iron deficiency anemia, unspecified | CPT/HCPCS: 80053; 82607; 82728; 83550; 83615; 84238; 85007; 85025 ==

== ENCOUNTER 2024-03-15 09:11 | Oncology outpatient (recurring) (ONCR) | payer MEDICARE, OTHER, SELFPAY ==
[2024-03-15] MEDS: luspatercept-aamt 25 mg 100 MG SUBCUT (10:34)
== END 2024-03-15 23:59 | disposition home or self-care (01) ==
PROVIDERS: PCP Nurse Practitioner Family; Visit Provider Internal Medicine Medical Oncology
DX: D46.1 Refractory anemia with ring sideroblasts (principal); Z79.899 Other long term (current) drug therapy
CPT/HCPCS: 96372; 99214; J0896

== ENCOUNTER → 2024-03-25 08:32 | Outpatient (BNVA) | payer MEDICARE, OTHER, SELFPAY | PROVIDERS: PCP Nurse Practitioner Family; Visit Provider Physician Assistant | DX: M25.562 Pain in left knee (principal); G89.29 Other chronic pain; M17.12 Unilateral primary osteoarthritis, left knee; S83.207A Unspecified tear of unspecified meniscus, current injury, left knee, initial encounter; X50.9XXA Other and unspecified overexertion or strenuous movements or postures, initial encounter | CPT/HCPCS: 73560; 73565 ==

== ENCOUNTER 2024-03-25 09:40 | Outpatient (CLI) | payer MEDICARE, OTHER, SELFPAY | END 2024-03-25 09:41 | disposition home or self-care (01) | LOC: SPT 09:42 | PROVIDERS: PCP Nurse Practitioner Family; Visit Provider Physician Assistant | DX: Z46.89 Encounter for fitting and adjustment of other specified devices (principal); M17.12 Unilateral primary osteoarthritis, left knee | CPT/HCPCS: 20610; 97760; J3301; L1852 ==

== ENCOUNTER 2024-03-27 16:25 | Emergency (ER) | payer MEDICARE, OTHER, SELFPAY ==
[2024-03-27 16:32] VITALS: BP 153/82; PULSE 81; RESP 17; TEMP 36.6; O2SAT 93; BMI 30.4
--- NOTE | 2024-03-27 16:32 | XRR_ITS ---
PROCEDURE INFORMATION: Exam: XR Chest Exam date and time: 03/27/2024 5:07 PM Age: 83 years old Clinical indication: Other: Weakness; Prior surgery; Surgery date: 6+ months; Surgery type: Coronary artery bypass graft x3; Shoulder; Patient HX: PT states he recieved a hydrocortisone shot on Friday and his sugar has been high since. This morning, his sugar was in the 500s. PT took it again about an hour ago and the machine read high. PT blood sugar in triage 512. PT denies any complaints other than excessive urination. TECHNIQUE: Imaging protocol: Radiologic exam of the chest. Views: 1 view. COMPARISON: CR XR chest 1V portable [id number] 01/08/2024 11:29 AM FINDINGS: Lungs: Emphysematous changes. Pleural spaces: Unremarkable. No pleural effusion. No pneumothorax. Heart/Mediastinum: Cardiomegaly. Bones/joints: Right rotator cuff calcific tendinitis. Sternotomy wires. XR/XR chest 1V portable [id number] IMPRESSION: 1. Cardiomegaly. 2. Emphysematous changes. 3. Right rotator cuff calcific tendinitis. 4. Sternotomy wires.
[2024-03-27 16:34] LABS: Glucose Point of Care 512 mg/dL (70-110)
[2024-03-27 17:03] LABS: ABG PCO2 37.6 mmHg (35-45); ABG PH Result 7.42 (7.35-7.45); Alveolar-Arterial Oxygen Gradi 4.5 mmHg (5-10); Arterial Blood Gas Hematocrit 26.4 % (42-52); Base Excess ABG 0.1 mmol/L (-2.0-2.0); Blood Gas Allen Test Pos; Blood Gas Operator Identificat MONRO; Blood Gas Sample Site Radial, right; Blood Gas Sample Type Arterial; Carboxyhemoglobin 1.6 %THgb (0.4-20.1); HCO3 ABG 24.5 mmol/L (22-26); HGB O2 Sat 91.5 % (95-100); Ionized Calcium Level - ABG 1.2 mmol/L (1.1-1.4); Methemoglobin 0.4 % (0.4-1.5); Oxygen Device ROOM AIR; Oxygen Saturation ABG 93.2; PO2 ABG 68.5 mmHg (80.0-100.0); PO2 FiO2 Ratio Arterial Blood 326; Potassium Level - ABG 4.5 mmol/L (3.5-5.0); Total Hemoglobin 8.6 g/dL (14-18)
[2024-03-27 17:37] LABS: Hematocrit 29.5 % (37-53); Mean Corpuscular HGB Conc 29.5 g/dL (30-55); Mean Corpuscular Hemoglobin 27.8 pg (27-33); Mean Corpuscular Volume 94.2 fl (82-101); Mean Platelet Volume 11.3 fL (7.4-10.4); Platelet Count 146 10^3/cmm (157-399); Red Blood Count 3.13 10^6/uL (3.85-5.65); Red Cell Distribution Width 22.3 % (12.1-15.1); White Blood Count 12.18 10^3/uL (3.29-11.43)
[2024-03-27 17:45] LABS: Ketone (Acetest) Serum Negative (Negative)
[2024-03-27 17:53] LABS: Alanine Aminotransferase 19 U/L (0-41); Albumin Level 4.3 g/dL (3.5-5.2); Alkaline Phosphatase 103 U/L (40-130); Anion Gap 16.6 (5-19); Aspartate Amino Transferase 24 U/L (0-40); Blood Urea Nitrogen 28 mg/dL (8-23); Calcium 9.8 mg/dL (8.5-10.5); Carbon Dioxide 24 mmol/L (22-29); Chloride 93 mmol/L (98-107); Creatinine Clr Calc Pharmacy 62.0521; Globulin 3.3 g/dL (1.3-4.6); Glucose 500 mg/dL (65-115); Osmolality Calculated 296 mOsm/kg (285-295); Potassium 4.6 mmol/L (3.5-5.1); Sodium 129 mmol/L (136-145); Total Protein 7.6 g/dL (6.6-8.7)
[2024-03-27 17:54] LABS: Lactic Sepsis W/Reflex 2.7 mmol/L (0.5-2.2)
[2024-03-27 17:58] LABS: Slide Review Slide Review Perform
[2024-03-27 17:59] LABS: Absolute Segmented Neutrophil 6.8 10/cmm (1.6-7.1); Band Neutrophils Absolute 0.4 10^3/cmm (0.0-1.2); Eosinophils 0 %; Lymphocytes 25 %; Lymphocytes Absolute 3.3 10^3/cmm (1.2-3.4); Monocytes Absolute 0.7 10^3/cmm (0.1-0.6); Segmented Neutrophils 56 %; Total Cells Counted 100 (0-100)
[2024-03-27 18:00] LABS: Absolute Neutrophil 7.2 10^3/cmm (1.4-6.5); Platelet Estimate Decreased (Normal)
--- NOTE | 2024-03-27 18:34 | W.ED.GENADLT ---
HPI - General Adult General: Chief complaint: General Medical Stated complaint: blood sugar high Time Seen by Provider: 03/27/24 16:28 History of Present Illness: 83-year-old man with a history of diabetes and hypertension who presents emergency room with hyperglycemia. He had had a steroid shot recently. He is not on any insulin or metformin. He is on a monthly shot for diabetes. He has had a mild cough. No shortness of breath. No altered mental status. Says he may feel a little bit weaker than usual and has increased urine output. No dysuria. No abdominal pain. No nausea or vomiting. No fevers. Related Data Home Medications Medication Instructions Recorded Confirmed magnesium oxide 250 mg PO DAILY@0700 07/30/19 03/25/24 polyethylene glycol 3350 17 17 g PO DAILY@0700 PRN Constipation 02/13/22 03/25/24 gram/dose oral powder (Miralax) multivitamin 1 tab PO DAILY 05/29/22 03/25/24 sennosides 8.6 mg tablet (Senokot) 8.6 mg PO DAILY PRN Constipation 12/11/23 03/25/24 luspatercept-aamt 25 mg 25 mg SUBCUT Q21D 12/29/23 03/25/24 subcutaneous solution melatonin 5 mg tablet 5 mg PO BEDTIME PRN Insomnia 12/29/23 03/25/24 fosfomycin tromethamine 3 gram PO 02/02/24 03/25/24 oral packet Previous Rx's Medication Instructions Recorded losartan 50 mg tablet 50 mg PO DAILY #90 tabs 08/12/23 tamsulosin 0.4 mg capsule 0.8 mg (2 x 0.4 mg) PO DAILY #180 09/15/23 caps CPAP (Auto-Titrating CPAP) #1 ea 11/28/23 aspirin 81 mg tablet,delayed 81 mg PO DAILY #30 tabs 12/11/23 release atorvastatin 40 mg tablet 40 mg PO DAILY #90 tabs 01/23/24 triamcinolone acetonide 0.1 % 1 applic topical BID 14 days #80 02/16/24 topical cream grams RSVPreF3 antigen-AS01E 0.5 ml IM ONCE #1 ea 02/27/24 adjuvant(PF) 120 mcg/0.5 mL IM suspension, kit pantoprazole 40 mg tablet,delayed 40 mg PO BID #60 tabs 03/01/24 release gabapentin 300 mg capsule See Rx Instructions .Route 03/19/24 .COMPLEX #180 caps semaglutide 0.25 mg or 0.5 mg (2 See Rx Instructions .Route 03/24/24 mg/3 mL) subcutaneous pen injector .COMPLEX #3 mL (Ozempic) Left Knee Medial [employer] Agent Brace #1 ea 03/25/24 Allergies Allergy/AdvReac Type Severity Reaction Status Date / Time Sulfa (Sulfonamide Allergy ALGY-Swell Verified 03/25/24 08:41 Antibiotics) Lip/Tongue/Throat sulfamethoxazole Allergy Unknown Verified 03/25/24 08:41 [From Bactrim] trimethoprim [From Bactrim] Allergy Unknown Verified 03/25/24 08:41 Review of Systems Narrative: Constitutional symptoms: Negative except as documented in HPI. Skin symptoms: Negative except as documented in HPI. Eye symptoms: Negative except as documented in HPI. ENMT symptoms: Negative except as documented in HPI. Respiratory symptoms: Negative except as documented in HPI. Cardiovascular symptoms: Negative except as documented in HPI. Gastrointestinal symptoms: Negative except as documented in HPI. Genitourinary symptoms: Negative except as documented in HPI. Musculoskeletal symptoms: Negative except as documented in HPI. Neurologic symptoms: Negative except as documented in HPI. Psychiatric symptoms: Negative except as documented in HPI. Endocrine symptoms: Negative except as documented in HPI. 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 Hypertension Coronary artery disease History of ehrlichiosis Type 2 diabetes mellitus Anemia Balanitis BPH loc w urin obs/LUTS Phimosis Hyperlipidemia, unspecified Esophagitis, unspecified Bilateral kidney stones calcium phosphate 2018 Spinal stenosis, lumbar region without neurogenic claudication Gastritis History of foot fracture (~1980) Surgical History History of ureteroscopy History of lithotripsy ESWL History of cataract surgery History of shoulder surgery History of colonoscopy (03/16/19) History of esophagogastroduodenoscopy (EGD) (03/16/19) History of coronary artery bypass graft x 3 (2013) S/P ureteral stent placement (2018) Family History Father , at age 86 Diabetes Hyperlipidemia Hypertension Family/Other Diabetes Cancer CAD (coronary artery disease) Hypertension Mother , at age 76 No problems noted. Denies family history of Anesthesia complication Social History Smoking and tobacco/nicotine status: former use of tobacco/nicotine Quit status (tobacco/nicotine): has quit using Year quit tobacco: 1981 Former quit date comment: Smoked 25+ years Alcohol intake: never Substance/Drug Use: never Caregiver/support person: Yes Lives independently: Yes Household members: spouse Housing: House Marital status: Current occupational status: retired Previous occupational history: [employer] Current gender identity: Male Physical Exam Narrative: EXAM NARRATIVE: General: Alert, no acute distress. Skin: Warm, dry. Head: Normocephalic, atraumatic. Neck: Supple, trachea midline. Eye: Extraocular movements are intact. Ears, nose, mouth and throat: Tacky oral mucosa Cardiovascular: Regular, Normal peripheral perfusion. Respiratory: Lungs are clear to auscultation, respirations are non-labored, breath sounds are equal, Symmetrical chest wall expansion. Gastrointestinal: Soft, Nontender, Non distended Musculoskeletal: Normal ROM, no deformity. Neurological: Alert and oriented, No focal neurological deficit observed. Psychiatric: Cooperative, appropriate mood & affect. Course Vital Signs: Vital signs: Vital Signs Temperature 97.8 F 03/27/24 16:32 Pulse Rate 87 03/27/24 21:26 Respiratory Rate 18 03/27/24 21:26 Blood Pressure 139/87 03/27/24 21:26 Pulse Oximetry 92 03/27/24 21:26 Oxygen Delivery Me thod Room Air 03/27/24 21:20 MDM - General Adult Medical Decision Making Medical decision making: Differential diagnosis for the patient with hyperglycemia would include but not be limited to and would be based on the above HPI review of systems and physical exam: DKA. Dehydration. Renal failure. Concern for electrolyte abnormalities. Concern for underlying infection that might result in hyperglycemia. Medical non-compliance Orders placed to evaluate differential diagnosis of the patient with hyperglycemia are based on the above differential, HPI and physical exam. Chest x-ray: Stable cardiomegaly. Sternotomy wires. No acute process. No infiltrate. No pneumothorax. This was reviewed and interpreted by myself the emergency room physician. I also reviewed the radiology report. Lab Review: Laboratory results were reviewed and interpreted by myself the emergency room physician. Mild leukocytosis with white count of 15,000. Likely secondary to steroid as well. Stable anemia with a hemoglobin of 8.7. BUN and creatinine are a little above his baseline at 28 and 1.1. Sodium is 129 but this is secondary to his sugar being 500. Urinalysis is negative for infection. Ketones are negative. Blood gas is negative for acidosis. I reviewed the patient's medical record. Reexamination: Patient remained stable. No increased work of breathing. No altered mental status. No focal motor deficits. Assessment and plan: Hyperglycemia Dehydration ?Normal saline bolus and 10 units IV insulin in the emergency room. Glucose is improving. - Discharged home - Discussed findings and plan with patient. Answered any questions. - All laboratory values were reviewed and interpreted personally by myself, the ER physician - All imaging was reviewed and interpreted personally by myself, the ER physician. - Evaluation and treatment of this problem were appropriate in the emergency setting Lab Data 03/27/24 17:17 03/27/24 17:17 Radiology Impressions Chest X-Ray 03/27/24 16:32 IMPRESSION: 1. Cardiomegaly. 2. Emphysematous changes. 3. Right rotator cuff calcific tendinitis. 4. Sternotomy wires. Laboratory Results WBC 12.18 10^3/uL (3.29-11.43) H 03/27/24 17:17 RBC 3.13 10^6/uL (3.85-5.65) L 03/27/24 17:17 Hgb 8.70 g/dL (11.27-16.99) L 03/27/24 17:17 Hct 29.5 % (37-53) L 03/27/24 17:17 MCV 94.2 fl (82-101) 03/27/24 17:17 MCH 27.8 pg (27-33) 03/27/24 17:17 MCHC 29.5 g/dL (30-55) L 03/27/24 17:17 RDW 22.3 % (12.1-15.1) H 03/27/24 17:17 Plt Count 146 10^3/cmm (157-399) L 03/27/24 17:17 MPV 11.3 fL (7.4-10.4) H 03/27/24 17:17 Lymph % (Auto) Not Reportable 03/27/24 17:17 Wright % (Auto) Not Reportable 03/27/24 17:17 Lymph # (Auto) Not Reportable 03/27/24 17:17 Wright # (Auto) Not Reportable 03/27/24 17:17 Total Counted 100 (0-100) 03/27/24 17:17 Atypical Lymphs % 2.0 % (0-5) 03/27/24 17:17 Absolute Neutrophils 7.2 10^3/cmm (1.4-6.5) H 03/27/24 17:17 Segmented Neutrophils 56 % 03/27/24 17:17 Band Neutrophils 3.0 % 03/27/24 17:17 Absolute Lymphocytes 3.3 10^3/cmm (1.2-3.4) 03/27/24 17:17 Lymphocytes (Manual) 25 % 03/27/24 17:17 Monocytes (Manual) 6.0 % 03/27/24 17:17 Absolute Monocytes 0.7 10^3/cmm (0.1-0.6) H 03/27/24 17:17 Eosinophils (Manual) 0 % 03/27/24 17:17 Absolute Eosinophils 0.0 10^3/cmm (0.0-0.7) 03/27/24 17:17 Basophils (Manual) 0.0 % 03/27/24 17:17 Absolute Basophils 0.0 10^3/cmm (0.0-0.2) 03/27/24 17:17 Metamyelocytes 4.0 % 03/27/24 17:17 Myelocytes 4.0 % 03/27/24 17:17 Platelet Estimate Decreased (Normal) 03/27/24 17:17 Specimen Type Arterial 03/27/24 16:51 Sample Site Radial, right 03/27/24 16:51 ABG pH 7.42 (7.35-7.45) 03/27/24 16:51 ABG pCO2 37.6 mmHg (35-45) 03/27/24 16:51 ABG pO2 68.5 mmHg (80.0-100.0) L 03/27/24 16:51 ABG PO2/FiO2 Ratio 326 03/27/24 16:51 ABG HCO3 24.5 mmol/L (22-26) 03/27/24 16:51 ABG O2 Saturation 93.2 03/27/24 16:51 ABG Base Excess 0.1 mmol/L (-2.0-2.0) 03/27/24 16:51 Terry Test Pos 03/27/24 16:51 A-a O2 Gradient 4.5 mmHg (5-10) L 03/27/24 16:51 Hematocrit 26.4 % (42-52) L 03/27/24 16:51 Hgb O2 Saturation 91.5 % (95-100) L 03/27/24 16:51 Carboxyhemoglobin 1.6 %THgb (0.4-20.1) 03/27/24 16:51 Methemoglobin 0.4 % (0.4-1.5) 03/27/24 16:51 Total Hemoglobin 8.6 g/dL (14-18) L 03/27/24 16:51 Sodium 132.0 mmol/L (131-143) 03/27/24 16:51 Potassium 4.5 mmol/L (3.5-5.0) 03/27/24 16:51 Glucose 481.0 mg/dL (70-115) H 03/27/24 16:51 Ionized Calcium 1.2 mmol/L (1.1-1.4) 03/27/24 16:51 O2 Delivery Device Room air 03/27/24 16:51 FiO2 21.0 % 03/27/24 16:51 Informatics Spec ID Monro 03/27/24 16:51 Sodium 129 mmol/L (136-145) L 03/27/24 17:17 Potassium 4.6 mmol/L (3.5-5.1) 03/27/24 17:17 Chloride 93 mmol/L (98-107) L 03/27/24 17:17 Carbon Dioxide 24 mmol/L (22-29) 03/27/24 17:17 Anion Gap 16.6 (5-19) 03/27/24 17:17 BUN 28 mg/dL (8-23) H 03/27/24 17:17 Creatinine 1.1 mg/dL (0.7-1.2) 03/27/24 17:17 GFR Calculation Not Reportable 03/27/24 17:17 Glucose 500 mg/dL (65-115) H 03/27/24 17:17 POC Glucose 274 mg/dL (70-110) H 03/27/24 21:01 Calculated Osmolality 296 mOsm/kg (285-295) H 03/27/24 17:17 Lactic Acid 2.7 mmol/L (0.5-2.2) H 03/27/24 17:17 Calcium 9.8 mg/dL (8.5-10.5) 03/27/24 17:17 Total Bilirubin 1.0 mg/dL (0.15-1.2) 03/27/24 17:17 AST 24 U/L (0-40) 03/27/24 17:17 ALT 19 U/L (0-41) 03/27/24 17:17 Alkaline Phosphatase 103 U/L (40-130) 03/27/24 17:17 Total Protein 7.6 g/dL (6.6-8.7) 03/27/24 17:17 Albumin 4.3 g/dL (3.5-5.2) 03/27/24 17:17 Globulin 3.3 g/dL (1.3-4.6) 03/27/24 17:17 Urine Color Yellow (Yellow) 03/27/24 19:58 Urine Appearance Clear (CLEAR) 03/27/24 19:58 Urine pH 6.5 (5-7) 03/27/24 19:58 Ur Specific Baxter 1.034 (1.005-1.030) H 03/27/24 19:58 Urine Protein 1+ (Negative) A 03/27/24 19:58 Urine Glucose (UA) 3+ (Normal) H 03/27/24 19:58 Urine Ketones Negative (Negative) 03/27/24 19:58 Urine Blood 1+ (Negative) A 03/27/24 19:58 Urine Nitrate Negative (Negative) 03/27/24 19:58 Urine Bilirubin Negative (Negative) 03/27/24 19:58 Urine Urobilinogen 0.2 mg/dL (Negative) 03/27/24 19:58 Ur Leukocyte Esterase Negative (Negative) 03/27/24 19:58 Urine RBC 3-5 /hpf (0-2) 03/27/24 19:58 Urine WBC 0-5 /hpf (0-5) 03/27/24 19:58 Ur Squamous Epith Cells 0-5 /hpf (0-5) 03/27/24 19:58 Amorphous Sediment Not Reportable 03/27/24 19:58 Urine Bacteria None seen /hpf (NONE) 03/27/24 19:58 Hyaline Casts 0-4 /lpf H 03/27/24 19:58 Serum Ketones Negative (Negative) 03/27/24 17:17 Coronavirus (PCR) Negative (Negative) 03/27/24 19:58 Influenza A (PCR) Negative (Negative) 03/27/24 19:58 Influenza Type B (PCR) Negative (Negative) 03/27/24 19:58 RSV (PCR) Negative (Negative) 03/27/24 19:58 All radiology interpretation(s) finalized by discharge Discharge Plan Discharge Patient Disposition: Home Clinical Impression: Hyperglycemia Condition: Stable Prescriptions: No Action magnesium oxide 250 mg magnesium tablet 250 mg PO DAILY@0700 multivitamin Tablet 1 tab PO DAILY fosfomycin tromethamine 3 gram packet PO triamcinolone acetonide 0.1 % cream 1 applic topical BID 14 Days Qty: 80 0RF (DME) Left Knee Medial [employer] Agent Brace See Rx Instructions .Route .MEDSUPPLY Qty: 1 0RF Rx Instructions: As directed Miralax 17 gram/dose powder 17 g PO DAILY@0700 PRN (Reason: Constipation) tamsulosin 0.4 mg capsule 0.8 mg PO DAILY Qty: 180 1RF losartan 50 mg tablet 50 mg PO DAILY Qty: 90 3RF (DME) Auto-Titrating CPAP Device See Rx Instructions .Route Qty: 1 0RF Rx Instructions: As directed, auto-titrating 6-14 atorvastatin 40 mg tablet 40 mg PO DAILY Qty: 90 3RF RSVPreF3 antigen-AS01E (PF) 120 mcg/0.5 mL suspension for reconstitution 0.5 ml IM ONCE Qty: 1 0RF pantoprazole 40 mg tablet,delayed release (DR/EC) 40 mg PO BID Qty: 60 2RF gabapentin 300 mg capsule See Rx Instructions .ROUTE .COMPLEX Qty: 180 1RF Dose Instruction: TAKE ONE CAPSULE BY MOUTH TWICE DAILY Rx Instructions: TAKE ONE CAPSULE BY MOUTH TWICE DAILY Ozempic 0.25 mg or 0.5 mg (2 mg/3 mL) pen injector See Rx Instructions .ROUTE .COMPLEX Qty: 3 0RF Dose Instruction: INJECT 0.25mg SUBCUTANEOUSLY ONCE WEEKLY FOR FOUR WEEKS, THEN INCREASE TO 0.5mg SUBCUTANEOUSLY ONCE WEEKLY Rx Instructions: INJECT 0.25mg SUBCUTANEOUSLY ONCE WEEKLY FOR FOUR WEEKS, THEN INCREASE TO 0.5mg SUBCUTANEOUSLY ONCE WEEKLY sennosides [Senokot] 8.6 mg Tablet 8.6 mg PO DAILY PRN (Reason: Constipation) aspirin 81 mg tablet,delayed release (DR/EC) 81 mg PO DAILY Qty: 30 0RF melatonin 5 mg Tablet 5 mg PO BEDTIME PRN (Reason: Insomnia) luspatercept-aamt 25 mg Recon Soln 25 mg SUBCUT Q21D Discharge Orders: Discharge ED (Routine); Ordered 03/27/24 Ordered By: Noelle Yo Referrals: Hayde Washington FNP [Primary Care Provider] - Discharge Diet: Usual diet Patient Instructions: Diabetic Hyperglycemia (ED), Opioid Safety, Pain Management Activity Restrictions/Additional Instructions: Please drink copious amounts of water over the next couple days to help keep your blood sugars down. Thank you for choosing [facility] for your healthcare needs today. Please realize this is an emergency room and that we are providing you with a medical screening exam and this may not be complete and all inclusive of all the testing and or work up that you may need to determine your ailment or severity of your illness. You have been screened and evaluated and felt safe for discharge. Health conditions do change or evolve sometimes and as such it is important that you follow up with your Primary Doctor to be re checked, 3-5 days is a general good time frame for follow up. You are always welcome to return to the ED for re assessment if your symptoms are worsening or you have new concerns Coding Level of Care Code ED Bacteriology Teacher for Lilli Hendrix
[2024-03-27 19:20] LABS: Reflex Lactate Order REFLEX LACTIC ORDERD
[2024-03-27] MEDS: sodium chloride 0.9% 1,000 ML 999 ML IV (20:15)
[2024-03-27 20:18] LABS: Bilirubin Urine Negative (Negative); Blood Urine 1+ (Negative); Glucose Urine UA 3+ (Normal); Ketones Urine Negative (Negative); Leukocyte Esterase Urine Negative (Negative); Nitrate Urine Negative (Negative); Protein Urine 1+ (Negative); Urine Appearance Clear (CLEAR); Urine Color Yellow (Yellow); Urobilinogen Urine 0.2 mg/dL (Negative); pH Urine 6.5 (5-7)
[2024-03-27] MEDS: insulin regular-human 100 units/1 mL 15 UNIT IVP (20:18)
[2024-03-27 20:23] LABS: Bacteria Urine None Seen /hpf; Hyaline Casts Urine 0-4 /lpf; Squamous Epithelial Cell Urine 0-5 /hpf (0-5); WBC Urine 0-5 /hpf (0-5)
[2024-03-27 20:24] LABS: Specific Gravity, Urine 1.034 (1.005-1.030)
[2024-03-27 20:26] LABS: Glucose Point of Care 405 mg/dL (70-110)
[2024-03-27 20:54] LABS: Covid PCR NEGATIVE (Negative); Influenza A NEGATIVE (Negative); Influenza B NEGATIVE (Negative); Respiratory Syncytial Virus Ce NEGATIVE (Negative)
[2024-03-27 21:05] LABS: Glucose Point of Care 274 mg/dL (70-110)
[2024-03-27 21:20] VITALS: BP 139/87; PULSE 87; RESP 16; O2SAT 92
[2024-03-27 21:26] VITALS: BP 139/87; PULSE 87; RESP 18; O2SAT 92
== END 2024-03-27 21:37 | disposition home or self-care (01) ==
PROVIDERS: Emergency Provider Emergency Medicine; PCP Nurse Practitioner Family
DX: E11.65 Type 2 diabetes mellitus with hyperglycemia (principal); Z79.82 Long term (current) use of aspirin; Z11.52 Encounter for screening for COVID-19; Z87.891 Personal history of nicotine dependence; Z95.1 Presence of aortocoronary bypass graft; Z86.73 Personal history of transient ischemic attack (TIA), and cerebral infarction without residual deficits; I25.10 Atherosclerotic heart disease of native coronary artery without angina pectoris; E78.5 Hyperlipidemia, unspecified; I10 Essential (primary) hypertension
CPT/HCPCS: 0241U; 36415; 36416; 36600; 71045; 80051; 80053; 81001; 82009; 82330; 82805; 82962; 83605; 85007; 85025; 87040; 96374; 99284; J1815; J7030

== ENCOUNTER 2024-03-28 09:36 | Emergency (ER) | payer MEDICARE, OTHER, SELFPAY ==
[2024-03-28 09:53] VITALS: BP 141/81; PULSE 85; RESP 16; TEMP 36.7; O2SAT 96; BMI 29.5
[2024-03-28 10:11] LABS: Glucose Point of Care 505 mg/dL (70-110)
[2024-03-28 10:28] LABS: Basophils # 0.1 10^3/uL (0.0-0.1); Basophils % 0.8 %; Eosinophils % 0.2 %; Hematocrit 31.5 % (37-53); Lymphocytes # 2.2 10^3/uL (0.8-4.8); Lymphocytes % 24.1 %; Mean Corpuscular HGB Conc 27.6 g/dL (30-55); Mean Corpuscular Hemoglobin 27.3 pg (27-33); Mean Corpuscular Volume 98.7 fl (82-101); Mean Platelet Volume 11.9 fL (7.4-10.4); Monocytes # 1.4 10^3/uL (0.2-0.9); Monocytes % 14.8 %; Neutrophils # 4.17 10^3/uL (1.8-7.7); Neutrophils % 45.4 %; Nucleated Red Blood Cells # 0.1 /100WBC; Platelet Count 135 10^3/cmm (157-399); Red Blood Count 3.19 10^6/uL (3.85-5.65); Red Cell Distribution Width 22.5 % (12.1-15.1); White Blood Count 9.18 10^3/uL (3.29-11.43)
[2024-03-28 10:35] LABS: Ketone (Acetest) Serum Negative (Negative)
--- NOTE | 2024-03-28 10:39 | ED_ITS ---
HPI - General Adult 2 General: Chief complaint: General Medical Stated complaint: blood sugar 500+ Time Seen by Provider: 03/28/24 10:02 History of Present Illness: Patient presents to the emergency room with increased blood glucose at about 500 today. I saw him last night. Got sugar down to about 250. He was thinking this might be related to a steroid shot he got recently. He says he has diabetes but only takes Ozempic. Infectious workup yesterday was negative. He has not had any ketones. No acidosis. Does have increased urinary frequency. Increased thirst. Related Data Home Medications Medication Instructions Recorded Confirmed magnesium oxide 250 mg PO DAILY@0700 07/30/19 03/28/24 polyethylene glycol 3350 17 17 g PO DAILY@0700 PRN Constipation 02/13/22 03/28/24 gram/dose oral powder (Miralax) multivitamin 1 tab PO DAILY 05/29/22 03/28/24 sennosides 8.6 mg tablet (Senokot) 8.6 mg PO DAILY PRN Constipation 12/11/23 03/28/24 luspatercept-aamt 25 mg 25 mg SUBCUT Q21D 12/29/23 03/28/24 subcutaneous solution melatonin 5 mg tablet 5 mg PO BEDTIME PRN Insomnia 12/29/23 03/28/24 clopidogrel 75 mg tablet 75 mg PO DAILY 03/28/24 03/28/24 gabapentin 300 mg capsule 300 mg PO BID 03/28/24 03/28/24 hydrocodone 5 mg-acetaminophen 325 1 tab PO Q6H PRN Pain 03/28/24 03/28/24 mg tablet nitrofurantoin 1 cap PO DAILY 03/28/24 03/28/24 monohydrate/macrocrystals 100 mg capsule Previous Rx's Medication Instructions Recorded losartan 50 mg tablet 50 mg PO DAILY #90 tabs 08/12/23 tamsulosin 0.4 mg capsule 0.8 mg (2 x 0.4 mg) PO DAILY #180 09/15/23 caps CPAP (Auto-Titrating CPAP) #1 ea 11/28/23 aspirin 81 mg tablet,delayed 81 mg PO DAILY #30 tabs 12/11/23 release atorvastatin 40 mg tablet 40 mg PO DAILY #90 tabs 01/23/24 triamcinolone acetonide 0.1 % 1 applic topical BID 14 days #80 02/16/24 topical cream grams pantoprazole 40 mg tablet,delayed 40 mg PO BID #60 tabs 03/01/24 release semaglutide 0.25 mg or 0.5 mg (2 See Rx Instructions .Route 03/24/24 mg/3 mL) subcutaneous pen injector .COMPLEX #3 mL (Ozempic) Left Knee Medial [employer] Planning Professor Brace #1 ea 03/25/24 benzonatate 200 mg capsule 200 mg PO TID PRN cough #30 caps 03/28/24 glimepiride 2 mg tablet 2 mg PO DAILY #30 tabs 03/28/24 Allergies Allergy/AdvReac Type Severity Reaction Status Date / Time Sulfa (Sulfonamide Allergy ALGY-Swell Verified 03/28/24 10:06 Antibiotics) Lip/Tongue/Throat sulfamethoxazole Allergy Unknown Verified 03/28/24 10:06 [From Bactrim] trimethoprim [From Bactrim] Allergy Unknown Verified 03/28/24 10:06 Review of Systems 2 Narrative: Constitutional symptoms: Negative except as documented in HPI. Skin symptoms: Negative except as documented in HPI. Eye symptoms: Negative except as documented in HPI. ENMT symptoms: Negative except as documented in HPI. Respiratory symptoms: Negative except as documented in HPI. Cardiovascular symptoms: Negative except as documented in HPI. Gastrointestinal symptoms: Negative except as documented in HPI. Genitourinary symptoms: Negative except as documented in HPI. Musculoskeletal symptoms: Negative except as documented in HPI. Neurologic symptoms: Negative except as documented in HPI. Psychiatric symptoms: Negative except as documented in HPI. Endocrine symptoms: Negative except as documented in HPI. 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 Hypertension Coronary artery disease History of ehrlichiosis Type 2 diabetes mellitus Anemia Balanitis BPH loc w urin obs/LUTS Phimosis Hyperlipidemia, unspecified Esophagitis, unspecified Bilateral kidney stones calcium phosphate 2018 Spinal stenosis, lumbar region without neurogenic claudication Gastritis History of foot fracture (~1980) Surgical History History of ureteroscopy History of lithotripsy ESWL History of cataract surgery History of shoulder surgery History of colonoscopy (03/16/19) History of esophagogastroduodenoscopy (EGD) (03/16/19) History of coronary artery bypass graft x 3 (2013) S/P ureteral stent placement (2018) Family History Father , at age 86 Diabetes Hyperlipidemia Hypertension Family/Other Diabetes Cancer CAD (coronary artery disease) Hypertension Mother , at age 76 No problems noted. Denies family history of Anesthesia complication Social History Smoking and tobacco/nicotine status: former use of tobacco/nicotine Quit status (tobacco/nicotine): has quit using Year quit tobacco: 1981 Former quit date comment: Smoked 25+ years Alcohol intake: never Substance/Drug Use: never Caregiver/support person: Yes Lives independently: Yes Household members: spouse Housing: House Marital status: Current occupational status: retired Previous occupational history: [employer] Current gender identity: Male Physical Exam 2 Narrative: EXAM NARRATIVE: General: Alert, no acute distress. Skin: Warm, dry. Head: Normocephalic, atraumatic. Neck: Supple, trachea midline. Eye: Extraocular movements are intact. Ears, nose, mouth and throat: mucosa moist. Cardiovascular: Regular, Normal peripheral perfusion. Respiratory: Lungs are clear to auscultation, respirations are non-labored, breath sounds are equal, Symmetrical chest wall expansion. Gastrointestinal: Soft, Nontender, Non distended Musculoskeletal: Normal ROM, no deformity. Neurological: Alert and oriented, No focal neurological deficit observed. Psychiatric: Cooperative, appropriate mood & affect. Course 2 Vital Signs: Vital signs: Vital Signs Temperature 98.0 F 03/28/24 09:53 Pulse Rate 85 03/28/24 09:53 Respiratory Rate 16 03/28/24 09:53 Blood Pressure 141/81 03/28/24 09:53 Pulse Oximetry 96 03/28/24 09:53 Oxygen Delivery Me thod Room Air 03/28/24 09:53 MDM - General Adult Medical Decision Making Medical decision making: Differential diagnosis for the patient with hyperglycemia would include but not be limited to and would be based on the above HPI review of systems and physical exam: DKA. Dehydration. Renal failure. Concern for electrolyte abnormalities. Concern for underlying infection that might result in hyperglycemia. Medical non-compliance Orders placed to evaluate differential diagnosis of the patient with hyperglycemia are based on the above differential, HPI and physical exam. Lab Review: Laboratory results were reviewed and interpreted by myself the emergency room physician. Stable anemia. Stable chronic renal disease. Glucose is again elevated at almost 500 on his BMP today. Hemoglobin A1c is 10. I reviewed the patient's medical record. Patient had his A1c down to around 6 in July. It is back up to 10 today. Reexamination: Patient remained stable. No increased work of breathing. No altered mental status. No focal motor deficits. Consultation: I spoke with Dr. Spicer who is on-call for the hospitalist service. We discussed good control of the patient's sugar as his A1c is back up again. He recommends low-dose glimepiride for now. But ultimately the patient needs to see his primary care provider. I also discussed with the patient that diet could have a very big effect on his A1c as he had it fairly well-controlled recently. We discussed that likely just the last few days of 500s did not just push his A1c to 10, but rather he has probably been running fairly high for some time now. Assessment and plan: Hyperglycemia Cough -15 units IV insulin here in the emergency room. Patient's glucose is down to about 380 on discharge. Gave his first dose of glimepiride here. Also a dose of Tessalon Perles here for cough. He had no evidence of pneumonia or anything on his chest x-ray yesterday. - Discharged home - Discussed findings and plan with patient. Answered any questions. - All laboratory values were reviewed and interpreted personally by myself, the ER physician - All imaging was reviewed and interpreted personally by myself, the ER physician. - Evaluation and treatment of this problem were appropriate in the emergency setting Lab Data 03/28/24 10:19 03/28/24 10:19 Laboratory Results WBC 9.18 10^3/uL (3.29-11.43) 03/28/24 10:19 RBC 3.19 10^6/uL (3.85-5.65) L 03/28/24 10:19 Hgb 8.70 g/dL (11.27-16.99) L 03/28/24 10:19 Hct 31.5 % (37-53) L 03/28/24 10:19 MCV 98.7 fl (82-101) 03/28/24 10:19 MCH 27.3 pg (27-33) 03/28/24 10:19 MCHC 27.6 g/dL (30-55) L D 03/28/24 10:19 RDW 22.5 % (12.1-15.1) H 03/28/24 10:19 Plt Count 135 10^3/cmm (157-399) L 03/28/24 10:19 MPV 11.9 fL (7.4-10.4) H 03/28/24 10:19 Neut % (Auto) 45.4 % 03/28/24 10:19 Lymph % (Auto) 24.1 % 03/28/24 10:19 [place] % (Auto) 14.8 % 03/28/24 10:19 Eos % (Auto) 0.2 % 03/28/24 10:19 Baso % (Auto) 0.8 % 03/28/24 10:19 Neut # (Auto) 4.17 10^3/uL (1.8-7.7) 03/28/24 10:19 Lymph # (Auto) 2.2 10^3/uL (0.8-4.8) 03/28/24 10:19 [place] # (Auto) 1.4 10^3/uL (0.2-0.9) H 03/28/24 10:19 Eos # (Auto) 0.0 10^3/uL (0.0-0.8) 03/28/24 10:19 Baso # (Auto) 0.1 10^3/uL (0.0-0.1) 03/28/24 10:19 Nucleated RBC % (auto) 1.0 % 03/28/24 10:19 Nucleated RBCs # 0.1 /100WBC 03/28/24 10:19 Sodium 132 mmol/L (136-145) L 03/28/24 10:19 Potassium 4.6 mmol/L (3.5-5.1) 03/28/24 10:19 Chloride 99 mmol/L (98-107) 03/28/24 10:19 Carbon Dioxide 21 mmol/L (22-29) L 03/28/24 10:19 Anion Gap 16.6 (5-19) 03/28/24 10:19 BUN 26 mg/dL (8-23) H 03/28/24 10:19 Creatinine 1.2 mg/dL (0.7-1.2) 03/28/24 10:19 GFR Calculation Not Reportable 03/28/24 10:19 Glucose 469 mg/dL (65-115) H 03/28/24 10:19 POC Glucose 380 mg/dL (70-110) H 03/28/24 11:36 Estimat Average Glucose 243 03/28/24 10:19 Hemoglobin A1c 10.1 % (4.0-6.0) H 03/28/24 10:19 Calculated Osmolality 299 mOsm/kg (285-295) H 03/28/24 10:19 Calcium 9.2 mg/dL (8.5-10.5) 03/28/24 10:19 Total Bilirubin 1.0 mg/dL (0.15-1.2) 03/28/24 10:19 AST 25 U/L (0-40) 03/28/24 10:19 ALT 21 U/L (0-41) 03/28/24 10:19 Alkaline Phosphatase 107 U/L (40-130) 03/28/24 10:19 Total Protein 7.0 g/dL (6.6-8.7) 03/28/24 10:19 Albumin 4.1 g/dL (3.5-5.2) 03/28/24 10:19 Globulin 2.9 g/dL (1.3-4.6) 03/28/24 10:19 Serum Ketones Negative (Negative) 03/28/24 10:19 No radiology studies performed this visit Discharge Plan Discharge Patient Disposition: Home Clinical Impression: Hyperglycemia, Type 2 diabetes mellitus Condition: Stable Prescriptions: New glimepiride 2 mg tablet 2 mg PO DAILY Qty: 30 0RF benzonatate 200 mg capsule 200 mg PO TID PRN (Reason: cough) Qty: 30 0RF No Action magnesium oxide 250 mg magnesium tablet 250 mg PO DAILY@0700 multivitamin Tablet 1 tab PO DAILY triamcinolone acetonide 0.1 % cream 1 applic topical BID 14 Days Qty: 80 0RF (DME) Left Knee Medial Urban Planning Professor Brace See Rx Instructions .Route .MEDSUPPLY Qty: 1 0RF Rx Instructions: As directed Miralax 17 gram/dose powder 17 g PO DAILY@0700 PRN (Reason: Constipation) tamsulosin 0.4 mg capsule 0.8 mg PO DAILY Qty: 180 1RF losartan 50 mg tablet 50 mg PO DAILY Qty: 90 3RF (DME) Auto-Titrating CPAP Device See Rx Instructions .Route Qty: 1 0RF Rx Instructions: As directed, auto-titrating 6-14 atorvastatin 40 mg tablet 40 mg PO DAILY Qty: 90 3RF pantoprazole 40 mg tablet,delayed release (DR/EC) 40 mg PO BID Qty: 60 2RF Ozempic 0.25 mg or 0.5 mg (2 mg/3 mL) pen injector See Rx Instructions .ROUTE .COMPLEX Qty: 3 0RF Dose Instruction: INJECT 0.25mg SUBCUTANEOUSLY ONCE WEEKLY FOR FOUR WEEKS, THEN INCREASE TO 0.5mg SUBCUTANEOUSLY ONCE WEEKLY Rx Instructions: INJECT 0.25mg SUBCUTANEOUSLY ONCE WEEKLY FOR FOUR WEEKS, THEN INCREASE TO 0.5mg SUBCUTANEOUSLY ONCE WEEKLY ON FRIDAY. sennosides [Senokot] 8.6 mg Tablet 8.6 mg PO DAILY PRN (Reason: Constipation) aspirin 81 mg tablet,delayed release (DR/EC) 81 mg PO DAILY Qty: 30 0RF melatonin 5 mg Tablet 5 mg PO BEDTIME PRN (Reason: Insomnia) luspatercept-aamt 25 mg Recon Soln 25 mg SUBCUT Q21D hydrocodone-acetaminophen 5-325 mg tablet 1 tab PO Q6H PRN (Reason: Pain) clopidogrel 75 mg tablet 75 mg PO DAILY nitrofurantoin monohyd/m-cryst 100 mg capsule 1 cap PO DAILY gabapentin 300 mg capsule 300 mg PO BID Discharge Orders: Discharge ED (Routine); Ordered 03/28/24 Ordered By: Noelle Yo Referrals: Hayde Washingtno FNP [Primary Care Provider] - Discharge Diet: Advance as tolerated Discharge Activity: Resume usual activity Patient Instructions: Diabetic Hyperglycemia (ED), Opioid Safety, Pain Management Activity Restrictions/Additional Instructions: Thank you for choosing [facility] for your healthcare needs today. Please realize this is an emergency room and that we are providing you with a medical screening exam and this may not be complete and all inclusive of all the testing and or work up that you may need to determine your ailment or severity of your illness. You have been screened and evaluated and felt safe for discharge. Health conditions do change or evolve sometimes and as such it is important that you follow up with your Primary Doctor to be re checked, 3-5 days is a general good time frame for follow up. You are always welcome to return to the ED for re assessment if your symptoms are worsening or you have new concerns Coding Level of Care Code ED Geography Teacher for Lilli Hendrix
[2024-03-28 10:48] LABS: Alanine Aminotransferase 21 U/L (0-41); Albumin Level 4.1 g/dL (3.5-5.2); Alkaline Phosphatase 107 U/L (40-130); Anion Gap 16.6 (5-19); Aspartate Amino Transferase 25 U/L (0-40); Blood Urea Nitrogen 26 mg/dL (8-23); Calcium 9.2 mg/dL (8.5-10.5); Carbon Dioxide 21 mmol/L (22-29); Chloride 99 mmol/L (98-107); Creatinine Clr Calc Pharmacy 56.1504; Globulin 2.9 g/dL (1.3-4.6); Glucose 469 mg/dL (65-115); Osmolality Calculated 299 mOsm/kg (285-295); Potassium 4.6 mmol/L (3.5-5.1); Sodium 132 mmol/L (136-145)
[2024-03-28 10:50] LABS: Estmated Average Glucose 243; Hemoglobin A1C 10.1 % (4.0-6.0)
[2024-03-28] MEDS: insulin regular-human 100 units/1 mL 14 UNIT IVP (10:53)
[2024-03-28] MEDS: glimepiride 2 mg Tablet PO (11:38)
[2024-03-28] MEDS: benzonatate 100 mg Capsule 200 MG PO (11:38)
[2024-03-28 11:40] LABS: Glucose Point of Care 380 mg/dL (70-110)
[2024-03-28 11:44] VITALS: BP 142/80; PULSE 72; O2SAT 95
== END 2024-03-28 11:46 | disposition home or self-care (01) ==
PROVIDERS: Emergency Provider Emergency Medicine; PCP Nurse Practitioner Family
DX: E11.65 Type 2 diabetes mellitus with hyperglycemia (principal); Z79.02 Long term (current) use of antithrombotics/antiplatelets; Z87.891 Personal history of nicotine dependence; I25.10 Atherosclerotic heart disease of native coronary artery without angina pectoris; Z86.73 Personal history of transient ischemic attack (TIA), and cerebral infarction without residual deficits; E78.5 Hyperlipidemia, unspecified; Z79.82 Long term (current) use of aspirin
CPT/HCPCS: 36415; 36416; 80053; 82009; 82962; 83036; 85025; 96374; 99284; J1815

== ENCOUNTER → 2024-03-30 10:30 | Outpatient (BNVA) | payer MEDICARE, OTHER, SELFPAY | PROVIDERS: PCP Nurse Practitioner Family; Visit Provider Nurse Practitioner Family | DX: R30.0 Dysuria (principal) | CPT/HCPCS: 81000 ==

== ENCOUNTER → 2024-04-05 11:59 | Outpatient (BNVA) | payer MEDICARE, OTHER, SELFPAY | PROVIDERS: PCP Nurse Practitioner Family; Visit Provider Nurse Practitioner Family | DX: D46.1 Refractory anemia with ring sideroblasts (principal); D50.9 Iron deficiency anemia, unspecified | CPT/HCPCS: 80053; 82607; 82728; 82746; 83550; 85007; 85025 ==

== ENCOUNTER 2024-04-08 09:30 | Oncology outpatient (recurring) (ONCR) | payer MEDICARE, OTHER, SELFPAY ==
[2024-04-08] MEDS: LUSPATERCEPT AAMT 97.5 MG SUBCUT (11:21)
== END 2024-04-08 23:59 | disposition home or self-care (01) ==
PROVIDERS: PCP Nurse Practitioner Family; Visit Provider Internal Medicine Medical Oncology
DX: Z53.9 Procedure and treatment not carried out, unspecified reason (principal); D46.1 Refractory anemia with ring sideroblasts; D50.9 Iron deficiency anemia, unspecified; Z79.899 Other long term (current) drug therapy
CPT/HCPCS: 96372; 99213; J0896

== ENCOUNTER → 2024-04-12 11:05 | Outpatient (BNVA) | payer MEDICARE, OTHER, SELFPAY | PROVIDERS: PCP Nurse Practitioner Family; Visit Provider Nurse Practitioner Family | DX: L29.89 Other pruritus (principal); H10.45 Other chronic allergic conjunctivitis; K13.0 Diseases of lips; L82.0 Inflamed seborrheic keratosis; R20.8 Other disturbances of skin sensation | CPT/HCPCS: 17000; 17110; 99214 ==

== ENCOUNTER 2024-04-29 10:55 | Oncology outpatient (recurring) (ONCR) | payer MEDICARE, OTHER, SELFPAY ==
[2024-04-15] MEDS: sodium chloride 0.9% 250 ML 75 ML IV (11:00)
[2024-04-15] MEDS: ferric carboxy (PYXIS) 750 MG in sodium chloride 0.9% (100 ml) 100 ML 345 MG IV (11:01)
[2024-04-15 11:52] VITALS: BP 148/74; PULSE 66; RESP 17; TEMP 36.3; O2SAT 96
[2024-04-22] MEDS: sodium chloride 0.9% 250 ML 650 ML IV (10:55)
[2024-04-22] MEDS: ferric carboxy (PYXIS) 750 MG in sodium chloride 0.9% (100 ml) 100 ML 345 MG IV (10:56)
[2024-04-22 11:50] VITALS: BP 130/62; PULSE 60; RESP 16; TEMP 36.9; O2SAT 98
[2024-04-29 11:26] LABS: Hematocrit 31.4 % (37-53); Mean Corpuscular HGB Conc 29.9 g/dL (30-55); Mean Corpuscular Hemoglobin 29.9 pg (27-33); Mean Platelet Volume 9.9 fL (7.4-10.4); Platelet Count 169 10^3/cmm (157-399); Red Blood Count 3.14 10^6/uL (3.85-5.65); Red Cell Distribution Width 28.6 % (12.1-15.1); White Blood Count 5.38 10^3/uL (3.29-11.43)
[2024-04-29 11:42] LABS: Alanine Aminotransferase 18 U/L (0-41); Albumin Level 4.3 g/dL (3.5-5.2); Alkaline Phosphatase 125 U/L (40-130); Anion Gap 15.1 (5-19); Aspartate Amino Transferase 19 U/L (0-40); Blood Urea Nitrogen 15 mg/dL (8-23); Calcium 8.6 mg/dL (8.5-10.5); Carbon Dioxide 24 mmol/L (22-29); Chloride 102 mmol/L (98-107); Globulin 2.5 g/dL (1.3-4.6); Glucose 139 mg/dL (65-115); Lactate Dehydrogenase 303 U/L (135-225); Osmolality Calculated 287 mOsm/kg (285-295); Potassium 4.1 mmol/L (3.5-5.1); Sodium 137 mmol/L (136-145); Total Bilirubin 1.4 mg/dL (0.15-1.2); Total Protein 6.8 g/dL (6.6-8.7)
[2024-04-29 12:01] LABS: Slide Review Slide Review Perform
[2024-04-29 12:03] LABS: Absolute Eosinophils 0.2 10^3/cmm (0.0-0.7); Absolute Neutrophil 1.7 10^3/cmm (1.4-6.5); Absolute Segmented Neutrophil 1.6 10/cmm (1.6-7.1); Band Neutrophils Absolute 0.1 10^3/cmm (0.0-1.2); Eosinophils 3 %; Giant Platelets Trace; Lymphocytes 36 %; Lymphocytes Absolute 1.9 10^3/cmm (1.2-3.4); Platelet Estimate Normal (Normal); Segmented Neutrophils 29 %; Total Cells Counted 100 (0-100)
[2024-04-29 12:04] LABS: Anisocytosis 2+; Smudge Cells Trace
[2024-04-29] MEDS: LUSPATERCEPT AAMT 96.5 MG SUBCUT (13:34)
== END 2024-04-29 23:59 | disposition home or self-care (01) ==
PROVIDERS: PCP Nurse Practitioner Family; Visit Provider Internal Medicine
DX: Z79.899 Other long term (current) drug therapy (principal); Z53.9 Procedure and treatment not carried out, unspecified reason; D46.1 Refractory anemia with ring sideroblasts; Z87.891 Personal history of nicotine dependence; D50.9 Iron deficiency anemia, unspecified
CPT/HCPCS: 36415; 80053; 83615; 84550; 85007; 85025; 96365; 96372; 99213; 99214; J0896; J1439; J7050

== ENCOUNTER → 2024-06-09 08:58 | Outpatient (BNVA) | payer MEDICARE, OTHER, SELFPAY | PROVIDERS: Family Provider Nurse Practitioner Family; PCP Nurse Practitioner Family; Visit Provider Nurse Practitioner Family | DX: D46.9 Myelodysplastic syndrome, unspecified (principal) | CPT/HCPCS: 80053; 83615; 85007; 85025 ==

== ENCOUNTER 2024-06-10 08:29 | Oncology outpatient (recurring) (ONCR) | payer MEDICARE, OTHER, SELFPAY ==
[2024-05-20 08:50] LABS: Basophils # 0.1 10^3/uL (0.0-0.1); Basophils % 1.6 %; Eosinophils # 0.3 10^3/uL (0.0-0.8); Eosinophils % 6.8 %; Hematocrit 37.3 % (37-53); Lymphocytes # 1.7 10^3/uL (0.8-4.8); Lymphocytes % 34.1 %; Mean Corpuscular HGB Conc 31.1 g/dL (30-55); Mean Corpuscular Hemoglobin 31.9 pg (27-33); Mean Corpuscular Volume 102.5 fl (82-101); Mean Platelet Volume 10.5 fL (7.4-10.4); Monocytes # 0.7 10^3/uL (0.2-0.9); Monocytes % 13.4 %; Neutrophils # 1.91 10^3/uL (1.8-7.7); Neutrophils % 38.1 %; Nucleated Red Blood Cells % 0.4 %; Platelet Count 186 10^3/cmm (157-399); Red Blood Count 3.64 10^6/uL (3.85-5.65); Red Cell Distribution Width 26.1 % (12.1-15.1); White Blood Count 5.01 10^3/uL (3.29-11.43)
[2024-05-20 09:05] LABS: Alanine Aminotransferase 26 U/L (0-41); Albumin Level 4.1 g/dL (3.5-5.2); Alkaline Phosphatase 133 U/L (40-130); Anion Gap 13.3 (5-19); Aspartate Amino Transferase 20 U/L (0-40); Blood Urea Nitrogen 11 mg/dL (8-23); Calcium 8.7 mg/dL (8.5-10.5); Carbon Dioxide 27 mmol/L (22-29); Chloride 103 mmol/L (98-107); Creatinine Clr Calc Pharmacy 74.7047; Globulin 2.9 g/dL (1.3-4.6); Glucose 211 mg/dL (65-115); Lactate Dehydrogenase 215 U/L (135-225); Osmolality Calculated 294 mOsm/kg (285-295); Potassium 4.3 mmol/L (3.5-5.1); Sodium 139 mmol/L (136-145); Total Bilirubin 0.8 mg/dL (0.15-1.2)
[2024-05-20 09:07] LABS: Slide Review Slide Review Perform
[2024-05-24] MEDS: SODIUM CHLORIDE 0.9% IV (10:41)
[2024-05-24] MEDS: FERRIC CARBOXY IV (10:41)
[2024-05-24 11:25] VITALS: BP 165/84; PULSE 52; TEMP 36.6; O2SAT 96
== END 2024-06-11 23:59 | disposition home or self-care (01) ==
PROVIDERS: Nurse Practitioner Family; PCP Nurse Practitioner Family; Visit Provider Internal Medicine
DX: D46.1 Refractory anemia with ring sideroblasts (principal); D50.9 Iron deficiency anemia, unspecified; I10 Essential (primary) hypertension; Z79.899 Other long term (current) drug therapy; Z87.891 Personal history of nicotine dependence
CPT/HCPCS: 36415; 80053; 83615; 85025; 96365; 99213; 99214; J1439

== ENCOUNTER → 2024-06-21 15:12 | Outpatient (BNVA) | payer MEDICARE, OTHER, SELFPAY | PROVIDERS: Family Provider Nurse Practitioner Family; PCP Nurse Practitioner Family; Visit Provider Nurse Practitioner Family | DX: N39.0 Urinary tract infection, site not specified (principal) | CPT/HCPCS: 81003; 87086 ==

== ENCOUNTER → 2024-06-29 08:35 | Outpatient (BNVA) | payer MEDICARE, OTHER, SELFPAY | PROVIDERS: Family Provider Nurse Practitioner Family; PCP Nurse Practitioner Family; Visit Provider Physician Assistant | DX: M17.12 Unilateral primary osteoarthritis, left knee (principal); S83.207A Unspecified tear of unspecified meniscus, current injury, left knee, initial encounter; X58.XXXA Exposure to other specified factors, initial encounter | CPT/HCPCS: 99213 ==

== ENCOUNTER → 2024-06-30 09:54 | Outpatient (BNVA) | payer MEDICARE, OTHER, SELFPAY | PROVIDERS: Family Provider Nurse Practitioner Family; PCP Nurse Practitioner Family; Visit Provider Nurse Practitioner Family | DX: D50.9 Iron deficiency anemia, unspecified (principal); D46.1 Refractory anemia with ring sideroblasts | CPT/HCPCS: 80053; 82728; 83550; 85025 ==

== ENCOUNTER 2024-07-01 08:22 | Oncology outpatient (recurring) (ONCR) | payer MEDICARE, OTHER, SELFPAY ==
[2024-07-01] MEDS: luspatercept-aamt 25 mg 95.5 MG SUBCUT (09:37)
== END 2024-07-01 23:59 | disposition home or self-care (01) ==
PROVIDERS: Family Provider Nurse Practitioner Family; PCP Nurse Practitioner Family; Visit Provider Internal Medicine
DX: Z53.9 Procedure and treatment not carried out, unspecified reason; D46.1 Refractory anemia with ring sideroblasts; D50.9 Iron deficiency anemia, unspecified; N45.1 Epididymitis; Z79.899 Other long term (current) drug therapy; D46.9 Myelodysplastic syndrome, unspecified
CPT/HCPCS: 17000; 96377; 99214; J0896

== ENCOUNTER → 2024-07-12 08:59 | Outpatient (BNVA) | payer MEDICARE, OTHER, SELFPAY | PROVIDERS: Family Provider Nurse Practitioner Family; PCP Nurse Practitioner Family; Visit Provider Anesthesiology Pain Medicine | DX: M54.9 Dorsalgia, unspecified (principal); G89.29 Other chronic pain; M54.41 Lumbago with sciatica, right side; M47.816 Spondylosis without myelopathy or radiculopathy, lumbar region | CPT/HCPCS: 99214 ==

== ENCOUNTER → 2024-07-20 14:22 | Outpatient (BNVA) | payer MEDICARE, OTHER, SELFPAY | PROVIDERS: Family Provider Nurse Practitioner Family; PCP Nurse Practitioner Family; Visit Provider Anesthesiology Pain Medicine | DX: M47.816 Spondylosis without myelopathy or radiculopathy, lumbar region (principal); M54.9 Dorsalgia, unspecified; G89.29 Other chronic pain; Z87.891 Personal history of nicotine dependence | CPT/HCPCS: 64635; 64636; 80053; 85007; 85025; J9999 ==

== ENCOUNTER → 2024-07-21 10:02 | Outpatient (BNVA) | payer MEDICARE, OTHER, SELFPAY | PROVIDERS: Family Provider Nurse Practitioner Family; PCP Nurse Practitioner Family; Visit Provider Physician Assistant | DX: M17.12 Unilateral primary osteoarthritis, left knee (principal); S83.207A Unspecified tear of unspecified meniscus, current injury, left knee, initial encounter; X58.XXXA Exposure to other specified factors, initial encounter | CPT/HCPCS: 20610; 99213; J7318 ==

== ENCOUNTER 2024-07-22 09:57 | Oncology outpatient (recurring) (ONCR) | payer MEDICARE, OTHER, SELFPAY ==
[2024-07-22] MEDS: luspatercept-aamt 25 mg 100 MG SUBCUT (10:58)
== END 2024-07-22 23:59 | disposition home or self-care (01) ==
PROVIDERS: Family Provider Nurse Practitioner Family; PCP Nurse Practitioner Family; Visit Provider Internal Medicine
DX: D46.1 Refractory anemia with ring sideroblasts (principal); D50.9 Iron deficiency anemia, unspecified; R21 Rash and other nonspecific skin eruption; Z79.899 Other long term (current) drug therapy; Z87.891 Personal history of nicotine dependence
CPT/HCPCS: 96372; 99213; J0896

== ENCOUNTER → 2024-08-04 10:24 | Outpatient (BNVA) | payer MEDICARE, OTHER, SELFPAY | PROVIDERS: Family Provider Nurse Practitioner Family; PCP Nurse Practitioner Family; Visit Provider Anesthesiology Pain Medicine | DX: M47.816 Spondylosis without myelopathy or radiculopathy, lumbar region (principal); M54.9 Dorsalgia, unspecified; G89.29 Other chronic pain | CPT/HCPCS: 64635; 64636; J1010; J9999 ==

== ENCOUNTER → 2024-08-10 12:24 | Outpatient (BNVA) | payer MEDICARE, OTHER, SELFPAY | PROVIDERS: Family Provider Nurse Practitioner Family; PCP Nurse Practitioner Family; Visit Provider Internal Medicine Cardiovascular Disease | DX: I25.10 Atherosclerotic heart disease of native coronary artery without angina pectoris (principal); I10 Essential (primary) hypertension; Z86.73 Personal history of transient ischemic attack (TIA), and cerebral infarction without residual deficits | CPT/HCPCS: 99214 ==

== ENCOUNTER → 2024-08-11 11:26 | Outpatient (BNVA) | payer MEDICARE, OTHER, SELFPAY | PROVIDERS: Family Provider Nurse Practitioner Family; PCP Nurse Practitioner Family; Visit Provider Internal Medicine | DX: D46.1 Refractory anemia with ring sideroblasts (principal) | CPT/HCPCS: 80053; 83615; 84550; 85025 ==

== ENCOUNTER 2024-08-12 14:17 | Oncology outpatient (recurring) (ONCR) | payer MEDICARE, OTHER, SELFPAY | END 2024-09-11 23:59 | disposition home or self-care (01) | PROVIDERS: Family Provider Nurse Practitioner Family; PCP Nurse Practitioner Family; Visit Provider Internal Medicine | DX: D46.1 Refractory anemia with ring sideroblasts (principal); R03.0 Elevated blood-pressure reading, without diagnosis of hypertension; D50.9 Iron deficiency anemia, unspecified; Z79.899 Other long term (current) drug therapy | CPT/HCPCS: 99214 ==

== ENCOUNTER → 2024-08-23 08:55 | Outpatient (BNVA) | payer MEDICARE, OTHER, SELFPAY | PROVIDERS: Family Provider Nurse Practitioner Family; PCP Nurse Practitioner Family; Visit Provider Anesthesiology Pain Medicine | DX: M54.9 Dorsalgia, unspecified (principal); G89.29 Other chronic pain; M54.41 Lumbago with sciatica, right side; M47.816 Spondylosis without myelopathy or radiculopathy, lumbar region | CPT/HCPCS: 99214 ==

== ENCOUNTER → 2024-08-31 10:04 | Outpatient (BNVA) | payer MEDICARE, OTHER, SELFPAY | PROVIDERS: Family Provider Nurse Practitioner Family; PCP Nurse Practitioner Family; Visit Provider Internal Medicine | DX: D46.1 Refractory anemia with ring sideroblasts (principal) | CPT/HCPCS: 80053; 85025 ==

== ENCOUNTER → 2024-09-22 09:27 | Outpatient (BNVA) | payer MEDICARE, OTHER, SELFPAY | PROVIDERS: Family Provider Nurse Practitioner Family; PCP Nurse Practitioner Family; Visit Provider Internal Medicine | DX: D46.1 Refractory anemia with ring sideroblasts (principal) | CPT/HCPCS: 80053; 85025 ==

== ENCOUNTER 2024-09-23 11:23 | Oncology outpatient (recurring) (ONCR) | payer MEDICARE, OTHER, SELFPAY ==
[2024-09-23 12:25] VITALS: BP 124/78; PULSE 62; RESP 17; TEMP 36.6; O2SAT 98
[2024-09-23] MEDS: luspatercept-aamt 25 mg 95 MG SUBCUT (12:25)
== END 2024-09-23 23:59 | disposition home or self-care (01) ==
PROVIDERS: Family Provider Nurse Practitioner Family; PCP Nurse Practitioner Family; Visit Provider Internal Medicine
DX: D46.1 Refractory anemia with ring sideroblasts (principal); D50.9 Iron deficiency anemia, unspecified; D70.9 Neutropenia, unspecified; R41.3 Other amnesia; Z79.899 Other long term (current) drug therapy; Z87.891 Personal history of nicotine dependence
CPT/HCPCS: 96372; 99213; J0896

== ENCOUNTER → 2024-10-12 09:43 | Outpatient (BNVA) | payer MEDICARE, OTHER, SELFPAY | PROVIDERS: Family Provider Nurse Practitioner Family; PCP Nurse Practitioner Family; Visit Provider Internal Medicine | DX: E78.2 Mixed hyperlipidemia (principal); E11.9 Type 2 diabetes mellitus without complications; D46.1 Refractory anemia with ring sideroblasts; D50.9 Iron deficiency anemia, unspecified | CPT/HCPCS: 80053; 80061; 82607; 82728; 82746; 83010; 83036; 83550; 83615; 85025; 85045 ==

== ENCOUNTER 2024-10-14 10:24 | Oncology outpatient (recurring) (ONCR) | payer MEDICARE, OTHER, SELFPAY ==
[2024-10-14] MEDS: luspatercept-aamt 25 mg 95 MG SUBCUT (11:33)
== END 2024-10-18 10:01 | disposition home or self-care (01) ==
PROVIDERS: Family Provider Nurse Practitioner Family; PCP Nurse Practitioner Family; Visit Provider Internal Medicine
DX: D46.1 Refractory anemia with ring sideroblasts (principal); D50.9 Iron deficiency anemia, unspecified; R03.0 Elevated blood-pressure reading, without diagnosis of hypertension; D70.9 Neutropenia, unspecified; R41.3 Other amnesia; Z79.899 Other long term (current) drug therapy; Z87.891 Personal history of nicotine dependence
CPT/HCPCS: 96372; 99213; J0896

== ENCOUNTER → 2024-11-02 09:52 | Outpatient (BNVA) | payer MEDICARE, OTHER, SELFPAY | PROVIDERS: Family Provider Nurse Practitioner Family; PCP Nurse Practitioner Family; Visit Provider Internal Medicine | DX: D46.9 Myelodysplastic syndrome, unspecified (principal) | CPT/HCPCS: 80053; 83615; 85007; 85025 ==

== ENCOUNTER 2024-11-04 09:22 | Oncology outpatient (recurring) (ONCR) | payer MEDICARE, OTHER, SELFPAY ==
[2024-11-04] MEDS: luspatercept-aamt 25 mg 93.5 MG SUBCUT (10:49)
== END 2024-11-04 23:59 | disposition home or self-care (01) ==
PROVIDERS: Family Provider Nurse Practitioner Family; PCP Nurse Practitioner Family; Visit Provider Internal Medicine
DX: D46.1 Refractory anemia with ring sideroblasts (principal); R03.0 Elevated blood-pressure reading, without diagnosis of hypertension; D50.9 Iron deficiency anemia, unspecified; Z79.899 Other long term (current) drug therapy; Z87.891 Personal history of nicotine dependence; Z71.3 Dietary counseling and surveillance
CPT/HCPCS: 96401; 99214; J0896

== ENCOUNTER → 2024-11-23 10:03 | Outpatient (BNVA) | payer MEDICARE, OTHER, SELFPAY | PROVIDERS: Family Provider Nurse Practitioner Family; PCP Nurse Practitioner Family; Visit Provider Nurse Practitioner Family | DX: D46.9 Myelodysplastic syndrome, unspecified (principal) | CPT/HCPCS: 80053; 85025 ==

== ENCOUNTER 2024-11-25 10:45 | Oncology outpatient (recurring) (ONCR) | payer MEDICARE, OTHER, SELFPAY ==
[2024-11-25] MEDS: luspatercept-aamt 25 mg 95 MG SUBCUT (12:42)
== END 2024-11-25 23:59 | disposition home or self-care (01) ==
PROVIDERS: Family Provider Nurse Practitioner Family; PCP Nurse Practitioner Family; Visit Provider Internal Medicine
DX: D46.1 Refractory anemia with ring sideroblasts (principal); R03.0 Elevated blood-pressure reading, without diagnosis of hypertension; D50.9 Iron deficiency anemia, unspecified; E11.9 Type 2 diabetes mellitus without complications; L29.9 Pruritus, unspecified; Z79.899 Other long term (current) drug therapy; Z87.891 Personal history of nicotine dependence
CPT/HCPCS: 96401; 99213; J0896

== ENCOUNTER → 2024-12-07 12:46 | Outpatient (BNVA) | payer MEDICARE, OTHER, SELFPAY | PROVIDERS: Family Provider Nurse Practitioner Family; PCP Nurse Practitioner Family; Visit Provider Nurse Practitioner Family | DX: L29.89 Other pruritus (principal); L82.1 Other seborrheic keratosis; L81.4 Other melanin hyperpigmentation; L57.8 Other skin changes due to chronic exposure to nonionizing radiation; D48.5 Neoplasm of uncertain behavior of skin; L57.0 Actinic keratosis; R39.9 Unspecified symptoms and signs involving the genitourinary system; N39.0 Urinary tract infection, site not specified; R41.3 Other amnesia; R42 Dizziness and giddiness; E11.9 Type 2 diabetes mellitus without complications | CPT/HCPCS: 11102; 17000; 81000; 87077; 87086; 87184; 99214 ==

== ENCOUNTER → 2024-12-14 12:15 | Outpatient (BNVA) | payer MEDICARE, OTHER, SELFPAY | PROVIDERS: Family Provider Nurse Practitioner Family; PCP Nurse Practitioner Family; Visit Provider Internal Medicine | DX: D50.9 Iron deficiency anemia, unspecified (principal); D46.9 Myelodysplastic syndrome, unspecified | CPT/HCPCS: 80053; 85025 ==

== ENCOUNTER 2024-12-16 10:44 | Oncology outpatient (recurring) (ONCR) | payer MEDICARE, OTHER, SELFPAY ==
[2024-12-16] MEDS: luspatercept-aamt 25 mg 94.5 MG SUBCUT (12:34)
== END 2024-12-16 23:59 | disposition home or self-care (01) ==
PROVIDERS: Family Provider Nurse Practitioner Family; PCP Nurse Practitioner Family; Visit Provider Internal Medicine
DX: D46.1 Refractory anemia with ring sideroblasts (principal); R03.0 Elevated blood-pressure reading, without diagnosis of hypertension; D50.9 Iron deficiency anemia, unspecified; R21 Rash and other nonspecific skin eruption; L29.9 Pruritus, unspecified; N39.0 Urinary tract infection, site not specified; Z87.891 Personal history of nicotine dependence; Z79.899 Other long term (current) drug therapy
CPT/HCPCS: 96372; 99214; J0896

== ENCOUNTER → 2024-12-22 10:50 | Outpatient (BNVA) | payer MEDICARE, OTHER, SELFPAY | PROVIDERS: Family Provider Nurse Practitioner Family; PCP Nurse Practitioner Family; Visit Provider Nurse Practitioner Family | DX: N39.0 Urinary tract infection, site not specified (principal) | CPT/HCPCS: 81000 ==

== ENCOUNTER → 2025-01-04 08:40 | Outpatient (BNVA) | payer MEDICARE, OTHER, SELFPAY | PROVIDERS: Family Provider Nurse Practitioner Family; PCP Nurse Practitioner Family; Visit Provider Internal Medicine | DX: N39.0 Urinary tract infection, site not specified (principal); D46.9 Myelodysplastic syndrome, unspecified | CPT/HCPCS: 80053; 81000; 83615; 85025; 87077; 87086; 87184 ==

== ENCOUNTER 2025-01-06 11:18 | Oncology outpatient (recurring) (ONCR) | payer MEDICARE, OTHER, SELFPAY | END 2025-01-11 23:59 | disposition home or self-care (01) | PROVIDERS: Family Provider Nurse Practitioner Family; PCP Nurse Practitioner Family; Visit Provider Internal Medicine | DX: D46.1 Refractory anemia with ring sideroblasts (principal); R03.0 Elevated blood-pressure reading, without diagnosis of hypertension; D50.9 Iron deficiency anemia, unspecified; R21 Rash and other nonspecific skin eruption; E11.40 Type 2 diabetes mellitus with diabetic neuropathy, unspecified; M25.569 Pain in unspecified knee; M79.605 Pain in left leg; M79.604 Pain in right leg; Z87.891 Personal history of nicotine dependence; Z79.899 Other long term (current) drug therapy | CPT/HCPCS: 99214 ==

== ENCOUNTER → 2025-01-10 12:36 | Outpatient (BNVA) | payer MEDICARE, OTHER, SELFPAY | PROVIDERS: Family Provider Nurse Practitioner Family; PCP Nurse Practitioner Family; Visit Provider Dermatology | DX: C44.311 Basal cell carcinoma of skin of nose (principal) | CPT/HCPCS: 12051; 17311 ==

== ENCOUNTER → 2025-01-18 15:24 | Outpatient (BNVA) | payer MEDICARE, OTHER, SELFPAY | PROVIDERS: Family Provider Nurse Practitioner Family; PCP Nurse Practitioner Family; Visit Provider Dermatology | DX: L91.8 Other hypertrophic disorders of the skin (principal); L82.1 Other seborrheic keratosis | CPT/HCPCS: 99212 ==

== ENCOUNTER → 2025-01-25 10:30 | Outpatient (BNVA) | payer MEDICARE, OTHER, SELFPAY | PROVIDERS: Family Provider Nurse Practitioner Family; PCP Nurse Practitioner Family; Visit Provider Physician Assistant | DX: M17.12 Unilateral primary osteoarthritis, left knee (principal); S83.207A Unspecified tear of unspecified meniscus, current injury, left knee, initial encounter; G89.29 Other chronic pain; S83.207D Unspecified tear of unspecified meniscus, current injury, left knee, subsequent encounter; X58.XXXD Exposure to other specified factors, subsequent encounter; M25.861 Other specified joint disorders, right knee | CPT/HCPCS: 73560; 73565; 80053; 81003; 85025; 99213 ==

== ENCOUNTER 2025-01-27 12:55 | Oncology outpatient (recurring) (ONCR) | payer MEDICARE, OTHER, SELFPAY | END 2025-02-11 23:59 | disposition home or self-care (01) | PROVIDERS: Family Provider Nurse Practitioner Family; PCP Nurse Practitioner Family; Visit Provider Internal Medicine | DX: Z53.9 Procedure and treatment not carried out, unspecified reason; D46.1 Refractory anemia with ring sideroblasts; R03.0 Elevated blood-pressure reading, without diagnosis of hypertension; D50.9 Iron deficiency anemia, unspecified; R21 Rash and other nonspecific skin eruption; L29.9 Pruritus, unspecified; Z87.891 Personal history of nicotine dependence; Z79.899 Other long term (current) drug therapy | CPT/HCPCS: 99213 ==

== ENCOUNTER → 2025-02-07 11:48 | Outpatient (BNVA) | payer MEDICARE, OTHER, SELFPAY | PROVIDERS: Family Provider Nurse Practitioner Family; PCP Nurse Practitioner Family; Visit Provider Nurse Practitioner Family | DX: E11.42 Type 2 diabetes mellitus with diabetic polyneuropathy (principal); E78.2 Mixed hyperlipidemia; R30.0 Dysuria; K59.09 Other constipation | CPT/HCPCS: 80053; 80061; 81000; 83036; 84443; 85025; 87086 ==

== ENCOUNTER → 2025-02-15 08:28 | Outpatient (BNVA) | payer MEDICARE, OTHER, SELFPAY | PROVIDERS: Family Provider Nurse Practitioner Family; PCP Nurse Practitioner Family; Visit Provider Internal Medicine | DX: D46.9 Myelodysplastic syndrome, unspecified (principal) | CPT/HCPCS: 80053; 85025 ==

== ENCOUNTER → 2025-02-21 12:51 | Outpatient (BNVA) | payer MEDICARE, OTHER, SELFPAY | PROVIDERS: PCP Nurse Practitioner Family; Visit Provider Family Medicine | DX: N39.0 Urinary tract infection, site not specified (principal); N20.0 Calculus of kidney | CPT/HCPCS: 81000; 87086 ==

== ENCOUNTER 2025-03-03 09:55 | Oncology outpatient (recurring) (ONCR) | payer MEDICARE, OTHER, SELFPAY ==
[2025-03-03 10:25] LABS: Hematocrit 29.0 % (37-53); Hemoglobin 8.70 g/dL (11.27-16.99); Mean Corpuscular HGB Conc 30.0 g/dL (30-55); Mean Corpuscular Hemoglobin 28.1 pg (27-33); Mean Corpuscular Volume 93.5 fl (82-101); Nucleated Red Blood Cells % 0 %; Platelet Count 129 10^3/cmm (157-399); Red Blood Count 3.10 10^6/uL (3.85-5.65); White Blood Count 3.07 10^3/uL (3.29-11.43)
[2025-03-03 10:49] LABS: Partial Thromboplastin Time 26.4 SECONDS (23.9-36.7)
[2025-03-03 10:52] LABS: Alanine Aminotransferase 16 U/L (0-41); Albumin Level 4.4 g/dL (3.5-5.2); Alkaline Phosphatase 76 U/L (40-130); Anion Gap 13.2 (5-19); Aspartate Amino Transferase 17 U/L (0-40); Blood Urea Nitrogen 15 mg/dL (8-23); Calcium 8.9 mg/dL (8.5-10.5); Carbon Dioxide 26 mmol/L (22-29); Chloride 107 mmol/L (98-107); Globulin 3.0 g/dL (1.3-4.6); Glucose 80 mg/dL (65-115); Osmolality Calculated 294 mOsm/kg (285-295); Potassium 4.2 mmol/L (3.5-5.1); Sodium 142 mmol/L (136-145); Total Protein 7.4 g/dL (6.6-8.7)
[2025-03-03 10:56] LABS: Slide Review Slide Review Perform
[2025-03-03] MEDS: hydrocortisone 100 mg/2 mL SDV IVP (12:04)
[2025-03-03 15:10] VITALS: BP 161/94; PULSE 70; RESP 17; TEMP 36.1; O2SAT 99
== END 2025-03-03 23:59 | disposition home or self-care (01) ==
PROVIDERS: Nurse Practitioner; PCP Nurse Practitioner Family; Visit Provider Internal Medicine
DX: Z53.9 Procedure and treatment not carried out, unspecified reason; D46.1 Refractory anemia with ring sideroblasts; D50.9 Iron deficiency anemia, unspecified; R21 Rash and other nonspecific skin eruption; D46.9 Myelodysplastic syndrome, unspecified
CPT/HCPCS: 36415; 80053; 83615; 85025; 85730; 96365; 96366; 96375; 99213; 99215; J0870; J1720; J7040; J7050

== ENCOUNTER 2025-03-09 07:41 | Oncology outpatient (recurring) (ONCR) | payer MEDICARE, OTHER, SELFPAY ==
[2025-03-09 08:17] LABS: Hematocrit 27.2 % (37-53); Hemoglobin 8.20 g/dL (11.27-16.99); Mean Corpuscular HGB Conc 30.1 g/dL (30-55); Mean Corpuscular Hemoglobin 28.5 pg (27-33); Mean Corpuscular Volume 94.4 fl (82-101); Nucleated Red Blood Cells % 0 %; Platelet Count 107 10^3/cmm (157-399); Red Blood Count 2.88 10^6/uL (3.85-5.65); White Blood Count 3.49 10^3/uL (3.29-11.43)
[2025-03-09 08:49] LABS: Alanine Aminotransferase 23 U/L (0-41); Albumin Level 4.5 g/dL (3.5-5.2); Alkaline Phosphatase 85 U/L (40-130); Anion Gap 13.1 (5-19); Aspartate Amino Transferase 21 U/L (0-40); Blood Urea Nitrogen 13 mg/dL (8-23); Calcium 9.2 mg/dL (8.5-10.5); Carbon Dioxide 28 mmol/L (22-29); Chloride 106 mmol/L (98-107); Globulin 2.6 g/dL (1.3-4.6); Glucose 111 mg/dL (65-115); Osmolality Calculated 297 mOsm/kg (285-295); Potassium 4.1 mmol/L (3.5-5.1); Sodium 143 mmol/L (136-145); Total Protein 7.1 g/dL (6.6-8.7)
== END 2025-03-13 23:59 | disposition home or self-care (01) ==
PROVIDERS: Nurse Practitioner; PCP Nurse Practitioner Family; Visit Provider Internal Medicine
DX: Z53.9 Procedure and treatment not carried out, unspecified reason; D46.1 Refractory anemia with ring sideroblasts; D50.9 Iron deficiency anemia, unspecified; R21 Rash and other nonspecific skin eruption; R04.0 Epistaxis; Z87.891 Personal history of nicotine dependence
CPT/HCPCS: 36415; 80053; 83615; 85025; 99213

== ENCOUNTER → 2025-03-15 09:02 | Outpatient (BNVA) | payer MEDICARE, OTHER, SELFPAY | PROVIDERS: PCP Nurse Practitioner Family; Visit Provider Internal Medicine | DX: D50.9 Iron deficiency anemia, unspecified (principal); D46.1 Refractory anemia with ring sideroblasts; N39.0 Urinary tract infection, site not specified; N20.0 Calculus of kidney | CPT/HCPCS: 80053; 81003; 83010; 83615; 84550; 85025; 85045; 85610; 87086 ==

== ENCOUNTER → 2025-03-23 09:55 | Outpatient (BNVA) | payer MEDICARE, OTHER, SELFPAY | PROVIDERS: PCP Nurse Practitioner Family; Visit Provider Internal Medicine | DX: D46.1 Refractory anemia with ring sideroblasts (principal) | CPT/HCPCS: 80053; 83615; 85025 ==

== ENCOUNTER → 2025-03-29 10:36 | Outpatient (BNVA) | payer MEDICARE, OTHER, SELFPAY | PROVIDERS: PCP Nurse Practitioner Family; Visit Provider Internal Medicine | DX: N39.0 Urinary tract infection, site not specified (principal); N20.0 Calculus of kidney; D46.1 Refractory anemia with ring sideroblasts | CPT/HCPCS: 80053; 81000; 85025; 87086 ==

== ENCOUNTER 2025-03-31 10:30 | Oncology outpatient (recurring) (ONCR) | payer MEDICARE, OTHER, SELFPAY ==
--- NOTE | 2025-03-16 11:19 | XR_ITS ---
WS: [id number] Exam: XR KUB [id number] Date/Time of Exam: 03/16/2025 11:38 AM Reason For Exam: abdominal pain Comparison 04/21/2021. No sign of bowel obstruction or pneumoperitoneum. Nonacute bowel gas pattern. Moderately advanced DJD of the lumbar spine and spondylosis. XR/XR KUB [id number] IMPRESSION: 1. No acute finding.
[2025-03-24 11:45] LABS: Hematocrit 25.6 % (37-53); Hemoglobin 7.90 g/dL (11.27-16.99); Mean Corpuscular HGB Conc 30.9 g/dL (30-55); Mean Corpuscular Hemoglobin 29.6 pg (27-33); Mean Corpuscular Volume 95.9 fl (82-101); Nucleated Red Blood Cells % 0 %; Platelet Count 64 10^3/cmm (157-399); Red Blood Count 2.67 10^6/uL (3.85-5.65); White Blood Count 3.85 10^3/uL (3.29-11.43)
--- NOTE | 2025-03-24 12:24 | USR_ITS ---
PROCEDURE INFORMATION: Exam: US Retroperitoneal, Complete, Kidneys and Bladder Exam date and time: 03/24/2025 12:31 PM Age: 84 years old Clinical indication: Condition or disease; Kidney or ureter condition; Other: UTI; Additional info: Complicated UTI TECHNIQUE: Imaging protocol: Real-time ultrasound of the retroperitoneum with image documentation. Complete exam focused on the bilateral kidneys and urinary bladder. COMPARISON: CT kidney stone [id number] 12/29/2023 3:48 PM FINDINGS: Right kidney: Right kidney measures 10.6 x 5.8 x 5.5 cm with a 3D volume of 176 cc. The renal cortex measures 1.3 cm. There is increased echogenicity of the renal cortex consistent with medical renal disease. A small 1 cm simple cyst is seen in the lower pole. There is no hydronephrosis. Left kidney: Left kidney measures 11.9 x 5.1 x 5.5 cm with a 3D volume of 176 cc.. Left renal cortex measures 1.1 cm. There is increased echogenicity of the renal parenchyma consistent with medical renal disease. Several cysts are present that appear simple. One on the lower pole measures 2.7 cm. One in the upper pole measures 1.4 cm. Urinary bladder: The bladder contained 154 cc with a postvoid residual of 11 cc. Ureteral jets were visualized. Prostate: The prostate measures 2.8 x 3 x 3.1 cm.. Gallbladder: Gallstones are noted. US/US renal BI w/PV bladder [id number] IMPRESSION: 1. Increased echogenicity of the renal parenchyma bilaterally consistent with medical renal disease. 2. Bilateral simple renal cysts. No further follow-up is needed. 3. No evidence of hydronephrosis. 4. Cholelithiasis
[2025-03-24 13:55] VITALS: BP 136/56; PULSE 58; RESP 16; TEMP 36.7; O2SAT 93
[2025-03-24 14:10] VITALS: BP 130/57; PULSE 61; RESP 16; TEMP 36.8; O2SAT 95
[2025-03-24 14:25] VITALS: BP 146/60; PULSE 62; RESP 16; TEMP 36.7; O2SAT 97
[2025-03-24 14:55] VITALS: BP 136/57; PULSE 70; RESP 16; TEMP 36.8; O2SAT 96
[2025-03-24 15:41] VITALS: BP 147/69; PULSE 62; RESP 16; TEMP 36.8; O2SAT 96
[2025-03-24 15:47] VITALS: BP 147/69; PULSE 62; RESP 16; TEMP 36.8; O2SAT 96
[2025-03-25] VITALS (7 sets, daily range): BP systolic 128–144; BP diastolic 58–77; PULSE 51–58; RESP 17–18; TEMP 35.9–36.3; O2SAT 97–100
[2025-03-31 10:43] VITALS: BP 151/66; PULSE 61; RESP 17; TEMP 36.6; O2SAT 96
[2025-03-31] MEDS: hydrocortisone 100 mg/2 mL SDV IVP (11:09)
[2025-03-31 13:42] VITALS: BP 163/65; PULSE 80; RESP 17; TEMP 36.4; O2SAT 99
== END 2025-03-31 23:59 | disposition home or self-care (01) ==
PROVIDERS: Nurse Practitioner Family; PCP Nurse Practitioner Family; Visit Provider Internal Medicine
DX: D46.1 Refractory anemia with ring sideroblasts; Z79.899 Other long term (current) drug therapy; Z53.9 Procedure and treatment not carried out, unspecified reason
CPT/HCPCS: 36430; 74018; 76770; 76857; 85025; 86850; 86900; 86920; 96365; 96366; 96375; 99214; 99215; J0870; J1720; J7040; J7050; J9999; P9016